=== PATIENT | female | born 1935 | race Caucasian/White ===

== ENCOUNTER → 2016-06-15 | Outpatient (CLI) | payer MEDICARE, OTHER ==
--- NOTE | 2016-06-15 15:32 | BD ---
EXAMINATION TYPE: MG DEXA axial skeleton. DATE OF EXAM: 06/15/2016 3:00 PM COMPARISON: NONE CLINICAL HISTORY: Height: 180 lbs Weight: 62 in FRAX RISK QUESTIONS: Alcohol (3 or more units per day): NO Family History (Parent hip fracture): NO Glucocorticoids (More than 3mos): NO (Ex: prednisone, prednisolone, methylprednisolone, dexamethasone, and hydrocortisone). History of Fracture in Adulthood: YES HUMERUS FX AGE 74 Secondary Osteoporosis: 1. Type 1 Diabetes: NO 2. Hyperthyroidism: NO 3. Menopause before 45: AGE 34 4. Malnutrition: NO 5. Chronic liver disease: NO Rheumatoid Arthritis: NO Current Tobacco Use: NO RISK FACTORS HISTORY OF: Other Fractures since Age 52: YES HUMERUS When: AGE 70 Active: YES Postmenopausal woman: AGE 34 MEDICATIONS: Thyroid Medications: YES Which medication: Synthroid How Lon + YRS Additional Medications: CALCIUM, VIT D, SYNTHROID,FUROSEMIDE, ASPIRIN, CRESTOR, ADVAIR, ARICEPT, METO PROLOL, WARFARIN, KLOR-CON, EXAM MEASUREMENTS: Bone mineral densitometry was performed using the [employer] System. Bone mineral density as measured about the Lumbar spine is: ----- L1-L4(G/cm2): 1.266 T Score Values are as follows: ----- L2: 0.2 ----- L3: 0.7 ----- L4: 2.2 ----- L1-L4: 0.7 Bone mineral density has: Decreased -2.5% since study of: 07/07/2001 Bone mineral density about the R hip (g/cm2): 0.831 Bone mineral density about the L hip (g/cm2): 0.798 T Score values are as follows: -----R Neck: -1.5 -----L Neck: -1.7 -----R Intertrochanter: -1.8 -----L Intertrochanter: -1.6 Bone mineral density has: Decreased -9.3% since study of: 07/07/2001 IMPRESSION: Osteopenia (T Score between -2.5 and -1 as noted by T score values There is slightly increased risk of fracture and the patient may be considered for treatment. Re-Screen 1-2 years. JASON HIPS NOTE: T-SCORE=SD OF THE YOUNG ADULT MEAN.
--- NOTE | 2016-06-16 11:50 | MM ---
Reason for exam: screening (asymptomatic). Last mammogram was performed 1 year and 5 months ago. History: Patient is postmenopausal. Physical Findings: A clinical breast exam by your physician is recommended on an annual basis and results should be correlated with mammographic findings. MG 3D Screening Mammo W/Cad Bilateral CC and MLO view(s) were taken. Prior study comparison: December 30, 2014, bilateral MG screening mammo w CAD. November 07, 2013, bilateral MG screening mammo w CAD. There are scattered fibroglandular densities. No significant changes when compared with prior studies. ASSESSMENT: Benign, BI-RAD 2 RECOMMENDATION: Routine screening mammogram of both breasts in 1 year.
== END | disposition home or self-care (01) ==
LOC: RADBDWWP 14:23
PROVIDERS: ATTEND Internal Medicine
DX: Z12.31 Encounter for screening mammogram for malignant neoplasm of breast (principal); M85.80 Other specified disorders of bone density and structure, unspecified site
CPT/HCPCS: 77080; 77063; G0202

== ENCOUNTER 2017-02-07 13:19 | Emergency (ER) | payer MEDICARE, OTHER ==
[2017-02-07 13:28] VITALS: TEMP 98
--- NOTE | 2017-02-07 13:55 | ED ---
Chest Pain HPI - General Chief Complaint: Chest Pain Stated Complaint: Chest Pain Time Seen by Provider: 02/07/17 13:34 Source: patient, RN notes reviewed Mode of arrival: wheelchair Limitations: no limitations - History of Present Illness Initial Comments: This is a 81-year-old female history of UT and history of CVA in the past who is status post a right carotid end arterectomy about 8 years ago who states she has sudden onset around 1 PM this afternoon of sharp right-sided chest pain. She states the pain was about 3/10 severity was also associated with some numbness to her tongue. The numbness has since resolved the chest pain has since resolved. She's never had pain or numbness quite like this before she also complains of a frontal headache aching in nature 2-3/10 severity this is also improved at this time. She denies any visual loss any focal weakness to her upper or lower extremities. No difficulty breathing no cough or phlegm production at this time. She also denies any fevers chills sweats. She denies any nasal drainage or discharge. She does say when she had her stroke she had about 15 minutes of right eye blindness but no other symptoms at this time. This resolved spontaneously she did not seek medical care at that time she did later in the resulted in the endarterectomy. She voices no other complaints at this time. MD Complaint: chest pain, other - Related Data Home Medications Medication Instructions Recorded Confirmed Aspirin [Children's Aspirin] 81 mg PO HS 02/07/17 02/07/17 Donepezil [Aricept] 5 mg PO HS 02/07/17 02/07/17 Fluticasone/Salmeterol [Advair 2 puff INHALATION RT-BID 02/07/17 02/07/17 250-50 Diskus] Furosemide [Lasix] 20 mg PO DAILY PRN 02/07/17 02/07/17 Levothyroxine Sodium [Synthroid] 88 mcg PO DAILY 02/07/17 02/07/17 Lisinopril-Hctz 20-25 mg 1 tab PO DAILY 02/07/17 02/07/17 [Zestoretic 20-25] Metoprolol Succinate [Toprol XL] 25 mg PO HS 02/07/17 02/07/17 Potassium Chloride [Klor-Con 10] 10 meq PO DAILY PRN 02/07/17 02/07/17 Rosuvastatin [Crestor] 20 mg PO MOWEFR 02/07/17 02/07/17 Warfarin [Coumadin] 2.5 mg PO TUSA 02/07/17 02/07/17 Warfarin [Coumadin] 5 mg PO SUMOWETHFR 02/07/17 02/07/17 Allergies Allergy/AdvReac Type Severity Reaction Status Date / Time No Known Allergies Allergy Verified 02/07/17 14:09 Review of Systems ROS Statement: Those systems with pertinent positive or pertinent negative responses have been documented in the HPI. ROS Other: All systems not noted in ROS Statement are negative. EKG Findings - EKG Results: EKG: interpreted by ERMD, sinus rhythm (Sinus rhythm rate 62 appear interval to 36 QRS 80 QT since QTC of 46/412 low-voltage QRS nonspecific septal changes some artifact is present.) Past Medical History Past Medical History: Asthma, CVA/TIA, Hypertension, Thyroid Disorder History of Any Multi-Drug Resistant Organisms: None Reported Past Surgical History: Hysterectomy Additional Past Surgical History / Comment(s): carotidectomy Past Psychological History: No Psychological Hx Reported Smoking Status: Former smoker Past Alcohol Use History: Rare Past Drug Use History: None Reported General Exam - General Exam Comments Initial Comments: This is a well-developed well-nourished awake alert oriented 3 female Limitations: no limitations General appearance: alert, in no apparent distress Head exam: Present: atraumatic, normocephalic, normal inspection Eye exam: Present: normal appearance, PERRL, EOMI. Absent: scleral icterus, conjunctival injection, periorbital swelling ENT exam: Present: mucous membranes dry Neck exam: Present: normal inspection. Absent: tenderness, meningismus, lymphadenopathy Respiratory exam: Present: normal lung sounds bilaterally, chest wall tenderness (Reproducible tenderness palpation over the right costal sternal margin the right costal chondral margin. No step-off or crepitation), other ( No rashes noted). Absent: respiratory distress, wheezes, rales, rhonchi, stridor Cardiovascular Exam: Present: regular rate, normal rhythm, normal heart sounds. Absent: systolic murmur, diastolic murmur, rubs, gallop, clicks GI/Abdominal exam: Present: soft, normal bowel sounds. Absent: distended, tenderness, guarding, rebound, rigid, bruit, pulsatile mass, hernia Extremities exam: Present: normal inspection, full ROM, normal capillary refill. Absent: tenderness, pedal edema, joint swelling, calf tenderness Back exam: Present: normal inspection Neurological exam: Present: alert, oriented X3, CN II-XII intact Psychiatric exam: Present: normal affect, normal mood Skin exam: Present: warm, dry, intact, normal color. Absent: rash Course Vital Signs 02/07/17 13:25 Temperature 98 F Pulse Rate 64 Respiratory 18 Rate Blood Pressure 190/80 O2 Sat by Pulse 94 L Oximetry Chest Pain MDM - MDM Patient is feeling improved after IV hydration and IV blood pressure medication. She'll be discharged she is a follow-up with her doctor and return when necessary the presentation is consistent with chest wall pain and dehydration. Disposition Clinical Impression: Chest wall syndrome, Costalchondritis, Dehydration, Hypertension Disposition: HOME SELF-CARE Condition: Good Instructions: Costochondritis (ED), Dehydration (ED), Hypertension (ED) Referrals: Melani Bertrand MD [Primary Care Provider] - 1-2 days
--- NOTE | 2017-02-07 14:15 | XR ---
EXAMINATION TYPE: XR chest 2V DATE OF EXAM: 02/07/2017 COMPARISON: 04/15/2014 HISTORY: 81-year-old female with right-sided chest pain TECHNIQUE: AP and lateral views FINDINGS: Heart is normal size. Atherosclerotic arch calcifications. There is mild diffuse interstitial promine nce. Some strandy atelectasis or scarring at the posterior lung bases. No consolidation or pleural ef fusion. IMPRESSION: Chronic changes without acute process identified.
[2017-02-07 14:31] LABS: Basophils # (A) 0.2 k/uL (0-0.2); Basophils % (A) 2 %; CHCM 33.9; Eosinophils # (A) 0.5 k/uL (0-0.7); Eosinophils % (A) 5 %; HCT 47.8 % (34.0-46.0); HDW 2.53; HGB 15.8 gm/dL (11.4-16.0); Luc % (Auto) 3; Lymphocytes # (A) 5.4 k/uL (1.0-4.8); Lymphocytes % (A) 47 %; MCH 32.2 pg (25.0-35.0); MCHC 32.9 g/dL (31.0-37.0); MCV 97.8 fL (80.0-100.0); Mean Platelet Volume 9.1; Monocytes # (A) 0.6 k/uL (0-1.0); Monocytes % (A) 5 %; Neutrophils # (A) 4.5 k/uL (1.3-7.7); Neutrophils % (A) 39 %; RBC 4.89 m/uL (3.80-5.40); RDW 14.6 % (11.5-15.5); WBC 11.5 k/uL (3.8-10.6); WBC (Perox) 10.87
--- NOTE | 2017-02-07 14:39 | CT ---
EXAMINATION TYPE: CT brain wo con DATE OF EXAM: 02/07/2017 HISTORY: Hypertension, headache and chest pain CT DLP: 1090.4 mGycm. Automated Exposure Control for Dose Reduction was Utilized. TECHNIQUE: CT scan of the head is performed without contrast. COMPARISON: CT brain June 06, 2015. FINDINGS: There is no acute intracranial hemorrhage or midline shift identified. There is diffuse v entricular and sulcal prominence consistent with diffuse age-related cerebral atrophy. There is low- attenuation in the periventricular white matter consistent with chronic small vessel ischemic change. Old infarct high right frontal lobe anteriorly is redemonstrated. There is redemonstration of ossifi cation of the anterior interhemispheric fissure. The globes are intact and the visualized sinuses are clear. Patchy soft tissue density left extra auditory canal likely reflects cerumen. IMPRESSION: No acute intracranial hemorrhage or midline shift. There is moderate diffuse age-relate d cerebral atrophy and chronic small vessel ischemic change as well as old superior right frontal lob e infarct all redemonstrated.
[2017-02-07 14:41] LABS: ALT 33 U/L (9-52); AST 36 U/L (14-36); Alkaline Phosphatase 86 U/L (38-126); Amylase 86 U/L (30-110); Anion Gap 9 mmol/L; Blood Urea Nitrogen 14 mg/dL (7-17); Calcium 9.9 mg/dL (8.4-10.2); Carbon Dioxide 23 mmol/L (22-30); Chloride 110 mmol/L (98-107); Glucose 96 mg/dL (74-99); Magnesium 2.1 mg/dL (1.6-2.3); Non-African American GFR(MDRD) 54 (>60 ml/min/1.73 sqM); Sodium 142 mmol/L (137-145); Total Bilirubin 0.6 mg/dL (0.2-1.3); Total Protein 7.2 g/dL (6.3-8.2)
[2017-02-07] MEDS ORDERED: SODIUM CHLORIDE 0.9% 500 ML IV STA (14:41)
[2017-02-07] MEDS ORDERED: ENALAPRILAT 1.25 MG/ML 1 ML VIAL IVP STA (14:41)
[2017-02-07 14:54] LABS: INR 2.9 (<1.2); Partial Thromboplastin Time 30.6 sec (22.0-30.0); Prothrombin Time 27.9 sec (9.0-12.0)
[2017-02-07 14:55] LABS: Creatine Kinase 80 U/L (30-135); Polychromasia Present
[2017-02-07 15:06] LABS: Creatine Kinase MB 0.7 ng/mL (0.0-2.4); Troponin I <0.012 ng/mL (0.000-0.034)
[2017-02-07 16:02] VITALS: BP 188/89; PULSE 87; RESP 20
[2017-02-09 14:50] LABS: Mis test requested (Blood) B Cell Flow Cyto
== END 2017-02-07 16:03 | disposition home or self-care (01) ==
LOC: EC 13:19
DX: M94.0 Chondrocostal junction syndrome [Tietze] (principal); E86.0 Dehydration; I10 Essential (primary) hypertension; J45.909 Unspecified asthma, uncomplicated; E07.9 Disorder of thyroid, unspecified; Z86.73 Personal history of transient ischemic attack (TIA), and cerebral infarction without residual deficits; Z98.890 Other specified postprocedural states; Z87.891 Personal history of nicotine dependence; Z79.82 Long term (current) use of aspirin; Z79.51 Long term (current) use of inhaled steroids; Z79.01 Long term (current) use of anticoagulants; Z79.899 Other long term (current) drug therapy
CPT/HCPCS: 36415; 70450; 71020; 80053; 82150; 82550; 82553; 83690; 83735; 83880; 84484; 85025; 85379; 85610; 85730; 88184; 88185; 93005; 96361; 96374; 99285

== ENCOUNTER → 2017-09-21 | Outpatient (CLI) | payer MEDICARE, OTHER ==
--- NOTE | 2017-09-23 07:59 | MM ---
Reason for exam: screening (asymptomatic). Last mammogram was performed 1 year and 3 months ago. History: Patient is postmenopausal. Physical Findings: A clinical breast exam by your physician is recommended on an annual basis and results should be correlated with mammographic findings. MG 3D Screening Mammo W/Cad Bilateral CC and MLO view(s) were taken. Prior study comparison: June 15, 2016, bilateral MG 3d screening mammo w/cad. December 30, 2014, bilateral MG screening mammo w CAD. The breast tissue is heterogeneously dense. This may lower the sensitivity of mammography. Benign calcifications bilaterally. No suspicious abnormality. Chronic appearing bilateral nipple retraction. No significant changes when compared with prior studies. ASSESSMENT: Benign, BI-RAD 2 RECOMMENDATION: Routine screening mammogram of both breasts in 1 year.
== END | disposition home or self-care (01) ==
LOC: RADMAMWWP 10:47
PROVIDERS: ATTEND Internal Medicine
DX: Z12.31 Encounter for screening mammogram for malignant neoplasm of breast (principal)
CPT/HCPCS: 77063; 77067

== ENCOUNTER 2018-01-18 11:47 | Emergency (ER) | payer MEDICARE, OTHER ==
[2018-01-18 11:50] VITALS: RESP 18
[2018-01-18] MEDS ORDERED: SODIUM CHLORIDE 0.9% 500 ML IV STA (11:59)
[2018-01-18] MEDS ORDERED: DIAZEPAM 5 MG/ML 2 ML INJ IVP STA (11:59)
[2018-01-18] MEDS ORDERED: MECLIZINE 25 MG TAB PO STA (11:59)
[2018-01-18 12:19] LABS: Basophils # (A) 0.1 k/uL (0-0.2); Basophils % (A) 1 %; Eosinophils # (A) 0.1 k/uL (0-0.7); Eosinophils % (A) 1 %; HCT 49.3 % (34.0-46.0); Lymphocytes # (A) 4.2 k/uL (1.0-4.8); Lymphocytes % (A) 39 %; MCH 31.5 pg (25.0-35.0); MCHC 32.5 g/dL (31.0-37.0); MCV 96.8 fL (80.0-100.0); Mean Platelet Volume 7.9; Monocytes # (A) 0.6 k/uL (0-1.0); Monocytes % (A) 5 %; Neutrophils # (A) 5.4 k/uL (1.3-7.7); Neutrophils % (A) 51 %; Platelet Count 292 k/uL (150-450); RBC 5.09 m/uL (3.80-5.40); RDW 13.5 % (11.5-15.5); WBC 10.7 k/uL (3.8-10.6)
[2018-01-18 12:30] LABS: INR 3.2 (<1.2); Partial Thromboplastin Time 33.7 sec (22.0-30.0); Prothrombin Time 28.8 sec (9.0-12.0)
[2018-01-18 12:33] LABS: Albumin 3.5 g/dL (3.5-5.0); Calcium 9.8 mg/dL (8.4-10.2); Potassium 3.7 mmol/L (3.5-5.1); Total Bilirubin 0.8 mg/dL (0.2-1.3); Total Protein 6.7 g/dL (6.3-8.2)
--- NOTE | 2018-01-18 12:36 | ED ---
General Adult HPI - General Chief complaint: Dizziness Stated complaint: Dizzy Time Seen by Provider: 01/18/18 11:47 Source: patient, RN notes reviewed Mode of arrival: ambulatory Limitations: no limitations - History of Present Illness Initial comments: This is an 10-year-old female presents emergency Department complaining that she has been dizzy over the last few days but much worse today. Patient notes that the dizziness is worse when she has movement of her head from side to side or when she goes from standing to sitting. Patient denies any near syncopal episode. Patient denies any nausea or vomiting. Patient denies any numbness or weakness. Patient denies a headache. Patient denies any chest pain or palpitations. Patient denies any recent fever chills or cough. Patient denies any abdominal pain. Patient denies any recent injury or trauma. Patient denies any previous history of vertigo or dizziness some or to this. - Related Data Home Medications Medication Instructions Recorded Confirmed Aspirin [Children's Aspirin] 81 mg PO HS 02/07/17 01/18/18 Donepezil [Aricept] 5 mg PO HS 02/07/17 01/18/18 Fluticasone/Salmeterol [Advair 2 puff INHALATION RT-BID 02/07/17 01/18/18 250-50 Diskus] Furosemide [Lasix] 20 mg PO DAILY PRN 02/07/17 01/18/18 Levothyroxine Sodium [Synthroid] 88 mcg PO DAILY 02/07/17 01/18/18 Lisinopril-Hctz 20-25 mg 1 tab PO DAILY 02/07/17 01/18/18 [Zestoretic 20-25] Metoprolol Succinate [Toprol XL] 25 mg PO HS 02/07/17 01/18/18 Potassium Chloride [Klor-Con 10] 10 meq PO DAILY PRN 02/07/17 01/18/18 Rosuvastatin [Crestor] 20 mg PO MOWEFR 02/07/17 01/18/18 Warfarin [Coumadin] 2.5 mg PO TUSA 02/07/17 01/18/18 Warfarin [Coumadin] 5 mg PO SUMOWETHFR 02/07/17 01/18/18 Multivitamins, Thera [Multivitamin 1 tab PO DAILY 01/18/18 01/18/18 (formulary)] Previous Rx's Medication Instructions Recorded Albuterol Inhaler [Ventolin Hfa 1 - 2 puff INHALATION Q6HR PRN #2 01/18/18 Inhaler] puff Meclizine [Antivert] 25 mg PO TID #20 tab 01/18/18 Allergies Allergy/AdvReac Type Severity Reaction Status Date / Time dacron Allergy Unknown Uncoded 01/18/18 11:50 Review of Systems ROS Statement: Those systems with pertinent positive or pertinent negative responses have been documented in the HPI. ROS Other: All systems not noted in ROS Statement are negative. Past Medical History Past Medical History: Asthma, CVA/TIA, Hypertension, Thyroid Disorder History of Any Multi-Drug Resistant Organisms: None Reported Past Surgical History: Hysterectomy Additional Past Surgical History / Comment(s): carotidectomy Past Psychological History: No Psychological Hx Reported Smoking Status: Former smoker Past Alcohol Use History: Rare Past Drug Use History: None Reported General Exam - General Exam Comments Initial Comments: GENERAL: Patient is well-developed and well-nourished. Patient is nontoxic and well- hydrated and is in mild distress. ENT: Neck is soft and supple. No significant lymphadenopathy is noted. Oropharynx is clear. Moist mucous membranes. Neck has full range of motion without eliciting any pain. EYES: The sclera were anicteric and conjunctiva were pink and moist. Extraocular movements were intact and pupils were equal round and reactive to light. Eyelids were unremarkable. PULMONARY: Unlabored respirations. Good breath sounds bilaterally. No audible rales rhonchi or wheezing was noted. CARDIOVASCULAR: There is a regular rate and rhythm without any murmurs gallops or rubs. ABDOMEN: Soft and nontender with normal bowel sounds. No palpable organomegaly was noted. There is no palpable pulsatile mass. SKIN: Skin is clear with no lesions or rashes and otherwise unremarkable. NEUROLOGIC: Patient is alert and oriented x3. Cranial nerves II through XII are grossly intact. Motor and sensory are also intact. Normal speech, volume and content. Symmetrical smile. Cerebellar exam grossly intact. MUSCULOSKELETAL: Normal extremities with adequate strength and full range of motion. No lower extremity swelling or edema. No calf tenderness. LYMPHATICS: No significant lymphadenopathy is noted PSYCHIATRIC: Normal psychiatric evaluation. Limitations: no limitations Course Vital Signs 01/18/18 01/18/18 01/18/18 11:47 13:08 13:16 Temperature 98.0 F 97 F L Pulse Rate 54 L 57 L Respiratory 18 18 Rate Blood Pressure 100/62 166/77 O2 Sat by Pulse 91 L 88 L 93 L Oximetry 01/18/18 01/18/18 15:31 15:44 Temperature Pulse Rate 60 68 Respiratory Rate Blood Pressure O2 Sat by Pulse Oximetry Medical Decision Making - Medical Decision Making EKG shows sinus rhythm at 62 bpm VT interval is 240 QRS 78 QT interval 432 QTC is 438. Patient's EKG shows no ST segment elevation or depression or T wave abnormalities are noted. Chest x-ray shows no acute abnormality. CT of the brain shows no acute abnormality Patient ambulated and felt much better with her dizziness. However her pulse ox was a little low and she stated she felt like she needed breathing treatment. I gave the patient a breathing treatment she felt considerably better and no longer short of breath at all and pulse ox is 92% on room air. - Lab Data Result diagrams: 01/18/18 12:05 01/18/18 12:05 Lab Results 01/18/18 01/18/18 01/18/18 Range/Units 12:05 12:05 12:05 WBC 10.7 H (3.8-10.6) k/uL RBC 5.09 (3.80-5.40) m/uL Hgb 16.0 (11.4-16.0) gm/dL Hct 49.3 H (34.0-46.0) % MCV 96.8 (80.0-100.0) fL MCH 31.5 (25.0-35.0) pg MCHC 32.5 (31.0-37.0) g/dL RDW 13.5 (11.5-15.5) % Plt Count 292 (150-450) k/uL Neutrophils % 51 % Lymphocytes % 39 % Monocytes % 5 % Eosinophils % 1 % Basophils % 1 % Neutrophils # 5.4 (1.3-7.7) k/uL Lymphocytes # 4.2 (1.0-4.8) k/uL Monocytes # 0.6 (0-1.0) k/uL Eosinophils # 0.1 (0-0.7) k/uL Basophils # 0.1 (0-0.2) k/uL PT (9.0-12.0) sec INR (<1.2) APTT (22.0-30.0) sec VBG pH (7.31-7.41) VBG pCO2 (37-51) mmHg VBG HCO3 (24-28) mmol/L Sodium 138 (137-145) mmol/L Potassium 3.7 (3.5-5.1) mmol/L Chloride 105 (98-107) mmol/L Carbon Dioxide 24 (22-30) mmol/L Anion Gap 9 mmol/L BUN 20 H (7-17) mg/dL Creatinine 1.20 H (0.52-1.04) mg/dL Est GFR (CKD-EPI)AfAm 49 (>60 ml/min/1.73 sqM) Est GFR (CKD-EPI)NonAf 43 (>60 ml/min/1.73 sqM) Glucose 97 (74-99) mg/dL Calcium 9.8 (8.4-10.2) mg/dL Magnesium 2.0 (1.6-2.3) mg/dL Total Bilirubin 0.8 (0.2-1.3) mg/dL AST 34 (14-36) U/L ALT 31 (9-52) U/L Alkaline Phosphatase 80 (38-126) U/L Total Creatine Kinase 38 (30-135) U/L CK-MB (CK-2) 0.3 (0.0-2.4) ng/mL CK-MB (CK-2) Rel Index 0.8 Troponin I <0.012 (0.000-0.034) ng/mL NT-Pro-B Natriuret Pep pg/mL Total Protein 6.7 (6.3-8.2) g/dL Albumin 3.5 (3.5-5.0) g/dL 01/18/18 01/18/18 01/18/18 Range/Units 12:05 12:05 13:25 WBC (3.8-10.6) k/uL RBC (3.80-5.40) m/uL Hgb (11.4-16.0) gm/dL Hct (34.0-46.0) % MCV (80.0-100.0) fL MCH (25.0-35.0) pg MCHC (31.0-37.0) g/dL RDW (11.5-15.5) % Plt Count (150-450) k/uL Neutrophils % % Lymphocytes % % Monocytes % % Eosinophils % % Basophils % % Neutrophils # (1.3-7.7) k/uL Lymphocytes # (1.0-4.8) k/uL Monocytes # (0-1.0) k/uL Eosinophils # (0-0.7) k/uL Basophils # (0-0.2) k/uL PT 28.8 H (9.0-12.0) sec INR 3.2 H (<1.2) APTT 33.7 H (22.0-30.0) sec VBG pH 7.35 (7.31-7.41) VBG pCO2 49 (37-51) mmHg VBG HCO3 26 (24-28) mmol/L Sodium (137-145) mmol/L Potassium (3.5-5.1) mmol/L Chloride (98-107) mmol/L Carbon Dioxide (22-30) mmol/L Anion Gap mmol/L BUN (7-17) mg/dL Creatinine (0.52-1.04) mg/dL Est GFR (CKD-EPI)AfAm (>60 ml/min/1.73 sqM) Est GFR (CKD-EPI)NonAf (>60 ml/min/1.73 sqM) Glucose (74-99) mg/dL Calcium (8.4-10.2) mg/dL Magnesium (1.6-2.3) mg/dL Total Bilirubin (0.2-1.3) mg/dL AST (14-36) U/L ALT (9-52) U/L Alkaline Phosphatase (38-126) U/L Total Creatine Kinase (30-135) U/L CK-MB (CK-2) (0.0-2.4) ng/mL CK-MB (CK-2) Rel Index Troponin I (0.000-0.034) ng/mL NT-Pro-B Natriuret Pep 110 pg/mL Total Protein (6.3-8.2) g/dL Albumin (3.5-5.0) g/dL Disposition Clinical Impression: Vertigo Disposition: HOME SELF-CARE Condition: Good Instructions: Vertigo (ED) Prescriptions: Albuterol Inhaler [Ventolin Hfa Inhaler] 1 - 2 puff INHALATION Q6HR PRN #2 puff PRN Reason: Difficulty breathing Meclizine [Antivert] 25 mg PO TID #20 tab Is patient prescribed a controlled substance at d/c from ED?: No Referrals: Melani Bertrand MD [Primary Care Provider] - 1-2 days Time of Disposition: 15:59
[2018-01-18 12:45] LABS: Creatine Kinase 38 U/L (30-135)
[2018-01-18 12:57] LABS: Creatine Kinase MB 0.3 ng/mL (0.0-2.4); Troponin I <0.012 ng/mL (0.000-0.034)
--- NOTE | 2018-01-18 13:11 | CT ---
EXAMINATION TYPE: CT brain wo con DATE OF EXAM: 01/18/2018 COMPARISON: 02/07/2017 HISTORY: Dizziness CT DLP: [address] of the brain was performed. The ventricles, basal cisterns and sulci overlying the cerebral convexities demonstrate mild enlargem ent. Remote insult right frontal lobe. There is no evidence for intracranial hemorrhage or sulcal effacement. There is decreased attenuation about the periventricular white matter and deep white matter of both c erebral hemispheres, compatible with chronic small vessel ischemia. Differential diagnosis does inclu de demyelination. No mass effects are seen.No midline shift. Osseous calvarium is intact. If symptoms persist consider MRI. IMPRESSION: 1. Age related atrophic and chronic small vessel ischemic change without acute intracranial process s een at this time.
[2018-01-18 13:14] VITALS: TEMP 97
--- NOTE | 2018-01-18 13:15 | XR ---
EXAMINATION TYPE: XR chest 2V DATE OF EXAM: 01/18/2018 COMPARISON: 02/07/2017 HISTORY: Shortness of breath TECHNIQUE: Frontal and lateral views of the chest are obtained. FINDINGS: Scattered senescent parenchymal changes noted. Hyperinflation compatible with COPD. No evidence for infiltrate. No evidence for atelectasis. Heart size is stable. Mediastinal structures are stable and grossly unremarkable. No evidence for hilar prominence. Degenerative changes dorsal spine. IMPRESSION: 1. No evidence for acute pulmonary disease.
[2018-01-18 13:33] LABS: VBG PH 7.35 (7.31-7.41)
[2018-01-18] MEDS ORDERED: IPRATROPIUM-ALBUTEROL 3 ML NEB INHALATION STA (15:01)
[2018-01-18 16:00] VITALS: BP 166/74; PULSE 65
== END 2018-01-18 16:16 | disposition home or self-care (01) ==
LOC: EC 11:47
DX: R42 Dizziness and giddiness (principal); J45.909 Unspecified asthma, uncomplicated; I10 Essential (primary) hypertension; E07.9 Disorder of thyroid, unspecified; Z87.891 Personal history of nicotine dependence; Z79.01 Long term (current) use of anticoagulants; Z79.51 Long term (current) use of inhaled steroids; Z79.82 Long term (current) use of aspirin; Z79.899 Other long term (current) drug therapy; Z91.048 Other nonmedicinal substance allergy status; Z86.73 Personal history of transient ischemic attack (TIA), and cerebral infarction without residual deficits
CPT/HCPCS: 36415; 94640; 93005; 83880; 80053; 82550; 82553; 82803; 83735; 84484; 85025; 85610; 85730; 71046; 70450; 99284; 96374; 96361; J3360

== ENCOUNTER → 2018-01-27 | Outpatient (CLI) | payer MEDICARE, OTHER ==
[~2018-01-27] MED LIST: REGADENOSON 0.4 MG/5 ML SYRINGE IV ONE
--- NOTE | 2018-01-27 14:01 | EST ---
EXERCISE STRESS DATE OF SERVICE: 01/27/2018 AGE: 82 SEX: Female HT: 5'3" WT: 175 pounds PROTOCOL: Lexiscan Cardiolite STAGE: DURATION OF EXERCISE: HEART RATE REST: 61 BLOOD PRESSURE REST: 157/66 MAXIMUM HEART RATE ACHIEVED: 77 MAXIMUM BLOOD PRESSURE: 157/69 85% MPHR: 119 100% MPHR: 140 METS: INDICATIONS: Shortness of breath CLINICAL INFORMATION: A Lexiscan nuclear study is performed. Peak heart rate of 77 was achieved. Maximum blood pressure of 157/69 mmHg was noted. Resting EKG shows normal sinus rhythm with normal SC interval and QRS duration and normal ST-T waves. No ST-segment depression suggestive of ischemia is noted. FINAL IMPRESSION: There is no evidence of any ST-segment depression to suggest ischemia during Lexiscan injection. The results of the nuclear study will follow. MILA / ADRIANNE: [id number] /
--- NOTE | 2018-01-27 18:27 | NM ---
EXAMINATION TYPE: NM stress lexiscan cardiolite DATE OF EXAM: 01/27/2018 COMPARISON: 02/04/2015 HISTORY: Myocardial infarction, ST segment elevation TECHNIQUE: After the intravenous administration of 10.44 mCi Tc 99m Sestamibi - Cardiolite resting S PECT images acquired 45 minutes post injection. The patient received 0.4mg Lexiscan, 26.9 mCi Tc 99m Sestamibi - Stress images obtained [address] injection FINDINGS: On SPECT images there is a very subtle mid anterior wall defect on the stress images which appears improved on the resting images. This is not identified on the resting images. Ejection fracti on is normal at 60%. Gated wall motion is normal. Pulmonary maps do not support the suspected defect. Breast artifact not be identified. Correlate for EKG changes. IMPRESSION: 1. Subtle diminished density within the midportion of the anterior wall on stress images with more im proved visualization on resting images. Mild stress-induced ischemic change versus artifact should be considered. This is an atypical vascular distribution and is not supported by polar maps. 2. Normal ejection fraction. 3. Wall motion is unremarkable.
== END | disposition home or self-care (01) ==
LOC: RADNMMAIN 08:18
PROVIDERS: ATTEND Internal Medicine
DX: R94.39 Abnormal result of other cardiovascular function study (principal); I21.29 ST elevation (STEMI) myocardial infarction involving other sites
CPT/HCPCS: 93017; 78452; A9500; J2785

== ENCOUNTER → 2018-02-13 | Outpatient (CLI) | payer MEDICARE, OTHER ==
[2018-02-13 12:19] LABS: HCT 49.9 % (34.0-46.0); HGB 15.5 gm/dL (11.4-16.0); Hypochromasia Slight; MCH 30.9 pg (25.0-35.0); MCHC 31.1 g/dL (31.0-37.0); MCV 99.1 fL (80.0-100.0); Mean Platelet Volume 8.4; Platelet Count 324 k/uL (150-450); RBC 5.04 m/uL (3.80-5.40); RDW 13.7 % (11.5-15.5); WBC 10.2 k/uL (3.8-10.6)
[2018-02-13 12:47] LABS: Potassium 4.3 mmol/L (3.5-5.1)
== END ==
LOC: LABPAT 11:19
PROVIDERS: ATTEND Internal Medicine Interventional Cardiology
DX: Z01.812 Encounter for preprocedural laboratory examination (principal); I25.10 Atherosclerotic heart disease of native coronary artery without angina pectoris; I10 Essential (primary) hypertension; E78.1 Pure hyperglyceridemia
CPT/HCPCS: 36415; 80051; 82565; 84520; 85027

== ENCOUNTER 2018-02-21 06:11 | Day surgery (SDC) | payer MEDICARE, OTHER ==
[2018-02-21] MEDS ORDERED: ALPRAZolam 0.25 MG TAB PO PRN (06:22)
[2018-02-21] MEDS ORDERED: NITROGLYCERIN SL TABS 0.4 MG TAB SUBLINGUAL PRN (06:22)
[2018-02-21] MEDS ORDERED: ALPRAZolam 0.5 MG TAB PO PRN (06:22)
[2018-02-21] MEDS ORDERED: SODIUM CHLORIDE 0.9% 1,000 ML in EMPTY BAG 1 BAG IV ONE ×2 (06:22→22:00)
[2018-02-21] MEDS ORDERED: ATORVASTATIN 80 MG TAB PO ONE (07:00)
[2018-02-21] MEDS ORDERED: ASPIRIN 325 MG TAB PO ONE (07:00)
[2018-02-21] MEDS ORDERED: hydrALAZINE HCL 20 MG/ML 1 ML VIAL ONE ×2 (07:13→07:39)
[2018-02-21] MEDS ORDERED: ENALAPRILAT 1.25 MG/ML 1 ML VIAL ONE (07:13)
[2018-02-21 07:15] LABS: INR 1.9 (<1.2); Prothrombin Time 17.1 sec (9.0-12.0)
[2018-02-21] MEDS: MIDAZOLAM 2 MG/2 ML VIAL IV ONE ×2 (08:20→08:45)
[2018-02-21] MEDS ORDERED: LIDOCAINE 1% INJ 10MG/ML (20 ML MDV) SQ ONE (08:26)
[2018-02-21] MEDS ORDERED: HEPARIN SODIUM 1,000 UN/ML (10ML VL) IV ONE (08:29)
[2018-02-21] MEDS ORDERED: NITROGLYCERIN 1000MCG/10ML SYRINGE INTRACORON ONE (08:33)
[2018-02-21] MEDS ORDERED: ADENOSINE 90 MG in SODIUM CHLORIDE 0.9% 60 ML IVP ONE (09:24)
[2018-02-21] MEDS ORDERED: IOPAMIDOL-370 125ML BTL INJ ONE (09:27)
[2018-02-21] MEDS ORDERED: IOPAMIDOL-370 100ML BTL INJ ONE (09:27)
[2018-02-21] MEDS ORDERED: POTASSIUM CHLORIDE ER 10 MEQ TAB.ER.PRT PO PRN (09:34)
[2018-02-21] MEDS ORDERED: MECLIZINE 25 MG TAB PO PRN (09:34)
[2018-02-21] MEDS ORDERED: FUROSEMIDE 20 MG TAB PO PRN (09:34)
[2018-02-21] MEDS ORDERED: RX INFO: IV CONTRAST WAS GIVEN 1 EACH MISC MISCELLANE PRN (09:35)
[2018-02-21] MEDS ORDERED: SODIUM CHLORIDE 0.9% 1,000 ML IV SCH (09:45)
[2018-02-21] MEDS ORDERED: HEPARIN SODIUM,PORCINE 5,000 UNIT/ML 1 ML VIAL IV PRN (09:56)
[2018-02-21] MEDS ORDERED: ASPIRIN 325 MG TAB PO STA (09:57)
--- NOTE | 2018-02-21 10:05 | LTR ---
February 21, 2018 Re: Susan Ramos Dear Emad: Ms. 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 She will be scheduled to undergo PCI of the right coronary artery in the next 24 hours. Thank you for allowing us to participate in her care and please do not hesitate to call if you have any question or concern. Sincerely, MD MILA Hickman / ADRIANNE: [phone] /
--- NOTE | 2018-02-21 11:05 | CC ---
CARDIAC CATHETERIZATION REPORT DATE OF SERVICE: 02/21/2018 PERFORMING PHYSICIAN: Estevan Sheehan MD, Contract Administrative Assistant. PROCEDURE PERFORMED: 1. Selective right and left coronary angiogram. 2. Left heart catheterization. 3. Intravascular ultrasound IVUS of the left main. 4. Fractional flow reserve FFR of the left main. INDICATION: This is a pleasant 82-year-old female patient with a past medical history significant for hypertension, dyslipidemia, and significant history of smoking, who was experiencing exertional dyspnea concerning for angina. She underwent a myocardial perfusion imaging stress test and that revealed an ischemia. Because of that, a heart catheterization was advised. COMPLICATION: None. LEVEL OF SEDATION: Moderate with sedation length of 67 minutes. APPROACH: Right radial artery. PROCEDURE DESCRIPTION: After obtaining an informed consent, the patient was brought to the cardiac woven label designer. The right radial artery was cannulated using micropuncture technique, the micropuncture wire passed easily, then I placed a 6-Guatemalan sheath in the right radial artery. The right radial artery was cannulated using micropuncture technique, the micropuncture wire passed easily, then I placed a 6-Guatemalan sheath in the right radial artery. After that, I gave the patient 6000 units of heparin IV. Selective right and left coronary angiogram was performed using JR4 and JL3.5 catheters. Left heart catheterization was performed using 6-Guatemalan pigtail catheter. The procedure was completed without any complication. SELECTIVE CORONARY ANGIOGRAM: 1. The RCA is a large caliber vessel and it is a dominant vessel. The ostial RCA has a lesion appeared to be in the range of 70%. There was dampening in the waveform and waveform ventricularization upon engaging the ostial right using 5-Guatemalan catheter. I did give IC nitroglycerin without any improvement. The proximal and mid RCA after the ostial appeared to have mild disease only. The RCA distally is normal and bifurcates into PDA and PLV branches both are angiographically normal. 2. THE LEFT MAIN: The left main distally has a lesion, appeared to be in the range of 40% to 50%.. I did perform an IVUS of the left main and that came in to be around 8 mm2 and fractional flow reserve which came in to be at 0.88. The left main distally bifurcates into left circumflex and left anterior descending artery. 3. THE LEFT CIRCUMFLEX: The ostial left circumflex is involved in the back on the left main. It does have a lesion, appeared to be in the range of 40% to 50%. The left circumflex proximally gives rise into a first OM branch which is a moderate caliber vessel, seems to be angiographically normal and the left circumflex continues as a moderate caliber vessel in the AV groove after gives rise into a second OM branch which appeared to have mild disease only. 4. THE LAD: The LAD in the proximal portion appeared to have a lesion in the range of 50%. This is by the bifurcation of the first diagonal branch which worked as ramus intermedius which appeared to have mild disease only. The mid and distal LAD appear to have mild disease only. The LAD gives rise into second and third diagonal branches in the midportion and both appeared to be angiographically normal. HEMODYNAMICS:: The left ventricular end-diastolic pressure was 12 mmHg without significant gradient across the aortic valve. IVUS OF THE LEFT MAIN AND FFR OF THE LEFT MAIN: After assuring the ACT was therapeutic, we did an IVUS. I did advance the IVUS across the left main. The IVUS stuck by the proximal part of the lesion which we measured and came in to be at 8 mm2. FFR of the left main was performed after zeroing the Doppler wire and equalizing between the Doppler wire and the guiding catheter which was JL3.5 guiding catheter. The FFR came in to be at 0.88 which is not ischemic. CONCLUSION: 1. Severe disease involving the ostial right coronary artery which appeared to have a calcified lesion in the range of 70% to 80%. There was definitely dampening in the waveform and waveform ventricularization upon engaging the right coronary artery. 2. Distal left main disease appeared to be in the range of 40%. I did intravascular ultrasound (IVUS) as well as fractional flow reserve and both came into be nonischemic. 3. Mild to moderate disease involving the left circumflex coronary artery. 4. Mild to moderate disease involving the LAD as well. POSTPROCEDURE MANAGEMENT: 1. PCI of the RCA to be done in next 24 hours because we reached or maximal contrast use. 2. The patient will be kept in the hospital overnight for PCI of the RCA tomorrow. MMODL / IJN: [id number] /
[2018-02-21 11:53] LABS: Basophils # (A) 0.2 k/uL (0-0.2); Basophils % (A) 1 %; Eosinophils # (A) 0.7 k/uL (0-0.7); Eosinophils % (A) 6 %; HGB 15.7 gm/dL (11.4-16.0); Lymphocytes # (A) 4.6 k/uL (1.0-4.8); Lymphocytes % (A) 42 %; MCH 31.4 pg (25.0-35.0); MCV 97.9 fL (80.0-100.0); Mean Platelet Volume 8.4; Monocytes # (A) 0.6 k/uL (0-1.0); Monocytes % (A) 6 %; Neutrophils # (A) 4.7 k/uL (1.3-7.7); Neutrophils % (A) 43 %; Platelet Count 266 k/uL (150-450); RBC 5.01 m/uL (3.80-5.40); RDW 13.8 % (11.5-15.5)
[2018-02-21] MEDS: LEVOTHYROXINE 88 MCG TAB PO SCH (16:20)
[2018-02-21] MEDS ORDERED: amLODIPine 10 MG TAB PO STA (16:44)
[2018-02-21] MEDS: HEPARIN SOD,PORK IN 0.45% NACL 25,000 UNIT in 0.45% NACL 1 500ML.BAG IV SCH (16:51)
[2018-02-21] MEDS: SYMBICORT 80-4.5 MCG INHALER INHALATION SCH (20:03)
[2018-02-21] MEDS: METOPROLOL SUCCINATE (ER) 25 MG TAB.ER.24H PO SCH (20:19)
[2018-02-21] MEDS: DONEPEZIL 5 MG TAB PO SCH (20:19)
[2018-02-21] MEDS: ASPIRIN 81 MG PO SCH (20:34)
[2018-02-22 01:03] VITALS: RESP 18
[2018-02-22] MEDS: LEVOTHYROXINE 88 MCG TAB PO SCH (06:24)
[2018-02-22] MEDS: LISINOPRIL-HCTZ 20-25 MG 1 EACH TAB PO SCH (06:24)
[2018-02-22] MEDS: MULTIVITAMINS, THERA 1 EACH TAB PO SCH (06:25)
[2018-02-22 06:49] LABS: Basophils # (A) 0.2 k/uL (0-0.2); Basophils % (A) 2 %; Eosinophils # (A) 0.6 k/uL (0-0.7); Eosinophils % (A) 6 %; HCT 44.9 % (34.0-46.0); HGB 14.4 gm/dL (11.4-16.0); Lymphocytes # (A) 4.1 k/uL (1.0-4.8); Lymphocytes % (A) 40 %; MCH 31.5 pg (25.0-35.0); MCV 98.5 fL (80.0-100.0); Mean Platelet Volume 8.5; Monocytes # (A) 0.6 k/uL (0-1.0); Monocytes % (A) 6 %; Neutrophils # (A) 4.4 k/uL (1.3-7.7); Neutrophils % (A) 43 %; Platelet Count 258 k/uL (150-450); RBC 4.56 m/uL (3.80-5.40); RDW 13.7 % (11.5-15.5); WBC 10.2 k/uL (3.8-10.6)
[2018-02-22] MEDS ORDERED: ATORVASTATIN 80 MG TAB PO STA (06:52)
[2018-02-22] MEDS ORDERED: ASPIRIN 325 MG TAB PO STA (06:52)
[2018-02-22] MEDS: ASPIRIN 81 MG PO SCH (06:53)
[2018-02-22 07:16] LABS: Calcium 9.5 mg/dL (8.4-10.2); Potassium 3.6 mmol/L (3.5-5.1)
[2018-02-22] MEDS: SYMBICORT 80-4.5 MCG INHALER INHALATION SCH ×2 (08:00→20:42)
[2018-02-22] MEDS ORDERED: IV FLUID CONTINUATION 1,000 ML IV ONE (08:32)
[2018-02-22] MEDS ORDERED: amLODIPine 5 MG TAB PO STA (08:53)
[2018-02-22] MEDS ORDERED: MIDAZOLAM 2 MG/2 ML VIAL IV ONE (10:30)
[2018-02-22] MEDS ORDERED: SODIUM CHLORIDE 0.9% 1,000 ML IV ONE (10:32)
[2018-02-22] MEDS ORDERED: LIDOCAINE 1% INJ 10MG/ML (20 ML MDV) SQ ONE ×2 (10:39→10:42)
[2018-02-22] MEDS ORDERED: BIVALIRUDIN BOLUS 250 MG/50 ML IV ONE (10:45)
[2018-02-22] MEDS: fentaNYL (PF) 50 MCG/ML 2 ML AMP IV ONE ×2 (10:45→11:27)
[2018-02-22] MEDS ORDERED: BIVALIRUDIN 250 MG in SODIUM CHLORIDE 0.9% 50 ML IV ONE (10:46)
[2018-02-22] MEDS ORDERED: CLOPIDOGREL 75 MG TAB PO ONE (10:55)
[2018-02-22] MEDS ORDERED: NITROGLYCERIN 1000MCG/10ML SYRINGE INTRACORON ONE (11:18)
[2018-02-22] MEDS ORDERED: IOPAMIDOL-370 125ML BTL INJ ONE (11:22)
[2018-02-22] MEDS ORDERED: ZOLPIDEM 5 MG TAB PO PRN (11:42)
[2018-02-22] MEDS ORDERED: MAG HYDROX/AL HYDROX/SIMETH 30 ML CUP PO PRN (11:42)
[2018-02-22] MEDS ORDERED: ATROPINE SULFATE 0.1 MG/ML 10ML SYRINGE IV PRN (11:42)
[2018-02-22] MEDS ORDERED: RX INFO: IV CONTRAST WAS GIVEN 1 EACH MISC MISCELLANE PRN (11:42)
[2018-02-22] MEDS ORDERED: NITROGLYCERIN SL TABS 0.4 MG TAB SUBLINGUAL PRN (11:42)
[2018-02-22] MEDS ORDERED: SODIUM CHLORIDE 0.9% 1,000 ML IV SCH (11:45)
[2018-02-22 12:30] LABS: INR 1.6 (<1.2); Prothrombin Time 14.5 sec (9.0-12.0)
--- NOTE | 2018-02-22 12:30 | PTCA ---
PERCUTANEOUSTRANS CORORONARY ANGIOGRAPHY DATE OF SERVICE: 02/22/2018 PERFORMING PHYSICIAN: Estevan Sheehan MD. PROCEDURE PERFORMED: Stenting of the ostial right coronary artery using 3.0 x 15 mm Xience PAYAL with reduction of stenosis from 80% to about 20% and without any complication. INDICATION: This is a pleasant 82-year-old female patient who was experiencing exertional dyspnea and underwent myocardial perfusion imaging stress test and that revealed ischemia. Because of that, heart catheterization was advised. The patient underwent heart catheterization yesterday and that showed intermediate disease involving the left main coronary artery which was proven to be nonischemic by IVUS as well as by FFR. Beside that, she was found to have a tight lesion involving the ostial right coronary artery. COMPLICATION: None. LEVEL OF SEDATION: Moderate with sedation length of 49 minutes. PROCEDURE DESCRIPTION: After obtaining an informed consent, the patient was brought to the cardiac minilab operator. The right common femoral artery was cannulated using micropuncture technique and a micropuncture wire passed easily, then I placed a 6-Spanish sheath in the right common femoral artery. At that point, anticoagulation was initiated using Angiomax. After that, I did engage the right coronary artery using JR4 guide with a side hole. I did wire the right coronary artery using a whisper wire as well as a run-through wire as a yoon wire. I did balloon angioplasty using 2.5 mm balloon and then 2.5 mm NC balloon and then 2.5 mm AngioSculpt balloon. After that, I stented the ostial/proximal right coronary artery using 3.0 x 15 mm Xience PAYAL where the stent was positioned under fluoroscopy guidance and deployed under 16 atmospheres for 20 seconds. The ostial lesion was quite calcified and fibrotic and I did have a hard time opening in up, but I did use the stenosis from 80% to about 20% or 30%. Good flow was seen in the right coronary artery by the end. POSTPROCEDURE MANAGEMENT: 1. Dual anti-platelet therapy. 2. Risk factor modifications. 3. Follow up with the patient. MMODL / IJN: [id number] /
[2018-02-22] MEDS: HEPARIN SOD,PORK IN 0.45% NACL 25,000 UNIT in 0.45% NACL 1 500ML.BAG IV SCH (14:46)
[2018-02-22 15:15] VITALS: BMI 32.4
[2018-02-22] MEDS ORDERED: WARFARIN 5 MG TAB PO SCH (18:00)
[2018-02-22] MEDS ORDERED: ATORVASTATIN 40 MG TAB PO SCH (21:00)
[2018-02-22] MEDS: DONEPEZIL 5 MG TAB PO SCH (21:15)
[2018-02-22] MEDS: METOPROLOL SUCCINATE (ER) 25 MG TAB.ER.24H PO SCH (21:15)
[2018-02-23 07:02] LABS: Basophils # (A) 0.2 k/uL (0-0.2); Basophils % (A) 1 %; Eosinophils # (A) 0.6 k/uL (0-0.7); Eosinophils % (A) 5 %; HCT 46.6 % (34.0-46.0); HGB 14.2 gm/dL (11.4-16.0); Lymphocytes # (A) 4.4 k/uL (1.0-4.8); Lymphocytes % (A) 39 %; MCH 30.8 pg (25.0-35.0); MCHC 30.6 g/dL (31.0-37.0); MCV 100.8 fL (80.0-100.0); Macrocytosis Slight; Mean Platelet Volume 8.1; Monocytes # (A) 0.6 k/uL (0-1.0); Monocytes % (A) 5 %; Neutrophils # (A) 5.3 k/uL (1.3-7.7); Neutrophils % (A) 46 %; Platelet Count 256 k/uL (150-450); RBC 4.62 m/uL (3.80-5.40); RDW 14.1 % (11.5-15.5); WBC 11.4 k/uL (3.8-10.6)
[2018-02-23 07:21] LABS: Calcium 9.5 mg/dL (8.4-10.2); Potassium 3.7 mmol/L (3.5-5.1)
[2018-02-23] MEDS: SYMBICORT 80-4.5 MCG INHALER INHALATION SCH (08:09)
--- NOTE | 2018-02-23 10:25 | DS ---
DISCHARGE SUMMARY ADMISSION DATE: 02/21/2014. DISCHARGE DATE: 02/23/2018 BRIEF HISTORY: This is a pleasant 82-year-old female patient who was experiencing exertional dyspnea concerning for angina equivalent. She underwent a myocardial perfusion imaging stress test and that showed ischemia. Subsequently, she underwent a heart catheterization and that showed severe disease involving the ostial right coronary artery which was calcified and fibrotic. She underwent stenting of the ostial right with reduction of stenosis from 80% to 30%. On follow up with her today, she is doing well and she is asymptomatic. The right groin is soft and nontender and without any bruises. The patient is going to be discharged home on dual anti-platelet therapy along with Coumadin and I will follow up with her in the office in a week. MMJACOBL / HECTORN: [id number] /
[2018-02-23] MEDS: LEVOTHYROXINE 88 MCG TAB PO SCH (10:31)
[2018-02-23] MEDS: HEPARIN SOD,PORK IN 0.45% NACL 25,000 UNIT in 0.45% NACL 1 500ML.BAG IV SCH (10:31)
[2018-02-23] MEDS: MULTIVITAMINS, THERA 1 EACH TAB PO SCH (10:31)
[2018-02-23] MEDS: LISINOPRIL-HCTZ 20-25 MG 1 EACH TAB PO SCH (10:31)
[2018-02-23] MEDS ORDERED: CLOPIDOGREL 75 MG TAB PO SCH (11:00)
[2018-02-23 11:16] VITALS: BP 139/63; PULSE 60; TEMP 97.4
[2018-02-23] MEDS ORDERED: WARFARIN 2.5 MG TAB PO SCH (18:00)
== END 2018-02-23 11:14 | disposition home or self-care (01) ==
LOC: CATHCVL 06:11 → 6SEL 09:52 → CATHCVL 02-23 11:14
PROVIDERS: ATTEND Internal Medicine Interventional Cardiology
DX: I25.110 Atherosclerotic heart disease of native coronary artery with unstable angina pectoris (principal); I25.84 Coronary atherosclerosis due to calcified coronary lesion; I10 Essential (primary) hypertension; E78.5 Hyperlipidemia, unspecified; E78.00 Pure hypercholesterolemia, unspecified; E07.89 Other specified disorders of thyroid; Z86.718 Personal history of other venous thrombosis and embolism; Z86.711 Personal history of pulmonary embolism; Z79.01 Long term (current) use of anticoagulants; Z79.82 Long term (current) use of aspirin; Z79.890 Hormone replacement therapy; Z79.51 Long term (current) use of inhaled steroids; Z79.899 Other long term (current) drug therapy
CPT/HCPCS: 94640 ×4; 93571; 92978; 93458; 80048 ×2; 85025 ×3; 85610 ×2; 85730 ×3; C9600; C1769 ×6; C1887 ×2; C1725 ×4; C1894 ×2; C1753; C1760; C1874; J2250 ×2; J0360; J2001 ×2; J1644 ×2; J3010; J0583; J0153; Q9967 ×3

== ENCOUNTER 2018-05-09 14:26 | Emergency (ER) | payer MEDICARE, OTHER ==
[2018-05-09] MEDS ORDERED: MECLIZINE 12.5 MG TAB PO STA (15:32)
[2018-05-09] MEDS ORDERED: SODIUM CHLORIDE 0.9% 500 ML 500 ML IV STA ×2 (15:32→17:20)
--- NOTE | 2018-05-09 15:46 | ED ---
General Adult HPI - General Chief complaint: Urogenital Stated complaint: blood in urine/vomiting Time Seen by Provider: 05/09/18 15:14 Source: patient, RN notes reviewed Mode of arrival: ambulatory Limitations: no limitations - History of Present Illness Initial comments: The patient is an 82-year-old female presented to the emergency room today with complaint of nausea, vomiting, hematuria. Patient states that yesterday she went to bed early because she was feeling nauseated. She states she woke up and had a few episodes of nausea vomiting. She states that child go to the bathroom she was dizzy. She states she felt unsteady on her feet. She states she's not drink much water today only approximately 8 ounces. She states dizziness when she stands up to walk. She states symptoms have improved somewhat throughout the day. Patient states nausea is also better. Patient admits that she did have some left-sided lower back pain in the middle of night as well. She states it still achy type pain. She states she noticed this morning that there was some blood in her urine. She states she went a second time and again there was some evidence for blood. She does admit that she saw blood in the urine 4 days ago. Prior to that she's not noticed any hematuria. Denies any history of kidney stones. She denies any other complaints. Patient denies any recent fever, chills, shortness of breath, chest pain, numbness or tingling, dysuria, constipation or diarrhea, headaches or visual changes, or any other complaints. - Related Data Home Medications Medication Instructions Recorded Confirmed Aspirin [Children's Aspirin] 81 mg PO HS 02/07/17 05/09/18 Donepezil [Aricept] 5 mg PO HS 02/07/17 05/09/18 Fluticasone/Salmeterol [Advair 2 puff INHALATION RT-BID 02/07/17 05/09/18 250-50 Diskus] Furosemide [Lasix] 20 mg PO DAILY PRN 02/07/17 05/09/18 Levothyroxine Sodium [Synthroid] 88 mcg PO MOTUWETHFRSA 02/07/17 05/09/18 Lisinopril-Hctz 20-25 mg 1 tab PO DAILY 02/07/17 05/09/18 [Zestoretic 20-25] Metoprolol Succinate [Toprol XL] 25 mg PO HS 02/07/17 05/09/18 Potassium Chloride [Klor-Con 10] 10 meq PO DAILY PRN 02/07/17 05/09/18 Rosuvastatin [Crestor] 20 mg PO MOWEFR 02/07/17 05/09/18 Warfarin [Coumadin] 2.5 mg PO TUTHSA 02/07/17 05/09/18 Warfarin [Coumadin] 5 mg PO SUMOWEFR 02/07/17 05/09/18 Previous Rx's Medication Instructions Recorded Clopidogrel [Plavix] 75 mg PO DAILY #90 tab 02/23/18 Sulfamethox-Tmp 800-160Mg [Bactrim 1 tab PO Q12HR #20 tab 05/09/18 DS 800-160 mg] Allergies Allergy/AdvReac Type Severity Reaction Status Date / Time dacron Allergy Unknown Uncoded 05/09/18 14:53 Review of Systems ROS Statement: Those systems with pertinent positive or pertinent negative responses have been documented in the HPI. ROS Other: All systems not noted in ROS Statement are negative. Past Medical History Past Medical History: Asthma, Coronary Artery Disease (CAD), CVA/TIA, Hypertension, Thyroid Disorder History of Any Multi-Drug Resistant Organisms: None Reported Past Surgical History: Heart Catheterization With Stent, Hysterectomy Additional Past Surgical History / Comment(s): carotidectomy Past Psychological History: No Psychological Hx Reported Smoking Status: Former smoker Past Alcohol Use History: Rare Past Drug Use History: None Reported General Exam - General Exam Comments Initial Comments: General: The patient is awake and alert, in no distress, and does not appear acutely ill. Eye: Pupils are equal, round and reactive to light, extra-ocular movements are intact. No nystagmus. There is normal conjunctiva bilaterally. No signs of icterus. Ears, nose, mouth and throat: There are moist mucous membranes and no oral lesions. Neck: The neck is supple, there is no tenderness or JVD. Cardiovascular: There is a regular rate and rhythm. No murmur, rub or gallop is appreciated. Respiratory: Lungs are clear to auscultation, respirations are non-labored, breath sounds are equal. No wheezes, stridor, rales, or rhonchi. Gastrointestinal: Soft, non-distended, non-tender abdomen without masses or organomegaly noted. There is no rebound or guarding present. No CVA tenderness. Musculoskeletal: Normal ROM, no tenderness. Strength 5/5. Sensation intact. Pulses equal bilaterally 2+. Neurological: A&O x 3. CN II-XII intact, There are no obvious motor or sensory deficits. Coordination appears grossly intact. Speech is normal. Skin: Skin is warm and dry and no rashes or lesions are noted. Psychiatric: Cooperative, appropriate mood & affect, normal judgment. Limitations: no limitations Course Vital Signs 05/09/18 05/09/18 05/09/18 14:49 15:42 15:47 Temperature 97.4 F L Pulse Rate 123 H 73 78 Respiratory 18 20 20 Rate Blood Pressure 98/69 168/79 168/84 O2 Sat by Pulse 95 99 94 L Oximetry 05/09/18 05/09/18 15:50 16:23 Temperature 97.6 F Pulse Rate 98 65 Respiratory 20 18 Rate Blood Pressure 135/72 167/69 O2 Sat by Pulse 94 L 95 Oximetry EKG Findings - EKG Comments: EKG Findings:: EKG performed at 1603: Shows normal sinus rhythm at 69 bpm with first-degree AV block. ID interval 216. QRS 90. QT/QTc is 412/441. Acute ST changes. Medical Decision Making - Medical Decision Making Patient's labs been reviewed. White count 10.7. Patient's potassium 5.5. EKG changes. Patient's resting comfortable. No abdominal tenderness. Mildly elevated liver enzymes and bilirubin. Patient's urinalysis does show greater than 182 red and white cells. Patient started on Rocephin here in the emergency room. Patient was orthostatic positive. Patient given fluids. Patient doing well at this time. States feeling much better. Denies any dizziness or lightheadedness. Patient will be continued on antibiotics to follow-up family doctor. Advised to have repeat urinalysis.. Returning if symptoms increase or worsen. - Lab Data Result diagrams: 05/09/18 16:30 05/09/18 16:30 Lab Results 05/09/18 05/09/18 05/09/18 Range/Units 16:30 16:30 16:30 WBC 10.7 H (3.8-10.6) k/uL RBC 4.90 (3.80-5.40) m/uL Hgb 15.2 (11.4-16.0) gm/dL Hct 48.9 H (34.0-46.0) % MCV 99.8 (80.0-100.0) fL MCH 31.1 (25.0-35.0) pg MCHC 31.2 (31.0-37.0) g/dL RDW 13.9 (11.5-15.5) % Plt Count 174 (150-450) k/uL Neutrophils % 72 % Lymphocytes % 19 % Monocytes % 5 % Eosinophils % 1 % Basophils % 1 % Neutrophils # 7.7 (1.3-7.7) k/uL Lymphocytes # 2.1 (1.0-4.8) k/uL Monocytes # 0.5 (0-1.0) k/uL Eosinophils # 0.2 (0-0.7) k/uL Basophils # 0.1 (0-0.2) k/uL PT (9.0-12.0) sec INR (<1.2) APTT (22.0-30.0) sec Sodium 138 (137-145) mmol/L Potassium 5.5 H (3.5-5.1) mmol/L Chloride 105 (98-107) mmol/L Carbon Dioxide 26 (22-30) mmol/L Anion Gap 7 mmol/L BUN 21 H (7-17) mg/dL Creatinine 1.36 H (0.52-1.04) mg/dL Est GFR (CKD-EPI)AfAm 42 (>60 ml/min/1.73 sqM) Est GFR (CKD-EPI)NonAf 37 (>60 ml/min/1.73 sqM) Glucose 101 H (74-99) mg/dL Calcium 10.3 H (8.4-10.2) mg/dL Total Bilirubin 1.9 H (0.2-1.3) mg/dL AST 84 H (14-36) U/L ALT 12 (9-52) U/L Alkaline Phosphatase 83 (38-126) U/L Total Creatine Kinase 86 (30-135) U/L CK-MB (CK-2) 0.7 (0.0-2.4) ng/mL CK-MB (CK-2) Rel Index 0.8 Troponin I 0.017 (0.000-0.034) ng/mL Total Protein 8.1 (6.3-8.2) g/dL Albumin 4.2 (3.5-5.0) g/dL Amylase 71 (30-110) U/L Lipase 168 (23-300) U/L Urine Color Urine Appearance (Clear) Urine pH (5.0-8.0) Ur Specific Mclean (1.001-1.035) Urine Protein (Negative) Urine Glucose (UA) (Negative) Urine Ketones (Negative) Urine Blood (Negative) Urine Nitrite (Negative) Urine Bilirubin (Negative) Urine Urobilinogen (<2.0) mg/dL Ur Leukocyte Esterase (Negative) Urine RBC (0-5) /hpf Urine WBC (0-5) /hpf Urine Mucus (None) /hpf 05/09/18 05/09/18 Range/Units 16:30 16:30 WBC (3.8-10.6) k/uL RBC (3.80-5.40) m/uL Hgb (11.4-16.0) gm/dL Hct (34.0-46.0) % MCV (80.0-100.0) fL MCH (25.0-35.0) pg MCHC (31.0-37.0) g/dL RDW (11.5-15.5) % Plt Count (150-450) k/uL Neutrophils % % Lymphocytes % % Monocytes % % Eosinophils % % Basophils % % Neutrophils # (1.3-7.7) k/uL Lymphocytes # (1.0-4.8) k/uL Monocytes # (0-1.0) k/uL Eosinophils # (0-0.7) k/uL Basophils # (0-0.2) k/uL PT 26.9 H (9.0-12.0) sec INR 2.8 H (<1.2) APTT 30.8 H (22.0-30.0) sec Sodium (137-145) mmol/L Potassium (3.5-5.1) mmol/L Chloride (98-107) mmol/L Carbon Dioxide (22-30) mmol/L Anion Gap mmol/L BUN (7-17) mg/dL Creatinine (0.52-1.04) mg/dL Est GFR (CKD-EPI)AfAm (>60 ml/min/1.73 sqM) Est GFR (CKD-EPI)NonAf (>60 ml/min/1.73 sqM) Glucose (74-99) mg/dL Calcium (8.4-10.2) mg/dL Total Bilirubin (0.2-1.3) mg/dL AST (14-36) U/L ALT (9-52) U/L Alkaline Phosphatase (38-126) U/L Total Creatine Kinase (30-135) U/L CK-MB (CK-2) (0.0-2.4) ng/mL CK-MB (CK-2) Rel Index Troponin I (0.000-0.034) ng/mL Total Protein (6.3-8.2) g/dL Albumin (3.5-5.0) g/dL Amylase (30-110) U/L Lipase (23-300) U/L Urine Color Red Urine Appearance Cloudy H (Clear) Urine pH 6.5 (5.0-8.0) Ur Specific Mclean 1.017 (1.001-1.035) Urine Protein 1+ H (Negative) Urine Glucose (UA) Negative (Negative) Urine Ketones Negative (Negative) Urine Blood Large H (Negative) Urine Nitrite Negative (Negative) Urine Bilirubin Negative (Negative) Urine Urobilinogen <2.0 (<2.0) mg/dL Ur Leukocyte Esterase Moderate H (Negative) Urine RBC >182 H (0-5) /hpf Urine WBC >182 H (0-5) /hpf Urine Mucus Occasional H (None) /hpf Disposition Clinical Impression: UTI (urinary tract infection) Disposition: HOME SELF-CARE Condition: Good Instructions: Urinary Tract Infection in Women (ED) Additional Instructions: Please use medication as discussed. Please follow-up with family doctor in the next 2 days of symptoms have not improved. Please return to emergency room if the symptoms increase or worsen or for any other concerns. Prescriptions: Sulfamethox-Tmp 800-160Mg [Bactrim DS 800-160 mg] 1 tab PO Q12HR #20 tab Is patient prescribed a controlled substance at d/c from ED?: No Referrals: Melani Bertrand MD [Primary Care Provider] - 1-2 days Time of Disposition: 17:35
--- NOTE | 2018-05-09 16:43 | XR ---
EXAMINATION: XR chest 2V DATE AND TIME: 05/09/2018 4:37 PM CLINICAL INDICATION: PHH; dizziness TECHNIQUE: Departmental protocol COMPARISON: 01/18/2018 FINDINGS: The lungs are well expanded and nearly entirely clear. There is a small area of ill-defined subtle ad ded opacity partially silhouetting the left hemidiaphragm, consistent with subsegmental atelectasis o r early bronchopneumonia if clinically corroborated. The pleural spaces are negative. The cardiac silhouette is not enlarged. The remainder of the mediastinal silhouette is unremarkable. The skeletal structures and soft tissues are negative for acute findings. IMPRESSION: NO DEFINITE ACUTE PROCESS, DISCUSSED.
[2018-05-09 16:47] LABS: Basophils # (A) 0.1 k/uL (0-0.2); Basophils % (A) 1 %; Eosinophils # (A) 0.2 k/uL (0-0.7); Eosinophils % (A) 1 %; HCT 48.9 % (34.0-46.0); HGB 15.2 gm/dL (11.4-16.0); Lymphocytes # (A) 2.1 k/uL (1.0-4.8); Lymphocytes % (A) 19 %; MCH 31.1 pg (25.0-35.0); MCHC 31.2 g/dL (31.0-37.0); MCV 99.8 fL (80.0-100.0); Mean Platelet Volume 9.4; Monocytes # (A) 0.5 k/uL (0-1.0); Monocytes % (A) 5 %; Neutrophils # (A) 7.7 k/uL (1.3-7.7); Neutrophils % (A) 72 %; Platelet Count 174 k/uL (150-450); RDW 13.9 % (11.5-15.5); WBC 10.7 k/uL (3.8-10.6)
[2018-05-09 16:52] LABS: Albumin 4.2 g/dL (3.5-5.0); Calcium 10.3 mg/dL (8.4-10.2); Total Bilirubin 1.9 mg/dL (0.2-1.3); Total Protein 8.1 g/dL (6.3-8.2)
[2018-05-09 16:56] LABS: Appearance,Urine Cloudy (Clear); Bilirubin,Urine Negative (Negative); Blood,Urine Large (Negative); Color,Urine Red; Glucose,Urine (UA) Negative (Negative); Ketones,Urine Negative (Negative); Leukocyte Esterase,Urine Moderate (Negative); Mucus,Urine Occasional /hpf; Nitrite,Urine Negative (Negative); PH, Urine 6.5 (5.0-8.0); Protein,Urine 1+ (Negative); RBC,Urine >182 /hpf (0-5); Specific Gravity,Urine 1.017 (1.001-1.035); Urobilinogen,Urine <2.0 mg/dL (<2.0); WBC,Urine >182 /hpf (0-5)
[2018-05-09 17:09] LABS: Creatine Kinase MB 0.7 ng/mL (0.0-2.4)
[2018-05-09 17:15] LABS: Potassium 5.5 mmol/L (3.5-5.1); Troponin I 0.017 ng/mL (0.000-0.034)
[2018-05-09 17:20] LABS: INR 2.8 (<1.2); Partial Thromboplastin Time 30.8 sec (22.0-30.0); Prothrombin Time 26.9 sec (9.0-12.0)
[2018-05-09 18:37] VITALS: BP 164/68; PULSE 68; RESP 20; TEMP 98.7
== END 2018-05-09 18:36 | disposition home or self-care (01) ==
LOC: EC 14:26
DX: N39.0 Urinary tract infection, site not specified (principal); R74.8 Abnormal levels of other serum enzymes; R79.89 Other specified abnormal findings of blood chemistry; R11.2 Nausea with vomiting, unspecified; J45.909 Unspecified asthma, uncomplicated; I25.10 Atherosclerotic heart disease of native coronary artery without angina pectoris; I10 Essential (primary) hypertension; E07.9 Disorder of thyroid, unspecified; Z87.891 Personal history of nicotine dependence; Z91.048 Other nonmedicinal substance allergy status; Z79.01 Long term (current) use of anticoagulants; Z79.51 Long term (current) use of inhaled steroids; Z79.82 Long term (current) use of aspirin; Z79.899 Other long term (current) drug therapy; Z86.73 Personal history of transient ischemic attack (TIA), and cerebral infarction without residual deficits; Z95.5 Presence of coronary angioplasty implant and graft; Z90.710 Acquired absence of both cervix and uterus
CPT/HCPCS: 36415; 93005; 80053; 82150; 82550; 82553; 83690; 84484; 85025; 85610; 85730; 81001; 87086; 71046; 99284; 96365; 96361; J0696

== ENCOUNTER → 2018-05-31 | Outpatient (CLI) | payer MEDICARE, OTHER ==
--- NOTE | 2018-05-31 08:56 | US ---
EXAMINATION TYPE: US kidneys/renal and bladder DATE OF EXAM: 05/31/2018 COMPARISON: NONE CLINICAL HISTORY: R31.9 Hematuria. EXAM MEASUREMENTS: Right Kidney: 9.4 x 3.7 x 5.1 cm Left Kidney: 9.9 x 5.5 x 6.2 cm Right Kidney: No hydronephrosis. Cyst visualized measuring 1.0 x 1.1 x 1.3 cm Left Kidney: Severe hydronephrosis. Bladder: wnl Bilateral Jets seen: Yes No nephrolithiasis is seen. The urinary bladder is anechoic. Bilateral ureteral jets are seen. IMPRESSION: 1. Severe left hydronephrosis although the bilateral urinary bladder jets were visualized. CT urogram could assess for distal ureteral stricture or partially obstructing mass. 2. Benign-appearing right renal cyst measuring 1.3 cm.
== END ==
LOC: RADUSWWP 08:14
PROVIDERS: ATTEND Internal Medicine
DX: N13.30 Unspecified hydronephrosis (principal); N28.1 Cyst of kidney, acquired
CPT/HCPCS: 76770

== ENCOUNTER → 2018-06-02 | Outpatient (CLI) | payer MEDICARE, OTHER | END | disposition home or self-care (01) | LOC: RADCTMAIN 09:00 | PROVIDERS: ATTEND Internal Medicine | DX: N13.30 Unspecified hydronephrosis (principal) | CPT/HCPCS: 82565; 84520 ==

== ENCOUNTER → 2018-06-06 | Outpatient (CLI) | payer MEDICARE, OTHER ==
--- NOTE | 2018-06-06 09:50 | CT ---
EXAMINATION TYPE: CT abdomen pelvis wo con DATE OF EXAM: 06/06/2018 COMPARISON: HISTORY: Left hydronephrosis CT DLP: 441.3 mGycm Automated exposure control for dose reduction was used. TECHNIQUE: Helical acquisition of images was performed from the lung bases through the pelvis. FINDINGS: LUNG BASES: Moderate emphysematous changes are seen of the lung bases. Very trace pericardial effusio n is seen of the inferior aspect of the heart. LIVER/GB: Numerous lamellated gallstones and biliary sludge are seen within the gallbladder neck and body. The unenhanced liver is unremarkable in morphology. PANCREAS: There is very mild pancreatic parenchymal atrophy. No ductal dilatation. SPLEEN: Dystrophic calcifications are seen around the lobulated spleen, likely posterior matter wheeler e. ADRENALS: No significant abnormality is seen. KIDNEYS: There is moderate left-sided hydroureteronephrosis secondary to an obstructing distal ureter al 6 mm calcification. Urinary bladder is unremarkable. No right-sided hydronephrosis. 3 mm right low er pole nonobstructing renal calculus is seen. FREE AIR: No free air is visualized ADENOPATHY: Nonenlarged shotty retroperitoneal and central mesenteric lymph nodes are noted. There i s slight haziness of the central mesentery. Additionally in the left superficial inguinal region appearing to originate within the intra-abdomina l fascia and extending into the left superficial inguinal region there is an elongated ovoid soft tis sommer density, likely an enlarged lymph node measuring 1.7 cm in short axis. URINARY BLADDER: No significant abnormality is seen. OSSEOUS STRUCTURES: Mild degenerative changes are seen of the femoral acetabular joints. Moderate mu ltilevel degenerative changes of the spine are noted. There is a mild levoscoliosis of the lumbar spi ne. BOWEL: Appendix is retrocecal and overall within normal limits of size. There is a moderate amount r etained colonic stool, slightly limiting evaluation of the bowel. Few sigmoid diverticula are seen wi thout pericolonic fat stranding. Calculus in small bowel within the left lower quadrant relates to in gested substance without obstruction. OTHER: Extensive atherosclerosis is seen of the abdominal aorta and its branches. Abdominal aorta is of normal course and caliber. IMPRESSION: 1. MODERATE LEFT HYDROURETERONEPHROSIS SECONDARY TO A 6 MM DISTAL URETERAL CALCULUS. 2. ENLARGED PROBABLE LYMPH NODE MEASURING 1.7 CM IN SHORT AXIS WITH A LEFT SUPERFICIAL INGUINAL REGIO N ALTHOUGH THIS DOES APPEAR TO CROSS FASCIAL PLANES AND THEREFORE SUSPICIOUS. THIS COULD BE FURTHER E VALUATED WITH PET CT OR PERCUTANEOUS BIOPSY. CENTRAL MESENTERIC FAT STRANDING MAY REPRESENT MESENTERI C ADENITIS, HOWEVER EARLY LYMPHOMA REMAINS A POSSIBILITY.
== END ==
LOC: RADCTMAIN 08:30
PROVIDERS: ATTEND Urology
DX: N13.2 Hydronephrosis with renal and ureteral calculous obstruction (principal)
CPT/HCPCS: 74176

== ENCOUNTER → 2019-03-05 | Outpatient (CLI) | payer MEDICARE, OTHER ==
--- NOTE | 2019-03-05 15:24 | US ---
EXAMINATION TYPE: US kidneys/renal and bladder DATE OF EXAM: 03/05/2019 COMPARISON: Renal ultrasound dated 08/10/2018 CLINICAL HISTORY: N13.30 hydronephrosis,R93.4 Hx Hydronephrosis. EXAM MEASUREMENTS: Right Kidney: 9.4 x 3.9 x 3.9 cm Left Kidney: 10.4 x 5.1 x 5.6 cm Technically difficult study due to midline bowel gas. Fluid filled stomach obscuring spleen. Right Kidney: upper pole cyst measures 1.7 x 1.4 x 1.7 cm Left Kidney: Questionable mild residual hydronephrosis. Marked hydronephrosis has resolved. Bladder: wnl Bilateral Jets seen: No Cortical renal thinning is seen on the right, mild. There is no evidence for hydronephrosis at this p oint in time. No nephrolithiasis is seen. No suspicious masses are identified. The urinary bladder is anechoic. Bilateral ureteral jets are not seen. IMPRESSION: Resolution of the previously seen severe left hydronephrosis. Questionable mild residual left-sided h ydronephrosis with prominence of the calyces.
== END | disposition home or self-care (01) ==
LOC: RADUSWWP 14:14
PROVIDERS: ATTEND Urology
DX: N13.30 Unspecified hydronephrosis (principal)
CPT/HCPCS: 76770

== ENCOUNTER → 2019-04-04 | Outpatient (CLI) | payer MEDICARE, OTHER ==
--- NOTE | 2019-04-04 11:34 | XR ---
EXAMINATION TYPE: XR chest 2V DATE OF EXAM: 04/04/2019 COMPARISON: Prior chest x-ray 05/09/[address] 06/06/2018 HISTORY: Congestive heart failure, hemoptysis and hypertension TECHNIQUE: Frontal and lateral views of the chest are obtained. FINDINGS: There is no focal air space opacity, pleural effusion, or pneumothorax seen. Minimal subs egmental basilar atelectatic changes or scarring again noted. Aorta is dense. Prominent lung volume c onsistent with emphysema. The cardiac silhouette size is within normal limits. The osseous structur es are stable, postop changes are noted to the right humerus, proximal screws course across the geovany x. IMPRESSION: No acute cardiopulmonary process. Emphysema.
== END | disposition home or self-care (01) ==
LOC: RADXRMAIN 10:29
PROVIDERS: ATTEND Internal Medicine Hematology & Oncology
DX: J43.9 Emphysema, unspecified (principal); I11.0 Hypertensive heart disease with heart failure; D72.829 Elevated white blood cell count, unspecified; I26.99 Other pulmonary embolism without acute cor pulmonale
CPT/HCPCS: 71046

== ENCOUNTER 2019-04-24 13:12 | Emergency (ER) | payer MEDICARE, OTHER ==
[2019-04-24 13:45] VITALS: TEMP 98.4
[2019-04-24] MEDS ORDERED: SODIUM CHLORIDE 0.9% 1,000 ML IV STA (13:55)
[2019-04-24 14:30] LABS: Amorphous Sediment,Urine Moderate /hpf; Appearance,Urine Cloudy (Clear); Bilirubin,Urine Negative (Negative); Blood,Urine Negative (Negative); Color,Urine Yellow; Glucose,Urine (UA) Negative (Negative); Hyaline Casts,Urine 2 /lpf (0-2); Ketones,Urine Negative (Negative); Leukocyte Esterase,Urine Negative (Negative); Mucus,Urine Rare /hpf; Nitrite,Urine Negative (Negative); PH, Urine 7.5 (5.0-8.0); Protein,Urine Negative (Negative); RBC,Urine 2 /hpf (0-5); Specific Gravity,Urine 1.012 (1.001-1.035); Squamous Epithelial Cell,Urine <1 /hpf (0-4); Urobilinogen,Urine <2.0 mg/dL (<2.0)
--- NOTE | 2019-04-24 14:38 | ED ---
Dizziness HPI - General Chief Complaint: Dizziness Stated Complaint: Shaky, Fall Time Seen by Provider: 04/24/19 13:21 Source: patient Mode of arrival: wheelchair Limitations: no limitations - History of Present Illness Initial Comments: Patient is a 83-year-old female presenting to emergency Department with complaints of slipping out of her bed early this morning and not be almost get up. Patient states she did not feel dizzy when she woke up this morning however she went to get on the right side of her bed and slipped out. Patient states she was unable to get up. Patient states she ended up crawling on her knees to her phone approximately 6 hours later to call her daughter. EMS then brought her to the ER. Patient denies hitting her head in the fall. Patient states her knees are a little scraped up crawling to her phone. Patient denies any arm pain from slipping out of bed. Patient states she feels a little dizzy right now. Patient is not having any pain anywhere. Patient admits to a cough. Patient denies chest pain, fever, chills, shortness of breath. Patient states that her doctor put her on another blood pressure medication approximately 2 weeks ago due to her BP still being elevated. Patient also has a colonoscopy and endoscope scheduled onFriday. Patient denies any other changes in her medications. Patient denies any recent travel. Patient is no other complaints at this time. On arrival to ER, vital signs are stable. - Related Data Home Medications Medication Instructions Recorded Confirmed Aspirin [Children's Aspirin] 81 mg PO HS 02/07/17 05/09/18 Donepezil [Aricept] 5 mg PO HS 02/07/17 05/09/18 Fluticasone/Salmeterol [Advair 2 puff INHALATION RT-BID 02/07/17 05/09/18 250-50 Diskus] Furosemide [Lasix] 20 mg PO DAILY PRN 02/07/17 05/09/18 Levothyroxine Sodium [Synthroid] 88 mcg PO MOTUWETHFRSA 02/07/17 05/09/18 Lisinopril-Hctz 20-25 mg 1 tab PO DAILY 02/07/17 05/09/18 [Zestoretic 20-25] Metoprolol Succinate [Toprol XL] 25 mg PO HS 02/07/17 05/09/18 Potassium Chloride [Klor-Con 10] 10 meq PO DAILY PRN 02/07/17 05/09/18 Rosuvastatin [Crestor] 20 mg PO MOWEFR 02/07/17 05/09/18 Warfarin [Coumadin] 2.5 mg PO TUTHSA 02/07/17 05/09/18 Warfarin [Coumadin] 5 mg PO SUMOWEFR 02/07/17 05/09/18 Previous Rx's Medication Instructions Recorded Clopidogrel [Plavix] 75 mg PO DAILY #90 tab 02/23/18 Sulfamethox-Tmp 800-160Mg [Bactrim 1 tab PO Q12HR #20 tab 05/09/18 DS 800-160 mg] Allergies Allergy/AdvReac Type Severity Reaction Status Date / Time dacron Allergy Unknown Uncoded 05/09/18 14:53 Review of Systems ROS Statement: Those systems with pertinent positive or pertinent negative responses have been documented in the HPI. ROS Other: All systems not noted in ROS Statement are negative. Past Medical History Past Medical History: Asthma, Coronary Artery Disease (CAD), CVA/TIA, Hypertension, Thyroid Disorder History of Any Multi-Drug Resistant Organisms: None Reported Past Surgical History: Heart Catheterization With Stent, Hysterectomy Additional Past Surgical History / Comment(s): carotidectomy Past Psychological History: No Psychological Hx Reported Smoking Status: Former smoker Past Alcohol Use History: Rare Past Drug Use History: None Reported General Exam - General Exam Comments Initial Comments: GENERAL: Well-appearing, well-nourished and in no acute distress. HEAD: Atraumatic, normocephalic. EYES: Pupils equal round and reactive to light, extraocular movements intact, sclera anicteric, conjunctiva are normal. ENT: TMs normal, nares patent, oropharynx clear without exudates. Moist mucous membranes. NECK: Normal range of motion, supple without lymphadenopathy or JVD. LUNGS: Breath sounds clear to auscultation bilaterally and equal. No wheezes rales or rhonchi. HEART: Regular rate and rhythm without murmurs, rubs or gallops. ABDOMEN: Soft, nontender, normoactive bowel sounds. No guarding, no rebound. No masses appreciated. : Deferred EXTREMITIES: Normal range of motion, no pitting or edema. No clubbing or cyanosis. NEUROLOGICAL: Cranial nerves II through XII grossly intact. Normal speech, normal gait. PSYCH: Normal mood, normal affect. SKIN: Warm, Dry, normal turgor, no rashes or lesions noted. Limitations: no limitations Course Vital Signs 04/24/19 04/24/19 13:41 16:11 Temperature 98.4 F Pulse Rate 82 63 Respiratory 16 20 Rate Blood Pressure 154/64 150/64 O2 Sat by Pulse 94 L 98 Oximetry EKG Findings - EKG Comments: EKG Findings:: Physical rate 73, P interval to 10, QTC 418. A sinus rhythm with first-degree AV block. No other acute changes. Comparable to old EKG of 05/09/2018. Medical Decision Making - Medical Decision Making Patient is an 83-year-old female here for dizziness. She slipped out of her bed this morning and was not able to get up for approximately 6 hours. Patient denies any pain at this time and denies hitting her head. Patient's exam is unremarkable except for some bilateral knee abrasions. Vital signs are normal. Lab work shows no acute abnormalities. Urine is normal. Chest x-ray is normal. EKG shows no acute changes. Patient was given some fluids. Patient reports feeling good. Patient was walked to the restroom and was stable on her feet. Patient states she is wanting to go home. Patient will follow up with her PCP tomorrow. Patient is in agreement with this plan of care. Patient's daughters are also in agreement with this plan. Return parameters were discussed with the patient she verbalized understanding. Case is discussed with Dr. Tong. - Lab Data Result diagrams: 04/24/19 14:45 04/24/19 14:45 Lab Results 04/24/19 04/24/19 04/24/19 Range/Units 13:37 14:45 14:45 WBC 12.2 H (3.8-10.6) k/uL RBC 4.88 (3.80-5.40) m/uL Hgb 13.4 (11.4-16.0) gm/dL Hct 43.4 (34.0-46.0) % MCV 88.8 (80.0-100.0) fL MCH 27.4 (25.0-35.0) pg MCHC 30.8 L (31.0-37.0) g/dL RDW 20.7 H (11.5-15.5) % Plt Count 331 (150-450) k/uL Neutrophils % 78 % Lymphocytes % 15 % Monocytes % 4 % Eosinophils % 1 % Basophils % 1 % Neutrophils # 9.5 H (1.3-7.7) k/uL Lymphocytes # 1.8 (1.0-4.8) k/uL Monocytes # 0.5 (0-1.0) k/uL Eosinophils # 0.1 (0-0.7) k/uL Basophils # 0.1 (0-0.2) k/uL Hypochromasia Moderate Anisocytosis Moderate Macrocytosis Slight PT (9.0-12.0) sec INR (<1.2) APTT (22.0-30.0) sec Sodium 140 (137-145) mmol/L Potassium 3.4 L (3.5-5.1) mmol/L Chloride 104 (98-107) mmol/L Carbon Dioxide 29 (22-30) mmol/L Anion Gap 7 mmol/L BUN 16 (7-17) mg/dL Creatinine 1.19 H (0.52-1.04) mg/dL Est GFR (CKD-EPI)AfAm 49 (>60 ml/min/1.73 sqM) Est GFR (CKD-EPI)NonAf 43 (>60 ml/min/1.73 sqM) Glucose 110 H (74-99) mg/dL Plasma Lactic Acid Julio César (0.7-2.0) mmol/L Calcium 11.0 H (8.4-10.2) mg/dL Magnesium 2.3 (1.6-2.3) mg/dL Total Bilirubin 1.1 (0.2-1.3) mg/dL AST 41 H (14-36) U/L ALT 32 (9-52) U/L Alkaline Phosphatase 113 (38-126) U/L Total Protein 7.2 (6.3-8.2) g/dL Albumin 3.9 (3.5-5.0) g/dL TSH 3.010 (0.465-4.680) mIU/L Urine Color Yellow Urine Appearance Cloudy H (Clear) Urine pH 7.5 (5.0-8.0) Ur Specific [place] 1.012 (1.001-1.035) Urine Protein Negative (Negative) Urine Glucose (UA) Negative (Negative) Urine Ketones Negative (Negative) Urine Blood Negative (Negative) Urine Nitrite Negative (Negative) Urine Bilirubin Negative (Negative) Urine Urobilinogen <2.0 (<2.0) mg/dL Ur Leukocyte Esterase Negative (Negative) Urine RBC 2 (0-5) /hpf Urine WBC 4 (0-5) /hpf Ur Squamous Epith Cells <1 (0-4) /hpf Amorphous Sediment Moderate H (None) /hpf Hyaline Casts 2 (0-2) /lpf Urine Mucus Rare H (None) /hpf 04/24/19 04/24/19 Range/Units 14:45 14:45 WBC (3.8-10.6) k/uL RBC (3.80-5.40) m/uL Hgb (11.4-16.0) gm/dL Hct (34.0-46.0) % MCV (80.0-100.0) fL MCH (25.0-35.0) pg MCHC (31.0-37.0) g/dL RDW (11.5-15.5) % Plt Count (150-450) k/uL Neutrophils % % Lymphocytes % % Monocytes % % Eosinophils % % Basophils % % Neutrophils # (1.3-7.7) k/uL Lymphocytes # (1.0-4.8) k/uL Monocytes # (0-1.0) k/uL Eosinophils # (0-0.7) k/uL Basophils # (0-0.2) k/uL Hypochromasia Anisocytosis Macrocytosis PT 15.7 H (9.0-12.0) sec INR 1.6 H (<1.2) APTT 31.1 H (22.0-30.0) sec Sodium (137-145) mmol/L Potassium (3.5-5.1) mmol/L Chloride (98-107) mmol/L Carbon Dioxide (22-30) mmol/L Anion Gap mmol/L BUN (7-17) mg/dL Creatinine (0.52-1.04) mg/dL Est GFR (CKD-EPI)AfAm (>60 ml/min/1.73 sqM) Est GFR (CKD-EPI)NonAf (>60 ml/min/1.73 sqM) Glucose (74-99) mg/dL Plasma Lactic Acid Julio [place]ésar 1.1 (0.7-2.0) mmol/L Calcium (8.4-10.2) mg/dL Magnesium (1.6-2.3) mg/dL Total Bilirubin (0.2-1.3) mg/dL AST (14-36) U/L ALT (9-52) U/L Alkaline Phosphatase (38-126) U/L Total Protein (6.3-8.2) g/dL Albumin (3.5-5.0) g/dL TSH (0.465-4.680) mIU/L Urine Color Urine Appearance (Clear) Urine pH (5.0-8.0) Ur Specific [place] (1.001-1.035) Urine Protein (Negative) Urine Glucose (UA) (Negative) Urine Ketones (Negative) Urine Blood (Negative) Urine Nitrite (Negative) Urine Bilirubin (Negative) Urine Urobilinogen (<2.0) mg/dL Ur Leukocyte Esterase (Negative) Urine RBC (0-5) /hpf Urine WBC (0-5) /hpf Ur Squamous Epith Cells (0-4) /hpf Amorphous Sediment (None) /hpf Hyaline Casts (0-2) /lpf Urine Mucus (None) /hpf Disposition Clinical Impression: Lightheaded Disposition: HOME SELF-CARE Condition: Stable Instructions (If sedation given, give patient instructions): Lightheadedness ( ED) Additional Instructions: Please return to the Emergency Department if symptoms worsen or any other concerns. Follow-up with your PCP in 1-3 days. Is patient prescribed a controlled substance at d/c from ED?: No Referrals: Melani Bertrand MD [Primary Care Provider] - 1-2 days
[2019-04-24 15:06] LABS: Anisocytosis Moderate; Basophils # (A) 0.1 k/uL (0-0.2); Basophils % (A) 1 %; Eosinophils # (A) 0.1 k/uL (0-0.7); Eosinophils % (A) 1 %; HCT 43.4 % (34.0-46.0); HGB 13.4 gm/dL (11.4-16.0); Hypochromasia Moderate; Lymphocytes # (A) 1.8 k/uL (1.0-4.8); Lymphocytes % (A) 15 %; MCH 27.4 pg (25.0-35.0); MCHC 30.8 g/dL (31.0-37.0); MCV 88.8 fL (80.0-100.0); Macrocytosis Slight; Mean Platelet Volume 7.6; Monocytes # (A) 0.5 k/uL (0-1.0); Monocytes % (A) 4 %; Neutrophils # (A) 9.5 k/uL (1.3-7.7); Neutrophils % (A) 78 %; Platelet Count 331 k/uL (150-450); RBC 4.88 m/uL (3.80-5.40); RDW 20.7 % (11.5-15.5); WBC 12.2 k/uL (3.8-10.6)
[2019-04-24 15:13] LABS: Albumin 3.9 g/dL (3.5-5.0); Magnesium 2.3 mg/dL (1.6-2.3); Potassium 3.4 mmol/L (3.5-5.1); Total Bilirubin 1.1 mg/dL (0.2-1.3); Total Protein 7.2 g/dL (6.3-8.2)
[2019-04-24 15:19] LABS: INR 1.6 (<1.2); Partial Thromboplastin Time 31.1 sec (22.0-30.0); Prothrombin Time 15.7 sec (9.0-12.0)
--- NOTE | 2019-04-24 15:51 | XR ---
EXAMINATION TYPE: XR chest 2V DATE OF EXAM: 04/24/2019 COMPARISON: Chest x-ray April 04, 2019. HISTORY: Cough and dizziness. TECHNIQUE: Frontal and lateral views of the chest are obtained. FINDINGS: There is chronic parenchymal changes bilaterally without new suspicious focal air space op acity, pleural effusion, or pneumothorax seen. The cardiac silhouette size is upper limits of normal . Atherosclerotic aorta. Partial visualization of surgical change right humerus noted. IMPRESSION: Chronic changes without acute pulmonary process.
[2019-04-24 17:03] VITALS: BP 150/73; PULSE 65; RESP 18
== END 2019-04-24 16:59 | disposition home or self-care (01) ==
LOC: EC 13:12
DX: R42 Dizziness and giddiness (principal); S80.212A Abrasion, left knee, initial encounter; S80.211A Abrasion, right knee, initial encounter; R05 Cough; J45.909 Unspecified asthma, uncomplicated; I25.10 Atherosclerotic heart disease of native coronary artery without angina pectoris; I10 Essential (primary) hypertension; E07.9 Disorder of thyroid, unspecified; Z87.891 Personal history of nicotine dependence; Z91.048 Other nonmedicinal substance allergy status; Z79.01 Long term (current) use of anticoagulants; Z79.51 Long term (current) use of inhaled steroids; Z79.82 Long term (current) use of aspirin; Z79.890 Hormone replacement therapy; Z79.899 Other long term (current) drug therapy; Z86.73 Personal history of transient ischemic attack (TIA), and cerebral infarction without residual deficits; Z95.5 Presence of coronary angioplasty implant and graft; W06.XXXA Fall from bed, initial encounter; Y93.89 Activity, other specified; Y92.009 Unspecified place in unspecified non-institutional (private) residence as the place of occurrence of the external cause
CPT/HCPCS: 36415; 71046; 80053; 81001; 83605; 83735; 84443; 85025; 85610; 85730; 93005; 96360; 99284

== ENCOUNTER 2019-04-29 17:17 | Inpatient (IN) | payer MEDICARE, OTHER ==
--- NOTE | 2019-04-29 18:19 | ED ---
General Adult HPI - General Chief complaint: Shortness of Breath Stated complaint: Cough, weak Time Seen by Provider: 04/29/19 17:40 Source: patient, RN notes reviewed, old records reviewed Mode of arrival: ambulatory Limitations: no limitations - History of Present Illness Initial comments: This is an 83-year-old female presents emergency department stating that she had a colonoscopy and an endoscopy on Tuesday. Patient states that since she's been coughing a lot and felt very short of breath. Patient denies any sputum production. Patient denies any fever chills per patient denies any chest pain. Patient states she was coughing a lot more yesterday but today she also feels weak so she decided come to the emergency department. Patient denies any lightheadedness or dizziness. Patient denies any abdominal pain. Patient is nausea vomiting or diarrhea. Patient denies any dysuria hematuria urinary frequency. Patient denies any leg swelling or calf tenderness. - Related Data Home Medications Medication Instructions Recorded Confirmed Aspirin [Children's Aspirin] 81 mg PO HS 02/07/17 05/09/18 Donepezil [Aricept] 5 mg PO HS 02/07/17 05/09/18 Fluticasone/Salmeterol [Advair 2 puff INHALATION RT-BID 02/07/17 05/09/18 250-50 Diskus] Furosemide [Lasix] 20 mg PO DAILY PRN 02/07/17 05/09/18 Levothyroxine Sodium [Synthroid] 88 mcg PO MOTUWETHFRSA 02/07/17 05/09/18 Lisinopril-Hctz 20-25 mg 1 tab PO DAILY 02/07/17 05/09/18 [Zestoretic 20-25] Metoprolol Succinate [Toprol XL] 25 mg PO HS 02/07/17 05/09/18 Potassium Chloride [Klor-Con 10] 10 meq PO DAILY PRN 02/07/17 05/09/18 Rosuvastatin [Crestor] 20 mg PO MOWEFR 02/07/17 05/09/18 Warfarin [Coumadin] 2.5 mg PO TUTHSA 02/07/17 05/09/18 Warfarin [Coumadin] 5 mg PO SUMOWEFR 02/07/17 05/09/18 Previous Rx's Medication Instructions Recorded Clopidogrel [Plavix] 75 mg PO DAILY #90 tab 02/23/18 Sulfamethox-Tmp 800-160Mg [Bactrim 1 tab PO Q12HR #20 tab 05/09/18 DS 800-160 mg] Allergies Allergy/AdvReac Type Severity Reaction Status Date / Time dacron Allergy Unknown Uncoded 04/29/19 17:36 Review of Systems ROS Statement: Those systems with pertinent positive or pertinent negative responses have been documented in the HPI. ROS Other: All systems not noted in ROS Statement are negative. Past Medical History Past Medical History: Asthma, Coronary Artery Disease (CAD), CVA/TIA, Hypertension, Thyroid Disorder History of Any Multi-Drug Resistant Organisms: None Reported Past Surgical History: Heart Catheterization With Stent, Hysterectomy Additional Past Surgical History / Comment(s): carotidectomy, EGD colonoscopy Past Psychological History: No Psychological Hx Reported Smoking Status: Former smoker Past Alcohol Use History: Rare Past Drug Use History: None Reported General Exam - General Exam Comments Initial Comments: GENERAL: Patient is well-developed and well-nourished. Patient is nontoxic and well- hydrated and is in mild distress. ENT: Neck is soft and supple. No significant lymphadenopathy is noted. Oropharynx is clear. Moist mucous membranes. Neck has full range of motion without eliciting any pain. EYES: The sclera were anicteric and conjunctiva were pink and moist. Extraocular movements were intact and pupils were equal round and reactive to light. Eyelids were unremarkable. PULMONARY: Unlabored respirations. Good breath sounds bilaterally. No audible rales rhonchi or wheezing was noted. CARDIOVASCULAR: There is a regular rate and rhythm without any murmurs gallops or rubs. ABDOMEN: Soft and nontender with normal bowel sounds. SKIN: Skin is clear with no lesions or rashes and otherwise unremarkable. NEUROLOGIC: Patient is alert and oriented x3. Cranial nerves II through XII are grossly intact. Motor and sensory are also intact. Normal speech, volume and content. Symmetrical smile. MUSCULOSKELETAL: Normal extremities with adequate strength and full range of motion. LYMPHATICS: No significant lymphadenopathy is noted PSYCHIATRIC: Normal psychiatric evaluation. Limitations: no limitations Course Vital Signs 04/29/19 04/29/19 04/29/19 17:36 18:39 20:00 Temperature 97.7 F Pulse Rate 61 67 59 L Respiratory 18 18 20 Rate Blood Pressure 81/51 132/66 137/62 O2 Sat by Pulse 88 L 94 L 89 L Oximetry 04/29/19 20:05 Temperature Pulse Rate Respiratory Rate Blood Pressure O2 Sat by Pulse 95 Oximetry Medical Decision Making - Medical Decision Making EKG shows sinus rhythm at 64 bpm IN interval is 214 QRS is 82 QT interval 408 QTC is 420. Patient's EKG shows no ST segment elevation or depression or T wave abnormalities are noted. Chest x-ray shows left lower lobe pneumonia. Patient's pulse ox was at best 89% on room air. She did receive a breathing treatment emergency department. I gave the patient a [facility] emergency department. I spoke with Dr. Bertrand he agreed to admit the patient admitted the patient remaining orders I put the patient on Zosyn and Levaquin like Dr. Bertrand wanted. - Lab Data Result diagrams: 04/29/19 18:40 04/29/19 18:40 Lab Results 04/29/19 04/29/19 04/29/19 Range/Units 18:40 18:40 18:40 WBC 12.3 H (3.8-10.6) k/uL RBC 4.64 (3.80-5.40) m/uL Hgb 12.7 (11.4-16.0) gm/dL Hct 41.3 (34.0-46.0) % MCV 89.0 (80.0-100.0) fL MCH 27.4 (25.0-35.0) pg MCHC 30.8 L (31.0-37.0) g/dL RDW 21.7 H (11.5-15.5) % Plt Count 259 (150-450) k/uL Neutrophils % 67 % Lymphocytes % 25 % Monocytes % 4 % Eosinophils % 0 % Basophils % 1 % Neutrophils # 8.2 H (1.3-7.7) k/uL Lymphocytes # 3.0 (1.0-4.8) k/uL Monocytes # 0.5 (0-1.0) k/uL Eosinophils # 0.0 (0-0.7) k/uL Basophils # 0.1 (0-0.2) k/uL Hypochromasia Moderate Anisocytosis Moderate Macrocytosis Slight PT 16.9 H (9.0-12.0) sec INR 1.7 H (<1.2) APTT 30.0 (22.0-30.0) sec D-Dimer 0.75 H (<0.60) mg/L FEU Sodium 140 (137-145) mmol/L Potassium 3.0 L (3.5-5.1) mmol/L Chloride 107 (98-107) mmol/L Carbon Dioxide 26 (22-30) mmol/L Anion Gap 7 mmol/L BUN 13 (7-17) mg/dL Creatinine 1.30 H (0.52-1.04) mg/dL Est GFR (CKD-EPI)AfAm 45 (>60 ml/min/1.73 sqM) Est GFR (CKD-EPI)NonAf 39 (>60 ml/min/1.73 sqM) Glucose 115 H (74-99) mg/dL Calcium 9.9 (8.4-10.2) mg/dL Magnesium 2.0 (1.6-2.3) mg/dL Total Bilirubin 0.5 (0.2-1.3) mg/dL AST 36 (14-36) U/L ALT 35 (9-52) U/L Alkaline Phosphatase 84 (38-126) U/L Troponin I (0.000-0.034) ng/mL NT-Pro-B Natriuret Pep pg/mL Total Protein 6.2 L (6.3-8.2) g/dL Albumin 3.2 L (3.5-5.0) g/dL 04/29/19 04/29/19 Range/Units 18:40 18:40 WBC (3.8-10.6) k/uL RBC (3.80-5.40) m/uL Hgb (11.4-16.0) gm/dL Hct (34.0-46.0) % MCV (80.0-100.0) fL MCH (25.0-35.0) pg MCHC (31.0-37.0) g/dL RDW (11.5-15.5) % Plt Count (150-450) k/uL Neutrophils % % Lymphocytes % % Monocytes % % Eosinophils % % Basophils % % Neutrophils # (1.3-7.7) k/uL Lymphocytes # (1.0-4.8) k/uL Monocytes # (0-1.0) k/uL Eosinophils # (0-0.7) k/uL Basophils # (0-0.2) k/uL Hypochromasia Anisocytosis Macrocytosis PT (9.0-12.0) sec INR (<1.2) APTT (22.0-30.0) sec D-Dimer (<0.60) mg/L FEU Sodium (137-145) mmol/L Potassium (3.5-5.1) mmol/L Chloride (98-107) mmol/L Carbon Dioxide (22-30) mmol/L Anion Gap mmol/L BUN (7-17) mg/dL Creatinine (0.52-1.04) mg/dL Est GFR (CKD-EPI)AfAm (>60 ml/min/1.73 sqM) Est GFR (CKD-EPI)NonAf (>60 ml/min/1.73 sqM) Glucose (74-99) mg/dL Calcium (8.4-10.2) mg/dL Magnesium (1.6-2.3) mg/dL Total Bilirubin (0.2-1.3) mg/dL AST (14-36) U/L ALT (9-52) U/L Alkaline Phosphatase (38-126) U/L Troponin I 0.032 (0.000-0.034) ng/mL NT-Pro-B Natriuret Pep 1780 pg/mL Total Protein (6.3-8.2) g/dL Albumin (3.5-5.0) g/dL Disposition Clinical Impression: Pneumonia Disposition: ADMITTED IP TO THIS HOSP Referrals: Melani Bertrand MD [Primary Care Provider] - 1-2 days Time of Disposition: 20:09
[2019-04-29 18:56] LABS: Anisocytosis Moderate; Basophils # (A) 0.1 k/uL (0-0.2); Basophils % (A) 1 %; Eosinophils % (A) 0 %; HCT 41.3 % (34.0-46.0); HGB 12.7 gm/dL (11.4-16.0); Hypochromasia Moderate; Lymphocytes % (A) 25 %; MCH 27.4 pg (25.0-35.0); MCHC 30.8 g/dL (31.0-37.0); Macrocytosis Slight; Monocytes # (A) 0.5 k/uL (0-1.0); Monocytes % (A) 4 %; Neutrophils # (A) 8.2 k/uL (1.3-7.7); Neutrophils % (A) 67 %; Platelet Count 259 k/uL (150-450); RBC 4.64 m/uL (3.80-5.40); RDW 21.7 % (11.5-15.5); WBC 12.3 k/uL (3.8-10.6)
[2019-04-29 19:04] LABS: Albumin 3.2 g/dL (3.5-5.0); Calcium 9.9 mg/dL (8.4-10.2); Total Bilirubin 0.5 mg/dL (0.2-1.3); Total Protein 6.2 g/dL (6.3-8.2)
[2019-04-29 19:39] LABS: INR 1.7 (<1.2); Prothrombin Time 16.9 sec (9.0-12.0)
[2019-04-29 19:42] LABS: D-Dimer 0.75 mg/L FEU (<0.60)
--- NOTE | 2019-04-29 19:43 | XR ---
EXAMINATION TYPE: XR chest 2V DATE OF EXAM: 04/29/2019 COMPARISON: Chest x-ray 04/24/2019 HISTORY: Difficulty breathing TECHNIQUE: Frontal and lateral views of the chest are obtained. FINDINGS: Cardiac silhouette is not enlarged. No pulmonary vascular congestion. Prominent interstitial markings bilaterally. Hazy opacification over the left lung base is more pronounced in the interim. No pleura l effusion or pneumothorax. Degenerative changes of the thoracic spine. IMPRESSION: Hazy opacification of the left lung base is nonspecific and may relate to atelectasis however focal c onsolidation cannot be excluded.
[2019-04-29] MEDS ORDERED: cefTRIAXone IN SWFI 1,000 MG/10 ML SYRINGE IVP STA (19:49)
[2019-04-29] MEDS ORDERED: IPRATROPIUM-ALBUTEROL 3 ML NEB INHALATION STA (20:03)
[2019-04-29] MEDS ORDERED: PNEUMONIA PROTOCOL UTILIZED 1 EACH MISC PO PRN (20:09)
[2019-04-29] MEDS ORDERED: PIPERACILLIN-TAZOBACTAM 3.375 GM in SODIUM CHLORIDE 0.9% 100 ML IVPB STA (20:09)
[2019-04-29] MEDS ORDERED: LEVOFLOXACIN 750MG-D5W PMX 750 MG in DEXTROSE/WATER 1 150ML.BAG IVPB STA (20:09)
[2019-04-30] MEDS ORDERED: POTASSIUM CHLORIDE ER 20 MEQ TAB.ER PO STA (02:47)
--- NOTE | 2019-04-30 08:20 | XR ---
EXAMINATION TYPE: XR chest 2V DATE OF EXAM: 04/30/2019 COMPARISON: 04/29/2019 INDICATION: Pneumonia TECHNIQUE: Frontal and lateral views of the chest are obtained. FINDINGS: The heart size is normal. The pulmonary vasculature is normal. Mild bibasilar infiltrate is present greater at the left retrocardiac region. This base infiltrate is improving from comparison. Right base infiltrate may be developing. Electronic device overlies the right chest. IMPRESSION: 1. Bibasilar infiltrates. Correlate for subsegmental atelectasis and resolving pneumonia. Left basila r infiltrate is resolving.
[2019-04-30] MEDS: PIPERACILLIN-TAZOBACTAM 3.375 GM in SODIUM CHLORIDE 0.9% 100 ML IVPB SCH ×2 (08:21→15:18)
[2019-04-30] MEDS ORDERED: ACETAMINOPHEN TAB 325 MG TAB PO PRN (09:12)
[2019-04-30] MEDS ORDERED: IPRATROPIUM-ALBUTEROL 3 ML NEB INHALATION PRN (11:04)
[2019-04-30] MEDS: IPRATROPIUM-ALBUTEROL 3 ML NEB INHALATION SCH ×3 (11:17→20:00)
[2019-04-30] MEDS: LOSARTAN 50 MG TAB PO SCH (11:41)
[2019-04-30] MEDS: HYDROCHLOROTHIAZIDE 12.5 MG CAP PO SCH (11:42)
[2019-04-30] MEDS: methylPREDNISolone SOD SUCCI 40 MG/ML 1 ML VIAL IV SCH ×2 (11:42→15:24)
[2019-04-30] MEDS: INSULIN ASPART (NovoLOG) 100 UNIT/ML VIAL SQ SCH ×3 (12:01→21:10)
[2019-04-30 12:05] LABS: Glucose,Whole Blood 97 mg/dL (75-99)
--- NOTE | 2019-04-30 14:11 | P.HPIM ---
History of Present Illness H&P Date: 04/30/19 Chief Complaint: SHERRY This is an 83-year-old female patient of Dr. Bertrand with past medical history of COPD, coronary artery disease status post cardiac stent, paroxysmal atrial fibrillation on chronic Coumadin, TIA, hypertension, hypothyroidism, COPD, remote history of tobacco use and dependence. Patient states that she was having a cough last week prior to undergoing colonoscopy and EGD which was done at [facility] with Dr. anderson. Apparently patient had at least 3 polyps removed. She denies any difficulty breathing when [facility] She continued to have worsening cough and worsening shortness of breath and came in the hospital for evaluation. She is not bringing up very much sputum. No fever, no chills. Patient presented to [facility] emergency center for evaluation. She was afebrile, initial blood pressure 81/51, pulse ox 88% on room air, heart rate 61, EKG was sinus rhythm with no acute ST changes. Chest x-ray showed left lower lobe pneumonia. WBC 12.3, creatinine 1.3, blood sugar 115, potassium 3.0, INR 1.7, proBNP 1780, troponin 0.032. Patient received Rocephin and was subsequently placed on Levaquin and Zosyn, admitted to the [facility] floor. Repeat chest x-ray reveals bibasilar infiltrates. Correlate for subsegmental atelectasis and resolving pneumonia. Left basilar infiltrate is resolving. Review of Systems Constitutional: Reports fatigue, Reports lethargy, Reports poor appetite, Denies chills, Denies fever Eyes: denies blurred vision, denies pain Ears, nose, mouth and throat: Denies dysphagia, Denies headache, Denies nasal congestion, Denies nasal discharge, Denies sore throat, Denies vertigo Cardiovascular: Reports decreased exercise tolerance, Reports dyspnea on exertion, Reports shortness of breath, Denies chest pain, Denies edema, Denies leg edema, Denies lightheadedness, Denies syncope Respiratory: Reports cough, Reports dyspnea, Reports respiratory infections, Reports wheezing, Denies excessive sputum, Denies hemoptysis, Denies home oxygen Gastrointestinal: Denies abdominal pain, Denies diarrhea, Denies loss of appetite, Denies nausea, Denies vomiting Genitourinary: Denies dysuria, Denies hematuria, Denies urgency, Denies urinary frequency Musculoskeletal: Denies frequent falls, Denies myalgias Integumentary: Denies pruritus, Denies rash, Denies wounds Neurological: Denies change in mentation, Denies change in speech, Denies numbness, Denies weakness Psychiatric: Denies anxiety, Denies depression Endocrine: Denies fatigue, Denies weight change Past Medical History Past Medical History: Asthma, Coronary Artery Disease (CAD), CVA/TIA, Hypertension, Thyroid Disorder History of Any Multi-Drug Resistant Organisms: None Reported Past Surgical History: Heart Catheterization With Stent, Hysterectomy Additional Past Surgical History / Comment(s): carotidectomy, EGD colonoscopy Date of Last Stent Placement:: 02/22/2018 Past Psychological History: No Psychological Hx Reported Smoking Status: Former smoker Past Alcohol Use History: Rare Additional Past Alcohol Use History / Comment(s): Patient was a smoker one pack per day for 33 years and quit in 1995. No illicit drug use or alcohol abuse. Past Drug Use History: None Reported - Past Family History Father Additional Family Medical History / Comment(s): Father at age 84 from coronary artery disease. Mother Additional Family Medical History / Comment(s): Mother at age 90 from a bowel obstruction. Brother(s) Additional Family Medical History / Comment(s): Patient has 1 brother that is alive with no major medical problems. Sister(s) Additional Family Medical History / Comment(s): Patient has a total of 3 sisters. One has passed with complications after surgical procedure the cause of fistula. 2 other sisters are alive without major medical problems. Daughter(s) Additional Family Medical History / Comment(s): Patient has 2 daughters and one has history of kidney transplant, diabetes, stroke, coronary artery disease. One daughter has history of osteoarthritis and hip replacement. Son(s) Additional Family Medical History / Comment(s): Patient has 2 sons with no major medical problems. Medications and Allergies Home Medications Medication Instructions Recorded Confirmed Type Aspirin [Children's Aspirin] 81 mg PO HS 02/07/17 04/30/19 History Donepezil [Aricept] 5 mg PO HS 02/07/17 04/30/19 History Fluticasone/Salmeterol [Advair 1 puff INHALATION RT-BID 02/07/17 04/30/19 History 250-50 Diskus] Levothyroxine Sodium [Synthroid] 88 mcg PO DAILY 02/07/17 04/30/19 History Metoprolol Succinate [Toprol XL] 25 mg PO HS 02/07/17 04/30/19 History Rosuvastatin [Crestor] 20 mg PO MOWEFR 02/07/17 04/30/19 History Warfarin [Coumadin] 2.5 mg PO MOFR 02/07/17 04/30/19 History Warfarin [Coumadin] 5 mg PO SUTUWETHSA 02/07/17 04/30/19 History Losartan/Hydrochlorothiazide 1 tab PO DAILY 04/30/19 04/30/19 History [Losartan-Hctz 100-12.5 mg Tab] Omeprazole 40 mg PO DAILY 04/30/19 04/30/19 History Sucralfate [Carafate] 1 gm PO ACHS 04/30/19 04/30/19 History amLODIPine [Norvasc] 10 mg PO DAILY 04/30/19 04/30/19 History Allergies Allergy/AdvReac Type Severity Reaction Status Date / Time dacron Allergy Unknown Uncoded 04/30/19 10:54 Physical Exam Vitals: Vital Signs Temp Pulse Pulse Resp BP BP Pulse Ox 04/30/19 07:41 97.8 F 61 18 132/74 93 L 04/30/19 06:45 98.6 F 64 18 131/56 96 04/30/19 06:00 96 04/30/19 01:20 20 04/29/19 23:00 65 18 116/49 95 04/29/19 21:00 64 18 139/56 93 L 04/29/19 20:37 62 04/29/19 20:25 60 04/29/19 20:05 95 04/29/19 20:00 59 L 20 137/62 89 L 04/29/19 18:39 67 18 132/66 94 L 04/29/19 17:36 97.7 F 61 18 81/51 88 L Intake and Output 04/29/19 04/30/19 04/30/19 22:59 06:59 14:59 Other: Weight 77.564 kg Gen: This is an 83-year-old female. Patient is resting in bed and appears to be fairly comfortable. Occasional cough noted. HEENT: Head is atraumatic, normocephalic. Pupils equal, round. Sclerae is anicteric. NECK: Supple. No JVD. No lymphadenopathy. No thyromegaly. LUNGS: Diminished bilaterally with expiratory wheeze scattered throughout along with scattered rhonchi, prolonged expiratory phase. No intercostal retractions. HEART: Regular rate and rhythm. No murmur. ABDOMEN: Soft. Bowel sounds are present. No masses. No tenderness. EXTREMITIES: No pedal edema. No calf tenderness. NEUROLOGICAL: Patient is awake, alert and oriented x3. Cranial nerves 2 through 12 are grossly intact. Results CBC & Chem 7: 04/29/19 18:40 04/29/19 18:40 Labs: Abnormal Lab Results - Last 24 Hours (Table) 04/29/19 04/29/19 04/29/19 Range/Units 18:40 18:40 18:40 WBC 12.3 H (3.8-10.6) k/uL MCHC 30.8 L (31.0-37.0) g/dL RDW 21.7 H (11.5-15.5) % Neutrophils # 8.2 H (1.3-7.7) k/uL PT 16.9 H (9.0-12.0) sec INR 1.7 H (<1.2) D-Dimer 0.75 H (<0.60) mg/L FEU Potassium 3.0 L (3.5-5.1) mmol/L Creatinine 1.30 H (0.52-1.04) mg/dL Glucose 115 H (74-99) mg/dL Total Protein 6.2 L (6.3-8.2) g/dL Albumin 3.2 L (3.5-5.0) g/dL Thrombosis Risk Factor Assmnt - DVT/VTE Prophylaxis DVT/VTE Prophylaxis: Pharmacologic Prophylaxis ordered - Choose All That Apply Each Risk Factor Represents 3 Points: Age 75 years or older Thrombosis Risk Factor Assessment Total Risk Factor Score: 3 Thrombosis Risk Factor Assessment Level: Moderate Risk Assessment and Plan Plan: 1. Acute hypoxic respiratory failure secondary to a combination of COPD exacerbation and bilateral lower lobe pneumonia, concerning for aspiration pneumonia. Continue Levaquin, Zosyn, DuoNeb treatments 4 times daily and as needed, Pulmicort 1 mg twice daily, Solu-Medrol 40 mg IV every 8 hours, consult with pulmonary medicine. 2. Paroxysmal atrial fibrillation. Continue Coumadin, monitor INR closely while on antibiotics, Toprol-XL 25 mg at bedtime. 3. Hypertension. Continue losartan 100 mg daily, Toprol-XL. 4. Hypothyroidism. Continue levothyroxine 88 g daily. 5. History of coronary artery disease status post cardiac stent. Continue aspirin 81 mg daily, atorvastatin 40 mg a Tuesday. 6. Remote history of tobacco use and dependence. 7. DVT prophylaxis. Coumadin. 8. GI prophylaxis. Protonix. 9. Vascular dementia. Aricept 5 mg at bedtime. Patient will be admitted to the hospital for a minimum of 2 night stay. Discharge plan: Most likely return home. PT and OT will be added. Impression and plan of care have been directed as dictated by the signing physician. Shari Rodriguez nurse practitioner acting as scribe for signing physician.
--- NOTE | 2019-04-30 16:55 | CONS ---
CONSULTATION DATE OF CONSULTATION: 04/30/2019 83-year-old female who presents to the emergency department on April 29 with complaints of shortness of breath, cough, and weakness. She had a colonoscopy apparently performed on Tuesday. Since that time, she has been coughing and felt very short of breath. She denies any sputum production. She denies any fever or chills. Denies any chest pain. She just feels very weak, short of breath and she is coughing. Today, she feels a bit better than she did yesterday. She was seen in the emergency room and apparently diagnosed with pneumonia. When we saw her in the room we did not know about the recent endoscopy and it makes it likely that the patient aspirated. Anyway, she is feeling a bit better. Still has similar complaints of shortness of breath, cough, and weakness. Not producing any phlegm. No fever, no chills. No genitourinary complaints. No nausea, vomiting or diarrhea. HOME MEDICATIONS: Include aspirin, Aricept, Advair, Lasix, Synthroid, Zestoretic, metoprolol, potassium Crestor, warfarin, Plavix, and Bactrim. She is also likely on a rescue inhaler either Ventolin, ProAir or Proventil. She could not remember the name. ALLERGIES: Include DACRON. PAST MEDICAL HISTORY: Positive for probable COPD. She did smoke 30 years at a pack a day. She has a history of CAD, CVA, hypertension, and hypothyroidism. She also suffers from hyperlipidemia. SURGICAL HISTORY: Includes heart catheterization with stent placement, hysterectomy, carotid endarterectomy, EGD, colonoscopy, and some other minor procedures. The EGD and colonoscopy were done late last week. SOCIAL HISTORY: Positive for previous tobacco use. As mentioned above, she smoked 30 years at a pack a day. Does not smoke currently. No illicit drug use or alcohol use. FAMILY HISTORY: Not contributory. She states her parents were healthy. REVIEW OF SYSTEMS: CONSTITUTIONAL: Weakness. NEUROLOGIC: Negative. HEENT: Negative. CARDIOVASCULAR: Negative. PULMONARY: Cough and shortness of breath, without any phlegm production. GI: Negative. : Negative. RHEUMATOLOGIC: Negative. IMMUNOLOGIC: Negative. ENDOCRINOLOGIC: Negative. DERMATOLOGIC: Negative. PHYSICAL EXAMINATION: VITAL SIGNS: Current vital signs are reviewed. Temperature is 97.8, heart rate 65, respiratory rate 18, blood pressure 132/74, mean 93, 2 L saturation 93%. Appears in no acute distress. HEENT examination is grossly unremarkable. Mucous membranes are moist. No oral lesions. NECK: Supple. Full range of motion. No adenopathy or thyromegaly. Neck veins are flat. CARDIOVASCULAR examination reveals regular rhythm and rate. S1, S2 normal. No murmur, S3, S4. Heart rate 65 beats per minute. LUNGS: Reveal coarse inspiratory and expiratory rhonchi and wheezes. There are some scattered crackles. Rhonchi are coarse. There is prolongation on forced maneuver. Adventitious lung sounds are more prominent on forced maneuver. ABDOMEN: Soft. Bowel sounds are heard. EXTREMITIES are intact. No cyanosis, clubbing, or edema. SKIN: Without rash. NEUROLOGIC examination is brief but nonfocal. X-RAY: Most recent chest x-ray was done. It shows bibasilar infiltrates. There is some atelectasis and possible small effusions. Microbiologic studies are either negative or pending. LABS: Reviewed. White count 12.3, hemoglobin 12.7, hematocrit 41.3, platelet count 359,000. PT 16.9, INR 1.7, PTT is 30. D-dimer 0.75. Sodium 140, potassium 3, chloride 107, CO2 is 26, anion gap 7. BUN and creatinine were 13 and 1.30. Albumin 3.2. Medications are reviewed. Currently, she is on Pulmicort 1 mg, Rocephin 1 g, albuterol and Atrovent updrafts, Solu-Medrol 40 q.8h, Zosyn and warfarin. She is also on Levaquin IV. ASSESSMENT: 1. Bilateral pneumonia, which may relate to silent aspiration during her recent colonoscopy/EGD. 2. Probable underlying chronic obstructive pulmonary disease from previous heavy tobacco use. The patient currently is bronchospastic. 3. Previous history of heavy tobacco use, at 1+ pack a day for 30+ years. 4. History of hypothyroidism. 5. History of hyperlipidemia. 6. History of coronary artery disease. 7. History of hypertension. 8. Previous history of cerebrovascular accident. 9. Prior history of heart catheterization with PCI. PLAN: Currently, the patient's medications are appropriate. I will add some Perforomist to the regimen. No additional recommendations are made. I suspect she probably aspirated during her recent endoscopic procedures. Additional recommendations and suggestions are forthcoming. Her current antibiotics are fine. We can deescalate them in a couple days pending results of sputum, blood, analysis. MMODL / IJN: [id number] /
[2019-04-30 17:01] LABS: Glucose,Whole Blood 185 mg/dL (75-99)
[2019-04-30] MEDS ORDERED: WARFARIN 2.5 MG TAB PO SCH (18:00)
[2019-04-30] MEDS: BUDESONIDE 1 MG/2 ML NEBU INHALATION SCH (20:00)
[2019-04-30] MEDS: FORMOTEROL FUMARATE 20 MCG/2 ML NEBU INHALATION SCH (20:00)
[2019-04-30 20:48] LABS: Glucose,Whole Blood 295 mg/dL (75-99)
[2019-04-30] MEDS: ASPIRIN 81 MG PO SCH (21:08)
[2019-04-30] MEDS: METOPROLOL SUCCINATE (ER) 25 MG TAB.ER.24H PO SCH (21:08)
[2019-04-30] MEDS: ATORVASTATIN 40 MG TAB PO SCH (21:09)
[2019-04-30] MEDS: DONEPEZIL 5 MG TAB PO SCH (21:09)
[2019-05-01] MEDS: methylPREDNISolone SOD SUCCI 40 MG/ML 1 ML VIAL IV SCH ×4 (00:28→23:39)
[2019-05-01] MEDS: PIPERACILLIN-TAZOBACTAM 3.375 GM in SODIUM CHLORIDE 0.9% 100 ML IVPB SCH ×4 (00:29→23:39)
[2019-05-01] MEDS: LEVOTHYROXINE 88 MCG TAB PO SCH (05:49)
[2019-05-01 07:29] LABS: Glucose,Whole Blood 162 mg/dL (75-99)
[2019-05-01] MEDS: INSULIN ASPART (NovoLOG) 100 UNIT/ML VIAL SQ SCH ×4 (07:49→22:05)
[2019-05-01] MEDS: PANTOPRAZOLE 40 MG TABLET PO SCH (07:49)
[2019-05-01] MEDS: LOSARTAN 50 MG TAB PO SCH (07:50)
[2019-05-01] MEDS: HYDROCHLOROTHIAZIDE 12.5 MG CAP PO SCH (07:50)
[2019-05-01] MEDS: FORMOTEROL FUMARATE 20 MCG/2 ML NEBU INHALATION SCH ×2 (08:05→19:17)
[2019-05-01] MEDS: BUDESONIDE 1 MG/2 ML NEBU INHALATION SCH ×2 (08:05→19:17)
[2019-05-01] MEDS: IPRATROPIUM-ALBUTEROL 3 ML NEB INHALATION SCH ×4 (08:05→19:17)
[2019-05-01 09:25] LABS: Anisocytosis Moderate; HCT 40.9 % (34.0-46.0); HGB 12.4 gm/dL (11.4-16.0); Hypochromasia Marked; MCH 27.5 pg (25.0-35.0); MCHC 30.4 g/dL (31.0-37.0); MCV 90.4 fL (80.0-100.0); Macrocytosis Slight; Platelet Count 355 k/uL (150-450); RBC 4.53 m/uL (3.80-5.40); RDW 21.2 % (11.5-15.5)
[2019-05-01 09:37] LABS: Calcium 10.6 mg/dL (8.4-10.2); Potassium 3.6 mmol/L (3.5-5.1)
[2019-05-01 09:45] LABS: INR 1.7 (<1.2); Prothrombin Time 17.3 sec (9.0-12.0)
--- NOTE | 2019-05-01 11:26 | CDI ---
Documentation Clarification Form Date: 05/01/2019 11:17:54 AM From: Xiao Griffith RN, CCDS Admit Date: 04/29/2019 8:10:00 PM Patient Name: Susan Ramos Visit Number: [id number] ATTENTION: The Clinical Documentation Specialists (CDI) and [facility] Coding Staff appreciate your assistance in clarifying documentation. Please respond to the clarification below the line at the bottom and electronically sign. The CDI & [facility] Coding staff will review the response and follow-up if needed. Please note: Queries are made part of the Legal Health Record. If you have any questions, please contact the author of this message via ITS. Dr. Melani Bertrand History/Risk Factors: HTN, Thyroid disorder, HTN, CAD 04/24/19 Patients baseline BUN/CR/GFR: 16. Clinical Indicators: Current BUN: 13 Cr: 1.3/1.12 GFR: 39/46 Treatment: IVF: none given Lab monitoring In order to capture the severity of condition, please clarify if the condition signifies: Acute renal failure, Please specify etiology (if known): Cortical Necrosis Medullary Necrosis Tubular Necrosis Acute kidney injury Acute on chronic renal failure CKD Stage 1 GFR >90 CKD Stage 2 GFR 60-89 CKD Stage 3 GFR 30-59 CKD please stage (if known): CKD Stage 1 GFR >90 CKD Stage 2 GFR 60-89 CKD Stage 3 GFR 30-59 Other, please specify Unable to determine (Last Revision: August 2017) Acute on chronic kidney disease stage 3 due to acute tubular necrosis MTDD
--- NOTE | 2019-05-01 11:39 | P.PN ---
Subjective Progress Note Date: 05/01/19 This is an 83-year-old female patient of Dr. Bertrand with past medical history of COPD, coronary artery disease status post cardiac stent, paroxysmal atrial fibrillation on chronic Coumadin, TIA, hypertension, hypothyroidism, COPD, remote history of tobacco use and dependence. Patient states that she was having a cough last week prior to undergoing colonoscopy and EGD which was done at [facility] with Dr. anderson. Apparently patient had at least 3 polyps removed. She denies any difficulty breathing when she woke up from anesthesia. She continued to have worsening cough and worsening shortness of breath and came in the hospital for evaluation. She is not bringing up very much sputum. No fever, no chills. Patient presented to [facility] emergency center for evaluation. She was afebrile, initial blood pressure 81/51, pulse ox 88% on room air, heart rate 61, EKG was sinus rhythm with no acute ST changes. Chest x-ray showed left lower lobe pneumonia. WBC 12.3, creatinine 1.3, blood sugar 115, potassium 3.0, INR 1.7, proBNP 1780, troponin 0.032. Patient received Rocephin and was subsequently placed on Levaquin and Zosyn[facility] Repeat chest x-ray reveals bibasilar infiltrates. Correlate for subsegmental atelectasis and resolving pneumonia. Left basilar infiltrate is resolving. 05/01: Patient has been seen and followed by Dr. Dillard. Perforomist has been added. Patient has been afebrile, heart rate 76, pulse ox 93% on 2 L nasal cannula, blood pressure 149/62. Repeat lab work reveals white count of 14.0, INR 1.7, pharmacy is dosing Coumadin, creatinine 1.12. Blood sugars are elevated secondary to steroids. Review of Systems Constitutional: Reports fatigue, denies lethargy, Reports poor appetite, Denies chills, Denies fever Eyes: denies blurred vision, denies pain Ears, nose, mouth and throat: Denies dysphagia, Denies headache, Denies nasal congestion, Denies nasal discharge, Denies sore throat, Denies vertigo Cardiovascular: Reports decreased exercise tolerance, Reports dyspnea on e xertion, Reports shortness of breath, Denies chest pain, Denies edema, Denies leg edema, Denies lightheadedness, Denies syncope Respiratory: Reports cough, Reports dyspnea, Reports respiratory infections, Reports wheezing, Denies excessive sputum, Denies hemoptysis, Denies home oxygen Gastrointestinal: Denies abdominal pain, Denies diarrhea, Denies loss of appetite, Denies nausea, Denies vomiting Genitourinary: Denies dysuria, Denies hematuria, Denies urgency, Denies urinary frequency Musculoskeletal: Denies frequent falls, Denies myalgias Integumentary: Denies pruritus, Denies rash, Denies wounds Neurological: Denies change in mentation, Denies change in speech, Denies numbness, Denies weakness Psychiatric: Denies anxiety, Denies depression Endocrine: Denies fatigue, Denies weight change Objective - Vital Signs Vital signs: Vital Signs Temp 97.9 F 05/01/19 05:00 Pulse 80 05/01/19 08:26 Resp 20 05/01/19 05:00 BP 149/62 05/01/19 05:00 Pulse Ox 93 L 05/01/19 08:05 Intake & Output 04/30/19 05/01/19 05/01/19 18:59 06:59 18:59 Intake Total 300 Balance 300 Intake: Oral 300 Other: Voiding Method Toilet # Voids 2 3 - Exam Gen: This is an 83-year-old female. Patient appears to be fairly comfortable. Occasional cough noted. HEENT: Head is atraumatic, normocephalic. Pupils equal, round. Sclerae is anicteric. NECK: Supple. No JVD. No lymphadenopathy. No thyromegaly. LUNGS: Diminished bilaterally with expiratory wheeze scattered throughout along with scattered rhonchi, prolonged expiratory phase. No intercostal retractions. HEART: Regular rate and rhythm. No murmur. ABDOMEN: Soft. Bowel sounds are present. No masses. No tenderness. EXTREMITIES: No pedal edema. No calf tenderness. NEUROLOGICAL: Patient is awake, alert and oriented x3. Cranial nerves 2 through 12 are grossly intact. - Labs CBC & Chem 7: 05/01/19 08:59 05/01/19 08:59 Labs: Abnormal Lab Results - Last 24 Hours (Table) 04/30/19 04/30/19 05/01/19 Range/Units 16:59 20:44 07:26 WBC (3.8-10.6) k/uL MCHC (31.0-37.0) g/dL RDW (11.5-15.5) % PT (9.0-12.0) sec INR (<1.2) Creatinine (0.52-1.04) mg/dL Glucose (74-99) mg/dL POC Glucose (mg/dL) 185 H 295 H 162 H (75-99) mg/dL Calcium (8.4-10.2) mg/dL 05/01/19 05/01/19 05/01/19 Range/Units 08:59 08:59 08:59 WBC 14.0 H (3.8-10.6) k/uL MCHC 30.4 L (31.0-37.0) g/dL RDW 21.2 H (11.5-15.5) % PT 17.3 H (9.0-12.0) sec INR 1.7 H (<1.2) Creatinine 1.12 H (0.52-1.04) mg/dL Glucose 213 H (74-99) mg/dL POC Glucose (mg/dL) (75-99) mg/dL Calcium 10.6 H (8.4-10.2) mg/dL Microbiology - Last 24 Hours (Table) 04/29/19 18:40 Blood Culture - Preliminary Blood No Growth after 24 hours Assessment and Plan Plan: 1. Acute hypoxic respiratory failure secondary to a combination of COPD exacerbation and bilateral lower lobe pneumonia, concerning for aspiration pneumonia. Continue Levaquin, Zosyn, DuoNeb treatments 4 times daily and as needed, Pulmicort 1 mg twice daily, Solu-Medrol 40 mg IV every 8 hours, consult with pulmonary medicine. 2. Paroxysmal atrial fibrillation. Continue Coumadin, monitor INR closely while on antibiotics, Toprol-XL 25 mg at bedtime. 3. Hypertension. Continue losartan 100 mg daily, Toprol-XL. 4. Hypothyroidism. Continue levothyroxine 88 g daily. 5. History of coronary artery disease status post cardiac stent. Continue aspirin 81 mg daily, atorvastatin 40 mg a Tuesday. 6. Remote history of tobacco use and dependence. 7. DVT prophylaxis. Coumadin. 8. GI prophylaxis. Protonix. 9. Vascular dementia. Aricept 5 mg at bedtime. 10. Chronic kidney disease stage III. Avoid nephrotoxic agents. 11. Hyperglycemia secondary to steroids. Continue NovoLog scale before meals and at bedtime. Patient will be admitted to the hospital for a minimum of 2 night stay. Discharge plan: Most likely return home. PT and OT will be added. Impression and plan of care have been directed as dictated by the signing physician. Shari Rodriguez nurse practitioner acting as scribe for signing physician.
[2019-05-01 11:49] LABS: Glucose,Whole Blood 149 mg/dL (75-99)
[2019-05-01] MEDS ORDERED: PNEUMOCOCCAL VACC-PNEUMOVAX 23 25 MCG/0.5 ML VIAL IM ONE (12:42)
--- NOTE | 2019-05-01 12:42 | P.PN ---
Subjective Progress Note Date: 05/01/19 Principal diagnosis: Bilateral pneumonia related to aspiration, COPD exacerbation On 05/01/2019 patient seen in follow-up on medical surgical floor. Breathing better today, still bronchospastic, and dyspneic reports some improvement., he is on 2 L of oxygen, with a pulse ox of 93%, blood culture showed no growth, patient has been afebrile, remains on Zosyn for antibiotic coverage, IV steroids, nebulized bronchodilators. Objective - Vital Signs Vital signs: Vital Signs Temp 97.9 F 05/01/19 05:00 Pulse 76 05/01/19 12:07 Resp 20 05/01/19 05:00 BP 149/62 05/01/19 05:00 Pulse Ox 93 L 05/01/19 08:05 Intake & Output 04/30/19 05/01/19 05/01/19 18:59 06:59 18:59 Intake Total 300 Balance 300 Intake: Oral 300 Other: Voiding Method Toilet # Voids 2 3 - Exam GENERAL EXAM: Alert, very pleasant, 83-year-old white female, in 2 L of oxygen with a pulse ox of 93%, comfortable in no apparent distress. HEAD: Normocephalic/atraumatic. EYES: Normal reaction of pupils, equal size. Conjunctiva pink, sclera white. NOSE: Clear with pink turbinates. THROAT: No erythema or exudates. NECK: No masses, no JVD, no thyroid enlargement, no adenopathy. CHEST: No chest wall deformity. Symmetrical expansion. LUNGS: Equal air entry with diffuse wheezes and rhonchi CVS: Regular rate and rhythm, normal S1 and S2, no gallops, no murmurs, no rubs ABDOMEN: Soft, nontender. No hepatosplenomegaly, normal bowel sounds, no gua rding or rigidity. EXTREMITIES: No clubbing, no edema, no cyanosis, 2+ pulses and upper and lower extremities. MUSCULOSKELETAL: Muscle strength and tone normal. SPINE: No scoliosis or deformity SKIN: No rashes CENTRAL NERVOUS SYSTEM: Alert and oriented -3. No focal deficits, tone is normal in all 4 extremities. PSYCHIATRIC: Alert and oriented -3. Appropriate affect. Intact judgment and insight. - Labs CBC & Chem 7: 05/01/19 08:59 05/01/19 08:59 Labs: Abnormal Lab Results - Last 24 Hours (Table) 04/30/19 04/30/19 05/01/19 Range/Units 16:59 20:44 07:26 WBC (3.8-10.6) k/uL MCHC (31.0-37.0) g/dL RDW (11.5-15.5) % PT (9.0-12.0) sec INR (<1.2) Creatinine (0.52-1.04) mg/dL Glucose (74-99) mg/dL POC Glucose (mg/dL) 185 H 295 H 162 H (75-99) mg/dL Calcium (8.4-10.2) mg/dL 05/01/19 05/01/19 05/01/19 Range/Units 08:59 08:59 08:59 WBC 14.0 H (3.8-10.6) k/uL MCHC 30.4 L (31.0-37.0) g/dL RDW 21.2 H (11.5-15.5) % PT 17.3 H (9.0-12.0) sec INR 1.7 H (<1.2) Creatinine 1.12 H (0.52-1.04) mg/dL Glucose 213 H (74-99) mg/dL POC Glucose (mg/dL) (75-99) mg/dL Calcium 10.6 H (8.4-10.2) mg/dL 05/01/19 Range/Units 11:45 WBC (3.8-10.6) k/uL MCHC (31.0-37.0) g/dL RDW (11.5-15.5) % PT (9.0-12.0) sec INR (<1.2) Creatinine (0.52-1.04) mg/dL Glucose (74-99) mg/dL POC Glucose (mg/dL) 149 H (75-99) mg/dL Calcium (8.4-10.2) mg/dL Microbiology - Last 24 Hours (Table) 04/29/19 18:40 Blood Culture - Preliminary Blood No Growth after 24 hours Assessment and Plan Assessment: Assessment: #1. Acute bilateral pneumonia, likely related to silent aspiration during patient's recent colonoscopy/EGD #2. Acute exacerbation of chronic obstructive pulmonary disease from previous heavy tobacco use #3. Previous history of heavy tobacco use, at 1+ pack a day for 30+ years #4. History of hypothyroidism #5. History of hyperlipidemia #6. Severe coronary artery disease #7. History of hypertension #8. Previous history of cerebrovascular accident #9. Prior history of heart catheterization with PCI Plan: Continue with current antibiotics, continue with steroids, bronchodilators, Pulmicort and Perforomist, patient reports some improvement, but still bronchospastic and dyspnea, we'll obtain follow-up chest x-ray tomorrow, we'll continue to follow I performed a history & physical examination of the patient and discussed their management with my nurse practitioner, Stefania Ramirez. I reviewed the nurse practitioner's note and agree with the documented findings and plan of care. Lung sounds are positive for diffuse wheezes throughout the lung valladares. The findings and the impression was discussed with the patient. I attest to the documentation by the nurse practitioner. Time with Patient: Less than 30
[2019-05-01] MEDS: WARFARIN 5 MG TAB PO SCH (16:50)
[2019-05-01 17:01] LABS: Glucose,Whole Blood 196 mg/dL (75-99)
[2019-05-01 20:59] LABS: Glucose,Whole Blood 158 mg/dL (75-99)
[2019-05-01] MEDS ORDERED: LEVOFLOXACIN 750MG-D5W PMX 750 MG in DEXTROSE/WATER 1 150ML.BAG IVPB SCH (21:00)
[2019-05-01] MEDS ORDERED: LEVOFLOXACIN 750 MG TAB PO SCH (21:00)
[2019-05-01] MEDS: ASPIRIN 81 MG PO SCH (22:03)
[2019-05-01] MEDS: METOPROLOL SUCCINATE (ER) 25 MG TAB.ER.24H PO SCH (22:04)
[2019-05-01] MEDS: DONEPEZIL 5 MG TAB PO SCH (22:05)
[2019-05-02] MEDS: LEVOTHYROXINE 88 MCG TAB PO SCH (05:40)
[2019-05-02] MEDS: IPRATROPIUM-ALBUTEROL 3 ML NEB INHALATION SCH ×4 (07:08→20:24)
[2019-05-02] MEDS: FORMOTEROL FUMARATE 20 MCG/2 ML NEBU INHALATION SCH ×2 (07:08→20:23)
[2019-05-02] MEDS: BUDESONIDE 1 MG/2 ML NEBU INHALATION SCH ×2 (07:08→20:23)
[2019-05-02 07:18] LABS: Glucose,Whole Blood 131 mg/dL (75-99)
[2019-05-02] MEDS: methylPREDNISolone SOD SUCCI 40 MG/ML 1 ML VIAL IV SCH ×2 (07:48→15:58)
[2019-05-02] MEDS: PANTOPRAZOLE 40 MG TABLET PO SCH (07:48)
[2019-05-02] MEDS: LOSARTAN 50 MG TAB PO SCH (07:48)
[2019-05-02] MEDS: HYDROCHLOROTHIAZIDE 12.5 MG CAP PO SCH (07:48)
[2019-05-02] MEDS: INSULIN ASPART (NovoLOG) 100 UNIT/ML VIAL SQ SCH ×4 (07:49→21:31)
[2019-05-02] MEDS: PIPERACILLIN-TAZOBACTAM 3.375 GM in SODIUM CHLORIDE 0.9% 100 ML IVPB SCH ×2 (07:49→15:59)
[2019-05-02 08:31] LABS: INR 2.1 (<1.2); Prothrombin Time 20.3 sec (9.0-12.0)
--- NOTE | 2019-05-02 08:31 | XR ---
EXAMINATION TYPE: XR chest 2V DATE OF EXAM: 05/02/2019 COMPARISON: 04/30/2019 HISTORY: Shortness of breath TECHNIQUE: Frontal and lateral views of the chest are obtained. FINDINGS: Scattered senescent parenchymal changes noted. Hyperinflation compatible with COPD. No evidence for infiltrate. No evidence for atelectasis. Heart size is stable. There is pulmonary venous congestion and small left-sided pleural effusion. Mediastinal structures are stable and grossly unremarkable. No evidence for hilar prominence. Degenerative changes dorsal spine. IMPRESSION: 1. There is pulmonary venous congestion and small left-sided pleural effusion.
--- NOTE | 2019-05-02 11:01 | P.DS ---
Providers Date of admission: 04/29/19 20:10 Expected date of discharge: 05/03/19 Attending physician: Melani Bertrand Consults: 04/30/19 11:08 Consult Physician Routine Consulting Provider: Rosas Dillard Consult Reason/Comments: bilat pneumonia Do you want consulting provider notified?: Yes Primary care physician: Melani Bertrand Hospital Course: This is an 83-year-old female patient of Dr. Bertrand with past medical history of COPD, coronary artery disease status post cardiac stent, paroxysmal atrial fibrillation on chronic Coumadin, TIA, hypertension, hypothyroidism, COPD , remote history of tobacco use and dependence. Patient states that she was having a cough last week prior to undergoing colonoscopy and EGD which was done at [facility] with Dr. anderson. Apparently patient had at least 3 polyps removed. She denies any difficulty breathing when she woke up from anesthesia. She continued to have worsening cough and worsening shortness of breath and came in the hospital for evaluation. She is not bringing up very much sputum. No fever, no chills. Patient presented to [facility] emergency center for evaluation. She was afebrile, initial blood pressure 81/51, pulse ox 88% on room air, heart rate 61, EKG was sinus rhythm with no acute ST changes. Chest x-ray showed left lower lobe pneumonia. WBC 12.3, creatinine 1.3, blood sugar 115, potassium 3.0, INR 1.7, proBNP 1780, troponin 0.032. Patient received Rocephin and was subsequently placed on Levaquin and Zosyn, admitted to the MedSur floor. Repeat chest x-ray reveals bibasilar infiltrates. Correlate for subsegmental atelectasis and resolving pneumonia. Left basilar infiltrate is resolving. 05/01: Patient has been seen and followed by Dr. Dillard. Perforomist has been added. Patient has been afebrile, heart rate 76, pulse ox 93% on 2 L nasal cannula, blood pressure 149/62. Repeat lab work reveals white count of 14.0, INR 1.7, pharmacy is dosing Coumadin, creatinine 1.12. Blood sugars are elevated secondary to steroids. 05/02: Patient was prepared for discharge but pulse ox at rest without oxygen dropped to 84%. CTA of the chest will be ordered to rule out PE. Discharge will be held until tomorrow. We will continue Solu-Medrol 40 mg every 8 hours for now. She has been afebrile, heart rate 74, blood pressure 172/68. Blood cultures showing no growth at 48 hours and sputum culture is in progress. Oxygen will be arranged for home. INR is 2.1. Also a walker will be ordered. 05/03: Patient underwent CT angiogram of the chest yesterday that found a small filling defect within the third order branch of the left lower lobe, compatible with small pulmonary embolism. 2.1 cm left lower lobe coloring nodule. Patient will follow-up with Dr. Dillard for further evaluation and monitoring of pulmonary nodule. Small pulmonary embolism most likely of chronic status as patient has underlying history of PE and clotting disorder. Patient states that her breathing is much improved today and the oxygen helps. Patient will be discharged home today in stable condition. Discharge diagnoses: 1. Acute hypoxic respiratory failure secondary to a combination of COPD exacerbation and bilateral lower lobe pneumonia, possible aspiration pneumonia. 2. History of PE and clotting disorder 3. Hypertension. 4. Hypothyroidism. 5. History of coronary artery disease status post cardiac stent. 6. Remote history of tobacco use and dependence. 7. Vascular dementia. 8. Chronic kidney disease stage III. 9. Hyperglycemia secondary to steroids. 10. Chronic hypoxic respiratory failure, home O2 arranged. Discharge plan: home. Impression and plan of care have been directed as dictated by the signing allan hsieh. Shari Rodriguez nurse practitioner acting as scribe for signing physician. Patient Condition at Discharge: Good Plan - Discharge Summary New Discharge Prescriptions: New Amoxicillin/Potassium Clav [Augmentin 875-125 Tablet] 1 each PO Q12HR #14 tab predniSONE 0 mg PO DIRECTED #30 tab Continue Metoprolol Succinate [Toprol XL] 25 mg PO HS Levothyroxine Sodium [Synthroid] 88 mcg PO DAILY Donepezil [Aricept] 5 mg PO HS Warfarin [Coumadin] 5 mg PO SUTUWETHSA Warfarin [Coumadin] 2.5 mg PO MOFR Fluticasone/Salmeterol [Advair 250-50 Diskus] 1 puff INHALATION RT-BID Rosuvastatin [Crestor] 20 mg PO MOWEFR Aspirin [Children's Aspirin] 81 mg PO HS Losartan/Hydrochlorothiazide [Losartan-Hctz 100-12.5 mg Tab] 1 tab PO DAILY amLODIPine [Norvasc] 10 mg PO DAILY Sucralfate [Carafate] 1 gm PO ACHS Omeprazole 40 mg PO DAILY Discharge Medication List Aspirin [Children's Aspirin] 81 mg PO HS 02/07/17 [History] Donepezil [Aricept] 5 mg PO HS 02/07/17 [History] Fluticasone/Salmeterol [Advair 250-50 Diskus] 1 puff INHALATION RT-BID 02/07/17 [History] Levothyroxine Sodium [Synthroid] 88 mcg PO DAILY 02/07/17 [History] Metoprolol Succinate [Toprol XL] 25 mg PO HS 02/07/17 [History] Rosuvastatin [Crestor] 20 mg PO MOWEFR 02/07/17 [History] Warfarin [Coumadin] 2.5 mg PO MOFR 02/07/17 [History] Warfarin [Coumadin] 5 mg PO SUTUWETHSA 02/07/17 [History] Losartan/Hydrochlorothiazide [Losartan-Hctz 100-12.5 mg Tab] 1 tab PO DAILY 04/30/19 [History] Omeprazole 40 mg PO DAILY 04/30/19 [History] Sucralfate [Carafate] 1 gm PO ACHS 04/30/19 [History] amLODIPine [Norvasc] 10 mg PO DAILY 04/30/19 [History] Amoxicillin/Potassium Clav [Augmentin 875-125 Tablet] 1 each PO Q12HR #14 tab 05/02/19 [Rx] predniSONE 0 mg PO DIRECTED #30 tab 05/02/19 [Rx] Follow up Appointment(s)/Referral(s): Melani Bertrand MD [Primary Care Provider] - 1 Week (Office will call ) [facility],Equipment [NON-STAFF] - (Oxygen and Walker supplied by [facility]) Rosas Dillard DO [Doctor of Osteopathic Medicine] - 05/10/19 9:00 am [facility], [NON-STAFF] - Patient Instructions/Handouts: Pneumonia (DC) Discharge Disposition: HOME WITH HOME HEALTH SERVICES
[2019-05-02 12:17] LABS: Glucose,Whole Blood 226 mg/dL (75-99)
[2019-05-02] MEDS: amLODIPine 10 MG TAB PO SCH (12:47)
--- NOTE | 2019-05-02 13:03 | P.PN ---
Subjective Progress Note Date: 05/02/19 This is an 83-year-old female patient of Dr. Bertrand with past medical history of COPD, coronary artery disease status post cardiac stent, paroxysmal atrial fibrillation on chronic Coumadin, TIA, hypertension, hypothyroidism, COPD, remote history of tobacco use and dependence. Patient states that she was having a cough last week prior to undergoing colonoscopy and EGD which was done at [facility] with Dr. anderson. Apparently patient had at least 3 polyps removed. She denies any difficulty breathing when she woke up from anesthesia. She continued to have worsening cough and worsening shortness of breath and came in the hospital for evaluation. She is not bringing up very much sputum. No fever, no chills. Patient presented to [facility] emergency center for evaluation. She was afebrile, initial blood pressure 81/51, pulse ox 88% on room air, heart rate 61, EKG was sinus rhythm with no acute ST changes. Chest x-ray showed left lower lobe pneumonia. WBC 12.3, creatinine 1.3, blood sugar 115, potassium 3.0, INR 1.7, proBNP 1780, troponin 0.032. Patient received Rocephin and was subsequently placed on Levaquin and Zosyn[facility] Repeat chest x-ray reveals bibasilar infiltrates. Correlate for subsegmental atelectasis and resolving pneumonia. Left basilar infiltrate is resolving. 05/01: Patient has been seen and followed by Dr. Dillard. Perforomist has been added. Patient has been afebrile, heart rate 76, pulse ox 93% on 2 L nasal cannula, blood pressure 149/62. Repeat lab work reveals white count of 14.0, INR 1.7, pharmacy is dosing Coumadin, creatinine 1.12. Blood sugars are elevated secondary to steroids. 05/02: Patient was prepared for discharge but pulse ox at rest without oxygen dropped to 84%. CTA of the chest will be ordered to rule out PE. Discharge will be held until tomorrow. We will continue Solu-Medrol 40 mg every 8 hours for now. She has been afebrile, heart rate 74, blood pressure 172/68. Blood cultures showing no growth at 48 hours and sputum culture is in progress. Oxygen will be arranged for home. INR is 2.1. Also a walker will be ordered. Review of Systems Constitutional: Reports fatigue, denies lethargy, Reports poor appetite, Denies chills, Denies fever Eyes: denies blurred vision Ears, nose, mouth and throat: Denies dysphagia, Denies headache, Denies nasal congestion, Denies nasal discharge, Denies sore throat, Denies vertigo Cardiovascular: Reports decreased exercise tolerance, Reports dyspnea on exertion, Reports shortness of breath, Denies chest pain, Denies edema, Denies leg edema, Denies lightheadedness, Denies syncope Respiratory: Reports cough, Reports dyspnea, Reports respiratory infections, Reports wheezing, Denies excessive sputum, Denies hemoptysis, Denies home oxygen Gastrointestinal: Denies abdominal pain, Denies diarrhea, Denies loss of appetite, Denies nausea, Denies vomiting Genitourinary: Denies dysuria, Denies hematuria, Denies urgency, Denies urinary frequency Musculoskeletal: Denies frequent falls, Denies myalgias Integumentary: Denies pruritus, Denies rash, Denies wounds Neurological: Denies change in mentation, Denies change in speech, Denies numbness, Denies weakness Psychiatric: Denies anxiety, Denies depression Endocrine: Denies fatigue, Denies weight change Objective - Vital Signs Vital signs: Vital Signs Temp 97.6 F 05/02/19 04:28 Pulse 74 05/02/19 11:21 Resp 18 05/02/19 04:28 BP 172/68 05/02/19 04:28 Pulse Ox 84 L 05/02/19 12:21 Intake & Output 05/01/19 05/02/19 05/02/19 18:59 06:59 18:59 Intake Total 540 Balance 540 Intake: Oral 540 Other: # Voids 1 3 - Exam Gen: This is an 83-year-old female. Patient appears to be fairly comfortable. Occasional cough noted. No acute respiratory distress noted at rest. HEENT: Head is atraumatic, normocephalic. Pupils equal, round. Sclerae is anicteric. NECK: Supple. No JVD. No lymphadenopathy. No thyromegaly. LUNGS: Diminished bilaterally with expiratory wheeze scattered throughout along with scattered rhonchi, prolonged expiratory phase. No intercostal retractions. HEART: Regular rate and rhythm. No murmur. ABDOMEN: Soft. Bowel sounds are present. No masses. No tenderness. EXTREMITIES: No pedal edema. No calf tenderness. NEUROLOGICAL: Patient is awake, alert and oriented x3. Cranial nerves 2 through 12 are grossly intact. - Labs CBC & Chem 7: 05/01/19 08:59 05/01/19 08:59 Labs: Abnormal Lab Results - Last 24 Hours (Table) 05/01/19 05/01/19 05/02/19 Range/Units 16:58 20:58 07:15 PT (9.0-12.0) sec INR (<1.2) POC Glucose (mg/dL) 196 H 158 H 131 H (75-99) mg/dL 05/02/19 05/02/19 Range/Units 07:36 12:13 PT 20.3 H (9.0-12.0) sec INR 2.1 H (<1.2) POC Glucose (mg/dL) 226 H (75-99) mg/dL Microbiology - Last 24 Hours (Table) 05/01/19 19:38 Gram Stain - Preliminary Sputum Sputum Culture - Preliminary 04/29/19 18:40 Blood Culture - Preliminary Blood No Growth after 48 hours Assessment and Plan Plan: 1. Acute hypoxic respiratory failure secondary to a combination of COPD exacerbation and bilateral lower lobe pneumonia, concerning for aspiration pneumonia. Continue Levaquin, Zosyn, DuoNeb treatments 4 times daily and as needed, Pulmicort 1 mg twice daily, continue Solu-Medrol 40 mg IV every 8 hours, consult with pulmonary medicine. 2. Paroxysmal atrial fibrillation. Continue Coumadin, monitor INR closely while on antibiotics, Toprol-XL 25 mg at bedtime. 3. Hypertension. Continue losartan 100 mg daily, Toprol-XL. 4. Hypothyroidism. Continue levothyroxine 88 g daily. 5. History of coronary artery disease status post cardiac stent. Continue aspirin 81 mg daily, atorvastatin 40 mg a Tuesday. 6. Remote history of tobacco use and dependence. 7. DVT prophylaxis. Coumadin. 8. GI prophylaxis. Protonix. 9. Vascular dementia. Aricept 5 mg at bedtime. 10. Chronic kidney disease stage III. Avoid nephrotoxic agents. 11. Hyperglycemia secondary to steroids. Continue NovoLog scale before meals and at bedtime. 12. Chronic hypoxic respiratory failure. Home oxygen will be arranged. CTA of the chest ordered to rule out pulmonary embolism. Discharge plan: home with [facility]. Walker ordered for stability as recommended by PT. Impression and plan of care have been directed as dictated by the signing physician. Shari Rodriguez nurse practitioner acting as scribe for signing physician.
--- NOTE | 2019-05-02 13:43 | P.PN ---
Subjective Progress Note Date: 05/02/19 Principal diagnosis: Bilateral pneumonia related to aspiration, COPD exacerbation On 05/01/2019 patient seen in follow-up on medical surgical floor. Breathing better today, still bronchospastic, and dyspneic reports some improvement., he is on 2 L of oxygen, with a pulse ox of 93%, blood culture showed no growth, patient has been afebrile, remains on Zosyn for antibiotic coverage, IV steroids, nebulized bronchodilators. On 05/02/2017 patient seen in follow-up on medical surgical floor. She is improving, less dyspneic, less bronchospastic, vital signs stable, patient is afebrile, blood and sputum cultures have shown no growth so far, patient is on empiric antibiotics, IV steroids, and nebulized bronchodilators, she is improving, home oxygen assessment revealed pulse ox of 84% on room air, and patient does qualify for home O2 Objective - Vital Signs Vital signs: Vital Signs Temp 97.6 F 05/02/19 04:28 Pulse 74 05/02/19 11:21 Resp 18 05/02/19 04:28 BP 172/68 05/02/19 04:28 Pulse Ox 84 L 05/02/19 12:21 Intake & Output 05/01/19 05/02/19 05/02/19 18:59 06:59 18:59 Intake Total 540 Balance 540 Intake: Oral 540 Other: # Voids 1 3 - Exam GENERAL EXAM: Alert, very pleasant, 83-year-old white female, in 2 L of oxygen with a pulse ox of 93%, comfortable in no apparent distress. HEAD: Normocephalic/atraumatic. EYES: Normal reaction of pupils, equal size. Conjunctiva pink, sclera white. NOSE: Clear with pink turbinates. THROAT: No erythema or exudates. NECK: No masses, no JVD, no thyroid enlargement, no adenopathy. CHEST: No chest wall deformity. Symmetrical expansion. LUNGS: Equal air entry with diffuse wheezes and rhonchi CVS: Regular rate and rhythm, normal S1 and S2, no gallops, no murmurs, no rubs ABDOMEN: Soft, nontender. No hepatosplenomegaly, normal bowel sounds, no guarding or rigidity. EXTREMITIES: No clubbing, no edema, no cyanosis, 2+ pulses and upper and lower extremities. MUSCULOSKELETAL: Muscle strength and tone normal. SPINE: No scoliosis or deformity SKIN: No rashes CENTRAL NERVOUS SYSTEM: Alert and oriented -3. No focal deficits, tone is normal in all 4 extremities. PSYCHIATRIC: Alert and oriented -3. Appropriate affect. Intact judgment and insight. - Labs CBC & Chem 7: 05/01/19 08:59 05/01/19 08:59 Labs: Abnormal Lab Results - Last 24 Hours (Table) 05/01/19 05/01/19 05/02/19 Range/Units 16:58 20:58 07:15 PT (9.0-12.0) sec INR (<1.2) POC Glucose (mg/dL) 196 H 158 H 131 H (75-99) mg/dL 05/02/19 05/02/19 Range/Units 07:36 12:13 PT 20.3 H (9.0-12.0) sec INR 2.1 H (<1.2) POC Glucose (mg/dL) 226 H (75-99) mg/dL Microbiology - Last 24 Hours (Table) 05/01/19 19:38 Gram Stain - Preliminary Sputum Sputum Culture - Preliminary 04/29/19 18:40 Blood Culture - Preliminary Blood No Growth after 48 hours Assessment and Plan Assessment: Assessment: #1. Acute bilateral pneumonia, likely related to silent aspiration during patient's recent colonoscopy/EGD #2. Acute exacerbation of chronic obstructive pulmonary disease from previous heavy tobacco use #3. Previous history of heavy tobacco use, at 1+ pack a day for 30+ years #4. History of hypothyroidism #5. History of hyperlipidemia #6. Severe coronary artery disease #7. History of hypertension #8. Previous history of cerebrovascular accident #9. Prior history of heart catheterization with PCI Plan: Patient is improving, however home oxygen assessment is 84% on room air, and patient is still somewhat dyspneic with exertion, and she has concerns about being discharged a little too early, we will continue current medical treatment, IV steroids, nebulized bronchodilators, we'll reassess the patient tomorrow for possibility of discharge home. I performed a history & physical examination of the patient and discussed their management with my nurse practitioner, Stefania Ramirez. I reviewed the nurse practitioner's note and agree with the documented findings and plan of care. Lung sounds are positive for diffuse wheezes throughout the lung valladares. The findings and the impression was discussed with the patient. I attest to the documentation by the nurse practitioner. Time with Patient: Less than 30
--- NOTE | 2019-05-02 15:44 | CT ---
EXAMINATION TYPE: CT angio chest DATE OF EXAM: 05/02/2019 COMPARISON: None HISTORY: Difficulty breathing. CT DLP: 319.4 mGycm CONTRAST: CT chest with contrast and 3D reconstruction with MIP imaging is performed with IV Contrast, patient injected with 80 mL of Isovue 370. Contrast-enhanced CT of the chest was performed through the course of the pulmonary arteries with declan g and mediastinal window settings submitted. 3D reconstruction with MIP imaging was also performed. PULMONARY ARTERIES: Small filling defect within a third order branch of the left lower lobe (images 8 5 through 88). Compatible with small pulmonary embolism. No additional filling defects seen. LUNGS: 1.1 cm left lower lobe pulmonary nodule 90. No additional distinct nodules seen with certainty . Consider PET/CT for further evaluation. Moderate to severe emphysematous changes. Mild lower lobe b ronchiectasis. No evidence for volume loss. MEDIASTINUM: Thoracic aorta is of normal caliber,however, evaluation is limited given timing of the contrast bolus. If there is concern for thoracic aortic pathology consider SHAREE. Correlate clinicall y . The heart is not enlarged. No evidence for mediastinal mass. No mediastinal lymph nodes greater than 1cm. HILAR STRUCTURES: No evidence for mass. No hilar lymph nodes greater than 1 cm. UPPER ABDOMEN: Multiple gallstones identified. IMPRESSION: 1. Small filling defect within a third order branch of the left lower lobe (images 85 through 88). C ompatible with small pulmonary embolism. 2.1.1 cm left lower lobe pulmonary nodule 90. No additional distinct nodules seen with certainty. 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
[2019-05-02] MEDS: WARFARIN 5 MG TAB PO SCH (17:02)
[2019-05-02 17:05] LABS: Glucose,Whole Blood 80 mg/dL (75-99)
[2019-05-02 20:59] LABS: Glucose,Whole Blood 132 mg/dL (75-99)
[2019-05-02] MEDS: ASPIRIN 81 MG PO SCH (21:30)
[2019-05-02] MEDS: DONEPEZIL 5 MG TAB PO SCH (21:31)
[2019-05-02] MEDS: METOPROLOL SUCCINATE (ER) 25 MG TAB.ER.24H PO SCH (21:31)
[2019-05-02] MEDS: ATORVASTATIN 40 MG TAB PO SCH (21:35)
[2019-05-03] MEDS: PIPERACILLIN-TAZOBACTAM 3.375 GM in SODIUM CHLORIDE 0.9% 100 ML IVPB SCH ×2 (01:08→08:56)
[2019-05-03] MEDS: methylPREDNISolone SOD SUCCI 40 MG/ML 1 ML VIAL IV SCH ×2 (01:08→09:00)
[2019-05-03 05:45] VITALS: BP 154/76; TEMP 97.4
[2019-05-03] MEDS: LEVOTHYROXINE 88 MCG TAB PO SCH (05:45)
[2019-05-03 07:09] LABS: Glucose,Whole Blood 142 mg/dL (75-99)
[2019-05-03] MEDS: IPRATROPIUM-ALBUTEROL 3 ML NEB INHALATION SCH ×2 (07:37→11:06)
[2019-05-03] MEDS: FORMOTEROL FUMARATE 20 MCG/2 ML NEBU INHALATION SCH (07:37)
[2019-05-03] MEDS: BUDESONIDE 1 MG/2 ML NEBU INHALATION SCH (07:37)
[2019-05-03] MEDS: PANTOPRAZOLE 40 MG TABLET PO SCH (09:00)
[2019-05-03] MEDS: amLODIPine 10 MG TAB PO SCH (09:00)
[2019-05-03] MEDS: LOSARTAN 50 MG TAB PO SCH (09:00)
[2019-05-03] MEDS: INSULIN ASPART (NovoLOG) 100 UNIT/ML VIAL SQ SCH ×2 (09:03→12:28)
[2019-05-03 10:08] LABS: Albumin 3.5 g/dL (3.5-5.0); Calcium 11.1 mg/dL (8.4-10.2); Total Bilirubin 0.4 mg/dL (0.2-1.3); Total Protein 6.6 g/dL (6.3-8.2)
[2019-05-03 10:23] LABS: Anisocytosis Moderate; Basophils % (A) 0 %; Eosinophils % (A) 0 %; HCT 40.9 % (34.0-46.0); HGB 12.4 gm/dL (11.4-16.0); Hypochromasia Marked; Lymphocytes % (A) 7 %; MCH 27.9 pg (25.0-35.0); MCHC 30.3 g/dL (31.0-37.0); MCV 92.1 fL (80.0-100.0); Macrocytosis Slight; Mean Platelet Volume 8.9; Monocytes # (A) 0.3 k/uL (0-1.0); Monocytes % (A) 2 %; Neutrophils # (A) 12.5 k/uL (1.3-7.7); Neutrophils % (A) 90 %; Platelet Count 379 k/uL (150-450); RBC 4.44 m/uL (3.80-5.40); RDW 21.2 % (11.5-15.5); WBC 13.9 k/uL (3.8-10.6)
[2019-05-03 10:25] LABS: INR 3.2 (<1.2); Prothrombin Time 30.6 sec (9.0-12.0)
[2019-05-03 11:16] VITALS: PULSE 64
[2019-05-03 11:16] LABS: Poikilocytosis (M) Present
[2019-05-03 11:17] LABS: Crenated RBC Present; Target Cells Present
[2019-05-03 11:18] LABS: Howell-Jolly Bodies Present
[2019-05-03 11:33] VITALS: RESP 18
--- NOTE | 2019-05-03 12:17 | P.PN ---
Subjective Progress Note Date: 05/03/19 Principal diagnosis: Bilateral pneumonia secondary to aspiration, COPD exacerbation The patient is seen today 05/03/2019 in follow-up on the regular medical floor. She is currently up ambulating in her room. Awake and alert in no acute distress. Feeling better today as compared to yesterday. Maintaining O2 saturations in the 90s on 2 L/m per nasal cannula. She's been afebrile. Blood culture reveals no growth. Sputum culture reveals no growth to date. White count 13.9. Hemoglobin 12.4. INR 3.2. Creatinine 1.11. Objective - Vital Signs Vital signs: Vital Signs Temp 97.4 F L 05/03/19 05:44 Pulse 64 05/03/19 11:16 Resp 18 05/03/19 08:00 BP 154/76 05/03/19 05:44 Pulse Ox 94 L 05/03/19 05:44 Intake & Output 05/02/19 05/03/19 05/03/19 18:59 06:59 18:59 Other: Voiding Method Toilet # Voids 3 3 # Bowel Movements 0 - Exam GENERAL EXAM: Alert, very pleasant, 83-year-old female patient on 2 L nasal cannula. Comfortable in no apparent distress. HEAD: Normocephalic/atraumatic. EYES: Normal reaction of pupils, equal size. Conjunctiva pink, sclera white. NOSE: Clear with pink turbinates. THROAT: No erythema or exudates. NECK: No masses, no JVD, no thyroid enlargement, no adenopathy. CHEST: No chest wall deformity. Symmetrical expansion. LUNGS: Equal air entry with few scattered rhonchi CVS: Regular rate and rhythm, normal S1 and S2, no gallops, no murmurs, no rubs ABDOMEN: Soft, nontender. No hepatosplenomegaly, normal bowel sounds, no guarding or rigidity. EXTREMITIES: No clubbing, no edema, no cyanosis, 2+ pulses and upper and lower extremities. MUSCULOSKELETAL: Muscle strength and tone normal. SPINE: No scoliosis or deformity SKIN: No rashes CENTRAL NERVOUS SYSTEM: No focal deficits, tone is normal in all 4 extremities. PSYCHIATRIC: Alert and oriented -3. Appropriate affect. Intact judgment and insight. - Labs CBC & Chem 7: 05/03/19 09:31 05/03/19 09:31 Labs: Abnormal Lab Results - Last 24 Hours (Table) 05/02/19 05/02/19 05/03/19 Range/Units 12:13 20:57 07:03 WBC (3.8-10.6) k/uL MCHC (31.0-37.0) g/dL RDW (11.5-15.5) % Neutrophils # (1.3-7.7) k/uL PT (9.0-12.0) sec INR (<1.2) BUN (7-17) mg/dL Creatinine (0.52-1.04) mg/dL Glucose (74-99) mg/dL POC Glucose (mg/dL) 226 H 132 H 142 H (75-99) mg/dL Calcium (8.4-10.2) mg/dL AST (14-36) U/L 05/03/19 05/03/19 05/03/19 Range/Units 09:31 09:31 09:31 WBC 13.9 H (3.8-10.6) k/uL MCHC 30.3 L (31.0-37.0) g/dL RDW 21.2 H (11.5-15.5) % Neutrophils # 12.5 H (1.3-7.7) k/uL PT 30.6 H (9.0-12.0) sec INR 3.2 H (<1.2) BUN 19 H (7-17) mg/dL Creatinine 1.11 H (0.52-1.04) mg/dL Glucose 185 H (74-99) mg/dL POC Glucose (mg/dL) (75-99) mg/dL Calcium 11.1 H (8.4-10.2) mg/dL AST 37 H (14-36) U/L Microbiology - Last 24 Hours (Table) 04/29/19 18:40 Blood Culture - Preliminary Blood No Growth after 72 hours 05/01/19 19:38 Gram Stain - Preliminary Sputum Sputum Culture - Preliminary Assessment and Plan Assessment: #1. Acute bilateral pneumonia, likely related to silent aspiration during patient's recent colonoscopy/EGD #2. Acute exacerbation of chronic obstructive pulmonary disease from previous heavy tobacco use #3. Previous history of heavy tobacco use, at 1+ pack a day for 30+ years #4. History of hypothyroidism #5. History of hyperlipidemia #6. Severe coronary artery disease #7. History of hypertension #8. Previous history of cerebrovascular accident #9. Prior history of heart catheterization with PCI Plan: The patient was seen and evaluated by Dr. Dillard. She is cleared for discharge from the pulmonary standpoint. She could complete her course of antibiotics. Complete prednisone burst and taper starting at 40 mg daily for 4 days. Follow- up in our office in 1-2 weeks' time. She is encouraged to call sooner with any recurrence of symptoms or other questions or concerns. I, the cosigning physician, performed a history & physical examination of the patient. Lungs sounds with few scattered rhonchi. Maintaining good O2 saturations in the 90s on 2 L/m per nasal cannula. I discussed the assessment and plan of care with my nurse practitioner, Sofia Oneil. I attest to the above note as dictated by her.
[2019-05-03] MEDS ORDERED: PNEUMOCOCCAL VACC-PNEUMOVAX 23 25 MCG/0.5 ML VIAL IM ONE (13:12)
[2019-05-03] MEDS ORDERED: WARFARIN 0.5 MG TAB PO ONE (18:00)
--- NOTE | 2019-05-07 02:07 | CDI ---
Documentation Clarification Form Date: 05/07/19 From: Aram Anand Phone: If you have a question about this query, please contact Joesphine [employer] at [phone] between 8am and 5pm. Admit Date: 04/29/19 Discharge Date: 05/03/19 Patient Name: Susan Ramos Visit Number: [id number] ATTENTION: The Clinical Documentation Specialists (CDI) and [facility] Coding Staff appreciate your assistance in clarifying documentation. Please respond to the clarification below the line at the bottom and electronically sign. The CDI & [facility] Coding staff will review the response and follow-up if needed. Please note: Queries are made part of the Legal Health Record. If you have any questions, please contact the author of this message via ITS. Dear Melani Dominguez., Pneumonia was documented in Gilma Cano consult note and progress notes as ".Acute bilateral pneumonia, likely related to silent aspiration during patient's recent colonoscopy/EGD ". History/Risk Factors: CKD, CVA, pulmonary embolism. X-ray:Bibasilar infiltrates.Correlate for subsegmental atelectasis and resolving pneumonia.Left basilar infiltrate is resolving. Treatment:Continue Levaquin, Zosyn, DuoNeb treatments 4 times daily and as needed, Pulmicort 1 mg twice daily, continue Solu-Medrol 40 mg IV every 8 hours, In order to capture the severity of condition, please clarify if the condition signifies and you are treating for: Aspiration Pneumonia, identify if: Due to EGD/colonoscopy procedure Due to Anesthesia during EGD/colonoscopy procedure Other, please specify Unable to determine Aspiration pneumonia probably due to anesthesia during EGD and colonoscopy procedures. MTDD
== END 2019-05-03 13:43 | disposition home health service (06) | DRG 205 ==
LOC: EC 17:17 → 4MS4W 20:10
PROVIDERS: ADMIT Internal Medicine; ATTEND Internal Medicine
DX: J95.4 Chemical pneumonitis due to anesthesia (principal); J96.21 Acute and chronic respiratory failure with hypoxia; N17.0 Acute kidney failure with tubular necrosis; J44.1 Chronic obstructive pulmonary disease with (acute) exacerbation; J95.89 Other postprocedural complications and disorders of respiratory system, not elsewhere classified; E03.9 Hypothyroidism, unspecified; E78.5 Hyperlipidemia, unspecified; R73.9 Hyperglycemia, unspecified; I12.9 Hypertensive chronic kidney disease with stage 1 through stage 4 chronic kidney disease, or unspecified chronic kidney disease; I25.10 Atherosclerotic heart disease of native coronary artery without angina pectoris; N18.3 Chronic kidney disease, stage 3 (moderate); I48.0 Paroxysmal atrial fibrillation; F01.50 Vascular dementia, unspecified severity, without behavioral disturbance, psychotic disturbance, mood disturbance, and anxiety; T41.0X5A Adverse effect of inhaled anesthetics, initial encounter; T38.0X5A Adverse effect of glucocorticoids and synthetic analogues, initial encounter; Z79.890 Hormone replacement therapy; Z82.61 Family history of arthritis; Z83.79 Family history of other diseases of the digestive system; Z79.82 Long term (current) use of aspirin; Z79.02 Long term (current) use of antithrombotics/antiplatelets; Z79.01 Long term (current) use of anticoagulants; Z79.899 Other long term (current) drug therapy; Z88.8 Allergy status to other drugs, medicaments and biological substances; Z86.73 Personal history of transient ischemic attack (TIA), and cerebral infarction without residual deficits; Z87.891 Personal history of nicotine dependence; Z95.5 Presence of coronary angioplasty implant and graft; Z90.710 Acquired absence of both cervix and uterus; Z83.3 Family history of diabetes mellitus; Z82.49 Family history of ischemic heart disease and other diseases of the circulatory system; Z86.711 Personal history of pulmonary embolism; Z82.3 Family history of stroke
CPT/HCPCS: 36415; 71046; 71275; 80048; 80053; 83735; 83880; 84484; 85025; 85027; 85379; 85610; 85730; 87040; 87070; 87205; 90732; 93005; 94640; 94760; 96365; 96366; 96367; 96375; 99285

== ENCOUNTER → 2019-05-10 | Outpatient (CLI) | payer MEDICARE, OTHER ==
--- NOTE | 2019-05-10 11:00 | US ---
EXAMINATION TYPE: US venous doppler duplex LE DATE OF EXAM: 05/10/2019 10:51 AM COMPARISON: NONE CLINICAL HISTORY: R22.42 Swelling, M79.661 pain. Right lower leg pain, edema bilateral legs SIDE PERFORMED: right TECHNIQUE: The lower extremity deep venous system is examined utilizing real time linear array sonog kaylin with graded compression, doppler sonography and color-flow sonography. VESSELS IMAGED: External Iliac Vein (EIV) Common Femoral Vein Deep Femoral Vein Greater Saphenous Vein * Femoral Vein Popliteal Vein Small Saphenous Vein * Proximal Calf Veins (* superficial vessels) Grayscale, color doppler, spectral doppler imaging performed of the deep veins of the lower extremiti es. There is normal flow, compressibility, vascular waveforms. Right Leg: No evidence of acute DVT Left Leg: No evidence of acute DVT IMPRESSION: No sonographic evidence of deep venous thrombosis within either the bilateral lower extr emities.
== END | disposition home or self-care (01) ==
LOC: RADUSWWP 10:12
PROVIDERS: ATTEND Internal Medicine Critical Care Medicine
DX: M79.661 Pain in right lower leg (principal); R22.42 Localized swelling, mass and lump, left lower limb
CPT/HCPCS: 93970

== ENCOUNTER 2019-05-16 18:28 | Emergency (ER) | payer MEDICARE, OTHER ==
[2019-05-16 19:07] VITALS: RESP 18
[2019-05-16 20:11] LABS: Anisocytosis Moderate; HCT 37.9 % (34.0-46.0); Hypochromasia Moderate; MCH 29.9 pg (25.0-35.0); MCHC 31.6 g/dL (31.0-37.0); MCV 94.9 fL (80.0-100.0); Macrocytosis Moderate; Mean Platelet Volume 9.5; Platelet Count 315 k/uL (150-450); RDW 23.6 % (11.5-15.5); WBC 15.7 k/uL (3.8-10.6)
[2019-05-16 20:21] LABS: INR 2.9 (<1.2); Partial Thromboplastin Time 28.9 sec (22.0-30.0); Prothrombin Time 28.4 sec (9.0-12.0)
--- NOTE | 2019-05-16 20:29 | XR ---
EXAMINATION TYPE: XR chest 2V DATE OF EXAM: 05/16/2019 COMPARISON: 05/10/2019 HISTORY: Chest pain TECHNIQUE: 2 views FINDINGS: There is some minimal infiltrate at the left lung base. The other lung valladares are clear. Th ere is no heart failure. Heart size is normal. Thoracic aorta is atheromatous. Bony thorax is intact. IMPRESSION: Minimal infiltrate left lung base. Normal heart.
[2019-05-16 20:35] LABS: Calcium 10.6 mg/dL (8.4-10.2); Potassium 3.6 mmol/L (3.5-5.1); Total Protein 6.9 g/dL (6.3-8.2)
[2019-05-16 20:37] LABS: Band Neutrophils % 2 %; Lymphocytes # (M) 3.93 k/uL (1.0-4.8); Monocytes # (M) 0.31 k/uL (0-1.0); Neutrophils % (M) 71 %; Nucleated Red Blood Cells 0 /100 WBC (0-0); Polychromasia Present; Target Cells Present; Total Cells Counted 100
[2019-05-16] MEDS ORDERED: FUROSEMIDE 10 MG/ML 4 ML VIAL IV STA (21:27)
--- NOTE | 2019-05-16 21:29 | ED ---
Extremity Problem HPI - General Chief complaint: Extremity Problem,Nontraumatic Stated complaint: Foot/leg pain Time Seen by Provider: 05/16/19 19:08 Source: patient Mode of arrival: wheelchair Limitations: no limitations - History of Present Illness Initial comments: 83-year-old female patient presents to the emergency department today for evaluation of bilateral lower extremity edema and ecchymosis noted to the right leg. Patient states this started on May 03 after being discharged from the hospital. Patient states the swelling has been worsening. States her legs ache and it makes it difficult for her to walk. Patient did have an outpatient ultrasound of both legs performed 6 days ago which was negative for DVT. Patient does take Coumadin and levels of been therapeutic. She does report a cough which is improving after an episode of pneumonia on May 03. She denies any significant shortness of breath with ambulation or lying flat. She denies any fever or chills. Denies any chest pain or pressure. Patient denies any recent rash, abdominal pain, nausea, vomiting, diarrhea, constipation, back pain, numbness, tingling, dizziness, weakness, hematuria, dysuria, urinary urgency, urinary frequency, headache, visual changes, or any other complaints. - Related Data Home Medications Medication Instructions Recorded Confirmed Aspirin [Children's Aspirin] 81 mg PO HS 02/07/17 04/30/19 Donepezil [Aricept] 5 mg PO HS 02/07/17 04/30/19 Fluticasone/Salmeterol [Advair 1 puff INHALATION RT-BID 02/07/17 04/30/19 250-50 Diskus] Levothyroxine Sodium [Synthroid] 88 mcg PO DAILY 02/07/17 04/30/19 Metoprolol Succinate [Toprol XL] 25 mg PO HS 02/07/17 04/30/19 Rosuvastatin [Crestor] 20 mg PO MOWEFR 02/07/17 04/30/19 Warfarin [Coumadin] 2.5 mg PO MOFR 02/07/17 04/30/19 Warfarin [Coumadin] 5 mg PO SUTUWETHSA 02/07/17 04/30/19 Losartan/Hydrochlorothiazide 1 tab PO DAILY 04/30/19 04/30/19 [Losartan-Hctz 100-12.5 mg Tab] Omeprazole 40 mg PO DAILY 04/30/19 04/30/19 Sucralfate [Carafate] 1 gm PO ACHS 04/30/19 04/30/19 amLODIPine [Norvasc] 10 mg PO DAILY 04/30/19 04/30/19 Previous Rx's Medication Instructions Recorded Amoxicillin/Potassium Clav 1 each PO Q12HR #14 tab 05/02/19 [Augmentin 875-125 Tablet] predniSONE 0 mg PO DIRECTED #30 tab 05/02/19 Furosemide [Lasix] 20 mg PO DAILY #5 tab 05/16/19 Allergies Allergy/AdvReac Type Severity Reaction Status Date / Time dacron Allergy Unknown Uncoded 04/30/19 10:54 Review of Systems ROS Statement: Those systems with pertinent positive or pertinent negative responses have been documented in the HPI. ROS Other: All systems not noted in ROS Statement are negative. Past Medical History Past Medical History: Asthma, Coronary Artery Disease (CAD), CVA/TIA, Hypertension, Thyroid Disorder History of Any Multi-Drug Resistant Organisms: None Reported Past Surgical History: Heart Catheterization With Stent, Hysterectomy Additional Past Surgical History / Comment(s): carotidectomy, EGD colonoscopy Date of Last Stent Placement:: 02/22/2018 Past Psychological History: No Psychological Hx Reported Smoking Status: Former smoker Past Alcohol Use History: Rare Past Drug Use History: None Reported - Past Family History Father Additional Family Medical History / Comment(s): Father at age 84 from coronary artery disease. Mother Additional Family Medical History / Comment(s): Mother at age 90 from a bowel obstruction. Brother(s) Additional Family Medical History / Comment(s): Patient has 1 brother that is alive with no major medical problems. Sister(s) Additional Family Medical History / Comment(s): Patient has a total of 3 sisters. One has passed with complications after surgical procedure the cause of fistula. 2 other sisters are alive without major medical problems. Daughter(s) Additional Family Medical History / Comment(s): Patient has 2 daughters and one has history of kidney transplant, diabetes, stroke, coronary artery disease. One daughter has history of osteoarthritis and hip replacement. Son(s) Additional Family Medical History / Comment(s): Patient has 2 sons with no major medical problems. General Exam Limitations: no limitations General appearance: alert, in no apparent distress, other (This is a well- developed, well-nourished elderly female patient in no acute distress. Vital signs upon presentation are temperature 97.5F, pulse of 29, respirations 18, blood pressure 160/71, pulse ox 96% on room air.) Eye exam: Present: normal appearance, PERRL, EOMI. Absent: scleral icterus, conjunctival injection, periorbital swelling ENT exam: Present: normal exam, normal oropharynx, mucous membranes moist Respiratory exam: Present: normal lung sounds bilaterally. Absent: respiratory distress, wheezes, rales, rhonchi, stridor Cardiovascular Exam: Present: regular rate, normal rhythm, normal heart sounds. Absent: systolic murmur, diastolic murmur, rubs, gallop, clicks GI/Abdominal exam: Present: soft, normal bowel sounds. Absent: distended, tenderness, guarding, rebound, rigid Extremities exam: Present: full ROM, normal capillary refill, other (There is a plus pitting edema noted to the right lower extremity with generalized ecchymosis, skin is warm and dry. There is 2+ pitting edema noted to left lower extremity, skin is pink, warm, dry. Cap refills less than 2 seconds. Pedal and posttibial pulses are 2+ and equal bilaterally.). Absent: tenderness, pedal edema, joint swelling, calf tenderness Neurological exam: Present: alert, oriented X3, CN II-XII intact Psychiatric exam: Present: normal affect, normal mood Skin exam: Present: warm, dry, intact, normal color. Absent: rash Course Vital Signs 05/16/19 05/16/19 18:59 21:56 Temperature 97.5 F L 97.8 F Pulse Rate 59 L 62 Respiratory 18 18 Rate Blood Pressure 168/71 166/65 O2 Sat by Pulse 96 93 L Oximetry Medical Decision Making - Medical Decision Making 83-year-old female patient is brought to the emergency department today for evaluation of bilateral lower extremity edema and right lower leg ecchymosis. Physical examination reveals 3+ pitting edema to the right lower extremity and 2+ pitting edema to the left lower extremity. There is significant ecchymosis noted over the anterior aspect of the right lower leg from the knee all the way to the toes. Patient did have outpatient ultrasound on 05/10/2019 which was reviewed and showed no evidence for DVT. Patient does take Coumadin, INR today is 2.9. Chest x-ray shows left lower lobe infiltrate which is not significantly changed compared to old exam. White blood cell count is elevated at 15,000, patient is taking steroids currently. BNP was 580. Patient will be given a dose of Lasix here in the emergency department, she'll be given a short course for outpatient. She is given up her CAROLYN hose and instructed to keep legs e levated. She is instructed to follow-up with her primary care physician for recheck in 1-2 days. Return parameters were discussed in detail. She verbalizes understanding and agrees with this plan. - Lab Data Result diagrams: 05/16/19 19:50 05/16/19 19:50 Lab Results 05/16/19 05/16/19 05/16/19 Range/Units 19:50 19:50 19:50 WBC 15.7 H (3.8-10.6) k/uL RBC 4.00 (3.80-5.40) m/uL Hgb 12.0 (11.4-16.0) gm/dL Hct 37.9 (34.0-46.0) % MCV 94.9 (80.0-100.0) fL MCH 29.9 (25.0-35.0) pg MCHC 31.6 (31.0-37.0) g/dL RDW 23.6 H (11.5-15.5) % Plt Count 315 (150-450) k/uL Neutrophils % (Manual) 71 % Band Neutrophils % 2 % Lymphocytes % (Manual) 25 % Monocytes % (Manual) 2 % Neutrophils # (Manual) 11.40 H (1.3-7.7) k/uL Lymphocytes # (Manual) 3.93 (1.0-4.8) k/uL Monocytes # (Manual) 0.31 (0-1.0) k/uL Nucleated RBCs 0 (0-0) /100 WBC Manual Slide Review Performed Polychromasia Present Hypochromasia Moderate Anisocytosis Moderate Macrocytosis Moderate Target Cells Present PT (9.0-12.0) sec INR (<1.2) APTT (22.0-30.0) sec Sodium 139 (137-145) mmol/L Potassium 3.6 (3.5-5.1) mmol/L Chloride 107 (98-107) mmol/L Carbon Dioxide 25 (22-30) mmol/L Anion Gap 7 mmol/L BUN 17 (7-17) mg/dL Creatinine 1.10 H (0.52-1.04) mg/dL Est GFR (CKD-EPI)AfAm 54 (>60 ml/min/1.73 sqM) Est GFR (CKD-EPI)NonAf 47 (>60 ml/min/1.73 sqM) Glucose 133 H (74-99) mg/dL Calcium 10.6 H (8.4-10.2) mg/dL Total Bilirubin 1.0 (0.2-1.3) mg/dL AST 48 H (14-36) U/L ALT 32 (4-34) U/L Alkaline Phosphatase 88 (38-126) U/L NT-Pro-B Natriuret Pep 513 pg/mL Total Protein 6.9 (6.3-8.2) g/dL Albumin 4.0 (3.5-5.0) g/dL 05/16/19 Range/Units 19:50 WBC (3.8-10.6) k/uL RBC (3.80-5.40) m/uL Hgb (11.4-16.0) gm/dL Hct (34.0-46.0) % MCV (80.0-100.0) fL MCH (25.0-35.0) pg MCHC (31.0-37.0) g/dL RDW (11.5-15.5) % Plt Count (150-450) k/uL Neutrophils % (Manual) % Band Neutrophils % % Lymphocytes % (Manual) % Monocytes % (Manual) % Neutrophils # (Manual) (1.3-7.7) k/uL Lymphocytes # (Manual) (1.0-4.8) k/uL Monocytes # (Manual) (0-1.0) k/uL Nucleated RBCs (0-0) /100 WBC Manual Slide Review Polychromasia Hypochromasia Anisocytosis Macrocytosis Target Cells PT 28.4 H (9.0-12.0) sec INR 2.9 H (<1.2) APTT 28.9 (22.0-30.0) sec Sodium (137-145) mmol/L Potassium (3.5-5.1) mmol/L Chloride (98-107) mmol/L Carbon Dioxide (22-30) mmol/L Anion Gap mmol/L BUN (7-17) mg/dL Creatinine (0.52-1.04) mg/dL Est GFR (CKD-EPI)AfAm (>60 ml/min/1.73 sqM) Est GFR (CKD-EPI)NonAf (>60 ml/min/1.73 sqM) Glucose (74-99) mg/dL Calcium (8.4-10.2) mg/dL Total Bilirubin (0.2-1.3) mg/dL AST (14-36) U/L ALT (4-34) U/L Alkaline Phosphatase (38-126) U/L NT-Pro-B Natriuret Pep pg/mL Total Protein (6.3-8.2) g/dL Albumin (3.5-5.0) g/dL - Radiology Data Radiology results: report reviewed, image reviewed Two-view x-ray of the chest is obtained. Report was reviewed in its entirety. Impression by Dr. Hassan shows minimal infiltrate left lung base. Normal heart. Does not seem significantly changed from prior exam. Disposition Clinical Impression: Bilateral lower extremity edema Disposition: HOME SELF-CARE Condition: Good Instructions (If sedation given, give patient instructions): Leg Edema (ED) Additional Instructions: Use CAROLYN hose during the day, take off at night. Keep legs elevated. Take Lasix as directed. Follow-up with your primary care physician for recheck in 1-2 days. Return to the emergency department immediately for any new, worsening, or concerning symptoms. Prescriptions: Furosemide [Lasix] 20 mg PO DAILY #5 tab Is patient prescribed a controlled substance at d/c from ED?: No Referrals: Melani Bertrand MD [Primary Care Provider] - 1-2 days Time of Disposition: 21:29
[2019-05-16 21:57] VITALS: BP 166/65; PULSE 62; TEMP 97.8
== END 2019-05-16 21:57 | disposition home or self-care (01) ==
LOC: EC 18:28
DX: R60.0 Localized edema (principal); R58 Hemorrhage, not elsewhere classified; R91.8 Other nonspecific abnormal finding of lung field; D72.829 Elevated white blood cell count, unspecified; M79.604 Pain in right leg; M79.605 Pain in left leg; R05 Cough; J45.909 Unspecified asthma, uncomplicated; I10 Essential (primary) hypertension; I25.10 Atherosclerotic heart disease of native coronary artery without angina pectoris; E07.9 Disorder of thyroid, unspecified; Z87.891 Personal history of nicotine dependence; Z91.048 Other nonmedicinal substance allergy status; Z79.51 Long term (current) use of inhaled steroids; Z79.01 Long term (current) use of anticoagulants; Z79.82 Long term (current) use of aspirin; Z79.890 Hormone replacement therapy; Z79.899 Other long term (current) drug therapy; Z86.73 Personal history of transient ischemic attack (TIA), and cerebral infarction without residual deficits; Z95.5 Presence of coronary angioplasty implant and graft; Z87.01 Personal history of pneumonia (recurrent); Z82.61 Family history of arthritis
CPT/HCPCS: 36415; 83880; 80053; 85025; 85610; 85730; 71046; 99283; 96374; J1940

== ENCOUNTER → 2019-05-21 | Outpatient (CLI) | payer MEDICARE, OTHER | END | disposition home or self-care (01) | LOC: LABWHC1 13:29 | PROVIDERS: ATTEND Surgery | DX: K31.89 Other diseases of stomach and duodenum (principal) | CPT/HCPCS: 36415; 82565; 84520 ==

== ENCOUNTER → 2019-08-17 | Outpatient (CLI) | payer MEDICARE, OTHER ==
[2019-08-17 10:42] LABS: INR 1.7 (<1.2); Prothrombin Time 16.7 sec (9.0-12.0)
[2019-08-17 10:59] LABS: Basophils # (A) 0.1 k/uL (0-0.2); Basophils % (A) 1 %; Eosinophils # (A) 0.2 k/uL (0-0.7); Eosinophils % (A) 1 %; HCT 49.4 % (34.0-46.0); HGB 15.5 gm/dL (11.4-16.0); Hypochromasia Slight; Lymphocytes # (A) 4.4 k/uL (1.0-4.8); Lymphocytes % (A) 36 %; MCHC 31.3 g/dL (31.0-37.0); Mean Platelet Volume 9.6; Monocytes # (A) 0.7 k/uL (0-1.0); Monocytes % (A) 5 %; Neutrophils # (A) 6.7 k/uL (1.3-7.7); Neutrophils % (A) 54 %; Platelet Count 258 k/uL (150-450); RBC 4.99 m/uL (3.80-5.40); RDW 14.8 % (11.5-15.5); WBC 12.3 k/uL (3.8-10.6)
[2019-08-17 16:44] LABS: African American GFR (CKD) 54.5 (60.0-200.0); Albumin 4.3 g/dL (3.80-4.90); Albumin/Globulin Ratio 1.79 (1.60-3.17); Anion Gap 11.7 mmol/L (4.00-12.00); BUN/Creat Ratio 15.45 Ratio (12.00-20.00); Calcium 10.5 mg/dL (8.7-10.3); Carbon Dioxide 28.3 mmol/L (21.6-31.8); Chol/HDL Ratio 2.24; Globulin 2.4 g/dL (1.6-3.3); LDL Cholesterol,Calculated 72.4 mg/dL (0.0-131.0); Potassium 4.2 mmol/L (3.5-5.5); Total Bilirubin 0.5 mg/dL (0.3-1.2); Total Protein 6.7 g/dL (6.2-8.2); VLDL Calculation 24.6 mg/dL (5.00-40.00)
== END | disposition home or self-care (01) ==
LOC: LABWHC1 10:00
PROVIDERS: ATTEND Internal Medicine
DX: I10 Essential (primary) hypertension (principal); E78.2 Mixed hyperlipidemia; I27.82 Chronic pulmonary embolism; R60.9 Edema, unspecified
CPT/HCPCS: 36415; 80053; 80061; 83880; 84443; 85025; 85610

== ENCOUNTER → 2019-10-29 | Outpatient (CLI) | payer MEDICARE, OTHER ==
--- NOTE | 2019-10-29 11:00 | US ---
EXAMINATION TYPE: US venous doppler duplex LE LT DATE OF EXAM: 10/29/2019 10:37 AM COMPARISON: NONE CLINICAL HISTORY: M79.605 Pain in L leg,. Edema SIDE PERFORMED: Left TECHNIQUE: The lower extremity deep venous system is examined utilizing real time linear array sonog kaylin with graded compression, doppler sonography and color-flow sonography. VESSELS IMAGED: External Iliac Vein (EIV) Common Femoral Vein Deep Femoral Vein Greater Saphenous Vein * Femoral Vein Popliteal Vein Small Saphenous Vein * Proximal Calf Veins (* superficial vessels) Left Leg: Negative for DVT Grayscale, color doppler, spectral doppler imaging performed of the deep veins of the left lower extr emity. There is normal flow, compressibility, vascular waveforms. IMPRESSION: No sonographic evidence of deep venous thrombosis within the left lower extremity.
[2019-10-29 11:22] LABS: INR 2.6 (<1.2); Prothrombin Time 25.7 sec (9.0-12.0)
[2019-10-29 11:32] LABS: Albumin 3.7 g/dL (3.5-5.0); Calcium 10.4 mg/dL (8.4-10.2); Potassium 3.9 mmol/L (3.5-5.1); Total Bilirubin 0.8 mg/dL (0.2-1.3); Total Protein 6.7 g/dL (6.3-8.2)
[2019-10-29 11:41] LABS: Anisocytosis Slight; Basophils # (A) 0.1 k/uL (0-0.2); Basophils % (A) 1 %; Eosinophils # (A) 0.4 k/uL (0-0.7); Eosinophils % (A) 3 %; HCT 45.6 % (34.0-46.0); HGB 14.6 gm/dL (11.4-16.0); Hypochromasia Moderate; Lymphocytes # (A) 4.6 k/uL (1.0-4.8); Lymphocytes % (A) 34 %; MCH 32.5 pg (25.0-35.0); MCHC 32.1 g/dL (31.0-37.0); MCV 101.4 fL (80.0-100.0); Macrocytosis Moderate; Mean Platelet Volume 9.9; Monocytes # (A) 0.7 k/uL (0-1.0); Monocytes % (A) 5 %; Neutrophils # (A) 7.5 k/uL (1.3-7.7); Neutrophils % (A) 56 %; Platelet Count 237 k/uL (150-450); RBC 4.49 m/uL (3.80-5.40); RDW 16.7 % (11.5-15.5); WBC 13.6 k/uL (3.8-10.6)
[2019-10-29 11:47] LABS: T4, Free (Free Thyroxine) 1.02 ng/dL (0.78-2.19)
== END | disposition home or self-care (01) ==
LOC: RADUSWWP 10:13
PROVIDERS: ATTEND Internal Medicine
DX: M79.605 Pain in left leg (principal); I10 Essential (primary) hypertension; D68.59 Other primary thrombophilia; E78.2 Mixed hyperlipidemia; E03.9 Hypothyroidism, unspecified
CPT/HCPCS: 36415; 80053; 80061; 84439; 84443; 85025; 85610

== ENCOUNTER → 2019-11-07 | Outpatient (CLI) | payer MEDICARE, OTHER ==
--- NOTE | 2019-11-07 13:15 | US ---
EXAMINATION TYPE: US venous doppler duplex LE LT DATE OF EXAM: 11/07/2019 12:54 PM COMPARISON: 10/29/2019 CLINICAL HISTORY: 84-year-old female M79.605 LEFT LEG PAIN. Pt states ongoing left leg swelling SIDE PERFORMED: Left TECHNIQUE: The lower extremity deep venous system is examined utilizing real time linear array sonog kaylin with graded compression, doppler sonography and color-flow sonography. FINDINGS: VESSELS IMAGED: External Iliac Vein (EIV) Common Femoral Vein Deep Femoral Vein Greater Saphenous Vein * Femoral Vein Popliteal Vein Small Saphenous Vein * Proximal Calf Veins (* superficial vessels) Left Leg: Negative for DVT Attempted to call Dr's office with results at time of exam, no answer IMPRESSION: No evidence for DVT within the left lower extremity imaged from the groin to the upper calf.
== END | disposition home or self-care (01) ==
LOC: RADUSWWP 12:19
PROVIDERS: ATTEND Internal Medicine
DX: M79.605 Pain in left leg (principal)

== ENCOUNTER 2020-03-20 13:39 | Observation (INO) | payer MEDICARE, OTHER ==
--- NOTE | 2020-03-20 14:27 | ED ---
General Adult HPI - General Chief complaint: Recheck/Abnormal Lab/Rx Stated complaint: Hypertensive Time Seen by Provider: 03/20/20 14:27 Source: patient Mode of arrival: ambulatory Limitations: no limitations - History of Present Illness Initial comments: Patient is an 84-year-old female with history of factor V Leiden and currently on Coumadin presents emergency Department with chief complaint of high blood pressure. Patient states this morning she noticed her blood pressure was high which initially measured 190 systolic. Patient states repeat blood pressure was 210 systolic. Patient states she also felt slightly dizzy with the room was spinning around her but not lightheaded. Denies any chest pain shortness of breath or any visual changes. States that she takes multiple pills in the morning and night, and believes she might have forgotten one of her medications last night. She denies any abdominal pain, back pain, extremity weakness or paresthesias, or changes in urination. - Related Data Home Medications Medication Instructions Recorded Confirmed Aspirin [Children's Aspirin] 81 mg PO DAILY 02/07/17 03/20/20 Donepezil [Aricept] 5 mg PO HS 02/07/17 03/20/20 Fluticasone/Salmeterol [Advair 1 puff INHALATION RT-BID 02/07/17 03/20/20 250-50 Diskus] Metoprolol Succinate [Toprol XL] 25 mg PO HS 02/07/17 03/20/20 Rosuvastatin [Crestor] 20 mg PO MOWEFR 02/07/17 03/20/20 Warfarin [Coumadin] 2.5 mg PO MOFR 02/07/17 03/20/20 Warfarin [Coumadin] 5 mg PO SUTUWETHSA 02/07/17 03/20/20 Losartan/Hydrochlorothiazide 1 tab PO DAILY 04/30/19 03/20/20 [Losartan-Hctz 100-12.5 mg Tab] Omeprazole 40 mg PO DAILY 04/30/19 03/20/20 Levothyroxine Sodium [Synthroid] 100 mcg PO DAILY 03/20/20 03/20/20 Allergies Allergy/AdvReac Type Severity Reaction Status Date / Time dacron Allergy Unknown Unknown Uncoded 03/20/20 16:49 Review of Systems ROS Statement: Those systems with pertinent positive or pertinent negative responses have been documented in the HPI. ROS Other: All systems not noted in ROS Statement are negative. Past Medical History Past Medical History: Asthma, Coronary Artery Disease (CAD), CVA/TIA, Hypertension, Thyroid Disorder History of Any Multi-Drug Resistant Organisms: None Reported Past Surgical History: Heart Catheterization With Stent, Hysterectomy Additional Past Surgical History / Comment(s): carotidectomy, EGD colonoscopy Date of Last Stent Placement:: 02/22/2018 Past Psychological History: No Psychological Hx Reported Smoking Status: Never smoker Past Alcohol Use History: Rare Past Drug Use History: None Reported - Past Family History Father Additional Family Medical History / Comment(s): Father at age 84 from coronary artery disease. Mother Additional Family Medical History / Comment(s): Mother at age 90 from a bowel obstruction. Brother(s) Additional Family Medical History / Comment(s): Patient has 1 brother that is alive with no major medical problems. Sister(s) Additional Family Medical History / Comment(s): Patient has a total of 3 s isters. One has passed with complications after surgical procedure the cause of fistula. 2 other sisters are alive without major medical problems. Daughter(s) Additional Family Medical History / Comment(s): Patient has 2 daughters and one has history of kidney transplant, diabetes, stroke, coronary artery disease. One daughter has history of osteoarthritis and hip replacement. Son(s) Additional Family Medical History / Comment(s): Patient has 2 sons with no major medical problems. General Exam Limitations: no limitations General appearance: alert, in no apparent distress Head exam: Present: atraumatic, normocephalic, normal inspection Eye exam: Present: normal appearance, PERRL, EOMI Pupils: Present: normal accommodation ENT exam: Present: normal exam, normal oropharynx, mucous membranes moist, TM's normal bilaterally, normal external ear exam Neck exam: Present: normal inspection, full ROM. Absent: tenderness Respiratory exam: Present: normal lung sounds bilaterally. Absent: respiratory distress, wheezes, rales Cardiovascular Exam: Present: regular rate, normal rhythm, normal heart sounds Extremities exam: Present: normal inspection, full ROM, normal capillary refill. Absent: tenderness Back exam: Present: normal inspection, full ROM. Absent: tenderness, CVA tenderness (R), CVA tenderness (L) Neurological exam: Present: alert, oriented X3 Psychiatric exam: Present: normal affect, normal mood Skin exam: Present: warm, dry, intact, normal color Course Vital Signs 03/20/20 03/20/20 03/20/20 13:59 14:40 15:16 Temperature 98.0 F Pulse Rate 65 63 60 Respiratory 16 12 12 Rate Blood Pressure 204/84 238/101 200/73 O2 Sat by Pulse 94 L 94 L 96 Oximetry 03/20/20 03/20/20 03/20/20 15:32 16:02 16:30 Temperature Pulse Rate 59 L 68 Respiratory 12 12 Rate Blood Pressure 217/94 232/102 137/108 O2 Sat by Pulse 93 L 98 Oximetry 03/20/20 03/20/20 03/20/20 16:41 17:00 17:17 Temperature Pulse Rate 62 59 L Respiratory 12 12 Rate Blood Pressure 234/94 231/96 228/98 O2 Sat by Pulse 93 L 96 Oximetry Medical Decision Making - Medical Decision Making Patient is a 84-year-old female presenting to the emergency department with a chief complaint of high blood pressure. On initial evaluation, patient does have blood pressure with 220/105. Patient does not have any symptoms. She did complain of some dizziness earlier today which has not resolved. She does have a first-degree AV block. She does have heme concentration on CBC. Patient does have history of factor V Leiden and is currently on Coumadin. INR 2.9. Initial troponin is negative. Patient continues to be symptomatic but her blood pressure seems to be over 200 systolic even after 20 mg of labetalol. Patient was also given hydralazine. No improvement in blood pressure. I spoke with who stated the patient can be admitted for further medical management. Case discussed with Admitting is Dr Bertrand - Lab Data Result diagrams: 03/20/20 15:13 03/20/20 15:13 Lab Results 03/20/20 03/20/20 03/20/20 Range/Units 15:13 15:13 15:13 WBC 10.4 (3.8-10.6) k/uL RBC 5.43 H (3.80-5.40) m/uL Hgb 16.5 H (11.4-16.0) gm/dL Hct 52.3 H (34.0-46.0) % MCV 96.4 (80.0-100.0) fL MCH 30.4 (25.0-35.0) pg MCHC 31.5 (31.0-37.0) g/dL RDW 15.1 (11.5-15.5) % Plt Count 304 (150-450) k/uL Neutrophils % 38 % Lymphocytes % 47 % Monocytes % 5 % Eosinophils % 5 % Basophils % 2 % Neutrophils # 3.9 (1.3-7.7) k/uL Lymphocytes # 4.9 H (1.0-4.8) k/uL Monocytes # 0.5 (0-1.0) k/uL Eosinophils # 0.6 (0-0.7) k/uL Basophils # 0.2 (0-0.2) k/uL PT 28.0 H (9.0-12.0) sec INR 2.9 H (<1.2) APTT 32.2 H (22.0-30.0) sec Sodium 141 (137-145) mmol/L Potassium 3.8 (3.5-5.1) mmol/L Chloride 108 H (98-107) mmol/L Carbon Dioxide 28 (22-30) mmol/L Anion Gap 5 mmol/L BUN 12 (7-17) mg/dL Creatinine 0.90 (0.52-1.04) mg/dL Est GFR (CKD-EPI)AfAm 69 (>60 ml/min/1.73 sqM) Est GFR (CKD-EPI)NonAf 60 (>60 ml/min/1.73 sqM) Glucose 103 H (74-99) mg/dL Calcium 10.2 (8.4-10.2) mg/dL Magnesium 2.3 (1.6-2.3) mg/dL Total Bilirubin 0.7 (0.2-1.3) mg/dL AST 33 (14-36) U/L ALT 15 (4-34) U/L Alkaline Phosphatase 101 (38-126) U/L Troponin I (0.000-0.034) ng/mL Total Protein 7.0 (6.3-8.2) g/dL Albumin 3.9 (3.5-5.0) g/dL 03/20/20 Range/Units 15:13 WBC (3.8-10.6) k/uL RBC (3.80-5.40) m/uL Hgb (11.4-16.0) gm/dL Hct (34.0-46.0) % MCV (80.0-100.0) fL MCH (25.0-35.0) pg MCHC (31.0-37.0) g/dL RDW (11.5-15.5) % Plt Count (150-450) k/uL Neutrophils % % Lymphocytes % % Monocytes % % Eosinophils % % Basophils % % Neutrophils # (1.3-7.7) k/uL Lymphocytes # (1.0-4.8) k/uL Monocytes # (0-1.0) k/uL Eosinophils # (0-0.7) k/uL Basophils # (0-0.2) k/uL PT (9.0-12.0) sec INR (<1.2) APTT (22.0-30.0) sec Sodium (137-145) mmol/L Potassium (3.5-5.1) mmol/L Chloride (98-107) mmol/L Carbon Dioxide (22-30) mmol/L Anion Gap mmol/L BUN (7-17) mg/dL Creatinine (0.52-1.04) mg/dL Est GFR (CKD-EPI)AfAm (>60 ml/min/1.73 sqM) Est GFR (CKD-EPI)NonAf (>60 ml/min/1.73 sqM) Glucose (74-99) mg/dL Calcium (8.4-10.2) mg/dL Magnesium (1.6-2.3) mg/dL Total Bilirubin (0.2-1.3) mg/dL AST (14-36) U/L ALT (4-34) U/L Alkaline Phosphatase (38-126) U/L Troponin I <0.012 (0.000-0.034) ng/mL Total Protein (6.3-8.2) g/dL Albumin (3.5-5.0) g/dL Disposition Clinical Impression: Asymptomatic hypertension Disposition: ADMITTED IP TO THIS HOSP Condition: Good Is patient prescribed a controlled substance at d/c from ED?: No Referrals: Melani Bertrand MD [Primary Care Provider] - 1-2 days Time of Disposition: 17:49
[2020-03-20] MEDS ORDERED: LABETALOL 5 MG/ML VIAL MDV IVP STA (14:46)
[2020-03-20 15:23] LABS: Basophils # (A) 0.2 k/uL (0-0.2); Basophils % (A) 2 %; Eosinophils # (A) 0.6 k/uL (0-0.7); Eosinophils % (A) 5 %; HCT 52.3 % (34.0-46.0); HGB 16.5 gm/dL (11.4-16.0); Lymphocytes # (A) 4.9 k/uL (1.0-4.8); Lymphocytes % (A) 47 %; MCH 30.4 pg (25.0-35.0); MCHC 31.5 g/dL (31.0-37.0); MCV 96.4 fL (80.0-100.0); Mean Platelet Volume 8.9; Monocytes # (A) 0.5 k/uL (0-1.0); Monocytes % (A) 5 %; Neutrophils # (A) 3.9 k/uL (1.3-7.7); Neutrophils % (A) 38 %; Platelet Count 304 k/uL (150-450); RBC 5.43 m/uL (3.80-5.40); RDW 15.1 % (11.5-15.5); WBC 10.4 k/uL (3.8-10.6)
[2020-03-20 15:31] LABS: Albumin 3.9 g/dL (3.5-5.0); Calcium 10.2 mg/dL (8.4-10.2); Magnesium 2.3 mg/dL (1.6-2.3); Potassium 3.8 mmol/L (3.5-5.1); Total Bilirubin 0.7 mg/dL (0.2-1.3)
[2020-03-20 15:32] LABS: INR 2.9 (<1.2); Partial Thromboplastin Time 32.2 sec (22.0-30.0)
[2020-03-20] MEDS ORDERED: hydrALAZINE HCL 20 MG/ML 1 ML VIAL IVP STA (16:37)
[2020-03-20] MEDS ORDERED: IBUPROFEN 400 MG TAB PO PRN (17:42)
[2020-03-20] MEDS ORDERED: LORazepam 2 MG/ML INJ IV PRN (17:42)
[2020-03-20] MEDS ORDERED: HYDROmorphone 1 MG/ML 1 ML SYRINGE IVP PRN (17:42)
[2020-03-20] MEDS ORDERED: ACETAMINOPHEN TAB 325 MG TAB PO PRN (17:42)
[2020-03-20] MEDS ORDERED: NALOXONE 0.4 MG/ML 1 ML VIAL IV PRN (17:42)
[2020-03-20] MEDS ORDERED: SODIUM CHLORIDE 0.9% 1,000 ML IV SCH (17:45)
[2020-03-21 02:56] VITALS: RESP 16
[2020-03-21] MEDS ORDERED: LEVOTHYROXINE 100 MCG TAB PO SCH (06:30)
[2020-03-21] MEDS ORDERED: SYMBICORT 80-4.5 MCG INHALER INHALATION SCH (08:00)
[2020-03-21 08:20] VITALS: TEMP 97.6
[2020-03-21] MEDS ORDERED: ATORVASTATIN 40 MG TAB PO SCH (09:00)
[2020-03-21] MEDS ORDERED: ASPIRIN 81 MG PO SCH (09:00)
[2020-03-21] MEDS ORDERED: LOSARTAN-HCTZ 50-12.5 MG 1 EACH TAB PO SCH (09:00)
[2020-03-21] MEDS ORDERED: PANTOPRAZOLE 40 MG TABLET PO SCH (09:00)
[2020-03-21 10:16] VITALS: BMI 30.4
[2020-03-21 10:22] LABS: Prothrombin Time 19.3 sec (9.0-12.0)
[2020-03-21] MEDS ORDERED: hydrALAZINE HCL 25 MG TAB PO SCH (11:15)
[2020-03-21] MEDS ORDERED: METOPROLOL SUCCINATE (ER) 25 MG TAB.ER.24H PO SCH ×2 (11:15→21:00)
[2020-03-21] MEDS ORDERED: hydrALAZINE HCL 20 MG/ML 1 ML VIAL IVP PRN (11:15)
[2020-03-21 12:37] VITALS: PULSE 65
[2020-03-21 13:50] VITALS: BP 145/65
--- NOTE | 2020-03-21 15:14 | P.HPIM ---
History of Present Illness H&P Date: 03/21/20 HISTORY AND PHYSICAL AND DISCHARGE SUMMARY: This is an 84-year-old female patient of Dr. 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 Patient noticed that her blood pressure was high well at home with a systolic blood pressure of 190. She repeated her blood pressure and came back at 210 systolic. She was feeling dizzy like the room was spinning. She denied having any chest pain, shortness of breath. No visual changes. Patient believes that she may h ave forgotten to take one of her medications last evening. Patient came into [facility] emergency center for evaluation. Her blood pressures in the ER were as high as 232/102. EKG was a first-degree AV block. CBC revealed WBC 10.4, hemoglobin 16.5, platelet count 304. Electrolytes unremarkable, creatinine 0.9. Blood sugar 103. INR 2.9. Troponin negative. Liver function tests normal. Patient was given labetalol 20 mg IV push followed by hydralazine 20 mg IV push and placed on the observation unit. The following medication changes were made: Hydralazine 25 mg twice daily was added, Toprol-XL 25 mg was increased to twice daily. Repeat blood pressure after medications was 145/65. The patient will be discharged home today in stable condition with the noted medication changes. Review of Systems Constitutional: Denies chills, Denies fatigue, Denies fever, Denies poor appetite, Denies weakness Eyes: denies blurred vision, denies pain Ears, nose, mouth and throat: Reports vertigo, Denies dysphagia, Denies nasal congestion, Denies nasal discharge Cardiovascular: Denies chest pain, Denies leg edema, Denies lightheadedness, Denies shortness of breath, Denies syncope Respiratory: Denies cough, Denies cough with sputum, Denies dyspnea, Denies excessive sputum, Denies hemoptysis, Denies home oxygen, Denies wheezing Gastrointestinal: Denies abdominal pain, Denies diarrhea, Denies loss of appetite, Denies nausea, Denies vomiting Genitourinary: Denies dysuria, Denies hematuria, Denies urgency, Denies urinary frequency Menstruation: Reports postmenopausal Musculoskeletal: Denies frequent falls, Denies gait dysfunction, Denies muscle weakness, Denies myalgias Integumentary: Denies pruritus, Denies rash, Denies wounds Neurological: Denies change in mentation, Denies change in speech, Denies numbness, Denies weakness Psychiatric: Denies anxiety, Denies depression Endocrine: Denies fatigue, Denies weight change Past Medical History Past Medical History: Asthma, Coronary Artery Disease (CAD), CVA/TIA, Hypertension, Thyroid Disorder History of Any Multi-Drug Resistant Organisms: None Reported Past Surgical History: Heart Catheterization With Stent, Hysterectomy Additional Past Surgical History / Comment(s): carotidectomy in 2007, EGD colonoscopy Past Anesthesia/Blood Transfusion Reactions: No Reported Reaction Date of Last Stent Placement:: 02/22/2018 Past Psychological History: No Psychological Hx Reported Smoking Status: Never smoker Past Alcohol Use History: Rare Additional Past Alcohol Use History / Comment(s): Patient was a smoker one pack per day for 33 years and quit in 1995. No illicit drug use or alcohol abuse. Past Drug Use History: None Reported - Past Family History Father Additional Family Medical History / Comment(s): Father at age 84 from coronary artery disease. Mother Additional Family Medical History / Comment(s): Mother at age 90 from a bowel obstruction. Brother(s) Additional Family Medical History / Comment(s): Patient has 1 brother that is alive with no major medical problems. Sister(s) Additional Family Medical History / Comment(s): Patient has a total of 3 sisters. One has passed with complications after surgical procedure the cause of fistula. 2 other sisters are alive without major medical problems. Daughter(s) Additional Family Medical History / Comment(s): Patient has 2 daughters and one has history of kidney transplant, diabetes, stroke, coronary artery disease. One daughter has history of osteoarthritis and hip replacement. Son(s) Additional Family Medical History / Comment(s): Patient has 2 sons with no major medical problems. Medications and Allergies Home Medications Medication Instructions Recorded Confirmed Type Aspirin [Children's Aspirin] 81 mg PO DAILY 02/07/17 03/20/20 History Donepezil [Aricept] 5 mg PO HS 02/07/17 03/20/20 History Fluticasone/Salmeterol [Advair 1 puff INHALATION RT-BID 02/07/17 03/20/20 History 250-50 Diskus] Rosuvastatin [Crestor] 20 mg PO MOWEFR 02/07/17 03/20/20 History Warfarin [Coumadin] 2.5 mg PO MOFR 02/07/17 03/20/20 History Warfarin [Coumadin] 5 mg PO SUTUWETHSA 02/07/17 03/20/20 History Losartan/Hydrochlorothiazide 1 tab PO DAILY 04/30/19 03/20/20 History [Losartan-Hctz 100-12.5 mg Tab] Omeprazole 40 mg PO DAILY 04/30/19 03/20/20 History Levothyroxine Sodium [Synthroid] 100 mcg PO DAILY 03/20/20 03/20/20 History Metoprolol Succinate (ER) [Toprol 25 mg PO BID #60 tab.er.24h 03/21/20 Rx XL] hydrALAZINE HCL [Apresoline] 25 mg PO BID #60 tab 03/21/20 Rx Allergies Allergy/AdvReac Type Severity Reaction Status Date / Time dacron Allergy Unknown Unknown Uncoded 03/20/20 16:49 Physical Exam Vitals: Vital Signs Temp Pulse Pulse Resp BP BP Pulse Ox 03/21/20 08:58 16 03/21/20 08:19 97.6 F 65 16 201/84 90 L 03/21/20 02:55 98.3 F 75 16 138/61 93 L 03/20/20 22:04 151/58 03/20/20 19:20 98.1 F 76 18 160/62 93 L 03/20/20 18:13 67 12 175/64 96 03/20/20 17:17 59 L 12 228/98 96 03/20/20 17:00 62 12 231/96 93 L 03/20/20 16:41 234/94 03/20/20 16:30 137/108 03/20/20 16:02 68 12 232/102 98 03/20/20 15:32 59 L 12 217/94 93 L 03/20/20 15:16 60 12 200/73 96 03/20/20 14:40 63 12 238/101 94 L 03/20/20 13:59 98.0 F 65 16 204/84 94 L Intake and Output 03/20/20 03/21/20 03/21/20 22:59 06:59 14:59 Intake Total 240 Balance 240 Intake: Oral 240 Other: Voiding Method Toilet Toilet # Voids 2 Weight 78.018 kg Gen: This is an 84-year-old female. Patient is resting in bed and appears to be comfortable. HEENT: Head is atraumatic, normocephalic. Pupils equal, round. Sclerae is anicteric. NECK: Supple. No JVD. No lymphadenopathy. No thyromegaly. LUNGS: Clear to auscultation. No rhonchi, no wheezing. No intercostal retractions. HEART: Regular rate and rhythm. No murmur. ABDOMEN: Soft. Bowel sounds are present. No masses. No tenderness. EXTREMITIES: No pedal edema. No calf tenderness. NEUROLOGICAL: Patient is awake, alert and oriented x3. Cranial nerves 2 through 12 are grossly intact. Results CBC & Chem 7: 03/20/20 15:13 03/20/20 15:13 Labs: Abnormal Lab Results - Last 24 Hours (Table) 03/20/20 03/20/20 03/20/20 Range/Units 15:13 15:13 15:13 RBC 5.43 H (3.80-5.40) m/uL Hgb 16.5 H (11.4-16.0) gm/dL Hct 52.3 H (34.0-46.0) % Lymphocytes # 4.9 H (1.0-4.8) k/uL PT 28.0 H (9.0-12.0) sec INR 2.9 H (<1.2) APTT 32.2 H (22.0-30.0) sec Chloride 108 H (98-107) mmol/L Glucose 103 H (74-99) mg/dL Thrombosis Risk Factor Assmnt - Choose All That Apply Any of the Below Risk Factors Present?: Yes Each Factor Represents 1 point: Obesity (BMI >25) Other Risk Factors: Yes Each Risk Factor Represents 3 Points: Positive Factor V Leiden, Age 75 years or older Thrombosis Risk Factor Assessment Total Risk Factor Score: 7 Thrombosis Risk Factor Assessment Level: High Risk Assessment and Plan Plan: 1. Hypertensive emergency. Hydralazine 25 mg twice daily, Toprol-XL increased frequency to 25 mg twice daily, continue losartan and hydrochlorothiazide. 2. Factor Leiden deficiency. Continue Coumadin. 3. History of pulmonary embolism. 4. Hypothyroidism. Continue levothyroxine 100 g daily. 5. History of coronary artery disease status post cardiac stent. Continue aspirin 81 mg daily, atorvastatin 40 mg a Tuesday. 6. Remote history of tobacco use and dependence. 7. DVT prophylaxis. Coumadin. 8. GI prophylaxis. Protonix. 9. Vascular dementia. Aricept 5 mg at bedtime. Patient placed as observation status. Discharge plan: return home. Impression and plan of care have been directed as dictated by the signing physician. Shari Rodriguez nurse practitioner acting as scribe for signing physician.
[2020-03-21] MEDS ORDERED: WARFARIN 5 MG TAB PO ONE (18:00)
[2020-03-21] MEDS ORDERED: DONEPEZIL 5 MG TAB PO SCH (21:00)
[2020-03-22] MEDS ORDERED: WARFARIN 5 MG TAB PO SCH (18:00)
[2020-03-24] MEDS ORDERED: WARFARIN 2.5 MG TAB PO SCH (18:00)
== END 2020-03-21 15:00 | disposition home or self-care (01) ==
LOC: EC 13:39 → 1SOBS 18:32
PROVIDERS: ADMIT Internal Medicine; ATTEND Internal Medicine
DX: I16.1 Hypertensive emergency (principal); R42 Dizziness and giddiness; I10 Essential (primary) hypertension; D68.51 Activated protein C resistance; E03.9 Hypothyroidism, unspecified; F01.50 Vascular dementia, unspecified severity, without behavioral disturbance, psychotic disturbance, mood disturbance, and anxiety; I25.10 Atherosclerotic heart disease of native coronary artery without angina pectoris; I44.0 Atrioventricular block, first degree; J44.9 Chronic obstructive pulmonary disease, unspecified; Z79.01 Long term (current) use of anticoagulants; Z79.82 Long term (current) use of aspirin; Z79.890 Hormone replacement therapy; Z79.899 Other long term (current) drug therapy; Z82.3 Family history of stroke; Z82.49 Family history of ischemic heart disease and other diseases of the circulatory system; Z86.711 Personal history of pulmonary embolism; Z86.73 Personal history of transient ischemic attack (TIA), and cerebral infarction without residual deficits; Z87.891 Personal history of nicotine dependence; Z95.5 Presence of coronary angioplasty implant and graft
CPT/HCPCS: 96374; 96375; 99284; 36415; 94640; 93005; 80053; 83735; 84484; 85025; 85610 ×2; 85730; G0378 ×2; J0360

== ENCOUNTER → 2020-03-28 | Outpatient (CLI) | payer MEDICARE, OTHER ==
--- NOTE | 2020-03-28 14:22 | XR ---
EXAMINATION TYPE: XR knee limited LT DATE OF EXAM: 03/28/2020 CLINICAL HISTORY: Primary osteoarthritis of the left knee. TECHNIQUE: AP and lateral views of the left knee are obtained. COMPARISON: None. FINDINGS: There is no acute fracture/dislocation evident in left knee. There is mild to moderate tri compartmental degenerative spurring. Joint space narrowing of the medial compartment. Quadriceps tend on patellar spurring. No suprapatellar joint effusion. Calcified atherosclerotic disease. IMPRESSION: 1. [id number] tricompartmental osteoarthritic spurring. 2. Medial compartment joint space narrowing. 3. Quadriceps tendon patellar enthesophyte.
== END | disposition home or self-care (01) ==
LOC: RADXRMAIN 13:09
PROVIDERS: ATTEND Internal Medicine
DX: M17.12 Unilateral primary osteoarthritis, left knee (principal); M25.862 Other specified joint disorders, left knee

== ENCOUNTER → 2020-09-08 | Outpatient (CLI) | payer MEDICARE, OTHER | END | disposition home or self-care (01) | LOC: LABPAT 14:07 | PROVIDERS: ATTEND Student in an Organized Health Care Education/Training Program | DX: Z01.812 Encounter for preprocedural laboratory examination (principal); Z20.822 Contact with and (suspected) exposure to COVID-19 | CPT/HCPCS: U0003; C9803; U0005 ==

== ENCOUNTER 2020-09-12 08:15 | Day surgery (SDC) | payer MEDICARE, OTHER ==
[2020-09-10 12:52] VITALS: BMI 30.2
[~2020-09-12 08:15] MED LIST changes: +LACTATED RINGERS 1,000 ML IV SCH; -REGADENOSON 0.4 MG/5 ML SYRINGE IV ONE
[2020-09-12 09:30] VITALS: TEMP 97.4
[2020-09-12] MEDS ORDERED: LIDOCAINE 1% (10MG/ML) FOR IV START INTRADERMA ONE (09:30)
[2020-09-12] MEDS ORDERED: LIDOCAINE 1% INJ 10MG/ML (20 ML MDV) ONE (09:32)
[2020-09-12] MEDS ORDERED: PROPOFOL 10 MG/ML 20 ML VIAL IV ONE (09:32)
--- NOTE | 2020-09-12 09:43 | P.OP ---
Date of Procedure: 09/12/20 Preoperative Diagnosis: GERD Postoperative Diagnosis: Gastritis Procedure(s) Performed: EGD with biopsy Anesthesia: MAC Surgeon: Qasim Castillo Estimated Blood Loss (ml): 2 Condition: stable Disposition: PACU Description of Procedure: Patient is brought to the Endo suite placed in left lateral uterus position underwent sedation per department of anesthesia timeout performed correct patient correct procedure correct site was verified and the scope was passed through the oropharynx on the esophagus with ease and direct visualization and the first and second portion of the duodenum no gross abnormalities are noted scope was withdrawn into the stomach there was gastritis noted antral biopsies taken to rule out H. pylori scope was retroflexed no significant hiatal hernia was noted all oakley and body of the stomach were inspected and again mild gastritis is noted scope was withdrawn to the GE junction where biopsies were taken to rule out Aparicio's esophagitis scope was then slowly withdrawn being sure to visualize the rest of esophagus on the way out no gross pathology noted patient tolerated procedure well no apparent comp locations
[2020-09-12 09:53] VITALS: RESP 18
[2020-09-12 10:24] VITALS: BP 167/78; PULSE 78
== END 2020-09-12 10:44 | disposition home or self-care (01) ==
LOC: ORWHC2ENDO 08:15
PROVIDERS: ATTEND Student in an Organized Health Care Education/Training Program
DX: K29.50 Unspecified chronic gastritis without bleeding (principal); K21.9 Gastro-esophageal reflux disease without esophagitis; E78.00 Pure hypercholesterolemia, unspecified; I10 Essential (primary) hypertension; I25.10 Atherosclerotic heart disease of native coronary artery without angina pectoris; E78.5 Hyperlipidemia, unspecified; Z79.82 Long term (current) use of aspirin; Z79.890 Hormone replacement therapy; Z79.899 Other long term (current) drug therapy; Z80.49 Family history of malignant neoplasm of other genital organs; Z82.49 Family history of ischemic heart disease and other diseases of the circulatory system; Z86.73 Personal history of transient ischemic attack (TIA), and cerebral infarction without residual deficits; Z87.891 Personal history of nicotine dependence; Z88.8 Allergy status to other drugs, medicaments and biological substances
CPT/HCPCS: 88305; 43239; J2001; J2704

== ENCOUNTER 2020-12-15 09:06 | Emergency (ER) | payer MEDICARE, OTHER ==
--- NOTE | 2020-12-15 10:10 | ED ---
Back Pain HPI - General Chief Complaint: Back Pain/Injury Stated Complaint: fall, back pain Time Seen by Provider: 12/15/20 09:13 Source: patient, RN notes reviewed Limitations: no limitations - History of Present Illness Initial Comments: This 85-year-old female resents to the emergency Department with chief complaint of back pain. Patient states 5 days ago she tripped causing her to fall onto her abdomen. Patient complains of right-sided low back, pelvic pain. Patient states she has no anterior pain no head injury no loss conscious. Patient states that has not improved and she became concerned denies any bowel, bladder incontinence retention no abdominal pain or issues at this time - Related Data Home Medications Medication Instructions Recorded Confirmed Aspirin [Children's Aspirin] 81 mg PO HS 02/07/17 12/15/20 Fluticasone/Salmeterol [Advair 1 puff INHALATION RT-BID 02/07/17 12/15/20 250-50 Diskus] Rosuvastatin [Crestor] 20 mg PO MOWEFR 02/07/17 12/15/20 Warfarin [Coumadin] 2.5 mg PO KNOX 02/07/17 12/15/20 Warfarin [Coumadin] 5 mg PO MOTUWETHFRSA 02/07/17 12/15/20 Losartan/Hydrochlorothiazide 1 tab PO DAILY 04/30/19 12/15/20 [Losartan-Hctz 100-12.5 mg Tab] Omeprazole 40 mg PO DAILY 04/30/19 12/15/20 Levothyroxine Sodium [Synthroid] 100 mcg PO DAILY 03/20/20 12/15/20 Metoprolol Succinate (ER) [Toprol 25 mg PO HS 09/10/20 12/15/20 XL] Donepezil [Aricept] 10 mg PO DAILY 12/15/20 12/15/20 Previous Rx's Medication Instructions Recorded hydrALAZINE HCL [Apresoline] 25 mg PO BID #60 tab 03/21/20 HYDROcodone/APAP 5-325MG [Avalon 5] 1 each PO Q6HR PRN #12 tab 12/15/20 Allergies Allergy/AdvReac Type Severity Reaction Status Date / Time dacron Allergy Unknown INCISION Uncoded 12/15/20 10:58 WOULD NOT HEAL Review of Systems ROS Statement: Those systems with pertinent positive or pertinent negative responses have been documented in the HPI. ROS Other: All systems not noted in ROS Statement are negative. Past Medical History Past Medical History: Asthma, Coronary Artery Disease (CAD), CVA/TIA, Hypertension, Thyroid Disorder History of Any Multi-Drug Resistant Organisms: None Reported Past Surgical History: Heart Catheterization With Stent, Hysterectomy Additional Past Surgical History / Comment(s): carotidectomy in 2007, EGD colonoscopy Past Anesthesia/Blood Transfusion Reactions: No Reported Reaction Date of Last Stent Placement:: 02/22/2018 Past Psychological History: No Psychological Hx Reported Smoking Status: Former smoker Past Alcohol Use History: None Reported Past Drug Use History: None Reported - Past Family History Father Additional Family Medical History / Comment(s): Father at age 84 from coronary artery disease. Mother Additional Family Medical History / Comment(s): Mother at age 90 from a bowel obstruction. Brother(s) Additional Family Medical History / Comment(s): Patient has 1 brother that is alive with no major medical problems. Sister(s) Additional Family Medical History / Comment(s): Patient has a total of 3 sisters. One has passed with complications after surgical procedure the cause of fistula. 2 other sisters are alive without major medical problems. Daughter(s) Additional Family Medical History / Comment(s): Patient has 2 daughters and one has history of kidney transplant, diabetes, stroke, coronary artery disease. One daughter has history of osteoarthritis and hip replacement. Son(s) Additional Family Medical History / Comment(s): Patient has 2 sons with no major medical problems. General Exam Limitations: no limitations General appearance: alert, in no apparent distress Head exam: Present: atraumatic, normocephalic, normal inspection Neck exam: Present: normal inspection, full ROM. Absent: tenderness, meningismus, lymphadenopathy Respiratory exam: Present: normal lung sounds bilaterally. Absent: respiratory distress, wheezes, rales, rhonchi, stridor, chest wall tenderness Cardiovascular Exam: Present: regular rate, normal rhythm, normal heart sounds. Absent: systolic murmur, diastolic murmur, rubs, gallop, clicks GI/Abdominal exam: Present: soft, normal bowel sounds. Absent: distended, t enderness, guarding, rebound, rigid Extremities exam: Present: other (Lower extremity strength equal bilaterally neurovascular intact equal and equal warmth) Back exam: Present: full ROM, tenderness, paraspinal tenderness. Absent: vertebral tenderness Neurological exam: Present: alert, oriented X3, reflexes normal. Absent: motor sensory deficit Course Vital Signs 12/15/20 12/15/20 12/15/20 09:08 10:43 11:49 Temperature 97.5 F L 97.8 F Pulse Rate 63 65 75 Respiratory 18 16 18 Rate Blood Pressure 148/79 189/75 166/79 O2 Sat by Pulse 92 L 91 L 91 L Oximetry Medical Decision Making - Medical Decision Making 85-year-old female presents emergency department for low back pain. This started after a fall CT reveals evidence of infection fracture this was reviewed case discussed with core on-call for Dr. Dodson seen states patient may be discharged and with TLSO brace. Patient will follow-up in office. Disposition Clinical Impression: Lumbar compression fracture Disposition: HOME SELF-CARE Condition: Stable Instructions (If sedation given, give patient instructions): Vertebral Compression Fracture (ED) Additional Instructions: Please return to the Emergency Department if symptoms worsen or any other concerns. Prescriptions: HYDROcodone/APAP 5-325MG [Avalon 5] 1 each PO Q6HR PRN #12 tab PRN Reason: Pain Is patient prescribed a controlled substance at d/c from ED?: Yes When asked, does pt state using other controlled substances?: No If prescribed controlled substance>3 days was MAPS reviewed?: Prescribed <3 Days If opioid is for acute pain is fill amount 7 days or less?: Yes If Rx opioid, was Start Talking consent form obtained?: Yes Referrals: Melani Bertrand MD [Primary Care Provider] - 1-2 days Teto Valentine DO [Doctor of Osteopathic Medicine] - 1-2 days Time of Disposition: 12:13
--- NOTE | 2020-12-15 10:27 | XR ---
EXAMINATION TYPE: XR pelvis AP view DATE OF EXAM: 12/15/2020 CLINICAL HISTORY: pain TECHNIQUE: Single view the pelvis is submitted. FINDINGS: No evidence for fracture, dislocation or bony lesion. Joint spaces are well-preserved. S I joints appear symmetric. IMPRESSION: 1. No acute fracture or dislocation seen. ICD 10 NO FRACTURE, INITIAL EVALUATION
--- NOTE | 2020-12-15 10:30 | XR ---
EXAMINATION TYPE: XR lumbosacral spine min 4V DATE OF EXAM: 12/15/2020 CLINICAL HISTORY: pain COMPARISON: NONE TECHNIQUE: Frontal, lateral, and oblique images of the lumbar spine are obtained. FINDINGS: There is curvature noted convex to the left. There are 5 lumbar type vertebral bodies ident ified. The lumbar spine shows satisfactory alignment without evidence of acute fracture or dislocati on. Mild loss of height superior endplate of L2 of uncertain age and/or etiology. Moderate degenerati ve disc space narrowing. Severe facet joint arthropathy. The overlying soft tissue appears unremarkab le. IMPRESSION: Mild loss of height superior endplate of L2 of uncertain age and/or etiology. Moderate d egenerative disc space narrowing. Severe facet joint arthropathy.
[2020-12-15] MEDS ORDERED: HYDROcodone/APAP 5-325MG 1 EACH TAB PO STA (10:47)
--- NOTE | 2020-12-15 11:34 | CT ---
EXAMINATION TYPE: CT lumbar spine wo con DATE OF EXAM: 12/15/2020 11:07 AM COMPARISON: None HISTORY: abnormal lumbar xray today CT DLP: 850.4 mGycm Automated exposure control for dose reduction was used. Unenhanced CT of the lumbar spine was performed. Bone and soft tissue window settings are submitted as well as coronal and sagittal reconstructions. L1-L2: Mild loss of height superior endplate of L2 with minimal stranding noted suggesting acute comp ression deformity with loss of height of less than 10%. Mild degenerative disc space narrowing. No si gnificant herniation or protrusion seen. L2-L3: Mild to moderate disc space narrowing. No disc herniation protrusion or central stenosis. No facet joint arthropathy. No evidence for foraminal encroachment. L3-L4: Mild to moderate disc space narrowing. No disc herniation protrusion or central stenosis. No facet joint arthropathy. No evidence for foraminal encroachment. L4-L5: Moderate degenerative disc space narrowing. Posterior disc bulge. Facet joint arthropathy and hypertrophy of the ligamentum flavum resulting in mild central stenosis. No significant foraminal enc roachment. L5-S1: Mild degenerative disc space narrowing. Posterior disc bulge. No central stenosis, disc hernia tion or foraminal encroachment. Incidental note is made of gallstones. Nonobstructing 2 mm calculus right kidney. 3 mm nonobstructing calculus left kidney. IMPRESSION: 1. Mild superior endplate loss of height involving L2 estimated at less than 10%. Tiny surrounding he matoma suggest acute process. 2. Multilevel degenerative disc disease with central stenosis at L4-5.
[2020-12-15 12:37] VITALS: BP 161/92; PULSE 64; RESP 16; TEMP 97.2
== END 2020-12-15 12:36 | disposition home or self-care (01) ==
LOC: EC 09:06
DX: S32.009A Unspecified fracture of unspecified lumbar vertebra, initial encounter for closed fracture (principal); I10 Essential (primary) hypertension; J45.909 Unspecified asthma, uncomplicated; I25.10 Atherosclerotic heart disease of native coronary artery without angina pectoris; E07.9 Disorder of thyroid, unspecified; Z90.710 Acquired absence of both cervix and uterus; Z87.891 Personal history of nicotine dependence; Z79.82 Long term (current) use of aspirin; Z95.5 Presence of coronary angioplasty implant and graft; Z86.73 Personal history of transient ischemic attack (TIA), and cerebral infarction without residual deficits; W01.0XXA Fall on same level from slipping, tripping and stumbling without subsequent striking against object, initial encounter
CPT/HCPCS: 72110; 72131; 72170; 99284

== ENCOUNTER → 2020-12-25 | Outpatient (CLI) | payer MEDICARE, OTHER ==
--- NOTE | 2020-12-26 09:27 | XR ---
EXAMINATION TYPE: XR humerus RT DATE OF EXAM: 12/25/2020 COMPARISON: 11/02/2010 HISTORY: 85-year-old female M79.601, right arm pain. TECHNIQUE: 2 views FINDINGS: Antegrade intramedullary nail fixation through the patient's chronic healed oblique mid humeral shaft fracture deformity. 2 proximal and one distal interlocking screw. Overall alignment is normal. Bony edge of the previous butterfly fragment projects into the posterior soft tissues by approximately 7 m m at the fracture level. Moderate degenerative change of the AC joint. IMPRESSION: Antegrade intramedullary nail through the healed fracture deformity of the mid humeral shaft. Overall alignment is grossly anatomic. A bony edge of the previous butterfly fragment projects into the post erior soft tissues by approximately 7 mm.
== END | disposition home or self-care (01) ==
LOC: RADXRMAIN 16:50
PROVIDERS: ATTEND Internal Medicine
DX: S42.301D Unspecified fracture of shaft of humerus, right arm, subsequent encounter for fracture with routine healing (principal)

== ENCOUNTER → 2021-01-06 | Outpatient (CLI) | payer MEDICARE, OTHER ==
--- NOTE | 2021-01-06 14:23 | XR ---
EXAMINATION TYPE: XR shoulder complete RT DATE OF EXAM: 01/06/2021 CLINICAL HISTORY: Pain. History of humeral surgery 10 years ago. TECHNIQUE: Three views of the right shoulder are obtained. COMPARISON: Right humerus x-ray December 25, 2020. FINDINGS: There is no acute fracture/dislocation evident in the right shoulder. Moderate narrowing w ith mild to moderate spurring at acromioclavicular joint redemonstrated. Glenohumeral joint preserved . Partial visualization of femoral adelaide and 2 proximal fixating screws through healed fracture proxima l diaphysis right humerus. The visualized ribs are intact. Chronic parenchymal changes in visualized right lung are present. IMPRESSION: As above.
== END | disposition home or self-care (01) ==
LOC: RADXRMAIN 12:15
PROVIDERS: ATTEND Internal Medicine
DX: M19.011 Primary osteoarthritis, right shoulder (principal)

== ENCOUNTER 2021-02-18 23:40 | Inpatient (IN) | payer MEDICARE, OTHER ==
[2021-02-19] MEDS ORDERED: IPRATROPIUM-ALBUTEROL 3 ML NEB INHALATION STA (00:02)
[2021-02-19] MEDS ORDERED: methylPREDNISolone SOD SUCCI 125 MG/2 ML VIAL IV STA (00:02)
--- NOTE | 2021-02-19 00:08 | ED ---
Weakness HPI - General Chief complaint: Weakness Stated complaint: Generalized Weakness Time Seen by Provider: 02/18/21 23:43 Source: patient, EMS Mode of arrival: EMS Limitations: no limitations - Related Data Home Medications Medication Instructions Recorded Confirmed Aspirin [Children's Aspirin] 81 mg PO HS 02/07/17 12/15/20 Fluticasone/Salmeterol [Advair 1 puff INHALATION RT-BID 02/07/17 12/15/20 250-50 Diskus] Rosuvastatin [Crestor] 20 mg PO MOWEFR 02/07/17 12/15/20 Warfarin [Coumadin] 2.5 mg PO KNOX 02/07/17 12/15/20 Warfarin [Coumadin] 5 mg PO MOTUWETHFRSA 02/07/17 12/15/20 Losartan/Hydrochlorothiazide 1 tab PO DAILY 04/30/19 12/15/20 [Losartan-Hctz 100-12.5 mg Tab] Omeprazole 40 mg PO DAILY 04/30/19 12/15/20 Levothyroxine Sodium [Synthroid] 100 mcg PO DAILY 03/20/20 12/15/20 Metoprolol Succinate (ER) [Toprol 25 mg PO HS 09/10/20 12/15/20 XL] Donepezil [Aricept] 10 mg PO DAILY 12/15/20 12/15/20 Previous Rx's Medication Instructions Recorded hydrALAZINE HCL [Apresoline] 25 mg PO BID #60 tab 03/21/20 HYDROcodone/APAP 5-325MG [[place] 5] 1 each PO Q6HR PRN #12 tab 12/15/20 Allergies Allergy/AdvReac Type Severity Reaction Status Date / Time dacron Allergy Unknown INCISION Uncoded 12/15/20 10:58 WOULD NOT HEAL Review of Systems ROS Statement: Those systems with pertinent positive or pertinent negative responses have been documented in the HPI. ROS Other: All systems not noted in ROS Statement are negative. Past Medical History Past Medical History: Asthma, Coronary Artery Disease (CAD), CVA/TIA, Hypertension, Thyroid Disorder History of Any Multi-Drug Resistant Organisms: None Reported Past Surgical History: Heart Catheterization With Stent, Hysterectomy Additional Past Surgical History / Comment(s): carotidectomy in 2007, EGD colono scopy Past Anesthesia/Blood Transfusion Reactions: No Reported Reaction Date of Last Stent Placement:: 02/22/2018 Past Psychological History: No Psychological Hx Reported Smoking Status: Former smoker Past Alcohol Use History: None Reported Past Drug Use History: None Reported - Past Family History Father Additional Family Medical History / Comment(s): Father at age 84 from coronary artery disease. Mother Additional Family Medical History / Comment(s): Mother at age 90 from a bowel obstruction. Brother(s) Additional Family Medical History / Comment(s): Patient has 1 brother that is alive with no major medical problems. Sister(s) Additional Family Medical History / Comment(s): Patient has a total of 3 sisters. One has passed with complications after surgical procedure the cause of fistula. 2 other sisters are alive without major medical problems. Daughter(s) Additional Family Medical History / Comment(s): Patient has 2 daughters and one has history of kidney transplant, diabetes, stroke, coronary artery disease. One daughter has history of osteoarthritis and hip replacement. Son(s) Additional Family Medical History / Comment(s): Patient has 2 sons with no major medical problems. General Exam Limitations: no limitations Course Vital Signs 02/18/21 02/19/21 02/19/21 23:53 00:39 01:21 Temperature 97.5 F L Pulse Rate 90 93 Respiratory 16 18 Rate Blood Pressure 126/63 138/77 O2 Sat by Pulse 90 L 95 95 Oximetry EKG Findings - EKG Comments: EKG Findings:: EKG shows sinus rhythm 86 NJ 292 QRS 86 QTc 449 Medical Decision Making - Lab Data Result diagrams: 02/19/21 00:55 Lab Results 02/19/21 02/19/21 02/19/21 Range/Units 00:03 00:03 00:03 WBC (3.8-10.6) k/uL RBC (3.80-5.40) m/uL Hgb (11.4-16.0) gm/dL Hct (34.0-46.0) % MCV (80.0-100.0) fL MCH (25.0-35.0) pg MCHC (31.0-37.0) g/dL RDW (11.5-15.5) % Plt Count (150-450) k/uL MPV Neutrophils % % Lymphocytes % % Monocytes % % Eosinophils % % Basophils % % Neutrophils # (1.3-7.7) k/uL Lymphocytes # (1.0-4.8) k/uL Monocytes # (0-1.0) k/uL Eosinophils # (0-0.7) k/uL Basophils # (0-0.2) k/uL PT 27.2 H (9.0-12.0) sec INR 2.8 H (<1.2) APTT 22.0 (22.0-30.0) sec D-Dimer 1.24 H (<0.60) mg/L FEU Plasma Lactic Acid Julio César 1.8 (0.7-2.0) mmol/L NT-Pro-B Natriuret Pep 4880 pg/mL 02/19/21 Range/Units 00:55 WBC 11.7 H (3.8-10.6) k/uL RBC 4.16 (3.80-5.40) m/uL Hgb 14.0 (11.4-16.0) gm/dL Hct 40.9 (34.0-46.0) % MCV 98.2 (80.0-100.0) fL MCH 33.6 (25.0-35.0) pg MCHC 34.2 (31.0-37.0) g/dL RDW 14.3 (11.5-15.5) % Plt Count 306 (150-450) k/uL MPV 10.2 Neutrophils % 68 % Lymphocytes % 22 % Monocytes % 6 % Eosinophils % 1 % Basophils % 1 % Neutrophils # 8.0 H (1.3-7.7) k/uL Lymphocytes # 2.6 (1.0-4.8) k/uL Monocytes # 0.7 (0-1.0) k/uL Eosinophils # 0.1 (0-0.7) k/uL Basophils # 0.1 (0-0.2) k/uL PT (9.0-12.0) sec INR (<1.2) APTT (22.0-30.0) sec D-Dimer (<0.60) mg/L FEU Plasma Lactic Acid Julio César (0.7-2.0) mmol/L NT-Pro-B Natriuret Pep pg/mL Disposition Clinical Impression: NSTEMI (non-ST elevated myocardial infarction), Weakness Disposition: ADMITTED IP TO THIS HOSP Condition: Serious Is patient prescribed a controlled substance at d/c from ED?: No Referrals: Melani Bertrand MD [Primary Care Provider] - 1-2 days
[2021-02-19 00:39] LABS: INR 2.8 (<1.2); Prothrombin Time 27.2 sec (9.0-12.0)
--- NOTE | 2021-02-19 00:40 | XR ---
EXAMINATION TYPE: XR chest 2V DATE OF EXAM: 02/19/2021 COMPARISON: 05/16/2019 HISTORY: Weakness TECHNIQUE: 2 views FINDINGS: Heart is normal. Lungs are clear of consolidation. There are no hilar masses. Costophrenic angles are clear. Thoracic aorta is atheromatous. IMPRESSION: No active cardiopulmonary disease. Normal heart. No change.
[2021-02-19 00:42] LABS: Calcium 9.1 mg/dL (8.4-10.2)
[2021-02-19 00:58] LABS: Creatine Kinase MB 0.4 ng/mL (0.0-2.4)
[2021-02-19 01:28] LABS: Basophils # (A) 0.1 k/uL (0-0.2); Basophils % (A) 1 %; Eosinophils # (A) 0.1 k/uL (0-0.7); Eosinophils % (A) 1 %; HCT 40.9 % (34.0-46.0); Lymphocytes # (A) 2.6 k/uL (1.0-4.8); Lymphocytes % (A) 22 %; MCH 33.6 pg (25.0-35.0); MCHC 34.2 g/dL (31.0-37.0); MCV 98.2 fL (80.0-100.0); Mean Platelet Volume 10.2; Monocytes # (A) 0.7 k/uL (0-1.0); Monocytes % (A) 6 %; Neutrophils % (A) 68 %; Platelet Count 306 k/uL (150-450); RBC 4.16 m/uL (3.80-5.40); RDW 14.3 % (11.5-15.5); WBC 11.7 k/uL (3.8-10.6)
[2021-02-19] MEDS ORDERED: ASPIRIN 81 MG PO STA (01:39)
[2021-02-19] MEDS ORDERED: NITROGLYCERIN SL TABS 0.4 MG TAB SUBLINGUAL PRN (01:39)
[2021-02-19] MEDS ORDERED: MORPHINE SULFATE 4 MG/ML SYRINGE IV PRN (01:39)
[2021-02-19 01:51] LABS: Troponin I 1.52 ng/mL (0.000-0.034)
[2021-02-19 01:52] LABS: Albumin 3.3 g/dL (3.5-5.0); Phosphorus 3.3 mg/dL (2.5-4.5); Potassium 4.7 mmol/L (3.5-5.1); Total Bilirubin 1.6 mg/dL (0.2-1.3); Total Protein 6.6 g/dL (6.3-8.2)
[2021-02-19] MEDS: SODIUM CHLORIDE 0.9% 1,000 ML IV SCH (02:43)
[2021-02-19] MEDS ORDERED: SODIUM CHLORIDE 0.9% 500 ML 500 ML IV ONE (06:12)
[2021-02-19] MEDS ORDERED: methylPREDNISolone SOD SUCCI 125 MG/2 ML VIAL IV SCH (08:00)
[2021-02-19] MEDS ORDERED: HEPARIN SODIUM 1,000 UN/ML (10ML VL) IV PRN (08:33)
[2021-02-19] MEDS ORDERED: hydroCHLOROthiazide 12.5 MG CAP PO SCH (09:00)
[2021-02-19] MEDS: DONEPEZIL 10 MG TAB PO SCH (09:14)
[2021-02-19] MEDS: PANTOPRAZOLE 40 MG TABLET PO SCH (09:14)
[2021-02-19] MEDS: LEVOTHYROXINE 100 MCG TAB PO SCH (09:14)
[2021-02-19] MEDS: MULTIVITAMINS, THERA 1 EACH TAB PO SCH (09:14)
[2021-02-19] MEDS: LOSARTAN 50 MG TAB PO SCH (09:14)
[2021-02-19] MEDS: hydrALAZINE HCL 25 MG TAB PO SCH ×2 (09:14→17:15)
[2021-02-19] MEDS: HEPARIN SOD,PORK IN 0.45% NACL 25,000 UNIT in 0.45% NACL 1 250ML.BAG IV SCH (09:15)
[2021-02-19] MEDS: MAGNESIUM OXIDE 400 MG TAB PO SCH (09:15)
[2021-02-19 09:44] LABS: Appearance,Urine Clear (Clear); Bilirubin,Urine Negative (Negative); Blood,Urine Negative (Negative); Color,Urine Yellow; Glucose,Urine (UA) Negative (Negative); Ketones,Urine Negative (Negative); Leukocyte Esterase,Urine Large (Negative); Mucus,Urine Rare /hpf; Nitrite,Urine Negative (Negative); Protein,Urine Negative (Negative); RBC,Urine 1 /hpf (0-5); Specific Gravity,Urine 1.009 (1.001-1.035); Squamous Epithelial Cell,Urine 1 /hpf (0-4); Urobilinogen,Urine <2.0 mg/dL (<2.0); WBC,Urine 14 /hpf (0-5)
--- NOTE | 2021-02-19 10:20 | ECHOF ---
Referral Reason:elevTrop MEASUREMENTS -------- HEIGHT: 157.5 cm WEIGHT: 68.9 kg BP: 113/64 RVIDd: 3.2 cm (< 3.3) IVSd: 1.3 cm (0.6 - 1.1) LVIDd: 4.1 cm (3.9 - 5.3) LVPWd: 1.2 cm (0.6 - 1.1) IVSs: 1.6 cm LVIDs: 2.5 cm LVPWs: 1.8 cm LA Diam: 3.7 cm (2.7 - 3.8) Ao Diam: 2.9 cm (2.0 - 3.7) AV Cusp: 1.4 cm (1.5 - 2.6) MV EXCURSION: 17.007 mm (> 18.000) MV EF SLOPE: 129 mm/s (70 - 150) EPSS: 0.4 cm RAP: 5.00 mmHg RVSP: 35.64 mmHg FINDINGS -------- Sinus rhythm. This was a technically adequate study. The left ventricular size is normal. There is mild concentric left ventricular hypertrophy. Overa ll left ventricular systolic function is normal with, an EF between 55 - 60 %. The right ventricle is normal in size. The left atrium is normal in size. The right atrium is normal in size. Interatrial and interventricular septum intact. There is mild aortic valve sclerosis. Mild mitral regurgitation is present. Mild tricuspid regurgitation present. There is mild pulmonary hypertension. The right ventricular systolic pressure, as measured by Doppler, is 35.64mmHg. Trace/mild (physiologic) pulmonic regurgitation. The aortic root size is normal. Normal inferior vena cava with normal inspiratory collapse consistent with estimated right atrial pre ssure of 5 mmHg. There is no pericardial effusion. CONCLUSIONS -------- 1. The left ventricular size is normal. 2. There is mild concentric left ventricular hypertrophy. 3. Overall left ventricular systolic function is normal with, an EF between 55 - 60 %. 4. There is mild aortic valve sclerosis. 5. Mild mitral regurgitation is present. 6. Mild tricuspid regurgitation present. 7. There is mild pulmonary hypertension. 8. The right ventricular systolic pressure, as measured by Doppler, is 35.64mmHg. 9. Trace/mild (physiologic) pulmonic regurgitation. 10. There is no pericardial effusion. SAIL CUTTER: Shraddha Funes RDCS
[2021-02-19] MEDS ORDERED: PHYTONADIONE 2 MG in SODIUM CHLORIDE 0.9% 50 ML IVPB STA (11:49)
[2021-02-19] MEDS ORDERED: ALPRAZolam 0.25 MG TAB PO PRN (11:51)
[2021-02-19] MEDS ORDERED: ALPRAZolam 0.5 MG TAB PO PRN (11:51)
--- NOTE | 2021-02-19 11:55 | P.CRDCN ---
History of Present Illness History of present illness: HISTORY OF PRESENTING ILLNESS This is a pleasant 85-year-old female past medical history significant for coronary artery disease status post PCI to the RCA 2017, hypertension, per ipheral vascular disease status post carotid endarterectomy 2007, former nicotine dependence, factor V Leiden with a history of DVT/PE in the past, asthma and dyslipidemia. She follows in the office with Dr. Sheehan. We have been asked to see in consultation for elevated troponin. She went to see her primary care physician yesterday after feeling weak and tired for the previous few days. She states his best she can recall it started on Tuesday. She said since then she has absolutely no energy to do anything whatsoever. She has no symptoms of chest pain, shortness of breath, dizziness or palpitations. Dr. Bertrand sent her for outpatient lab studies. Troponin level came back to be 2.49. He called and had her admitted to the emergency department. Subsequent troponins are 1.52, 1.27 and 110. She is seen and examined resting comfortably lying flat in bed in no acute distress. She denies ever having had symptoms of chest discomfort. Other pertinent laboratory data reviewed, WBC 11.7, hemoglobin 14, platelets 306, INR 2.8, sodium 134, potassium 4.7, creatinine 1.36, magnesium 2.0, NT proBNP 4880 and TSH 14.2. EKG reveals sinus mechanism heart rate of 86 with first-degree AV block and ST and T wave abnormalities noted in the inferior leads as well as mild ST depression noted laterally with T-wave inversions. This is new compared to previous EKGs. Chest x-ray is negative for an acute cardiopulmonary process. Echocardiogram obtained reveals preserved LV systolic function with ejection fraction 55-60%, mild MR and mild TR noted. Current daily cardiac medications include warfarin, hydralazine 25 mg twice a day, rosuvastatin 20 mg every other day, Toprol 25 mg daily, losart an/hydrochlorothiazide 100/12.5 mg daily and aspirin 81 mg daily. REVIEW OF SYSTEMS At the time of my exam: CONSTITUTIONAL: Complains of generalized fatigue. Denies fever or chills. CARDIOVASCULAR: Denies chest pain, shortness of breath, orthopnea, PND or palpitations. RESPIRATORY: Denies cough. GASTROINTESTINAL: Denies abdominal pain, diarrhea, constipation, nausea or vomiting. MUSCULOSKELETAL: Denies myalgias. NEUROLOGIC: Denies numbness, tingling, headache or weakness. ENDOCRINE: Denies fatigue, weight change, polydipsia or polyurina. GENITOURINARY: Denies burning, hematuria or urgency with micturation. HEMATOLOGIC: Denies history of anemia or bleeding. PHYSICAL EXAMINATION Blood pressure 142/78 heart rate 89 afebrile and maintaining oxygen saturation on nasal cannula. CONSTITUTIONAL: No apparent distress. HEENT: Head is normocephalic. Pupils are equal, round. Sclerae anicteric. Mucous membranes of the mouth are moist. No JVD. No carotid bruit. CHEST EXAMINATION: Lungs are clear to auscultation. No chest wall tenderness is noted on palpation or with deep breathing. HEART EXAMINATION: Regular rate and rhythm. S1, S2 heard. No murmurs, gallops or rub. ABDOMEN: Soft, nontender. EXTREMITIES: 2+ peripheral pulses, no lower extremity edema and no calf tenderness. NEUROLOGIC EXAMINATION: Patient is awake, alert and oriented x3. 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 Give vitamin K. Initiate heparin infusion. Nothing by mouth after midnight tonight for probable cath tomorrow depending on INR. I have discussed the risks, benefits and alternative therapies for the above-m entioned procedure and for both sedation/analgesia as well as necessary blood product administration, if indicated, as they pertain to this patient. The patient has indicated understanding and acceptance of the risks and procedures discussed. Repeat BMP now and in the morning. Further recommendations to follow based upon clinical course. Thank you kindly for this consultation. Nurse Practitioner note has been reviewed, I agree with a documented findings and plan of care. Patient was seen and examined. Past Medical History Past Medical History: Asthma, Coronary Artery Disease (CAD), CVA/TIA, Hypertension, Thyroid Disorder History of Any Multi-Drug Resistant Organisms: None Reported Past Surgical History: Heart Catheterization With Stent, Hysterectomy Additional Past Surgical History / Comment(s): carotidectomy in 2007, EGD colonoscopy Past Anesthesia/Blood Transfusion Reactions: No Reported Reaction Date of Last Stent Placement:: 02/22/2018 Past Psychological History: No Psychological Hx Reported Smoking Status: Former smoker Past Alcohol Use History: None Reported Past Drug Use History: None Reported - Past Family History Father Additional Family Medical History / Comment(s): Father at age 84 from coronary artery disease. Mother Additional Family Medical History / Comment(s): Mother at age 90 from a bowel obstruction. Brother(s) Additional Family Medical History / Comment(s): Patient has 1 brother that is alive with no major medical problems. Sister(s) Additional Family Medical History / Comment(s): Patient has a total of 3 sisters. One has passed with complications after surgical procedure the cause of fistula. 2 other sisters are alive without major medical problems. Daughter(s) Additional Family Medical History / Comment(s): Patient has 2 daughters and one has history of kidney transplant, diabetes, stroke, coronary artery disease. One daughter has history of osteoarthritis and hip replacement. Son(s) Additional Family Medical History / Comment(s): Patient has 2 sons with no major medical problems. Medications and Allergies Home Medications Medication Instructions Recorded Confirmed Type Aspirin [Children's Aspirin] 81 mg PO HS 02/07/17 02/19/21 History Fluticasone/Salmeterol [Advair 1 puff INHALATION RT-BID 02/07/17 02/19/21 History 250-50 Diskus] Rosuvastatin [Crestor] 20 mg PO MOWEFR@2100 02/07/17 02/19/21 History Warfarin [Coumadin] 2.5 mg PO SUTH 02/07/17 02/19/21 History Warfarin [Coumadin] 5 mg PO MOTUWEFRSA 02/07/17 02/19/21 History Losartan/Hydrochlorothiazide 1 tab PO DAILY 04/30/19 02/19/21 History [Losartan-Hctz 100-12.5 mg Tab] Omeprazole 40 mg PO DAILY 04/30/19 02/19/21 History Levothyroxine Sodium [Synthroid] 100 mcg PO DAILY 03/20/20 02/19/21 History Metoprolol Succinate (ER) [Toprol 25 mg PO HS 09/10/20 02/19/21 History XL] Donepezil [Aricept] 10 mg PO DAILY 12/15/20 02/19/21 History Cholecalciferol (Vitamin D3) 75 mcg PO DAILY 02/19/21 02/19/21 History [Vitamin D3 (3000 Iu)] Magnesium Oxide [Mag-Oxide] 200 mg PO DAILY 02/19/21 02/19/21 History Multivitamins, Thera [Multivitamin 1 tab PO DAILY 02/19/21 02/19/21 History (formulary)] Vitamin B Complex 1 cap PO DAILY 02/19/21 02/19/21 History hydrALAZINE HCL [Apresoline] 25 mg PO BID-W/MEALS 02/19/21 02/19/21 History Allergies Allergy/AdvReac Type Severity Reaction Status Date / Time dacron Allergy Unknown INCISION Uncoded 02/19/21 07:33 WOULD NOT HEAL Physical Exam Vitals: Vital Signs Temp Pulse Resp BP Pulse Ox 02/19/21 08:02 89 18 142/78 97 02/19/21 06:31 50 L 20 113/64 94 L 02/19/21 02:13 91 02/19/21 01:53 93 02/19/21 01:21 93 18 138/77 95 02/19/21 00:39 95 02/18/21 23:53 97.5 F L 90 16 126/63 90 L Intake and Output 02/18/21 02/19/21 02/19/21 22:59 06:59 14:59 Other: Weight 68.946 kg Results 02/19/21 00:55 02/19/21 00:03 Cardiac Enzymes 02/19/21 02/19/21 Range/Units 00:03 00:03 AST 71 H (14-36) U/L CK-MB (CK-2) 0.4 (0.0-2.4) ng/mL Troponin I 1.520 H* (0.000-0.034) ng/mL Coagulation 02/19/21 Range/Units 00:03 PT 27.2 H (9.0-12.0) sec APTT 22.0 (22.0-30.0) sec CBC 02/19/21 Range/Units 00:55 WBC 11.7 H (3.8-10.6) k/uL RBC 4.16 (3.80-5.40) m/uL Hgb 14.0 (11.4-16.0) gm/dL Hct 40.9 (34.0-46.0) % Plt Count 306 (150-450) k/uL Comprehensive Metabolic Panel 02/19/21 Range/Units 00:03 Sodium 134 L (137-145) mmol/L Potassium 4.7 (3.5-5.1) mmol/L Chloride 104 (98-107) mmol/L Carbon Dioxide 20 L (22-30) mmol/L BUN 25 H (7-17) mg/dL Creatinine 1.36 H (0.52-1.04) mg/dL Glucose 120 H (74-99) mg/dL Calcium 9.1 (8.4-10.2) mg/dL AST 71 H (14-36) U/L ALT 31 (4-34) U/L Alkaline Phosphatase 136 H (38-126) U/L Total Protein 6.6 (6.3-8.2) g/dL Albumin 3.3 L (3.5-5.0) g/dL Current Medications Generic Name Dose Route Start Last Admin Trade Name Freq PRN Reason Stop Dose Admin Aspirin 81 mg 02/19/21 21:00 Aspirin 81 Mg PO HS [facility] Atorvastatin Calcium 40 mg 02/20/21 21:00 Atorvastatin 40 Mg Tab PO MOWEFR@2100 [facility] Budesonide/Formoterol Fumarate 2 puff 02/19/21 20:00 Symbicort 80-4.5 Mcg Inhaler INHALATION RT-BID [facility] Donepezil HCl 10 mg 02/19/21 09:00 Donepezil 10 Mg Tab PO DAILY [facility] Hydralazine HCl 25 mg 02/19/21 08:15 Hydralazine Hcl 25 Mg Tab PO BID-W/MEALS [facility] Hydrochlorothiazide 12.5 mg 02/19/21 09:00 Hydrochlorothiazide 12.5 Mg Cap PO DAILY [facility] Sodium Chloride 1,000 mls @ 20 mls/hr 02/19/21 01:45 02/19/21 02:43 Saline 0.9% IV 20 mls/hr .Q24H [facility] Administration Levothyroxine Sodium 100 mcg 02/19/21 09:00 Levothyroxine 100 Mcg Tab PO DAILY@0630 [facility] Losartan Potassium 100 mg 02/19/21 09:00 Losartan 50 Mg Tab PO DAILY [facility] Magnesium Oxide 200 mg 02/19/21 09:00 Magnesium Oxide 400 Mg Tab PO DAILY [facility] Methylprednisolone Sodium Succinate 60 mg 02/19/21 08:00 Methylprednisolone Sod Succi 125 Mg/2 Ml Vial IV Q8HR [facility] Metoprolol Succinate 25 mg 02/19/21 21:00 Metoprolol Succinate (Er) 25 Mg Tab.Er.24h PO HS [facility] Morphine Sulfate 4 mg 02/19/21 01:39 Morphine Sulfate 4 Mg/Ml Syringe IV Q4HR PRN Chest Pain Multivitamins 1 each 02/19/21 09:00 Multivitamins, Thera 1 Each Tab PO DAILY [facility] Nitroglycerin 0.4 mg 02/19/21 01:39 Nitroglycerin Sl Tabs 0.4 Mg Tab SUBLINGUAL Q5M PRN Chest Pain Pantoprazole Sodium 40 mg 02/19/21 09:00 Pantoprazole 40 Mg Tablet PO AC-BRKFST [facility] Warfarin Sodium 2.5 mg 02/19/21 08:15 Warfarin 5 Mg Tab PO SUTH [facility] Protocol Warfarin Sodium 5 mg 02/20/21 08:03 Warfarin 5 Mg Tab PO MOTUWEFRSA [facility] Protocol Intake and Output 02/18/21 02/19/21 02/19/21 22:59 06:59 14:59 Other: Weight 68.946 kg 02/19/21 00:55 02/19/21 00:03
[2021-02-19] MEDS ORDERED: PHYTONADIONE ORAL 5 MG/5 ML ORAL.SYRG PO STA (12:26)
[2021-02-19 12:27] LABS: Calcium 9.7 mg/dL (8.4-10.2); Potassium 4.1 mmol/L (3.5-5.1)
--- NOTE | 2021-02-19 14:03 | P.HPIM ---
History of Present Illness H&P Date: 02/19/21 Chief Complaint: abnormal troponin HISTORY OF PRESENT ILLNESS This is an 84-year-old female patient of Dr. Bertrand and Dr. 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 The patient had complained of weakness when she presented to the office on Tuesday. She did not have any chest pain or shortness of breath. She continued to feel weak and was seen in the office sent for blood work for troponin which came back positive at 2.49. Patient was contacted later to come into the emergency center for further evaluation. She states that she was so weak at home that she collapsed into a chair and really she needs to come in the hospital. Patient was transported by EMS. Patient came into [facility] emergency center for evaluation. She was found to be afebrile, heart rate 90, blood pressure 126/63 and pulse ox 90% on room air. EKG sinus rhythm, first-degree block with ST and T-wave abnormalities. WBC 11.7, d-dimer 1.24, INR 2.8. Sodium 134, potassium 4.7, CO2 20, BUN 25 creatinine 1.36. Blood sugar 120. Total bilirubin 1.7, AST 7.1, ALT 31, alkaline phosphatase 136. Repeat troponins were 1.5-0, 1.270, 1.100. TSH 14.2. Albumin 3.3. ProBNP 4880. Urinalysis revealed leukoesterase large, the PVCs 12. Thomas virus PCR not detected. Chest x-ray was normal. Echocardiogram reveals EF of 55-60% with mild concentric left ventricular hypertrophy, mild mitral regurgitation, mild tricuspid regurgitation, mild pulmonary hypertension. Patient is seen today in the emergency center, consult for cardiology and patient is been scheduled for heart catheterization tomorrow, started on heparin drip and Coumadin placed on hold. REVIEW OF SYSTEMS Constitutional: No fever, no chills, no night sweats. No weight change. Reports weakness, Reports fatigue or lethargy. No daytime sleepiness. EENT: No headache. No blurred vision or double vision, no loss of vision. No loss of Hearing, no ringing in the ears, no dizziness. No nasal drainage or congestion. No epistaxis. No sore throat. Lungs: No shortness of breath, cough, no sputum production. No wheezing. Cardiovascular: No chest pain, no lower extremity edema. No palpitations. No paroxysmal nocturnal dyspnea. No orthopnea. No lightheadedness or dizziness. No syncopal episodes. Abdominal: No abdominal pain. No nausea, vomiting. No diarrhea. No constipation. No bloody or tarry stools.. No loss of appetite. Genitourinary: No dysuria, increased frequency, urgency. No urinary retention. Musculoskeletal: No myalgias. Reports muscle weakness, Reports gait dysfunction, no frequent falls. No back pain. No neck pain. Integumentary: No wounds, no lesions. No rash or pruritus. No unusual bruising. No change in hair or nails. Neurologic: No aphasia. No facial droop. No change in mentation. No head injury. No headache. No paralysis. No paresthesia. Psychiatric: No depression. No anxiety. No mood swings. Endocrine: No abnormal blood sugars. MEDICAL HISTORY Coronary artery disease Hypertension Hyperlipidemia Hypothyroidism Vascular dementia CVA due to embolism in the cerebral artery Factor V Leyden deficiency with history of DVT Carotid artery disease Gastroesophageal reflux disease SURGICAL HISTORY Carotid endarterectomy in 2007 Hysterectomy Left heart catheterization with PCI to the RCA in 2018 EGD and colonoscopy SOCIAL HISTORY Patient has history of smoking 1 pack per day for 33 years and quit in 1995. No alcohol, marijuana or illicit drug use. FAMILY HISTORY Father at age 84 from coronary artery disease. Mother at age 90 from a bowel obstruction. Patient has 1 brother that is alive with no major medical problems. Patient has a total of 3 sisters. One has passed with complications after surgical procedure the cause of fistula. 2 other sisters are alive without major medical problems. Patient has 2 daughters and one has history of kidney transplant, diabetes, stroke, coronary artery disease. One daughter has history of osteoarthritis and hip replacement. Patient has 2 sons with no major medical problems. PHYSICAL EXAMINATION Gen: This is an 85-year-old female. Patient is resting on the ER stretcher and appears to be comfortable at rest. HEENT: Head is atraumatic, normocephalic. Pupils equal, round. Sclerae is ani cteric. NECK: Supple. No JVD. No lymphadenopathy. No thyromegaly. LUNGS: Clear to auscultation. No wheezes or rhonchi. No intercostal retractions. HEART: First heart sound is depressed, second heart sound is normal, 2/6 systolic ejection murmur at the left sternal border. No S3, no S4. ABDOMEN: Soft. Bowel sounds are present. No masses. No tenderness. EXTREMITIES: No pedal edema. No calf tenderness. Dorsalis pedis +2 bilaterally. NEUROLOGICAL: Patient is awake, alert and oriented x3. Cranial nerves 2 through 12 are grossly intact. ASSESSMENT AND PLAN 1. Non-ST elevated myocardial infarction. Cardiology consult appreciated. Patient started on heparin drip, Coumadin on hold, heart catheterization scheduled tentatively for tomorrow. Aspirin 81 mg daily, Lipitor 40 mg on Tuesday, Toprol-XL 25 mg at bedtime. 2. History of coronary artery disease with previous PCI to the RCA 2017. Continue plan as in #1. 3. Acute kidney injury. Avoid nephrotoxic agents. Hydrochlorothiazide will be discontinued for now. Continue losartan only. 4. Acute urinary tract infection. Patient will be started on ceftriaxone 1 g daily, await urine culture report. 5. Hypertension. Continue hydralazine 25 mg twice daily, Toprol-XL, continue losartan 100 mg daily. Hold hydrochlorothiazide.. 4. Hyperlipidemia. Continue statin. 5. Hypothyroidism. TSH is elevated. Obtain free T4, continue levothyroxine 100 g daily. 6. 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 Coumadin on hold 7. Vascular dementia. Continue Aricept 10 mg daily. 8. History of CVA. Continue aspirin, statin for secondary prevention. 9. Carotid artery disease status post endarterectomy. 10. Gastroesophageal reflux disease. Continue Protonix 40 mg daily.. 11. DVT prophylaxis. Heparin drip.. 12. COVID-19 testing negative. Patient has been hospitalized during a pandemic. Patient will be admitted to the hospital for a minimum of 2 night stay. DISCHARGE PLAN To be determined. We'll plan to initiate PT and OT evaluations tomorrow.. Impression and plan of care have been directed as dictated by the signing physician. Shari Rodriguez nurse practitioner acting as scribe for signing physician. Past Medical History Past Medical History: Asthma, Coronary Artery Disease (CAD), CVA/TIA, Hypertension, Thyroid Disorder History of Any Multi-Drug Resistant Organisms: None Reported Past Surgical History: Heart Catheterization With Stent, Hysterectomy Additional Past Surgical History / Comment(s): carotidectomy in 2007, EGD colonoscopy Past Anesthesia/Blood Transfusion Reactions: No Reported Reaction Date of Last Stent Placement:: 02/22/2018 Past Psychological History: No Psychological Hx Reported Smoking Status: Former smoker Past Alcohol Use History: None Reported Past Drug Use History: None Reported - Past Family History Father Additional Family Medical History / Comment(s): Father at age 84 from coronary artery disease. Mother Additional Family Medical History / Comment(s): Mother at age 90 from a bowel obstruction. Brother(s) Additional Family Medical History / Comment(s): Patient has 1 brother that is alive with no major medical problems. Sister(s) Additional Family Medical History / Comment(s): Patient has a total of 3 sisters. One has passed with complications after surgical procedure the cause of fistula. 2 other sisters are alive without major medical problems. Daughter(s) Additional Family Medical History / Comment(s): Patient has 2 daughters and one has history of kidney transplant, diabetes, stroke, coronary artery disease. One daughter has history of osteoarthritis and hip replacement. Son(s) Additional Family Medical History / Comment(s): Patient has 2 sons with no major medical problems. Medications and Allergies Home Medications Medication Instructions Recorded Confirmed Type Aspirin [Children's Aspirin] 81 mg PO HS 02/07/17 02/19/21 History Fluticasone/Salmeterol [Advair 1 puff INHALATION RT-BID 02/07/17 02/19/21 History 250-50 Diskus] Rosuvastatin [Crestor] 20 mg PO MOWEFR@2100 02/07/17 02/19/21 History Warfarin [Coumadin] 2.5 mg PO SUTH 02/07/17 02/19/21 History Warfarin [Coumadin] 5 mg PO MOTUWEFRSA 02/07/17 02/19/21 History Losartan/Hydrochlorothiazide 1 tab PO DAILY 04/30/19 02/19/21 History [Losartan-Hctz 100-12.5 mg Tab] Omeprazole 40 mg PO DAILY 04/30/19 02/19/21 History Levothyroxine Sodium [Synthroid] 100 mcg PO DAILY 03/20/20 02/19/21 History Metoprolol Succinate (ER) [Toprol 25 mg PO HS 09/10/20 02/19/21 History XL] Donepezil [Aricept] 10 mg PO DAILY 12/15/20 02/19/21 History Cholecalciferol (Vitamin D3) 75 mcg PO DAILY 02/19/21 02/19/21 History [Vitamin D3 (3000 Iu)] Magnesium Oxide [Mag-Oxide] 200 mg PO DAILY 02/19/21 02/19/21 History Multivitamins, Thera [Multivitamin 1 tab PO DAILY 02/19/21 02/19/21 History (formulary)] Vitamin B Complex 1 cap PO DAILY 02/19/21 02/19/21 History hydrALAZINE HCL [Apresoline] 25 mg PO BID-W/MEALS 02/19/21 02/19/21 History Allergies Allergy/AdvReac Type Severity Reaction Status Date / Time dacron Allergy Unknown INCISION Uncoded 02/19/21 07:33 WOULD NOT HEAL Physical Exam Vitals: Vital Signs Temp Pulse Resp BP Pulse Ox 02/19/21 06:31 50 L 20 113/64 94 L 02/19/21 02:13 91 02/19/21 01:53 93 02/19/21 01:21 93 18 138/77 95 02/19/21 00:39 95 02/18/21 23:53 97.5 F L 90 16 126/63 90 L Intake and Output 02/18/21 02/19/21 02/19/21 22:59 06:59 14:59 Other: Weight 68.946 kg Results CBC & Chem 7: 02/19/21 00:55 02/19/21 06:29 Labs: Abnormal Lab Results - Last 24 Hours (Table) 02/19/21 02/19/21 02/19/21 Range/Units 00:03 00:03 00:03 WBC (3.8-10.6) k/uL Neutrophils # (1.3-7.7) k/uL PT 27.2 H (9.0-12.0) sec INR 2.8 H (<1.2) D-Dimer 1.24 H (<0.60) mg/L FEU Sodium 134 L (137-145) mmol/L Carbon Dioxide 20 L (22-30) mmol/L BUN 25 H (7-17) mg/dL Creatinine 1.36 H (0.52-1.04) mg/dL Glucose 120 H (74-99) mg/dL Total Bilirubin 1.6 H (0.2-1.3) mg/dL AST 71 H (14-36) U/L Alkaline Phosphatase 136 H (38-126) U/L Troponin I 1.520 H* (0.000-0.034) ng/mL Albumin 3.3 L (3.5-5.0) g/dL TSH 14.200 H (0.465-4.680) mIU/L 02/19/21 Range/Units 00:55 WBC 11.7 H (3.8-10.6) k/uL Neutrophils # 8.0 H (1.3-7.7) k/uL PT (9.0-12.0) sec INR (<1.2) D-Dimer (<0.60) mg/L FEU Sodium (137-145) mmol/L Carbon Dioxide (22-30) mmol/L BUN (7-17) mg/dL Creatinine (0.52-1.04) mg/dL Glucose (74-99) mg/dL Total Bilirubin (0.2-1.3) mg/dL AST (14-36) U/L Alkaline Phosphatase (38-126) U/L Troponin I (0.000-0.034) ng/mL Albumin (3.5-5.0) g/dL TSH (0.465-4.680) mIU/L
[2021-02-19] MEDS ORDERED: WARFARIN 2.5 MG TAB PO SCH (18:00)
[2021-02-19] MEDS: SYMBICORT 80-4.5 MCG INHALER INHALATION SCH (19:33)
[2021-02-19] MEDS: METOPROLOL SUCCINATE (ER) 25 MG TAB.ER.24H PO SCH (20:00)
[2021-02-19] MEDS: ASPIRIN 81 MG PO SCH (20:00)
[2021-02-19] MEDS: SODIUM CHLORIDE 0.9% 1,000 ML in EMPTY BAG 1 BAG IV SCH (23:59)
[2021-02-20] MEDS: MAGNESIUM OXIDE 400 MG TAB PO SCH (05:49)
[2021-02-20] MEDS: LOSARTAN 50 MG TAB PO SCH (05:49)
[2021-02-20] MEDS: hydrALAZINE HCL 25 MG TAB PO SCH ×2 (05:49→17:07)
[2021-02-20] MEDS: LEVOTHYROXINE 100 MCG TAB PO SCH (05:49)
[2021-02-20] MEDS: MULTIVITAMINS, THERA 1 EACH TAB PO SCH (05:49)
[2021-02-20] MEDS: PANTOPRAZOLE 40 MG TABLET PO SCH (05:49)
[2021-02-20] MEDS: DONEPEZIL 10 MG TAB PO SCH (05:49)
[2021-02-20] MEDS: SODIUM CHLORIDE 0.9% 1,000 ML IV SCH (05:57)
[2021-02-20] MEDS ORDERED: ASPIRIN 325 MG TAB PO ONE (06:00)
[2021-02-20] MEDS ORDERED: ATORVASTATIN 80 MG TAB PO ONE (06:00)
[2021-02-20] MEDS ORDERED: HEPARIN SODIUM,PORCINE 2,500 UNIT in SODIUM CHLORIDE 0.9% 250 ML IRRIGATION PRN (07:00)
[2021-02-20] MEDS ORDERED: HEPARIN SODIUM,PORCINE 10,000 UNIT in SODIUM CHLORIDE 0.9% 1,000 ML IRRIGATION PRN (07:00)
[2021-02-20] MEDS: SYMBICORT 80-4.5 MCG INHALER INHALATION SCH ×3 (07:39→20:41)
[2021-02-20 08:08] LABS: Albumin 3.3 g/dL (3.5-5.0); Potassium 4.1 mmol/L (3.5-5.1); Total Bilirubin 0.6 mg/dL (0.2-1.3); Total Protein 6.5 g/dL (6.3-8.2)
[2021-02-20 08:13] LABS: Basophils % (A) 0 %; Eosinophils % (A) 0 %; HCT 42.2 % (34.0-46.0); HGB 14.1 gm/dL (11.4-16.0); INR 1.6 (<1.2); Lymphocytes # (A) 2.1 k/uL (1.0-4.8); Lymphocytes % (A) 13 %; MCH 33.3 pg (25.0-35.0); MCHC 33.3 g/dL (31.0-37.0); Macrocytosis Slight; Mean Platelet Volume 9.1; Monocytes # (A) 0.7 k/uL (0-1.0); Monocytes % (A) 4 %; Neutrophils # (A) 13.2 k/uL (1.3-7.7); Neutrophils % (A) 81 %; Partial Thromboplastin Time 55.1 sec (22.0-30.0); Platelet Count 341 k/uL (150-450); Prothrombin Time 15.6 sec (9.0-12.0); RBC 4.22 m/uL (3.80-5.40); RDW 14.2 % (11.5-15.5); WBC 16.3 k/uL (3.8-10.6)
[2021-02-20] MEDS ORDERED: ASPIRIN 325 MG TAB PO SCH (09:00)
--- NOTE | 2021-02-20 11:01 | P.PN ---
Subjective Progress Note Date: 02/20/21 HISTORY OF PRESENT ILLNESS This is an 84-year-old female patient of Dr. Bertrand and Dr. 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 The patient had complained of weakness when she presented to the office on Tuesday. She did not have any chest pain or shortness of breath. She continued to feel weak and was seen in the office sent for blood work for troponin which came back positive at 2.49. Patient was contacted later to come into the emergency center for further evaluation. She states that she was so weak at home that she collapsed into a chair and really she needs to come in the hospital. Patient was transported by EMS. Patient came into [facility] emergency center for evaluation. She was found to be afebrile, heart rate 90, blood pressure 126/63 and pulse ox 90% on room air. EKG sinus rhythm, first-degree block with ST and T-wave abnormalities. WBC 11.7, d-dimer 1.24, INR 2.8. Sodium 134, potassium 4.7, C O2 20, BUN 25 creatinine 1.36. Blood sugar 120. Total bilirubin 1.7, AST 7.1, ALT 31, alkaline phosphatase 136. Repeat troponins were 1.5-0, 1.270, 1.100. TSH 14.2. Albumin 3.3. ProBNP 4880. Urinalysis revealed leukoesterase large, the PVCs 12. Thomas virus PCR not detected. Chest x-ray was normal. Echocardiogram reveals EF of 55-60% with mild concentric left ventricular hypertrophy, mild mitral regurgitation, mild tricuspid regurgitation, mild pulmonary hypertension. Patient is seen today in the emergency center, consult for cardiology and patient is been scheduled for heart catheterization tomorrow, started on heparin drip and Coumadin placed on hold. 02/20: She is scheduled for heart catheterization today. Patient has had heart rate in the 4753, blood pressure 148/71, pulse ox 92% on room air. Repeat blood work reveals WBC of 16.3, hemoglobin 14.1 and platelet count 351. INR 1.6. Patient is on heparin drip. CO2 is 20, BUN 31 creatinine 1.38. Alkaline phosphatase 129. Free T4 came back at 1.57. Patient has decided that she would like to go to [facility] for subacute rehab. We'll try to make arrangements for discharge tomorrow. REVIEW OF SYSTEMS Constitutional: No fever, no chills, no night sweats. No weight change. Reports weakness, Reports fatigue. No daytime sleepiness. EENT: No headache. No blurred vision, no dizziness. No nasal drainage or congestion. No epistaxis. No sore throat. Lungs: No shortness of breath, cough, no sputum production. No wheezing. Cardiovascular: No chest pain, no lower extremity edema. No palpitations. No paroxysmal nocturnal dyspnea. No orthopnea. No lightheadedness or dizziness. No syncopal episodes. Abdominal: No abdominal pain. No nausea, vomiting. No diarrhea. No constipation. No bloody or tarry stools.. No loss of appetite. Genitourinary: No dysuria, increased frequency, urgency. No urinary retention. Musculoskeletal: No myalgias. Reports muscle weakness, Reports gait dysfunction, no frequent falls. No back pain. No neck pain. Integumentary: No wounds, no lesions. No rash or pruritus. No unusual bruising. No change in hair or nails. Neurologic: No aphasia. No facial droop. No change in mentation. No head injury. No headache. No paralysis. No paresthesia. Psychiatric: No depression. No anxiety. No mood swings. Endocrine: No abnormal blood sugars. PHYSICAL EXAMINATION Gen: This is an 85-year-old female. Patient is resting in bed and appears to be comfortable at rest. Multiple family members are at bedside. HEENT: Head is atraumatic, normocephalic. Pupils equal, round. Sclerae is anicteric. NECK: Supple. No JVD. No lymphadenopathy. No thyromegaly. LUNGS: Clear to auscultation. No wheezes or rhonchi. No intercostal retractions. HEART: First heart sound is depressed, second heart sound is normal, 2/6 s ystolic ejection murmur at the left sternal border. No S3, no S4. ABDOMEN: Soft. Bowel sounds are present. No masses. No tenderness. EXTREMITIES: No pedal edema. No calf tenderness. Dorsalis pedis +2 bilaterally. NEUROLOGICAL: Patient is awake, alert and oriented x3. Cranial nerves 2 through 12 are grossly intact. ASSESSMENT AND PLAN 1. Non-ST elevated myocardial infarction. Cardiology consult appreciated. Continue patient on heparin drip, Coumadin on hold, heart catheterization scheduled for today with Dr. Sheehan. Continue patient on Aspirin 81 mg daily, Lip itor 40 mg on Tuesday, Toprol-XL 25 mg at bedtime. 2. History of coronary artery disease with previous PCI to the RCA 2017. Continue plan as in #1. 3. Acute kidney injury. Avoid nephrotoxic agents. Hydrochlorothiazide will be discontinued for now. Continue losartan only. 4. Acute urinary tract infection. Patient will be started on ceftriaxone 1 g daily, await urine culture report. 5. Hypertension. Continue hydralazine 25 mg twice daily, Toprol-XL, continue losartan 100 mg daily. Hold hydrochlorothiazide.. 4. Hyperlipidemia. Continue statin. 5. Hypothyroidism. TSH is elevated with normal free T4, continue levothyroxine 100 g daily. 6. 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 Coumadin on hold and status post vitamin K. Resume Coumadin following heart catheterization. 7. Vascular dementia. Continue Aricept 10 mg daily. 8. History of CVA. Continue aspirin, statin for secondary prevention. 9. Carotid artery disease status post endarterectomy. 10. Gastroesophageal reflux disease. Continue Protonix 40 mg daily.. 11. DVT prophylaxis. Heparin drip. 12. COVID-19 testing negative. DISCHARGE PLAN [facility] for subacute rehab on Tuesday Impression and plan of care have been directed as dictated by the signing physician. Shari Rodriguez nurse practitioner acting as scribe for signing physician. Objective - Vital Signs Vital signs: Vital Signs Temp 97.8 F 02/20/21 04:00 Pulse 53 L 02/20/21 04:00 Resp 16 02/20/21 04:00 BP 133/60 02/20/21 04:00 Pulse Ox 93 L 02/20/21 04:00 Intake & Output 02/19/21 02/20/21 02/20/21 18:59 06:59 18:59 Intake Total 0 Output Total 340 Balance 0 -340 Weight 68.946 kg Intake: Oral 0 Output: Urine 340 Other: # Voids 1 - Labs CBC & Chem 7: 02/20/21 07:31 02/20/21 07:31 Labs: Abnormal Lab Results - Last 24 Hours (Table) 02/19/21 02/19/21 02/19/21 Range/Units 03:24 06:05 06:29 APTT (22.0-30.0) sec Sodium 135 L (137-145) mmol/L BUN 27 H (7-17) mg/dL Creatinine 1.46 H (0.52-1.04) mg/dL Glucose 154 H (74-99) mg/dL Troponin I 1.270 H* 1.100 H* (0.000-0.034) ng/mL Ur Leukocyte Esterase (Negative) Urine WBC (0-5) /hpf Urine Mucus (None) /hpf 02/19/21 02/19/21 Range/Units 09:25 14:51 APTT 51.1 H (22.0-30.0) sec Sodium (137-145) mmol/L BUN (7-17) mg/dL Creatinine (0.52-1.04) mg/dL Glucose (74-99) mg/dL Troponin I (0.000-0.034) ng/mL Ur Leukocyte Esterase Large H (Negative) Urine WBC 14 H (0-5) /hpf Urine Mucus Rare H (None) /hpf
[2021-02-20] MEDS: HEPARIN SOD,PORK IN 0.45% NACL 25,000 UNIT in 0.45% NACL 1 250ML.BAG IV SCH (11:56)
[2021-02-20] MEDS: SODIUM CHLORIDE 0.9% 1,000 ML in EMPTY BAG 1 BAG IV SCH (12:40)
--- NOTE | 2021-02-20 13:21 | PN ---
PROGRESS NOTE This is an 85-year-old lady who presented to the hospital yesterday with episode of chest pain, had a troponin elevation suggestive of [id number]. She had an echocardiogram and ejection fraction appears to be fairly well preserved. Her PT/INR was elevated at 2.8, but today it is down to 1.6. She is going to have a cardiac cath by Dr. Sheehan. She has history of previous RCA PCI. She is resting comfortably without symptoms. Vitals are stable. No JVD. S1, S2 heard normally. Short ejection systolic murmur at the base. Clear lungs. Abdomen is soft, nontender. Lower extremities reveal normal pulses. No edema. Central nervous system is grossly within normal limits. MMODL / IJN: [id number] /
--- NOTE | 2021-02-20 14:00 | P.DS ---
Providers Date of admission: 02/19/21 01:41 Expected date of discharge: 02/21/21 Attending physician: Melani Bertrand Consults: 02/19/21 01:40 Consult Physician Urgent Consulting Provider: Ozzy Ball Consult Reason/Comments: nstemi Do you want consulting provider notified?: Yes Primary care physician: Melani Bertrand [facility] Course: HISTORY OF PRESENT ILLNESS This is an 84-year-old female patient of Dr. Bertrand and Dr. 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 The patient had complained of weakness when she presented to the office on Tuesday. She did not have any chest pain or shortness of breath. She continued to feel weak and was seen in the office sent for blood work for troponin which came back positive at 2.49. Patient was contacted later to come into the emergency center for further evaluation. She states that she was so weak at home that she collapsed into a chair and really she needs to come in the hospital. Patient was transported by EMS. Patient came into [facility] emergency center for evaluation. She was found to be afebrile, heart rate 90, blood pressure 126/63 and pulse ox 90% on room air. EKG sinus rhythm, first-degree block with ST and T-wave abnormalities. WBC 11.7, d-dimer 1.24, INR 2.8. Sodium 134, potassium 4.7, CO2 20, BUN 25 creatinine 1.36. Blood sugar 120. Total bilirubin 1.7, AST 7.1, ALT 31, alkaline phosphatase 136. Repeat troponins were 1.5-0, 1.270, 1.100. TSH 14.2. Albumin 3.3. ProBNP 4880. Urinalysis revealed leukoesterase large, the PVCs 12. Thomas virus PCR not detected. Chest x-ray was normal. Echocardiogram reveals EF of 55-60% with mild concentric left ventricular hypertrophy, mild mitral regurgitation, mild tricuspid regurgitation, mild pulmonary hypertension. Patient is seen today in the emergency center, consult for cardiology and patient is been scheduled for heart catheterization tomorrow, started on heparin drip and Coumadin placed on hold. 02/20: She is scheduled for heart catheterization today. Patient has had heart rate in the 4753, blood pressure 148/71, pulse ox 92% on room air. Repeat blood work reveals WBC of 16.3, hemoglobin 14.1 and platelet count 351. INR 1.6. Patient is on heparin drip. CO2 is 20, BUN 31 creatinine 1.38. Alkaline phosphatase 129. Free T4 came back at 1.57. Patient has decided that she would like to go to [facility] for subacute rehab. We'll try to make arrangements for discharge tomorrow. ASSESSMENT AND PLAN 1. Non-ST elevated myocardial infarction. 2. History of coronary artery disease with previous PCI to the RCA 2017. 3. Acute kidney injury. 4. Acute urinary tract infection. 5. Hypertension. 4. Hyperlipidemia. 5. Hypothyroidism. 6. 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 7. Vascular dementia. 8. History of CVA. 9. Carotid artery disease status post endarterectomy. 10. Gastroesophageal reflux disease. 11. COVID-19 testing negative. [address]AN [facility] for subacute rehab on Tuesday Impression and plan of care have been directed as dictated by the signing physician. Shari Rodriguez nurse practitioner acting as scribe for signing physician. Patient Condition at Discharge: Good Plan - Discharge Summary Discharge Rx Participant: Yes New Discharge Prescriptions: No Action Warfarin [Coumadin] 5 mg PO MOTUWEFRSA Warfarin [Coumadin] 2.5 mg PO SUTH Fluticasone/Salmeterol [Advair 250-50 Diskus] 1 puff INHALATION RT-BID Rosuvastatin [Crestor] 20 mg PO MOWEFR@2100 Aspirin [Children's Aspirin] 81 mg PO HS Losartan/Hydrochlorothiazide [Losartan-Hctz 100-12.5 mg Tab] 1 tab PO DAILY Omeprazole 40 mg PO DAILY Levothyroxine Sodium [Synthroid] 100 mcg PO DAILY Donepezil [Aricept] 10 mg PO DAILY Cholecalciferol (Vitamin D3) [Vitamin D3 (3000 Iu)] 75 mcg PO DAILY Magnesium Oxide [Mag-Oxide] 200 mg PO DAILY Metoprolol Succinate (ER) [Toprol XL] 25 mg PO HS hydrALAZINE HCL [Apresoline] 25 mg PO BID-W/MEALS Vitamin B Complex 1 cap PO DAILY Multivitamins, Thera [Multivitamin (formulary)] 1 tab PO DAILY Discharge Medication List Aspirin [Children's Aspirin] 81 mg PO HS 02/07/17 [History] Fluticasone/Salmeterol [Advair 250-50 Diskus] 1 puff INHALATION RT-BID 02/07/17 [History] Rosuvastatin [Crestor] 20 mg PO MOWEFR@2100 02/07/17 [History] Warfarin [Coumadin] 2.5 mg PO SUTH 02/07/17 [History] Warfarin [Coumadin] 5 mg PO MOTUWEFRSA 02/07/17 [History] Losartan/Hydrochlorothiazide [Losartan-Hctz 100-12.5 mg Tab] 1 tab PO DAILY 04/30/19 [History] Omeprazole 40 mg PO DAILY 04/30/19 [History] Levothyroxine Sodium [Synthroid] 100 mcg PO DAILY 03/20/20 [History] Metoprolol Succinate (ER) [Toprol XL] 25 mg PO HS 09/10/20 [History] Donepezil [Aricept] 10 mg PO DAILY 12/15/20 [History] Cholecalciferol (Vitamin D3) [Vitamin D3 (3000 Iu)] 75 mcg PO DAILY 02/19/21 [History] Magnesium Oxide [Mag-Oxide] 200 mg PO DAILY 02/19/21 [History] Multivitamins, Thera [Multivitamin (formulary)] 1 tab PO DAILY 02/19/21 [History] Vitamin B Complex 1 cap PO DAILY 02/19/21 [History] hydrALAZINE HCL [Apresoline] 25 mg PO BID-W/MEALS 02/19/21 [History] Follow up Appointment(s)/Referral(s): Melani Bertrand MD [Primary Care Provider] - 1 Week (at [facility]) Discharge Disposition: TRANSFER TO SNF/ECF
[2021-02-20] MEDS ORDERED: VERAPAMIL 2.5 MG/ML 2 ML AMP ONE (14:08)
[2021-02-20] MEDS ORDERED: LIDOCAINE 1% INJ 10MG/ML (20 ML MDV) ONE (14:09)
[2021-02-20 14:29] LABS: Chol/HDL Ratio 2.6 Ratio; HDL Cholesterol 45.7 mg/dL (40.00-60.00); LDL Cholesterol,Calculated 51.9 mg/dL (0.0-131.0); VLDL Calculation 21.4 mg/dL (5.00-40.00)
[2021-02-20] MEDS ORDERED: HEPARIN SODIUM 1,000 UN/ML (10ML VL) ONE (14:32)
[2021-02-20] MEDS ORDERED: MIDAZOLAM 2 MG/2 ML VIAL IVP ONE (14:37)
[2021-02-20] MEDS ORDERED: LIDOCAINE 1% INJ 10MG/ML (20 ML MDV) SQ ONE (14:39)
[2021-02-20] MEDS: VERAPAMIL SYRINGE (5 MG/10 ML) INTRAARTER ONE ×2 (14:40→14:56)
[2021-02-20] MEDS ORDERED: IV FLUID CONTINUATION 1,000 ML IV ONE (14:41)
[2021-02-20] MEDS ORDERED: HEPARIN SODIUM 1,000 UN/ML (10ML VL) IV ONE (14:47)
[2021-02-20] MEDS ORDERED: IOPAMIDOL-370 125ML BTL INJ ONE (14:56)
[2021-02-20] MEDS ORDERED: SODIUM CHLORIDE 0.9% 1,000 ML IV SCH (15:00)
[2021-02-20] MEDS ORDERED: RX INFO: IV CONTRAST WAS GIVEN 1 EACH MISC MISCELLANE PRN (15:00)
--- NOTE | 2021-02-20 17:23 | CC ---
CARDIAC CATHETERIZATION REPORT DATE OF SERVICE: February 20, 2021. PERFORMING PHYSICIAN: Estevan Sheehan MD. PROCEDURE PERFORMED: 1. Selective right and left coronary angiogram. 2. Left heart catheterization. INDICATION: This is an 85-year-old female patient with coronary artery disease and prior stenting of the RCA as well as hypertension and dyslipidemia who was admitted to the hospital with chest discomfort and ruled in for acute coronary syndrome. APPROACH: Right radial artery. COMPLICATION: None. LEVEL OF SEDATION: Moderate with sedation length of 22 minutes. PROCEDURE DESCRIPTION: After obtaining an informed consent, the patient was brought to the cardiac laborer construction or leak gang. The right radial artery was cannulated using micropuncture technique and a micropuncture wire passed easily. Then I placed a 6-Lao sheath in the right radial artery. Selective left and right coronary angiogram performed using JL3.4 and multipurpose catheter. The procedure was completed without any complication. Left heart catheterization was performed using the JR4 catheter. SELECTIVE CORONARY ANGIOGRAM: 1. The left main appeared to have distally a lesion in the range of 40-50 percent. Seems to be unchanged compared to prior heart catheterization. 2. The left circumflex: The ostial circ has a lesion in the range of 50%. After that, the circ gives rise into first and second obtuse marginal branches both appeared to have mild disease only. 3. The LAD is a medium caliber vessel. The ostial LAD has a lesion appeared to be in the range of 40-50 percent as well. The LAD in the mid and distal portion appeared to have mild disease only. 4. The RCA was not opacified completely. It fills by collaterals from the left coronary system. HEMODYNAMICS: The LVEDP was about 10 to 12 mmHg without significant gradient across aortic valve. CONCLUSION: 1. Chronic total occlusion of the RCA which fills by collaterals from the left coronary system. 2. Intermediate disease involving the left coronary system medially by the left main and bifurcation to circ and LAD. The disease appeared to be unchanged compared to before. POSTPROCEDURE MANAGEMENT: 1. Maximize medical treatment. 2. Aggressive cholesterol control. 3. Risk factor modifications. 4. Follow up with the patient. MMODL / IJN: [id number] /
[2021-02-20] MEDS ORDERED: WARFARIN 5 MG TAB PO SCH (18:00)
[2021-02-20] MEDS: METOPROLOL SUCCINATE (ER) 25 MG TAB.ER.24H PO SCH (20:15)
[2021-02-20] MEDS: ASPIRIN 81 MG PO SCH (20:15)
[2021-02-20] MEDS ORDERED: ATORVASTATIN 40 MG TAB PO SCH (21:00)
[2021-02-21] MEDS: SODIUM CHLORIDE 0.9% 1,000 ML IV SCH (06:10)
[2021-02-21] MEDS: SODIUM CHLORIDE 0.9% 1,000 ML in EMPTY BAG 1 BAG IV SCH (06:10)
[2021-02-21] MEDS ORDERED: ENOXAPARIN 60 MG/0.6 ML SYRINGE SQ STA (06:22)
[2021-02-21] MEDS: LEVOTHYROXINE 100 MCG TAB PO SCH (06:39)
[2021-02-21] MEDS: hydrALAZINE HCL 25 MG TAB PO SCH (06:39)
[2021-02-21] MEDS ORDERED: WARFARIN 7.5 MG TAB PO ONE (07:00)
[2021-02-21] MEDS: SYMBICORT 80-4.5 MCG INHALER INHALATION SCH (07:57)
[2021-02-21] MEDS: LOSARTAN 50 MG TAB PO SCH (08:19)
[2021-02-21] MEDS: MAGNESIUM OXIDE 400 MG TAB PO SCH (08:19)
[2021-02-21] MEDS: MULTIVITAMINS, THERA 1 EACH TAB PO SCH ×2 (08:19→08:20)
[2021-02-21] MEDS: DONEPEZIL 10 MG TAB PO SCH (08:20)
--- NOTE | 2021-02-21 08:26 | P.DS ---
Providers Date of admission: 02/19/21 01:41 Attending physician: Melani Bertrand Consults: 02/19/21 01:40 Consult Physician Urgent Consulting Provider: Ozzy Ball Consult Reason/Comments: nstemi Do you want consulting provider notified?: Yes Primary care physician: Melani Bertrand Hospital Course: 85-year-old the female came in with generalized tiredness and weakness, found to have mildly elevated troponins because of which are patient underwent cardiac catheterization for non-ST elevation myocardial infarction patient was having chest pain at the time. Patient will need placement to subacute rehabitation patient function is externally poor. Patient had a cardiac catheterization which showed chronic total occlusion of RCA because of which no intervention is being done. Patient has moderate disease in LAD medical management was advised by cardiology. Discharge medication reconciliation was done by Dr. Bertrand already yesterday I reviewed the medication reconciliation, discontinued hydrochlorothiazide and patient will just stay on losartan. Consent chronic kidney disease with creatinine of 1.38 hydro-chlorothiazide may not be beneficial. Patient will be discharged today to subacute rehabilitation patient does have some leukocytosis. PHYSICAL EXAMINATION: GENERAL: The patient is alert and oriented x3, not in any acute distress. Well developed, well nourished. HEENT: Pupils are round and equally reacting to light. EOMI. No scleral icterus. No conjunctival pallor. Normocephalic, atraumatic. No pharyngeal erythema. No thyromegaly. CARDIOVASCULAR: S1 and S2 present. No murmurs, rubs, or gallops. PULMONARY: Chest is clear to auscultation, no wheezing or crackles. ABDOMEN: Soft, nontender, nondistended, normoactive bowel sounds. No palpable organomegaly. MUSCULOSKELETAL: No joint swelling or deformity. EXTREMITIES: No cyanosis, clubbing, or pedal edema. NEUROLOGICAL: Gross neurological examination did not reveal any focal deficits. SKIN: No rashes. Assessment and plan Possible medical problems and hospital physician course please refer to discharge summary from yesterday Patient Condition at Discharge: Good Plan - Discharge Summary Discharge Rx Participant: Yes New Discharge Prescriptions: New Losartan [Cozaar] 100 mg PO DAILY tab Continue Warfarin [Coumadin] 5 mg PO MOTUWEFRSA Warfarin [Coumadin] 2.5 mg PO SUTH Fluticasone/Salmeterol [Advair 250-50 Diskus] 1 puff INHALATION RT-BID Rosuvastatin [Crestor] 20 mg PO MOWEFR@2100 Aspirin [Children's Aspirin] 81 mg PO HS Omeprazole 40 mg PO DAILY Levothyroxine Sodium [Synthroid] 100 mcg PO DAILY Donepezil [Aricept] 10 mg PO DAILY Cholecalciferol (Vitamin D3) [Vitamin D3 (3000 Iu)] 75 mcg PO DAILY Magnesium Oxide [Mag-Oxide] 200 mg PO DAILY Metoprolol Succinate (ER) [Toprol XL] 25 mg PO HS hydrALAZINE HCL [Apresoline] 25 mg PO BID-W/MEALS Vitamin B Complex 1 cap PO DAILY Multivitamins, Thera [Multivitamin (formulary)] 1 tab PO DAILY Discontinued Losartan/Hydrochlorothiazide [Losartan-Hctz 100-12.5 mg Tab] 1 tab PO DAILY Discharge Medication List Aspirin [Children's Aspirin] 81 mg PO HS 02/07/17 [History] Fluticasone/Salmeterol [Advair 250-50 Diskus] 1 puff INHALATION RT-BID 02/07/17 [History] Rosuvastatin [Crestor] 20 mg PO MOWEFR@2100 02/07/17 [History] Warfarin [Coumadin] 2.5 mg PO SUTH 02/07/17 [History] Warfarin [Coumadin] 5 mg PO MOTUWEFRSA 02/07/17 [History] Omeprazole 40 mg PO DAILY 04/30/19 [History] Levothyroxine Sodium [Synthroid] 100 mcg PO DAILY 03/20/20 [History] Metoprolol Succinate (ER) [Toprol XL] 25 mg PO HS 09/10/20 [History] Donepezil [Aricept] 10 mg PO DAILY 12/15/20 [History] Cholecalciferol (Vitamin D3) [Vitamin D3 (3000 Iu)] 75 mcg PO DAILY 02/19/21 [History] Magnesium Oxide [Mag-Oxide] 200 mg PO DAILY 02/19/21 [History] Multivitamins, Thera [Multivitamin (formulary)] 1 tab PO DAILY 02/19/21 [History] Vitamin B Complex 1 cap PO DAILY 02/19/21 [History] hydrALAZINE HCL [Apresoline] 25 mg PO BID-W/MEALS 02/19/21 [History] Losartan [Cozaar] 100 mg PO DAILY tab 02/21/21 [Rx] Follow up Appointment(s)/Referral(s): Melani Bertrand MD [Primary Care Provider] - 1 Week (at [facility]) Discharge Disposition: TRANSFER TO SNF/F
[2021-02-21 08:33] VITALS: BP 135/63; PULSE 59; RESP 17; TEMP 98.1
[2021-02-21 09:17] LABS: INR 1.2 (<1.2); Prothrombin Time 12.8 sec (9.0-12.0)
[2021-02-21 09:30] LABS: Basophils # (A) 0.1 k/uL (0-0.2); Basophils % (A) 1 %; Eosinophils # (A) 0.1 k/uL (0-0.7); Eosinophils % (A) 0 %; HCT 43.4 % (34.0-46.0); HGB 14.2 gm/dL (11.4-16.0); Lymphocytes % (A) 14 %; MCH 32.6 pg (25.0-35.0); MCHC 32.7 g/dL (31.0-37.0); MCV 99.7 fL (80.0-100.0); Macrocytosis Slight; Mean Platelet Volume 9.6; Monocytes # (A) 0.7 k/uL (0-1.0); Monocytes % (A) 5 %; Neutrophils # (A) 11.4 k/uL (1.3-7.7); Neutrophils % (A) 79 %; Platelet Count 299 k/uL (150-450); RBC 4.36 m/uL (3.80-5.40); RDW 14.2 % (11.5-15.5); WBC 14.4 k/uL (3.8-10.6)
[2021-02-21 09:49] LABS: Albumin 3.2 g/dL (3.5-5.0); Calcium 10.1 mg/dL (8.4-10.2); Potassium 4.3 mmol/L (3.5-5.1); Total Bilirubin 0.7 mg/dL (0.2-1.3); Total Protein 6.3 g/dL (6.3-8.2)
--- NOTE | 2021-02-21 10:55 | PN ---
PROGRESS NOTE Mrs. Ramos had a cardiac cath yesterday by Dr. Sheehan. Study revealed total occlusion of RCA with collaterals from the left system, mild left main disease, and proximal circumflex disease. Will pursue medical therapy. Will increase activity and she can be discharged. Right radial site is clean and dry. Vitals are stable. No JVD. S1, S2 heard normally. Short systolic murmur is audible. Lungs reveal diminished air entry. Abdomen is soft. Lower extremities reveal diminished pulses. Central nervous system is grossly within normal limits. The patient can be discharged today to extended-care facility and she will see Dr. Sheehan in one week. MMODL / IJN: [id number] /
--- NOTE | 2021-02-24 08:59 | CDI ---
Documentation Clarification Form Date: 02/24/21 From: Nata Rendon Admit Date: 02/19/2021 01:41:00 AM Patient Name: Susan Ramos Visit Number: [id number] Discharge Date: 02/21/2021 10:42:00 AM ATTENTION: The Clinical Documentation Specialists (CDI) and [facility] Coding Staff appreciate your assistance in clarifying documentation. Please respond to the clarification below the line at the bottom and electronically sign. The CDI & [facility] Coding staff will review the response and follow-up if needed. Please note: Queries are made part of the Legal Health Record. If you have any questions, please contact the author of this message via ITS. Dr. Michelle Cano, Unspecified CKD is documented the second DS. Additional clarification regarding the stage of CKD is requested. History/Risk Factors: HTN, NSTEMI, activated protein C resistance, MATEUSZ, UTI, vascular dementia, PVD, pulmonary HTN Clinical Indicators: Current BUN: 25, 27, 31, 26 Current CR: 1.36, 1.46, 1.38, 1.15 Current GFR: 36, 33, 35,44 Treatment: Per second DS hydrochlorothiazide may not be beneficial. IV fluid Please clarify the stage of the CKD, if known: [ x ] CKD Stage 1 (GFR > 90) [ ] CKD Stage 2 (GFR 60-89) [ ] CKD Stage 3 (GFR 30-59) [ ] CKD Stage 3a (GFR 45-59) [ ] CKD Stage 3b (GFR 30-44) [ ] CKD Stage 4 (GFR 15-29) [ ] CKD Stage 5 (GFR <15) [ ] ESRD [ ] Other, please specify [ ] Unable to determine MTDD
== END 2021-02-21 10:42 | DRG 281 ==
LOC: EC 23:40 → 3SCARD 02-19 01:41
PROVIDERS: ADMIT Internal Medicine; ATTEND Internal Medicine
PROC: B2111ZZ Fluoroscopy of Multiple Coronary Arteries using Low Osmolar Contrast (ICD-10-PCS; principal; 2021-02-20 08:40)
PROC: 4A023N7 Measurement of Cardiac Sampling and Pressure, Left Heart, Percutaneous Approach (ICD-10-PCS; principal; 2021-02-20 08:40)
DX: I21.4 Non-ST elevation (NSTEMI) myocardial infarction (principal); D68.51 Activated protein C resistance; N17.9 Acute kidney failure, unspecified; N39.0 Urinary tract infection, site not specified; F01.50 Vascular dementia, unspecified severity, without behavioral disturbance, psychotic disturbance, mood disturbance, and anxiety; I27.20 Pulmonary hypertension, unspecified; I73.9 Peripheral vascular disease, unspecified; J44.9 Chronic obstructive pulmonary disease, unspecified; Z20.822 Contact with and (suspected) exposure to COVID-19; I44.0 Atrioventricular block, first degree; E78.5 Hyperlipidemia, unspecified; I25.10 Atherosclerotic heart disease of native coronary artery without angina pectoris; I12.9 Hypertensive chronic kidney disease with stage 1 through stage 4 chronic kidney disease, or unspecified chronic kidney disease; N18.1 Chronic kidney disease, stage 1; K21.9 Gastro-esophageal reflux disease without esophagitis; E03.9 Hypothyroidism, unspecified; E78.00 Pure hypercholesterolemia, unspecified; I08.1 Rheumatic disorders of both mitral and tricuspid valves; Z79.82 Long term (current) use of aspirin; Z79.51 Long term (current) use of inhaled steroids; Z79.890 Hormone replacement therapy; Z79.01 Long term (current) use of anticoagulants; Z79.899 Other long term (current) drug therapy; Z86.73 Personal history of transient ischemic attack (TIA), and cerebral infarction without residual deficits; Z95.5 Presence of coronary angioplasty implant and graft; Z90.710 Acquired absence of both cervix and uterus; Z87.42 Personal history of other diseases of the female genital tract; Z87.891 Personal history of nicotine dependence; Z86.711 Personal history of pulmonary embolism; Z86.718 Personal history of other venous thrombosis and embolism; Z86.79 Personal history of other diseases of the circulatory system; Z98.890 Other specified postprocedural states; Z88.8 Allergy status to other drugs, medicaments and biological substances; Z82.49 Family history of ischemic heart disease and other diseases of the circulatory system; Z83.79 Family history of other diseases of the digestive system; Z82.3 Family history of stroke; Z82.61 Family history of arthritis; Z82.69 Family history of other diseases of the musculoskeletal system and connective tissue; Z84.1 Family history of disorders of kidney and ureter; Z83.3 Family history of diabetes mellitus
CPT/HCPCS: 36415; 71046; 80048; 80053; 80061; 81001; 82550; 82553; 83605; 83735; 83880; 84100; 84439; 84443; 84484; 85025; 85379; 85610; 85730; 87086; 87635; 93005; 93306; 93458; 94640; 94760; 96374; 99285

== ENCOUNTER → 2021-03-14 | Outpatient (CLI) | payer MEDICARE, OTHER ==
--- NOTE | 2021-03-16 17:11 | CT ---
EXAMINATION TYPE: CT lumbar spine wo con DATE OF EXAM: 03/16/2021 COMPARISON: HISTORY: Lumbar spine pain CT DLP: 880 mGycm CONTRAST: CT scan of the lumbar is performed , patient injected with mL of . TECHNIQUE: CT of the lumbar spine is performed on a spiral scan at 3 mm thick sections. Reconstructed images are performed in the coronal and sagittal planes. FINDINGS: Cholelithiasis is noted. There is an L2 compression deformity with approximately 50% loss of superior endplate height loss. Mi nimal superior endplate displacement into the spinal canal is present estimated at 1 to 2 mm. No spin al canal stenosis is present. Vacuum disc phenomenon is present L1 and L2. T12-L1: No focal disc herniation or significant disc bulge is evident. No spinal canal stenosis or neural foraminal stenosis is present. L1-L2: No focal disc herniation or significant disc bulge is evident. No spinal canal stenosis or n eural foraminal stenosis is present. Please see above for compression deformity discussion of L2. L2-L3: No focal disc herniation or significant disc bulge is evident. No spinal canal stenosis or n eural foraminal stenosis is present. Please see above for compression deformity discussion of L2. L3-L4: Some posterior disc space narrowing is present. Mild residual disc bulges anterior thecal sac contact. No AP spinal canal stenosis is present. L4-L5: Broad-based disc bulge is mild anterior thecal sac contact. No AP spinal canal stenosis presen t. Facet hypertrophy and ligamentum flavum laxity of posterior lateral thecal sac compression. L5-S1: Normal disc bulge is present with anterior thecal sac contact. No spinal canal stenosis or benny ral foraminal stenosis present. Facet hypertrophy is present. Vertebral alignment appears normal. IMPRESSION: 1. Compression deformity from the superior endplate of L2 with approximately 50% loss of vertebral gaetano dy height. Very minimal posterior wall displacement AB present without spinal canal stenosis or obvio us cord contact. 2. Degenerative disc changes with some disc bulging noted above.
== END | disposition home or self-care (01) ==
LOC: RADCTMAIN 11:06
PROVIDERS: ATTEND Orthopaedic Surgery
DX: M51.26 Other intervertebral disc displacement, lumbar region (principal); M47.816 Spondylosis without myelopathy or radiculopathy, lumbar region
CPT/HCPCS: 72131

== ENCOUNTER 2021-07-21 11:57 | Inpatient (IN) | payer MEDICARE, OTHER ==
--- NOTE | 2021-07-21 13:04 | XR ---
EXAMINATION TYPE: XR chest 2V DATE OF EXAM: 07/21/2021 COMPARISON: Chest x-ray June 06, 2021 HISTORY: Shortness of breath and weakness. TECHNIQUE: Frontal and lateral views of the chest are obtained. FINDINGS: Slightly suboptimal study due to overlying linear density or artifact presumed from clothi ng material or blanket material. There is chronic parenchymal change without suspicious new focal air space opacity, pleural effusion, or pneumothorax seen. The cardiac silhouette size is stable and wi thin normal limits. Surgical change to the right humerus is partially imaged. IMPRESSION: Chronic changes without acute pulmonary process.
[2021-07-21] MEDS ORDERED: SODIUM CHLORIDE 0.9% 500 ML 500 ML IV STA (13:50)
--- NOTE | 2021-07-21 13:56 | ED ---
General Adult HPI - General Chief complaint: Weakness Stated complaint: SOB/low BP/weak Time Seen by Provider: 07/21/21 13:30 Source: patient, RN notes reviewed, old records reviewed Mode of arrival: wheelchair Limitations: no limitations - History of Present Illness Initial comments: This is an 85-year-old female who presents to the emergency department because of weakness. Patient states it started yesterday morning and he has continued today. Patient states she's always short of breath and that has not changed. Patient denies any chest pain or difficulty breathing. Patient denies any fever chills or cough. Patient denies any abdominal pain patient denies nausea vomiting diarrhea. Patient states she is on Coumadin and she has had some da rker stools lately. Patient states she went to see her primary medical care doctor he sent her into the emergency department to be evaluated. - Related Data Home Medications Medication Instructions Recorded Confirmed Aspirin [Children's Aspirin] 81 mg PO HS 02/07/17 07/21/21 Fluticasone/Salmeterol [Advair 1 puff INHALATION RT-BID 02/07/17 07/21/21 250-50 Diskus] Rosuvastatin [Crestor] 20 mg PO MOWEFR@2100 02/07/17 07/21/21 Warfarin [Coumadin] 2.5 mg PO HS@209902/07/17 07/21/21 Omeprazole 40 mg PO DAILY 04/30/19 07/21/21 Levothyroxine Sodium [Synthroid] 100 mcg PO HS 03/20/20 07/21/21 Metoprolol Succinate (ER) [Toprol 25 mg PO HS 09/10/20 07/21/21 XL] Donepezil [Aricept] 10 mg PO HS 12/15/20 07/21/21 Multivitamins, Thera [Multivitamin 1 tab PO DAILY 02/19/21 07/21/21 (formulary)] Vitamin B Complex 1 cap PO DAILY 02/19/21 07/21/21 hydrALAZINE HCL [Apresoline] 25 mg PO BID-W/MEALS 02/19/21 07/21/21 Acetaminophen [Tylenol Arthritis] 650 mg PO Q8H PRN 06/03/21 07/21/21 Cholecalciferol [Vitamin D3 (125 125 mcg PO DAILY 06/03/21 07/21/21 Mcg = 5000 Iu)] Losartan/Hydrochlorothiazide 1 tab PO DAILY 06/03/21 07/21/21 [Losartan-Hctz 100-12.5 mg Tab] Nitroglycerin Sl Tabs [Nitrostat] 0.4 mg SUBLINGUAL Q5M PRN 06/03/21 07/21/21 Previous Rx's Medication Instructions Recorded Ipratropium-Albuterol Nebulize 3 ml INHALATION RT-QID #120 dose 06/08/21 [Duoneb 0.5 mg-3 mg/3 ml Soln] Allergies Allergy/AdvReac Type Severity Reaction Status Date / Time dacron AdvReac Unknown INCISION Uncoded 07/21/21 14:46 WOULD NOT HEAL Review of Systems ROS Statement: Those systems with pertinent positive or pertinent negative responses have been documented in the HPI. ROS Other: All systems not noted in ROS Statement are negative. 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, vascular dementia, hypothyroid, benign colon polyps History of Any Multi-Drug Resistant Organisms: None Reported Past Surgical History: Heart Catheterization With Stent, Hysterectomy Additional Past Surgical History / Comment(s): carotidectomy in 2007, EGD colonoscopy Past Anesthesia/Blood Transfusion Reactions: No Reported Reaction Date of Last Stent Placement:: 02/22/2018 Past Psychological History: No Psychological Hx Reported Smoking Status: Former smoker Past Alcohol Use History: None Reported Past Drug Use History: None Reported - Past Family History Father Additional Family Medical History / Comment(s): Father at age 84 from coronary artery disease. Mother Additional Family Medical History / Comment(s): Mother at age 90 from a bowel obstruction. Brother(s) Additional Family Medical History / Comment(s): Patient has 1 brother that is alive with no major medical problems. Sister(s) Additional Family Medical History / Comment(s): Patient has a total of 3 sisters. One has passed with complications after surgical procedure the cause of fistula. 2 other sisters are alive without major medical problems. Daughter(s) Additional Family Medical History / Comment(s): Patient has 2 daughters and one has history of kidney transplant, diabetes, stroke, coronary artery disease. One daughter has history of osteoarthritis and hip replacement. Son(s) Additional Family Medical History / Comment(s): Patient has 2 sons with no major medical problems. General Exam - General Exam Comments Initial Comments: GENERAL: Patient is well-developed and well-nourished. Patient is nontoxic and well- hydrated and is in mild distress. ENT: Neck is soft and supple. No significant lymphadenopathy is noted. Oropharynx is clear. Moist mucous membranes. Neck has full range of motion without eliciting any pain. EYES: The sclera were anicteric and conjunctiva were pink and moist. Extraocular movements were intact and pupils were equal round and reactive to light. Eyelids were unremarkable. PULMONARY: Unlabored respirations. Good breath sounds bilaterally. No audible rales rhonchi or wheezing was noted. CARDIOVASCULAR: There is a regular rate and rhythm without any murmurs gallops or rubs. ABDOMEN: Soft and nontender with normal bowel sounds. SKIN: Skin is clear with no lesions or rashes and otherwise unremarkable. NEUROLOGIC: Patient is alert and oriented x3. Cranial nerves II through XII are grossly intact. Motor and sensory are also intact. Normal speech, volume and content. Symmetrical smile. MUSCULOSKELETAL: Normal extremities with adequate strength and full range of motion. N LYMPHATICS: No significant lymphadenopathy is noted PSYCHIATRIC: Normal psychiatric evaluation. Limitations: no limitations Course Vital Signs 07/21/21 07/21/21 12:01 14:00 Temperature 97.2 F L Pulse Rate 73 69 Respiratory 22 20 Rate Blood Pressure 99/43 124/60 O2 Sat by Pulse 96 93 L Oximetry Medical Decision Making - Medical Decision Making EKG shows sinus rhythm at 64 bpm VA interval 192 QRS is under QT interval 35 QTC is 394 per patient's EKG shows no ST segment elevation or depression. Hemoglobin is low at 8.5 which is considerably lower than it was a month ago. I spoke with Dr. Bertrand he agreed to admit the patient admitted the patient I wrote admitting orders. - Lab Data Result diagrams: 07/21/21 13:56 07/21/21 13:56 Lab Results 07/21/21 07/21/21 07/21/21 Range/Units 13:56 13:56 13:56 WBC 11.9 H (3.8-10.6) k/uL RBC 3.03 L (3.80-5.40) m/uL Hgb 8.4 L D (11.4-16.0) gm/dL Hct 27.4 L (34.0-46.0) % MCV 90.3 D (80.0-100.0) fL MCH 27.8 (25.0-35.0) pg MCHC 30.8 L (31.0-37.0) g/dL RDW 15.6 H (11.5-15.5) % Plt Count 417 (150-450) k/uL MPV 7.9 Hypochromasia Marked Poikilocytosis Moderate PT 15.6 H (9.0-12.0) sec INR 1.5 H (<1.2) APTT 28.8 (22.0-30.0) sec Sodium 136 L (137-145) mmol/L Potassium 3.8 (3.5-5.1) mmol/L Chloride 102 (98-107) mmol/L Carbon Dioxide 27 (22-30) mmol/L Anion Gap 7 mmol/L BUN 23 H (7-17) mg/dL Creatinine 1.29 H (0.52-1.04) mg/dL Est GFR (CKD-EPI)AfAm 44 (>60 ml/min/1.73 sqM) Est GFR (CKD-EPI)NonAf 38 (>60 ml/min/1.73 sqM) Glucose 99 (74-99) mg/dL Plasma Lactic Acid Julio César (0.7-2.0) mmol/L Calcium 9.5 (8.4-10.2) mg/dL Magnesium 2.3 (1.6-2.3) mg/dL Total Bilirubin 0.9 (0.2-1.3) mg/dL AST 53 H (14-36) U/L ALT 45 H (4-34) U/L Alkaline Phosphatase 115 (38-126) U/L Total Protein 6.1 L (6.3-8.2) g/dL Albumin 3.3 L (3.5-5.0) g/dL 07/21/21 Range/Units 13:56 WBC (3.8-10.6) k/uL RBC (3.80-5.40) m/uL Hgb (11.4-16.0) gm/dL Hct (34.0-46.0) % MCV (80.0-100.0) fL MCH (25.0-35.0) pg MCHC (31.0-37.0) g/dL RDW (11.5-15.5) % Plt Count (150-450) k/uL MPV Hypochromasia Poikilocytosis PT (9.0-12.0) sec INR (<1.2) APTT (22.0-30.0) sec Sodium (137-145) mmol/L Potassium (3.5-5.1) mmol/L Chloride (98-107) mmol/L Carbon Dioxide (22-30) mmol/L Anion Gap mmol/L BUN (7-17) mg/dL Creatinine (0.52-1.04) mg/dL Est GFR (CKD-EPI)AfAm (>60 ml/min/1.73 sqM) Est GFR (CKD-EPI)NonAf (>60 ml/min/1.73 sqM) Glucose (74-99) mg/dL Plasma Lactic Acid Julio César 1.5 (0.7-2.0) mmol/L Calcium (8.4-10.2) mg/dL Magnesium (1.6-2.3) mg/dL Total Bilirubin (0.2-1.3) mg/dL AST (14-36) U/L ALT (4-34) U/L Alkaline Phosphatase (38-126) U/L Total Protein (6.3-8.2) g/dL Albumin (3.5-5.0) g/dL Disposition Clinical Impression: Anemia, GI bleed Disposition: ADMITTED IP TO THIS [facility] Referrals: Melani Bertrand MD [Primary Care Provider] - 1-2 days Time of Disposition: 14:52
[2021-07-21 14:25] LABS: HCT 27.4 % (34.0-46.0); Hypochromasia Marked; INR 1.5 (<1.2); MCH 27.8 pg (25.0-35.0); MCHC 30.8 g/dL (31.0-37.0); Mean Platelet Volume 7.9; Partial Thromboplastin Time 28.8 sec (22.0-30.0); Platelet Count 417 k/uL (150-450); Poikilocytosis Moderate; Prothrombin Time 15.6 sec (9.0-12.0); RBC 3.03 m/uL (3.80-5.40); RDW 15.6 % (11.5-15.5)
[2021-07-21 14:28] LABS: HGB 8.4 gm/dL (11.4-16.0); MCV 90.3 fL (80.0-100.0)
[2021-07-21 14:50] LABS: ALT 45 U/L (4-34); AST 53 U/L (14-36); African American GFR (CKD) 44 (>60 ml/min/1.73 sqM); Albumin 3.3 g/dL (3.5-5.0); Alkaline Phosphatase 115 U/L (38-126); Anion Gap 7 mmol/L; Blood Urea Nitrogen 23 mg/dL (7-17); Calcium 9.5 mg/dL (8.4-10.2); Carbon Dioxide 27 mmol/L (22-30); Chloride 102 mmol/L (98-107); Glucose 99 mg/dL (74-99); Magnesium 2.3 mg/dL (1.6-2.3); Non-African American GFR(CKD) 38 (>60 ml/min/1.73 sqM); Potassium 3.8 mmol/L (3.5-5.1); Sodium 136 mmol/L (137-145); Total Bilirubin 0.9 mg/dL (0.2-1.3); Total Protein 6.1 g/dL (6.3-8.2)
[2021-07-21] MEDS ORDERED: SODIUM CHLORIDE 0.9% 1,000 ML IV ONE (14:54)
[2021-07-21] MEDS ORDERED: PHYTONADIONE ORAL 5 MG/5 ML ORAL.SYRG PO STA (15:00)
[2021-07-21 15:19] LABS: Band Neutrophils % 1 %; Neutrophils % (M) 74 %; Nucleated Red Blood Cells 1 /100 WBC (0-0); Total Cells Counted 200
[2021-07-21 15:20] LABS: Basophilic Stippling Present; Lymphocytes # (M) 2.48 k/uL (1.0-4.8); Monocytes # (M) 0.59 k/uL (0-1.0); Polychromasia Present; Reactive Lymphocytes Present; Stomatocytes Present; WBC 11.8 k/uL (3.8-10.6)
[2021-07-21 16:19] LABS: T4, Free (Free Thyroxine) 2.22 ng/dL (0.78-2.19)
[2021-07-21] MEDS ORDERED: NITROGLYCERIN SL TABS 0.4 MG TAB SUBLINGUAL PRN (18:11)
[2021-07-21] MEDS ORDERED: ACETAMINOPHEN TAB 325 MG TAB PO PRN (18:11)
[2021-07-21] MEDS: IPRATROPIUM-ALBUTEROL 3 ML NEB INHALATION SCH (18:57)
[2021-07-21] MEDS: SYMBICORT 160-4.5 MCG INHALER INHALATION SCH (18:57)
[2021-07-21] MEDS: PANTOPRAZOLE 40 MG/10 ML VIAL IVP SCH (19:58)
[2021-07-21] MEDS: METOPROLOL SUCCINATE (ER) 25 MG TAB.ER.24H PO SCH (19:59)
[2021-07-21] MEDS: DONEPEZIL 10 MG TAB PO SCH (19:59)
[2021-07-21] MEDS: LEVOTHYROXINE 100 MCG TAB PO SCH (19:59)
[2021-07-21 21:47] LABS: Basophils # (A) 0.1 k/uL (0-0.2); Basophils % (A) 1 %; Eosinophils # (A) 0.1 k/uL (0-0.7); Eosinophils % (A) 1 %; HCT 26.8 % (34.0-46.0); HGB 8.2 gm/dL (11.4-16.0); Hypochromasia Marked; Lymphocytes # (A) 2.9 k/uL (1.0-4.8); Lymphocytes % (A) 30 %; MCH 27.9 pg (25.0-35.0); MCHC 30.5 g/dL (31.0-37.0); MCV 91.6 fL (80.0-100.0); Mean Platelet Volume 8.1; Monocytes # (A) 0.7 k/uL (0-1.0); Monocytes % (A) 7 %; Neutrophils # (A) 5.6 k/uL (1.3-7.7); Neutrophils % (A) 58 %; Platelet Count 368 k/uL (150-450); Poikilocytosis Slight; RBC 2.93 m/uL (3.80-5.40); RDW 15.3 % (11.5-15.5); WBC 9.6 k/uL (3.8-10.6)
[2021-07-21 22:30] LABS: Appearance,Urine Clear (Clear); Bacteria,Urine Rare /hpf; Bilirubin,Urine Negative (Negative); Blood,Urine Negative (Negative); Color,Urine Yellow; Glucose,Urine (UA) Negative (Negative); Ketones,Urine Negative (Negative); Leukocyte Esterase,Urine Moderate (Negative); Mucus,Urine Rare /hpf; Nitrite,Urine Negative (Negative); PH, Urine 6.5 (5.0-8.0); Protein,Urine Trace (Negative); RBC,Urine 1 /hpf (0-5); Specific Gravity,Urine 1.015 (1.001-1.035); Squamous Epithelial Cell,Urine <1 /hpf (0-4); Urobilinogen,Urine <2.0 mg/dL (<2.0); WBC,Urine 12 /hpf (0-5)
[2021-07-22] MEDS: IPRATROPIUM-ALBUTEROL 3 ML NEB INHALATION SCH ×4 (08:17→19:35)
[2021-07-22] MEDS: SYMBICORT 160-4.5 MCG INHALER INHALATION SCH ×2 (08:17→19:35)
[2021-07-22] MEDS: MULTIVITAMINS, THERA 1 EACH TAB PO SCH (08:32)
[2021-07-22] MEDS: CHOLECALCIFEROL 125 MCG (5000 IU) TABLET PO SCH (08:32)
[2021-07-22] MEDS: PANTOPRAZOLE 40 MG/10 ML VIAL IVP SCH ×2 (08:36→20:26)
[2021-07-22] MEDS: LOSARTAN 50 MG TAB PO SCH (08:36)
[2021-07-22] MEDS: LOSARTAN-HCTZ 50-12.5 MG 1 EACH TAB PO SCH (08:36)
[2021-07-22] MEDS ORDERED: NON FORMULARY DRUG (Vitamin B Complex [Vitamin B Complex] 1 EACH Capsule) PO SCH (09:00)
--- NOTE | 2021-07-22 11:18 | P.CRDCN ---
History of Present Illness History of present illness: HISTORY OF PRESENTING ILLNESS This is a pleasant 85-year-old female past medical history significant for coronary artery disease status post PCI to the RCA 2017, hypertension, perip heral vascular disease status post carotid endarterectomy 2007, former nicotine dependence, factor V Leiden with a history of DVT/PE in the past, asthma and dyslipidemia. She follows in the office with Dr. Sheehan. We have been asked to see in consultation for elevated troponin. She presents to the emergency department with complaints of generalized weakness, fatigue and some mild shortness of breath, but her shortness of breath is not new or worsening then her baseline. Patient states that for the past couple days been having worsening generalized fatigue, generalized weakness. She was found to have a hemoglobin of 8.2, previously 12.4 in May 2021. She also endorses some dark stools over the weekend. She denies any chest pain, lightheadedness, dizziness, palpitations. She denies any orthopnea or PND. DIAGNOSTICS: EKG sinus rhythm, heart rate 64, T wave inversion in lead III and aVF, Prior EKG with similar findings, no evidence of acute ischemia noted. Labs troponin 0.79, 0.52, WBC 9.6, hemoglobin 8.2, platelets 368, sodium 136, potassium 3.8, BUN 23, serum creatinine 1.2, TSH low 0.14, free T4 2.2 INR 1.5 02/19/21 Echocardiogram obtained revealed preserved LV systolic function with ejection fraction 55-60%, mild MR and mild TR noted. 02/19/21 Left and right cardiac catheterization- revealed chronic total occlusion of the RCA which fills by collaterals from left, intermediate disease involving the left coronary system medially by the left main and bifurcation to the circ and LAD. Disease unchanged from prior Current daily cardiac medications include warfarin 2.5 mg nightly, hydralazine 25 mg twice a day, rosuvastatin 20 mg every other day, Toprol 25 mg daily, [place]/hydrochlorothiazide 100/12.5 mg daily REVIEW OF SYSTEMS At the time of my exam: CONSTITUTIONAL: Denies fever or chills. CARDIOVASCULAR: Denies chest pain, shortness of breath, Denies orthopnea, PND or palpitations. RESPIRATORY: Denies cough. GASTROINTESTINAL: Denies abdominal pain, diarrhea, constipation, nausea or vomiting. MUSCULOSKELETAL: Denies myalgias. NEUROLOGIC: Denies numbness, tingling, headache or weakness. ENDOCRINE: Denies fatigue, weight change, polydipsia or polyurina. GENITOURINARY: Denies burning, hematuria or urgency with micturation. HEMATOLOGIC: Reports dark stools. +anemia PHYSICAL EXAMINATION Vitals reviewed CONSTITUTIONAL: No apparent distress. HEENT: Head is normocephalic. Pupils are equal, round. Sclerae anicteric. Mucous membranes of the mouth are moist. No JVD. No carotid bruit. CHEST EXAMINATION: Lungs are diminished bilaterally to auscultation. No chest wall tenderness is noted on palpation or with deep breathing. HEART EXAMINATION: Regular rate and rhythm. S1, S2 heard. No murmurs, gallops or rub. ABDOMEN: Soft, nontender. EXTREMITIES: 2+ peripheral pulses, no lower extremity edema and no calf tenderness. NEUROLOGIC EXAMINATION: Patient is awake, alert and oriented x3. 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 Elevated troponin, not indicative of acute coronary syndrome, likely due to anemia. Patient with no symptoms of chest pain. No evidence of ischemia on EKG. Patient does not appear to be in acute congestive heart failure on exam. Hold warfarin, if warfarin is still indicated, recommend discontinuing aspirin. We will follow the patient as needed. Please reconsult if needed. Follow up outpatient with Dr. Sheehan. Nurse Practitioner note has been reviewed, I agree with a documented findings and plan of care. Patient was seen and examined. 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, vascular dementia, hypothyroid, benign colon polyps History of Any Multi-Drug Resistant Organisms: None Reported Past Surgical History: Heart Catheterization With Stent, Hysterectomy Additional Past Surgical History / Comment(s): carotidectomy in 2007, EGD colonoscopy Past Anesthesia/Blood Transfusion Reactions: No Reported Reaction Date of Last Stent Placement:: 02/22/2018 Past Psychological History: No Psychological Hx Reported Smoking Status: Former smoker Past Alcohol Use History: None Reported Past Drug Use History: None Reported - Past Family History Father Additional Family Medical History / Comment(s): Father at age 84 from coronary artery disease. Mother Additional Family Medical History / Comment(s): Mother at age 90 from a bowel obstruction. Brother(s) Additional Family Medical History / Comment(s): Patient has 1 brother that is alive with no major medical problems. Sister(s) Additional Family Medical History / Comment(s): Patient has a total of 3 sisters. One has passed with complications after surgical procedure the cause of fistula. 2 other sisters are alive without major medical problems. Daughter(s) Additional Family Medical History / Comment(s): Patient has 2 daughters and one has history of kidney transplant, diabetes, stroke, coronary artery disease. One daughter has history of osteoarthritis and hip replacement. Son(s) Additional Family Medical History / Comment(s): Patient has 2 sons with no major medical problems. Medications and Allergies Home Medications Medication Instructions Recorded Confirmed Type Aspirin [Children's Aspirin] 81 mg PO HS 02/07/17 07/21/21 History Fluticasone/Salmeterol [Advair 1 puff INHALATION RT-BID 02/07/17 07/21/21 History 250-50 Diskus] Rosuvastatin [Crestor] 20 mg PO MOWEFR@2100 02/07/17 07/21/21 History Warfarin [Coumadin] 2.5 mg PO HS@2100 02/07/17 07/21/21 History Omeprazole 40 mg PO DAILY 04/30/19 07/21/21 History Levothyroxine Sodium [Synthroid] 100 mcg PO HS 03/20/20 07/21/21 History Metoprolol Succinate (ER) [Toprol 25 mg PO HS 09/10/20 07/21/21 History XL] Donepezil [Aricept] 10 mg PO HS 12/15/20 07/21/21 History Multivitamins, Thera [Multivitamin 1 tab PO DAILY 02/19/21 07/21/21 History (formulary)] Vitamin B Complex 1 cap PO DAILY 02/19/21 07/21/21 History hydrALAZINE HCL [Apresoline] 25 mg PO BID-W/MEALS 02/19/21 07/21/21 History Acetaminophen [Tylenol Arthritis] 650 mg PO Q8H PRN 06/03/21 07/21/21 History Cholecalciferol [Vitamin D3 (125 125 mcg PO DAILY 06/03/21 07/21/21 History Mcg = 5000 Iu)] Losartan/Hydrochlorothiazide 1 tab PO DAILY 06/03/21 07/21/21 History [Losartan-Hctz 100-12.5 mg Tab] Nitroglycerin Sl Tabs [Nitrostat] 0.4 mg SUBLINGUAL Q5M PRN 06/03/21 07/21/21 History Ipratropium-Albuterol Nebulize 3 ml INHALATION RT-QID #120 dose 06/08/21 07/21/21 Rx [Duoneb 0.5 mg-3 mg/3 ml Soln] Allergies Allergy/AdvReac Type Severity Reaction Status Date / Time dacron AdvReac Unknown INCISION Uncoded 07/21/21 14:46 WOULD NOT HEAL Physical Exam Vitals: Vital Signs Temp Pulse Pulse Resp BP BP Pulse Ox 07/22/21 08:29 80 07/22/21 08:18 86 89 L 07/22/21 07:03 98.2 F 60 17 96/58 91 L 07/22/21 02:00 98.4 F 64 17 119/64 93 L 07/21/21 22:00 98.2 F 60 18 118/68 95 07/21/21 19:45 98 F 93 18 144/65 93 L 07/21/21 19:07 77 07/21/21 18:57 76 07/21/21 18:08 97.8 F 61 20 120/63 97 07/21/21 16:07 97.9 F 61 20 95/39 99 07/21/21 14:00 69 20 124/60 93 L 07/21/21 12:01 97.2 F L 73 22 99/43 96 Intake and Output 07/21/21 07/22/21 07/22/21 22:59 06:59 14:59 Other: Voiding Method Toilet # Voids 2 Weight 69.853 kg Results 07/21/21 21:25 07/21/21 13:56 Cardiac Enzymes 07/21/21 07/21/21 07/21/21 Range/Units 13:56 13:56 23:45 AST 53 H (14-36) U/L Troponin I 0.797 H* 0.520 H* (0.000-0.034) ng/mL Coagulation 07/21/21 Range/Units 13:56 PT 15.6 H (9.0-12.0) sec APTT 28.8 (22.0-30.0) sec CBC 07/21/21 07/21/21 Range/Units 13:56 21:25 WBC 11.8 H 9.6 (3.8-10.6) k/uL RBC 3.03 L 2.93 L (3.80-5.40) m/uL Hgb 8.4 L D 8.2 L (11.4-16.0) gm/dL Hct 27.4 L 26.8 L (34.0-46.0) % Plt Count 417 368 (150-450) k/uL Comprehensive Metabolic Panel 07/21/21 Range/Units 13:56 Sodium 136 L (137-145) mmol/L Potassium 3.8 (3.5-5.1) mmol/L Chloride 102 (98-107) mmol/L Carbon Dioxide 27 (22-30) mmol/L BUN 23 H (7-17) mg/dL Creatinine 1.29 H (0.52-1.04) mg/dL Glucose 99 (74-99) mg/dL Calcium 9.5 (8.4-10.2) mg/dL AST 53 H (14-36) U/L ALT 45 H (4-34) U/L Alkaline Phosphatase 115 (38-126) U/L Total Protein 6.1 L (6.3-8.2) g/dL Albumin 3.3 L (3.5-5.0) g/dL Current Medications Generic Name Dose Route Start Last Admin Trade Name Freq PRN Reason Stop Dose Admin Acetaminophen 650 mg 07/21/21 18:11 Acetaminophen Tab 325 Mg Tab PO Q8H PRN Mild Pain Albuterol/Ipratropium 3 ml 07/21/21 20:00 07/22/21 08:17 Ipratropium-Albuterol 3 Ml Neb INHALATION 3 ml RT-QID SOPHIE Administration Atorvastatin Calcium 40 mg 07/22/21 21:00 Atorvastatin 40 Mg Tab PO MOWEFR@2100 [facility] Budesonide/Formoterol Fumarate 2 puff 03/01/22 20:00 07/22/21 08:17 Symbicort 160-4.5 Mcg Inhaler INHALATION 2 puff RT-BID SOPHIE Administration Cholecalciferol 125 mcg 07/22/21 09:00 07/22/21 08:32 Cholecalciferol 125 Mcg (5000 Iu) Tablet PO Not Given DAILY SOPHIE Donepezil HCl 10 mg 07/21/21 21:00 07/21/21 19:59 Donepezil 10 Mg Tab PO 10 mg HS SOPHIE Administration HCTZ/Losartan Potassium 1 each 07/22/21 09:00 07/22/21 08:36 Losartan-Hctz 50-12.5 Mg 1 Each Tab PO 1 each DAILY SOPHIE Administration Levothyroxine Sodium 100 mcg 07/21/21 21:00 07/21/21 19:59 Levothyroxine 100 Mcg Tab PO 100 mcg HS SOPHIE Administration Losartan Potassium 50 mg 07/22/21 09:00 07/22/21 08:36 Losartan 50 Mg Tab PO 50 mg DAILY SOPHIE Administration Metoprolol Succinate 25 mg 07/21/21 21:00 07/21/21 19:59 Metoprolol Succinate (Er) 25 Mg Tab.Er.24h PO 25 mg HS SOPHIE Administration Multivitamins 1 each 07/22/21 09:00 07/22/21 08:32 Multivitamins, Thera 1 Each Tab PO Not Given DAILY SOPHIE Nitroglycerin 0.4 mg 07/21/21 18:11 Nitroglycerin Sl Tabs 0.4 Mg Tab SUBLINGUAL Q5M PRN Chest Pain Pantoprazole Sodium 40 mg 07/21/21 21:00 07/22/21 08:36 Pantoprazole 40 Mg/10 Ml Vial IVP 40 mg BID SOPHIE Administration Polyethylene Glycol/Electrolytes 4,000 ml 07/22/21 15:00 Peg 3350-Na Sulf,Bicarb,Cl/Kcl 4,000 Ml Bottle PO 07/22/21 15:01 ONCE ONE Intake and Output 07/21/21 07/22/21 07/22/21 22:59 06:59 14:59 Other: Voiding Method Toilet # Voids 2 Weight 69.853 kg 07/21/21 21:25 07/21/21 13:56
[2021-07-22 11:46] LABS: African American GFR (CKD) 57.5 (60.0-200.0); Albumin/Globulin Ratio 1.35 (1.60-3.17); Anion Gap 14.4 mmol/L (10.00-18.00); BUN/Creat Ratio 17.88 Ratio (12.00-20.00); Blood Urea Nitrogen 18.6 mg/dL (9.0-27.0); Calcium 9.1 mg/dL (8.7-10.3); Carbon Dioxide 18.9 mmol/L (20.0-27.5); Globulin 2.2 g/dL (1.6-3.3); Non-African American GFR(CKD) 49.7 (60.0-200.0); Potassium 3.8 mmol/L (3.5-5.5); Total Bilirubin 0.4 mg/dL (0.30-1.20); Total Protein 5.2 g/dL (6.2-8.2)
--- NOTE | 2021-07-22 14:17 | P.CONS ---
History of Present Illness - Reason for Consult Consult date: 07/22/21 Anemia Requesting physician: [facility] [place] - Chief Complaint Weakness - History of Present Illness This is [id number] white female who presented to the emergency department complaints of weakness. Started 1-2 days ago and has continued. Patient is on Coumadin for history of factor V Leiden and denies any nausea or vomiting denies any abdominal pain. States that she's been noticing some black stool 80 over the last 1-2 weeks duration. She's not taking any iron supplements. She did have elevated troponins for which cardiology has seen and cleared her. she st ates she's had a colonoscopy however she is unsure how long ago it was. She did undergo EGD by Dr. anderson in August 2020 with findings of gastritis. She denies any previous blood transfusion. Today's labs WBC 9.6 hemoglobin 8.2 hematocrit 26.8 platelet count 368,000. INR was 1.5 total bilirubin 0.4 AST 29 ALT 30 alk phos 100 Review of Systems REVIEW OF SYSTEMS: CARDIOPULMONARY: No chest pain or chronic shortness of breath. Gastrointestinal: No abdominal pain No nausea or vomiting. No hematemesis, coffee-ground emesis. Black stool x 1-2 weeks. GENITOURINARY: No dysuria or hematuria. MUSCULOSKELETAL: Reports normal range of motion., Joint pain. SKIN: No rashes. No jaundice. ENDOCRINE: No chills, fevers. No excessive weight gain or loss. No polydipsia or polyuria. PSYCHIATRIC: Unremarkable. NEUROLOGY: No change in mental status. Denies dizziness, headache. ENT: Vision unremarkable. CONSTITUTIONAL: No recent weight loss. No fever, chills, night sweats. Weakness. 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, vascular dementia, hypothyroid, benign colon polyps History of Any Multi-Drug Resistant Organisms: None Reported Past Surgical History: Heart Catheterization With Stent, Hysterectomy Additional Past Surgical History / Comment(s): carotidectomy in 2007, EGD colonoscopy Past Anesthesia/Blood Transfusion Reactions: No Reported Reaction Date of Last Stent Placement:: 02/22/2018 Past Psychological History: No Psychological Hx Reported Smoking Status: Former smoker Past Alcohol Use History: None Reported Past Drug Use History: None Reported - Past Family History Father Additional Family Medical History / Comment(s): Father at age 84 from co ronary artery disease. Mother Additional Family Medical History / Comment(s): Mother at age 90 from a bowel obstruction. Brother(s) Additional Family Medical History / Comment(s): Patient has 1 brother that is alive with no major medical problems. Sister(s) Additional Family Medical History / Comment(s): Patient has a total of 3 sisters. One has passed with complications after surgical procedure the cause of fistula. 2 other sisters are alive without major medical problems. Daughter(s) Additional Family Medical History / Comment(s): Patient has 2 daughters and one has history of kidney transplant, diabetes, stroke, coronary artery disease. One daughter has history of osteoarthritis and hip replacement. Son(s) Additional Family Medical History / Comment(s): Patient has 2 sons with no major medical problems. Medications and Allergies Home Medications Medication Instructions Recorded Confirmed Type Aspirin [Children's Aspirin] 81 mg PO HS 02/07/17 07/21/21 History Fluticasone/Salmeterol [Advair 1 puff INHALATION RT-BID 02/07/17 07/21/21 History 250-50 Diskus] Rosuvastatin [Crestor] 20 mg PO MOWEFR@2100 02/07/17 07/21/21 History Warfarin [Coumadin] 2.5 mg PO HS@2100 02/07/17 07/21/21 History Omeprazole 40 mg PO DAILY 04/30/19 07/21/21 History Levothyroxine Sodium [Synthroid] 100 mcg PO HS 03/20/20 07/21/21 History Metoprolol Succinate (ER) [Toprol 25 mg PO HS 09/10/20 07/21/21 History XL] Donepezil [Aricept] 10 mg PO HS 12/15/20 07/21/21 History Multivitamins, Thera [Multivitamin 1 tab PO DAILY 02/19/21 07/21/21 History (formulary)] Vitamin B Complex 1 cap PO DAILY 02/19/21 07/21/21 History hydrALAZINE HCL [Apresoline] 25 mg PO BID-W/MEALS 02/19/21 07/21/21 History Acetaminophen [Tylenol Arthritis] 650 mg PO Q8H PRN 06/03/21 07/21/21 History Cholecalciferol [Vitamin D3 (125 125 mcg PO DAILY 06/03/21 07/21/21 History Mcg = 5000 Iu)] Losartan/Hydrochlorothiazide 1 tab PO DAILY 06/03/21 07/21/21 History [Losartan-Hctz 100-12.5 mg Tab] Nitroglycerin Sl Tabs [Nitrostat] 0.4 mg SUBLINGUAL Q5M PRN 06/03/21 07/21/21 History Ipratropium-Albuterol Nebulize 3 ml INHALATION RT-QID #120 dose 06/08/21 07/21/21 Rx [Duoneb 0.5 mg-3 mg/3 ml Soln] Allergies Allergy/AdvReac Type Severity Reaction Status Date / Time dacron AdvReac Unknown INCISION Uncoded 07/21/21 14:46 WOULD NOT HEAL Physical Exam Vitals: Vital Signs Temp Pulse Pulse Resp BP BP Pulse Ox 07/22/21 07:03 98.2 F 60 17 96/58 91 L 07/22/21 02:00 98.4 F 64 17 119/64 93 L 07/21/21 22:00 98.2 F 60 18 118/68 95 07/21/21 19:45 98 F 93 18 144/65 93 L 07/21/21 19:07 77 07/21/21 18:57 76 07/21/21 18:08 97.8 F 61 20 120/63 97 07/21/21 16:07 97.9 F 61 20 95/39 99 07/21/21 14:00 69 20 124/60 93 L 07/21/21 12:01 97.2 F L 73 22 99/43 96 Intake and Output 07/21/21 07/22/21 07/22/21 22:59 06:59 14:59 Other: Voiding Method Toilet # Voids 2 Weight 69.853 kg General appearance: The patient is alert, oriented, appears in no acute distress. HET: Head is normocephalic and atraumatic. Conjunctiva pink. Sclera anicteric. Neck: Supple without lymphadenopathy. Trachea midline. Heart: S1 S2. Regular rate and rhythm. Lungs: Clear to auscultation. Abdomen: Soft, nontender, nondistended with bowel sounds. No guarding or rigidity. Skin: No rashes. No jaundice. Extremities: Normal skin color and turgor. No pedal edema. Neurological: No focal deficits. Alert and oriented x3. Results CBC & Chem 7: 07/21/21 21:25 07/22/21 04:46 Labs: Abnormal Lab Results - Last 24 Hours (Table) 07/21/21 07/21/21 07/21/21 Range/Units 13:56 13:56 13:56 WBC 11.8 H (3.8-10.6) k/uL RBC 3.03 L (3.80-5.40) m/uL Hgb 8.4 L D (11.4-16.0) gm/dL Hct 27.4 L (34.0-46.0) % MCHC 30.8 L (31.0-37.0) g/dL RDW 15.6 H (11.5-15.5) % Neutrophils # (Manual) 8.80 H (1.3-7.7) k/uL Nucleated RBCs 1 H (0-0) /100 WBC PT 15.6 H (9.0-12.0) sec INR 1.5 H (<1.2) Sodium 136 L (137-145) mmol/L BUN 23 H (7-17) mg/dL Creatinine 1.29 H (0.52-1.04) mg/dL AST 53 H (14-36) U/L ALT 45 H (4-34) U/L Troponin I (0.000-0.034) ng/mL Total Protein 6.1 L (6.3-8.2) g/dL Albumin 3.3 L (3.5-5.0) g/dL TSH 0.141 L (0.465-4.680) mIU/L Free T4 2.22 H (0.78-2.19) ng/dL Urine Protein (Negative) Ur Leukocyte Esterase (Negative) Urine WBC (0-5) /hpf Urine Bacteria (None) /hpf Urine Mucus (None) /hpf 07/21/21 07/21/21 07/21/21 Range/Units 13:56 21:25 21:45 WBC (3.8-10.6) k/uL RBC 2.93 L (3.80-5.40) m/uL Hgb 8.2 L (11.4-16.0) gm/dL Hct 26.8 L (34.0-46.0) % MCHC 30.5 L (31.0-37.0) g/dL RDW (11.5-15.5) % Neutrophils # (Manual) (1.3-7.7) k/uL Nucleated RBCs (0-0) /100 WBC PT (9.0-12.0) sec INR (<1.2) Sodium (137-145) mmol/L BUN (7-17) mg/dL Creatinine (0.52-1.04) mg/dL AST (14-36) U/L ALT (4-34) U/L Troponin I 0.797 H* (0.000-0.034) ng/mL Total Protein (6.3-8.2) g/dL Albumin (3.5-5.0) g/dL TSH (0.465-4.680) mIU/L Free T4 (0.78-2.19) ng/dL Urine Protein Trace H (Negative) Ur Leukocyte Esterase Moderate H (Negative) Urine WBC 12 H (0-5) /hpf Urine Bacteria Rare H (None) /hpf Urine Mucus Rare H (None) /hpf 07/21/21 Range/Units 23:45 WBC (3.8-10.6) k/uL RBC (3.80-5.40) m/uL Hgb (11.4-16.0) gm/dL Hct (34.0-46.0) % MCHC (31.0-37.0) g/dL RDW (11.5-15.5) % Neutrophils # (Manual) (1.3-7.7) k/uL Nucleated RBCs (0-0) /100 WBC PT (9.0-12.0) sec INR (<1.2) Sodium (137-145) mmol/L BUN (7-17) mg/dL Creatinine (0.52-1.04) mg/dL AST (14-36) U/L ALT (4-34) U/L Troponin I 0.520 H* (0.000-0.034) ng/mL Total Protein (6.3-8.2) g/dL Albumin (3.5-5.0) g/dL TSH (0.465-4.680) mIU/L Free T4 (0.78-2.19) ng/dL Urine Protein (Negative) Ur Leukocyte Esterase (Negative) Urine WBC (0-5) /hpf Urine Bacteria (None) /hpf Urine Mucus (None) /hpf Microbiology - Last 24 Hours (Table) 07/21/21 21:45 Urine Culture - Preliminary Urine,Voided Assessment and Plan (1) Anemia Narrative/Plan: 85-year-old who presented to the emergency department with complaints of weakness was noted to be anemic. Hemoglobin was 8.4which was a significant drop from May of this year where she was at 12.4. Patient denies any abdominal pain, nausea or vomiting. She is on Coumadin for factor V Leiden. She does state that she has had some notable darker/black stool or last 1-2 weeks duration. She has had a previous EGD with Dr. anderson in August 2020 that showed gastritis. INR was 1.5 on admission.unknown etiology, possibilities include AVM, gastritis, esophagitis, peptic ulcer disease or other possible etiologies. We'll proceed with anemia workup as well as EGD colonoscopy tomorrow. Current Visit: Yes Status: Acute Code(s): D64.9 - ANEMIA, UNSPECIFIED SNOMED Code(s): 101421457 (2) Melena Current Visit: Yes Status: Acute Code(s): K92.1 - MELENA SNOMED Code(s): 9207703 (3) Elevated troponin Narrative/Plan: cardiology following patient, try not indicative of acute coronary syndrome according to cardiology Current Visit: Yes Status: Acute Code(s): R77.8 - OTHER SPECIFIED ABNORMALITIES OF PLASMA PROTEINS SNOMED Code(s): 991125209 (4) Factor V Leiden Current Visit: Yes Status: Acute Code(s): D68.51 - ACTIVATED PROTEIN C RESISTANCE SNOMED Code(s): 685439995 Plan: 1. Continue symptomatic and supportive care 2. Clear liquid diet, nothing by mouth after midnight 3. Bowel prep this afternoon 4. Daily CBC, transfuse per protocol 5. Anemia panel ordered 6. Will proceed with EGD and colonoscopy tomorrow. Procedure discussed with patient including risks and benefits. Patient willing to proceed. Thank you for this consultation, we will continue to follow. Dr. Jennifer Ruano I agree with the dictator's note, documented as a scribe by Anabell Lopez.
[2021-07-22] MEDS ORDERED: PEG 3350-NA SULF,BICARB,CL/KCL 4,000 ML BOTTLE PO ONE (15:00)
[2021-07-22 15:55] LABS: Ferritin 37.3 ng/mL (10.0-291.0)
[2021-07-22 15:56] LABS: % Iron Saturation 2.52 (12.00-45.00)
[2021-07-22] MEDS: LEVOTHYROXINE 100 MCG TAB PO SCH (20:26)
[2021-07-22] MEDS: DONEPEZIL 10 MG TAB PO SCH (20:26)
[2021-07-22] MEDS: ATORVASTATIN 40 MG TAB PO SCH (20:26)
[2021-07-22] MEDS: METOPROLOL SUCCINATE (ER) 25 MG TAB.ER.24H PO SCH (20:26)
[2021-07-23] MEDS: CHOLECALCIFEROL 125 MCG (5000 IU) TABLET PO SCH (07:43)
[2021-07-23] MEDS: MULTIVITAMINS, THERA 1 EACH TAB PO SCH (07:43)
[2021-07-23] MEDS: PANTOPRAZOLE 40 MG/10 ML VIAL IVP SCH ×2 (07:48→21:57)
[2021-07-23] MEDS: LOSARTAN 50 MG TAB PO SCH (07:48)
[2021-07-23] MEDS: LOSARTAN-HCTZ 50-12.5 MG 1 EACH TAB PO SCH (07:48)
[2021-07-23] MEDS: IPRATROPIUM-ALBUTEROL 3 ML NEB INHALATION SCH ×4 (08:29→20:28)
[2021-07-23] MEDS: SYMBICORT 160-4.5 MCG INHALER INHALATION SCH ×2 (08:29→20:28)
[2021-07-23 09:30] LABS: African American GFR (CKD) 68.5 (60.0-200.0); Albumin/Globulin Ratio 1.43 (1.60-3.17); Anion Gap 9.8 mmol/L (10.00-18.00); Blood Urea Nitrogen 13.5 mg/dL (9.0-27.0); Calcium 8.7 mg/dL (8.7-10.3); Carbon Dioxide 22.2 mmol/L (20.0-27.5); Globulin 2.1 g/dL (1.6-3.3); Non-African American GFR(CKD) 59.1 (60.0-200.0); Potassium 3.6 mmol/L (3.5-5.5); Total Bilirubin 0.3 mg/dL (0.30-1.20); Total Protein 5.1 g/dL (6.2-8.2)
[2021-07-23 12:00] LABS: HCT 24.3 % (37.2-46.3); MCH 25.8 pg (27.0-32.0); MCHC 28.8 g/dL (32.0-37.0); MCV 89.7 fL (80.0-97.0); Mean Platelet Volume 10.8 fL (9.5-12.2); NRBC Per 100 WBC 0.7 /100 WBCS (0.0-0.0); Platelet Count 343 X 10*3/uL (140-440); RBC 2.71 X 10*6/uL (4.10-5.20); RDW 16.4 % (11.5-14.5); WBC 8.89 X 10*3/uL (4.50-10.00)
[2021-07-23] MEDS ORDERED: IV FLUID CONTINUATION 1,000 ML IV ONE (12:48)
[2021-07-23] MEDS ORDERED: SODIUM CHLORIDE 0.9% 500 ML 500 ML IV ONE (13:12)
--- NOTE | 2021-07-23 13:23 | P.PCN ---
Date of Procedure: 07/23/21 Procedure(s) Performed: Brief history: Patient is a pleasant 85-year-old white female scheduled for an upper endoscopy as well as colonoscopy as a part of evaluation of severe symptomatic anemia and hemoglobin of 6.5 g/dL requiring be transferred has history of A. fib and is on Coumadin which currently on hold. She denies any active bleeding. Procedure performed: Esophagogastroduodenoscopy with argon plasma coagulation Colonoscopy Preoperative diagnosis: Severe symptomatic anemia Anesthesia: MAC Procedure: After informed consent was obtained from the patient was brought into the endoscopy unit and IV sedation was administered by anesthesia under continuous monitoring. Initially upper endoscopy was done. The Olympus GF 160 video endoscope was inserted inserted into the mouth and esophagus intubated without any difficulty and was gradually advanced into the stomach and duodenum and carefully examined. The bulb and second part of the duodenum appeared normal. The scope was then withdrawn into the stomach adequately insufflated with air and upon careful examination the antrum appeared normal. The body the stomach there were 5-6 small nonbleeding arteriovenous malformations which were Coagulated using argon plasma. The rest of the body, cardia and fundus appeared normal. The scope was then withdrawn into the esophagus. The GE junction was located at 40 cm to the incisors. It appeared regular with no erythema erosions or ulcerations. Rest of the esophagus appeared normal. Patient tolerated the procedure well. At this time the patient continued to remain sedation. Initial digital rectal examination was normal. Olympus CF 160 video colonoscope was then inserted into the rectum and gradually advanced to the cecum without any difficulty. Careful examination was performed as the scope was gradually being withdrawn. The prep was excellent. The cecum, ascending colon, transverse colon, descending colon, sigmoid colon and rectum appeared normal. Sigmoid diverticulosis seen. Retroflexion was performed in the rectum and no lesions were noted. Patient tolerated the procedure well. Impression: 1. 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 Colonoscopy revealed scattered sigmoid diverticulosis but no evidence of angiectasia, colitis or colorectal neoplasia Recommendations: Findings of this examination were discussed with the patient as well as her family. . Will be advanced as tolerated. Anticoagulation patient can be resumed tomorrow.
[2021-07-23] MEDS: LEVOTHYROXINE 100 MCG TAB PO SCH (21:18)
[2021-07-23] MEDS: DONEPEZIL 10 MG TAB PO SCH (21:18)
[2021-07-23] MEDS: METOPROLOL SUCCINATE (ER) 25 MG TAB.ER.24H PO SCH (21:18)
[2021-07-23] MEDS: ATORVASTATIN 40 MG TAB PO SCH (21:18)
[2021-07-24] MEDS ORDERED: LACTATED RINGERS 1,000 ML IV SCH (06:49)
[2021-07-24] MEDS ORDERED: LIDOCAINE 1% (10MG/ML) FOR IV START INTRADERMA PRN (06:49)
[2021-07-24] MEDS: PANTOPRAZOLE 40 MG/10 ML VIAL IVP SCH (07:54)
[2021-07-24] MEDS: MULTIVITAMINS, THERA 1 EACH TAB PO SCH (08:31)
[2021-07-24] MEDS: CHOLECALCIFEROL 125 MCG (5000 IU) TABLET PO SCH (08:31)
[2021-07-24] MEDS: LOSARTAN 50 MG TAB PO SCH (08:32)
[2021-07-24] MEDS: LOSARTAN-HCTZ 50-12.5 MG 1 EACH TAB PO SCH (08:32)
[2021-07-24] MEDS: IPRATROPIUM-ALBUTEROL 3 ML NEB INHALATION SCH ×4 (08:47→19:46)
[2021-07-24] MEDS: SYMBICORT 160-4.5 MCG INHALER INHALATION SCH ×2 (08:47→19:46)
[2021-07-24 09:02] LABS: HGB 8.1 gm/dL (11.4-16.0); Hypochromasia Marked; MCH 27.3 pg (25.0-35.0); MCHC 30.1 g/dL (31.0-37.0); MCV 90.6 fL (80.0-100.0); Mean Platelet Volume 8.9; Platelet Count 306 k/uL (150-450); Poikilocytosis Moderate; RBC 2.98 m/uL (3.80-5.40); RDW 15.9 % (11.5-15.5); WBC 11.2 k/uL (3.8-10.6)
[2021-07-24 09:17] LABS: ALT 29 U/L (4-34); African American GFR (CKD) 56 (>60 ml/min/1.73 sqM); Albumin 2.7 g/dL (3.5-5.0); Anion Gap 3 mmol/L; Blood Urea Nitrogen 13 mg/dL (7-17); Calcium 8.8 mg/dL (8.4-10.2); Carbon Dioxide 20 mmol/L (22-30); Chloride 114 mmol/L (98-107); Globulin 2.8 g/dL; Glucose 106 mg/dL (74-99); Non-African American GFR(CKD) 48 (>60 ml/min/1.73 sqM); Sodium 137 mmol/L (137-145); Total Bilirubin 0.9 mg/dL (0.2-1.3); Total Protein 5.5 g/dL (6.3-8.2)
[2021-07-24 09:29] LABS: AST 44 U/L (14-36); Alkaline Phosphatase 101 U/L (38-126); Potassium 3.8 mmol/L (3.5-5.1)
[2021-07-24 10:25] LABS: Band Neutrophils % 1 %; Eosinophils # (M) 0.22 k/uL (0-0.7); Lymphocytes # (M) 1.68 k/uL (1.0-4.8); Neutrophils % (M) 74 %; Nucleated Red Blood Cells 0 /100 WBC (0-0); Total Cells Counted 100
--- NOTE | 2021-07-24 12:00 | P.PN ---
Subjective Progress Note Date: 07/24/21 Principal diagnosis: Anemia, GI bleed 85-year-old female who has a history of atrial fibrillation on Coumadin presented for severe symptomatic anemia with a hemoglobin of 6.5. She required blood transfusion and Coumadin was on hold. She underwent EGD and colonoscopy yesterday as part of evaluation for anemia and possible GI bleed. EGD revealed nonbleeding arteriovenous malformation in the gastric body that were coagulated using argon plasma with good hemostasis, colonoscopy revealed scattered sigmoid diverticulosis but no evidence of angiectasia colitis or colorectal neoplasia. Today she seen and examined and states she's not had any further bowel movements. She denies any abdominal pain, nausea or vomiting. She is tolerating her diet. Hemoglobin improved to 8.1. Objective - Vital Signs Vital signs: Vital Signs Temp 98.1 F 07/24/21 08:00 Pulse 88 07/24/21 08:57 Resp 16 07/24/21 08:00 BP 137/54 07/24/21 08:00 Pulse Ox 91 L 07/24/21 08:00 Intake & Output 07/23/21 07/24/21 07/24/21 18:59 06:59 18:59 Intake Total 100 Balance 100 Intake: IV 100 Other: # Voids 1 # Bowel Movements 0 - Exam General appearance: The patient is alert, oriented, appears in no acute distress. HET: Head is normocephalic and atraumatic. Conjunctiva pink. Sclera anicteric. Neck: Supple without lymphadenopathy. Abdomen: Soft, nontender, nondistended with bowel sounds. No guarding or rigidity. Extremities: Normal skin color and turgor. No pedal edema Skin: No rashes, no jaundice Neurological: No focal deficits. Alert and oriented X 3. - Labs CBC & Chem 7: 07/24/21 07:49 07/24/21 07:49 Labs: Abnormal Lab Results - Last 24 Hours (Table) 07/23/21 07/23/21 Range/Units 04:42 04:42 RBC 2.71 L (4.10-5.20) X 10*6/uL Hgb 7.0 L (12.0-15.0) g/dL Hct 24.3 L (37.2-46.3) % MCH 25.8 L (27.0-32.0) pg MCHC 28.8 L (32.0-37.0) g/dL RDW 16.4 H (11.5-14.5) % Absolute Nucleated RBC 0.06 H (0.00-0.00) X 10*3/uL NRBC/100 WBC Diff 0.7 H (0.0-0.0) /100 WBCS Chloride 110 H (96-109) mmol/L Anion Gap 9.80 L (10.00-18.00) mmol/L Est GFR (CKD-EPI)NonAf 59.1 L (60.0-200.0) Total Protein 5.1 L (6.2-8.2) g/dL Albumin 3.0 L (3.8-4.9) g/dL Albumin/Globulin Ratio 1.43 L (1.60-3.17) g/dL Microbiology - Last 24 Hours (Table) 07/21/21 21:45 Urine Culture - Final Urine,Voided Assessment and Plan (1) Anemia Narrative/Plan: 85-year-old who presented to the emergency department with complaints of weakness was noted to be anemic. Hemoglobin was 8.4which was a significant drop from May of this year where she was at 12.4. Patient denies any abdominal pain, nausea or vomiting. She is on Coumadin for factor V Leiden. She does state that she has had some notable darker/black stool or last 1-2 weeks duration. She has had a previous EGD with Dr. anderson in August 2020 that showed gastritis. INR was 1.5 on admission.unknown etiology, possibilities include AVM, gastritis, esophagitis, peptic ulcer disease or other possible etiologies. She underwent EGD and colonoscopy. Upper endoscopy found nonbleeding arteriovenous malformation in the gastric body status post argon plasma coagulation and colonoscopy found sigmoid diverticulosis. Current Visit: Yes Status: Acute Code(s): D64.9 - ANEMIA, UNSPECIFIED SNOMED Code(s): 908895344 (2) Melena Current Visit: Yes Status: Acute Code(s): K92.1 - MELENA SNOMED Code(s): 6227466 (3) Elevated troponin Narrative/Plan: cardiology following patient, try not indicative of acute coronary syndrome according to cardiology Current Visit: Yes Status: Acute Code(s): R77.8 - OTHER SPECIFIED ABNORMALITIES OF PLASMA PROTEINS SNOMED Code(s): 609129928 (4) Factor V Leiden Current Visit: Yes Status: Acute Code(s): D68.51 - ACTIVATED PROTEIN C RESISTANCE SNOMED Code(s): 138651855 Plan: 1. Continue symptomatic and supportive care 2. Continue regular diet 3. May resume Coumadin 4. Daily CBC, transfuse per protocol 5. Patient is cleared for discharge from gastroenterology was otherwise m edically stable. Thank you for allowing us to participate in the care of the patient, the GI service will sign off, gastroenterology will not be available at the hospital this weekend and through next week. If further evaluation by gastroenterology is required the patient will need transfer as per the primary team's discretion. Dr. Jennifer Ruano I agree with the dictator's note, documented as a scribe by Anabell Lopez.
[2021-07-24] MEDS ORDERED: SODIUM FERRIC GLUCONAT-SUCROSE 125 MG in SODIUM CHLORIDE 0.9% 100 ML IVPB ONE (15:09)
[2021-07-24] MEDS: hydrALAZINE HCL 25 MG TAB PO SCH (17:25)
[2021-07-24 18:18] LABS: INR 1.2 (<1.2); Prothrombin Time 12.8 sec (9.0-12.0)
[2021-07-24] MEDS: LEVOTHYROXINE 100 MCG TAB PO SCH (20:16)
[2021-07-24] MEDS: DONEPEZIL 10 MG TAB PO SCH (20:16)
[2021-07-24] MEDS: METOPROLOL SUCCINATE (ER) 25 MG TAB.ER.24H PO SCH (20:16)
[2021-07-24] MEDS: ATORVASTATIN 40 MG TAB PO SCH (20:17)
[2021-07-24] MEDS ORDERED: WARFARIN 2.5 MG TAB PO SCH (21:00)
[2021-07-25] MEDS: LOSARTAN 50 MG TAB PO SCH (08:16)
[2021-07-25] MEDS: LOSARTAN-HCTZ 50-12.5 MG 1 EACH TAB PO SCH (08:16)
[2021-07-25] MEDS: hydrALAZINE HCL 25 MG TAB PO SCH (08:16)
[2021-07-25] MEDS: PANTOPRAZOLE 40 MG TABLET PO SCH (08:18)
[2021-07-25] MEDS: CHOLECALCIFEROL 125 MCG (5000 IU) TABLET PO SCH (08:18)
[2021-07-25] MEDS: MULTIVITAMINS, THERA 1 EACH TAB PO SCH (08:18)
[2021-07-25 08:39] LABS: Basophils # (A) 0.05 X 10*3/uL (0.00-0.10); Basophils % (A) 0.3 %; Eosinophils # (A) 0 X 10*3/uL (0.04-0.35); Eosinophils % (A) 0 %; HCT 25.6 % (37.2-46.3); HGB 7.5 g/dL (12.0-15.0); Immature Grans, Automated 0.7 %; Lymphocytes # (A) 3.82 X 10*3/uL (0.90-5.00); Lymphocytes % (A) 25.6 %; MCH 25.7 pg (27.0-32.0); MCHC 29.3 g/dL (32.0-37.0); MCV 87.7 fL (80.0-97.0); Mean Platelet Volume 10.6 fL (9.5-12.2); Monocytes # (A) 0.84 X 10*3/uL (0.20-1.00); Monocytes % (A) 5.6 %; NRBC Per 100 WBC 1.4 /100 WBCS (0.0-0.0); Neutrophils # (A) 10.09 X 10*3/uL (1.80-7.70); Neutrophils % (A) 67.8 %; Platelet Count 257 X 10*3/uL (140-440); RBC 2.92 X 10*6/uL (4.10-5.20); RDW 16.9 % (11.5-14.5)
[2021-07-25] MEDS: IPRATROPIUM-ALBUTEROL 3 ML NEB INHALATION SCH ×4 (08:51→19:26)
[2021-07-25] MEDS: SYMBICORT 160-4.5 MCG INHALER INHALATION SCH ×2 (08:51→19:26)
[2021-07-25] MEDS ORDERED: SODIUM CHLORIDE 0.9% 1,000 ML IV ONE ×3 (09:26→19:10)
[2021-07-25 09:34] LABS: INR 1.23 (0.90-1.11); Prothrombin Time 13.8 sec (9.9-11.9)
[2021-07-25 09:39] LABS: African American GFR (CKD) 29.6 (60.0-200.0); Albumin/Globulin Ratio 1.36 (1.60-3.17); BUN/Creat Ratio 7.56 Ratio (12.00-20.00); Blood Urea Nitrogen 13.6 mg/dL (9.0-27.0); Globulin 2.2 g/dL (1.6-3.3); Non-African American GFR(CKD) 25.6 (60.0-200.0); Potassium 3.8 mmol/L (3.5-5.5); Total Bilirubin 0.7 mg/dL (0.30-1.20); Total Protein 5.2 g/dL (6.2-8.2)
--- NOTE | 2021-07-25 09:40 | XR ---
EXAMINATION TYPE: XR chest 1V portable DATE OF EXAM: 07/25/2021 HISTORY: Shortness of breath. COMPARISON: 07/21/2021 TECHNIQUE: Single view of the chest is submitted. FINDINGS: Demonstrated are scattered senescent parenchymal change. Small left pleural effusion with pulmonary venous congestion mild cardiomegaly. Hilar and mediastinal structures are within normal limits. Degenerative changes are seen of the dorsal spine. IMPRESSION: 1. Small left pleural effusion with pulmonary venous congestion mild cardiomegaly.
--- NOTE | 2021-07-25 09:47 | P.HPIM ---
History of Present Illness H&P Date: 07/21/21 Chief Complaint: GI bleed HISTORY OF PRESENT ILLNESS This is an 84-year-old female patient of Dr. Bertrand and Dr. 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, remote history of tobacco use and dependence, patient was seen in my office as her day with generalized weakness and increased dizziness and hypotension with not able to do anything, associated with increased shortness breath, she was requiring about 3-4 L cannula usually she is on 2 L nasal cannula, patient stated that she has been having some dark stool for the last 48 hours, and her appetite was down, patient was sent to the emergency department for evaluation her initial hemoglobin was lower than normal she did drop about 3 g for the prior hemoglobin, and the patient was admitted to the hospital for possible upper GI bleed, patient type and cross and place and hold 2 units of packed red blood cells, she was taken off aspirin and Coumadin she was started on Protonix 40 mg IV push every 12 hours, GI consultation was obtained, patient surprisingly had a troponin that was positive at cardiology consultation was obtained for further evaluation and recommendation. REVIEW OF SYSTEMS Constitutional: No fever, no chills, no night sweats. No weight change. Reports weakness, Reports fatigue or lethargy. No daytime sleepiness. HEENT: No headache. No blurred vision or double vision, no loss of vision. hard of Hearing, no ringing in the ears, no dizziness. No nasal drainage or congestion. No epistaxis. No sore throat. Lungs: No shortness of breath, cough, no sputum production. No wheezing. Cardiovascular: No chest pain, no lower extremity edema. No palpitations. No paroxysmal nocturnal dyspnea. No orthopnea. No lightheadedness or dizziness. No syncopal episodes. Abdominal: No abdominal pain. No nausea, vomiting. No diarrhea. No constipation, positive for black tarry stool, positive for poor appetite. Genitourinary: No dysuria, increased frequency, urgency. No urinary retention. Musculoskeletal: No myalgias. Reports muscle weakness, Reports gait dysfunction, no frequent falls. No back pain. No neck pain. Integumentary: No wounds, no lesions. No rash or pruritus. No unusual bruising. No change in hair or nails. Neurologic: No aphasia. No facial droop. No change in mentation. No head injury. No headache. No paralysis. No paresthesia. Psychiatric: No depression. No anxiety. No mood swings. Endocrine: No abnormal blood sugars. 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 No alcohol, marijuana or illicit drug use. FAMILY HISTORY Father at age 84 from coronary artery disease. Mother at age 90 from a bowel obstruction. Patient has 1 brother that is alive with no major medical problems. Patient has a total of 3 sisters. One has passed with complications after surgical procedure the cause of fistula. 2 other sisters are alive without major medical problems. Patient has 2 daughters and one has history of kidney transplant, diabetes, stroke, coronary artery disease. One daughter has history of osteoarthritis and hip replacement. Patient has 2 sons with no major medical problems. PHYSICAL EXAMINATION Gen: This is an 85-year-old female who is laying down in bed appears to be generally weak. HEENT: Head is atraumatic, normocephalic. Pupils equal, round, conjunctivae were pale, mucus brain and muscle somewhat dry, sclera nonicteric, extraocular muscle motor intact. NECK: Supple. No JVD. No lymphadenopathy. No thyromegaly. LUNGS: decrease breath sound at bases, few rhonchi, no expiratory wheezes, no chest wall tenderness, no intercostal retractions. HEART : First heart sound is depressed, second heart sound is normal, there is 2/6 systolic ejection murmur at the left sternal border. No S3, no S4. ABDOMEN: Soft, nontender, nondistended, positive bowel sounds, no hepatomegaly, no rebound or guarding. EXTREMITIES: No pedal edema. No calf tenderness. Dorsalis pedis +2 bilaterally. NEUROLOGICAL: Patient is awake, alert and oriented x3. Cranial nerves 2 through 12 are grossly intact, muscle power 5 out of 5 in upper and lower extremities bilaterally ASSESSMENT AND PLAN 1. Upper GI bleed likely , keep the patient on clear liquid diet, start the patient on Protonix 40 mg IV push every 12 hours, GI consultation, for EGD and colonoscopy, type and cross and transfuse blood for hemoglobin less than 7 we will continue with serial hemoglobin and hematocrit every 6 hours for the next 24 hours. 2. Elevated troponin likely related to significant anemia rule out non-ST e levation CT. Patient will be off aspirin for now continue patient on metoprolol, continue patient on statin, cardiology consultation is in order. 3. acute on chronic hypoxemic respiratory failure due to underlying COPD with significant anemia. Continue patient on Symbicort, continue patient on oxygen, keep her saturation greater than 93%,continue patient on DuoNeb, monitor the patient very closely. 4. Acute blood loss anemia due to upper GI bleed. Type and cross and transfuse 2 units of packed red blood cells for hemoglobin less than 7. 5. History of coronary artery disease with previous PCI to the RCA 2017. Patient has been off aspirin, continue with metoprolol ER 25 mg of the time, continue losartan 50 mg orally once every day, discontinue hydralazine for now. 6. Hypertension and hypertensive cardiovascular disease. Continue patient on Toprol-XL 25 mg orally once every day, continue losartan 50 mg once every day discontinue hydralazine. 7. Hyperlipidemia. Continue patient on atorvastatin 40 mg once every day. 8. Hypothyroidism. Continue levothyroxine 100 g daily. 9. 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 Hold off coumadin due to GI bleed 10. Vascular dementia. Continue Aricept 10 mg daily. 11. History of CVA.we will continue patient on atorvastatin 40 mg once every day, currently off aspirin and Coumadin due to GI bleed. 12. Carotid artery disease status post endarterectomy. 13. Gastroesophageal reflux disease. Continue Protonix 40 mg IVP every 12 hours. 14. DVT prophylaxis. Patient is currently off anticoagulation completely due to GI bleed. 15. COVID-19 testing negative. Patient has been hospitalized during a pandemic. Patient will be admitted to the hospital for a minimum of 2 night stay. 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, vascular dementia, hypothyroid, benign colon polyps History of Any Multi-Drug Resistant Organisms: None Reported Past Surgical History: Heart Catheterization With Stent, Hysterectomy Additional Past Surgical History / Comment(s): carotidectomy in 2007, EGD colonoscopy Past Anesthesia/Blood Transfusion Reactions: No Reported Reaction Date of Last Stent Placement:: 02/22/2018 Past Psychological History: No Psychological Hx Reported Smoking Status: Former smoker Past Alcohol Use History: None Reported Past Drug Use History: None Reported - Past Family History Father Additional Family Medical History / Comment(s): Father at age 84 from coronary artery disease. Mother Additional Family Medical History / Comment(s): Mother at age 90 from a gaetano wel obstruction. Brother(s) Additional Family Medical History / Comment(s): Patient has 1 brother that is alive with no major medical problems. Sister(s) Additional Family Medical History / Comment(s): Patient has a total of 3 sisters. One has passed with complications after surgical procedure the cause of fistula. 2 other sisters are alive without major medical problems. Daughter(s) Additional Family Medical History / Comment(s): Patient has 2 daughters and one has history of kidney transplant, diabetes, stroke, coronary artery disease. One daughter has history of osteoarthritis and hip replacement. Son(s) Additional Family Medical History / Comment(s): Patient has 2 sons with no major medical problems. Medications and Allergies Home Medications Medication Instructions Recorded Confirmed Type Aspirin [Children's Aspirin] 81 mg PO HS 02/07/17 07/21/21 History Fluticasone/Salmeterol [Advair 1 puff INHALATION RT-BID 02/07/17 07/21/21 History 250-50 Diskus] Rosuvastatin [Crestor] 20 mg PO MOWEFR@2100 02/07/17 07/21/21 History Warfarin [Coumadin] 2.5 mg PO HS@209902/07/17 07/21/21 History Omeprazole 40 mg PO DAILY 04/30/19 07/21/21 History Levothyroxine Sodium [Synthroid] 100 mcg PO HS 03/20/20 07/21/21 History Metoprolol Succinate (ER) [Toprol 25 mg PO HS 09/10/20 07/21/21 History XL] Donepezil [Aricept] 10 mg PO HS 12/15/20 07/21/21 History Multivitamins, Thera [Multivitamin 1 tab PO DAILY 02/19/21 07/21/21 History (formulary)] Vitamin B Complex 1 cap PO DAILY 02/19/21 07/21/21 History hydrALAZINE HCL [Apresoline] 25 mg PO BID-W/MEALS 02/19/21 07/21/21 History Acetaminophen [Tylenol Arthritis] 650 mg PO Q8H PRN 06/03/21 07/21/21 History Cholecalciferol [Vitamin D3 (125 125 mcg PO DAILY 06/03/21 07/21/21 History Mcg = 5000 Iu)] Losartan/Hydrochlorothiazide 1 tab PO DAILY 06/03/21 07/21/21 History [Losartan-Hctz 100-12.5 mg Tab] Nitroglycerin Sl Tabs [Nitrostat] 0.4 mg SUBLINGUAL Q5M PRN 06/03/21 07/21/21 History Ipratropium-Albuterol Nebulize 3 ml INHALATION RT-QID #120 dose 06/08/21 07/21/21 Rx [Duoneb 0.5 mg-3 mg/3 ml Soln] Allergies Allergy/AdvReac Type Severity Reaction Status Date / Time dacron AdvReac Unknown INCISION Uncoded 07/21/21 14:46 WOULD NOT HEAL Physical Exam Vitals: Vital Signs Temp Pulse Resp BP Pulse Ox 07/21/21 18:08 97.8 F 61 20 120/63 97 07/21/21 16:07 97.9 F 61 20 95/39 99 07/21/21 14:00 69 20 124/60 93 L 07/21/21 12:01 97.2 F L 73 22 99/43 96 Intake and Output 07/21/21 07/21/21 07/21/21 06:59 14:59 22:59 Other: Weight 69.853 kg Results CBC & Chem 7: 07/25/21 05:46 07/24/21 07:49 Labs: Abnormal Lab Results - Last 24 Hours (Table) 07/21/21 07/21/21 07/21/21 Range/Units 13:56 13:56 13:56 WBC 11.8 H (3.8-10.6) k/uL RBC 3.03 L (3.80-5.40) m/uL Hgb 8.4 L D (11.4-16.0) gm/dL Hct 27.4 L (34.0-46.0) % MCHC 30.8 L (31.0-37.0) g/dL RDW 15.6 H (11.5-15.5) % Neutrophils # (Manual) 8.80 H (1.3-7.7) k/uL Nucleated RBCs 1 H (0-0) /100 WBC PT 15.6 H (9.0-12.0) sec INR 1.5 H (<1.2) Sodium 136 L (137-145) mmol/L BUN 23 H (7-17) mg/dL Creatinine 1.29 H (0.52-1.04) mg/dL AST 53 H (14-36) U/L ALT 45 H (4-34) U/L Troponin I (0.000-0.034) ng/mL Total Protein 6.1 L (6.3-8.2) g/dL Albumin 3.3 L (3.5-5.0) g/dL TSH 0.141 L (0.465-4.680) mIU/L Free T4 2.22 H (0.78-2.19) ng/dL 07/21/21 Range/Units 13:56 WBC (3.8-10.6) k/uL RBC (3.80-5.40) m/uL Hgb (11.4-16.0) gm/dL Hct (34.0-46.0) % MCHC (31.0-37.0) g/dL RDW (11.5-15.5) % Neutrophils # (Manual) (1.3-7.7) k/uL Nucleated RBCs (0-0) /100 WBC PT (9.0-12.0) sec INR (<1.2) Sodium (137-145) mmol/L BUN (7-17) mg/dL Creatinine (0.52-1.04) mg/dL AST (14-36) U/L ALT (4-34) U/L Troponin I 0.797 H* (0.000-0.034) ng/mL Total Protein (6.3-8.2) g/dL Albumin (3.5-5.0) g/dL TSH (0.465-4.680) mIU/L Free T4 (0.78-2.19) ng/dL
--- NOTE | 2021-07-25 09:54 | P.PN ---
Subjective Progress Note Date: 07/24/21 HISTORY OF PRESENT ILLNESS This is an 84-year-old female patient of Dr. Bertrand and Dr. 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, remote history of tobacco use and dependence, patient was seen in my office as her day with generalized weakness and increased dizziness and hypotension with not able to do anything, associated with increased shortness breath, she was requiring about 3-4 L cannula usually she is on 2 L nasal cannula, patient stated that she has been having some dark stool for the last 48 hours, and her appetite was down, patient was sent to the emergency department for evaluation her initial hemoglobin was lower than normal she did drop about 3 g for the prior hemoglobin, and the patient was admitted to the hospital for possible upper GI bleed, patient type and cross and place and hold 2 units of packed red blood cells, she was taken off aspirin and Coumadin she was started on Protonix 40 mg IV push every 12 hours, GI consultation was obtained, patient surprisingly had a troponin that was positive at cardiology consultation was obtained for further evaluation and recommendation. 3/2: Patient denies having any nausea or vomiting. No chest pain. She has not had a bowel movement since she arrived. She has been seen by GI with plan for EGD and colonoscopy for tomorrow. Troponins are elevated at 0.797 and 0.5-0, cardiology consult added. Iron studies have been ordered by GI and patient is continued on protonic 40 mg IV twice daily. Patient has been afebrile, heart rate 80 to 80s, blood pressure 96/58, pulse ox 91% on 2 L. Repeat hemoglobin last night was 8.2. Repeat blood work ordered for tomorrow. 3/3: Patient denies having any abdominal pain, no epigastric tenderness. She denies having any chest pain. EGD and colonoscopy is scheduled for this morning. She underwent prep last night and did have some blood and output is now cleared. Patient continued on Protonix 40 mg IV push twice daily. She was seen yesterday by cardiology with recommendations for no further workup and acute coronary syndrome was ruled out. Patient in follow-up Dr. Sheehan as an outpatient. Laboratory studies from today are pending. 4: Patient feels very weak today she can he is to be very pale, it was recommended by GI service to restart Coumadin as the patient EGD did show arteriovenous confirmation that was treated with argon, colonoscopy did show sigmoid diverticulosis without evidence of any neoplasia, hemoglobin was stable at 8.5 today, I will start the patient on 2.5 mg tonight and repeat INR tomorrow morning, monitor the patient's CBC every 24 hours, physical therapy evaluation, patient will likely need to go for subacute rehabilitation. REVIEW OF SYSTEMS Constitutional: No fever, no chills, no night sweats. No weight change. Reports weakness, Reports fatigue or lethargy. No daytime sleepiness. HEENT: No headache. No blurred vision or double vision, no loss of vision. hard of Hearing, no ringing in the ears, no dizziness. No nasal drainage or congestion. No epistaxis. No sore throat. Lungs: No shortness of breath, cough, no sputum production. No wheezing. Cardiovascular: No chest pain, no lower extremity edema. No palpitations. No paroxysmal nocturnal dyspnea. No orthopnea. No lightheadedness or dizziness. No syncopal episodes. Abdominal: No abdominal pain. No nausea, vomiting. No diarrhea. No constipation, positive for black tarry stool, positive for poor appetite. Genitourinary: No dysuria, increased frequency, urgency. No urinary retention. Musculoskeletal: No myalgias. Reports muscle weakness, Reports gait dysfunction, no frequent falls. No back pain. No neck pain. Integumentary: No wounds, no lesions. No rash or pruritus. No unusual bruising. No change in hair or nails. Neurologic: No aphasia. No facial droop. No change in mentation. No head injury. No headache. No paralysis. No paresthesia. Psychiatric: No depression. No anxiety. No mood swings. Endocrine: No abnormal blood sugars. PHYSICAL EXAMINATION Gen: This is an 85-year-old female who is laying down in bed appears to be generally weak. HEENT: Head is atraumatic, normocephalic. Pupils equal, round, conjunctivae were pale, mucus brain and muscle somewhat dry, sclera nonicteric, extraocular muscle motor intact. NECK: Supple. No JVD. No lymphadenopathy. No thyromegaly. LUNGS: decrease breath sound at bases, few rhonchi, no expiratory wheezes, no chest wall tenderness, no intercostal retractions. HEART : First heart sound is depressed, second heart sound is normal, there is 2/6 systolic ejection murmur at the left sternal border. No S3, no S4. ABDOMEN: Soft, nontender, nondistended, positive bowel sounds, no hepatomegaly, no rebound or guarding. EXTREMITIES: No pedal edema. No calf tenderness. Dorsalis pedis +2 bilater ally. NEUROLOGICAL: Patient is awake, alert and oriented x3. Cranial nerves 2 through 12 are grossly intact, muscle power 5 out of 5 in upper and lower extremities bilaterally ASSESSMENT AND PLAN 1. Upper GI bleed status post EGD and colonoscopy. EGD showed arteriovenous confirmation the body of the stomach that they're not bleeding at the time of evaluation, underwent argon treatment, colonoscopy did show evidence of sigmoid diverticula since without evidence of any colorectal neoplasia, continue to monitor the patient's CBC, try to restart Coumadin tonight at 2.5 mg repeat INR tomorrow morning. 2. Elevated troponin likely related to significant anemia rule out non-ST elevation NH. Patient will be off aspirin for now continue patient on metoprolol, continue patient on statin, cardiology consultation is in the chart. 3. acute on chronic hypoxemic respiratory failure due to underlying COPD with significant anemia. Continue patient on Symbicort, continue patient on oxygen, keep her saturation greater than 93%,continue patient on DuoNeb, monitor the patient very closely. 4. Acute blood loss anemia due to upper GI bleed. transfuse for HGB less than 7 5. History of coronary artery disease with previous PCI to the RCA 2017. Patient has been off aspirin, continue with metoprolol ER 25 mg of the time, continue losartan 50 mg orally once every day, discontinue hydralazine for now. 6. Hypertension and hypertensive cardiovascular disease. Continue patient on Toprol-XL 25 mg orally once every day, continue losartan 50 mg once every day discontinue hydralazine. 7. Hyperlipidemia. Continue patient on atorvastatin 40 mg once every day. 8. Hypothyroidism. Continue levothyroxine 100 g daily. 9. Factor V Leyden deficiency with history of DVT try to restart Coumadin tonight. . 10. Vascular dementia. Continue Aricept 10 mg daily. 11. History of CVA.we will continue patient on atorvastatin 40 mg once every day, currently off aspirin we will restart Coumadin tonight 12. Carotid artery disease status post endarterectomy. 13. Gastroesophageal reflux disease. Continue Protonix 40 mg orally once every day. 14. DVT prophylaxis. We will try to restart Coumadin tonight. 15. COVID-19 testing negative. Patient has been hospitalized during a pandemic. Patient will be admitted to the hospital for a minimum of 2 night stay. Objective - Vital Signs Vital signs: Vital Signs Temp 98.9 F 07/24/21 03:03 Pulse 76 07/24/21 03:03 Resp 16 07/24/21 03:03 BP 144/84 07/24/21 03:03 Pulse Ox 90 L 07/24/21 04:14 Intake & Output 07/23/21 07/24/21 07/24/21 18:59 06:59 18:59 Intake Total 100 Balance 100 Intake: IV 100 Other: # Voids 1 # Bowel Movements 0 - Labs CBC & Chem 7: 07/25/21 05:46 07/25/21 05:46 Labs: Abnormal Lab Results - Last 24 Hours (Table) 07/23/21 07/23/21 Range/Units 04:42 04:42 RBC 2.71 L (4.10-5.20) X 10*6/uL Hgb 7.0 L (12.0-15.0) g/dL Hct 24.3 L (37.2-46.3) % MCH 25.8 L (27.0-32.0) pg MCHC 28.8 L (32.0-37.0) g/dL RDW 16.4 H (11.5-14.5) % Absolute Nucleated RBC 0.06 H (0.00-0.00) X 10*3/uL NRBC/100 WBC Diff 0.7 H (0.0-0.0) /100 WBCS Chloride 110 H (96-109) mmol/L Anion Gap 9.80 L (10.00-18.00) mmol/L Est GFR (CKD-EPI)NonAf 59.1 L (60.0-200.0) Total Protein 5.1 L (6.2-8.2) g/dL Albumin 3.0 L (3.8-4.9) g/dL Albumin/Globulin Ratio 1.43 L (1.60-3.17) g/dL Microbiology - Last 24 Hours (Table) 07/21/21 21:45 Urine Culture - Final Urine,Voided
--- NOTE | 2021-07-25 10:14 | P.PN ---
Subjective Progress Note Date: 07/25/21 HISTORY OF PRESENT ILLNESS This is an 84-year-old female patient of Dr. Bertrand and Dr. 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, remote history of tobacco use and dependence, patient was seen in my office as her day with generalized weakness and increased dizziness and hypotension with not able to do anything, associated with increased shortness breath, she was requiring about 3-4 L cannula usually she is on 2 L nasal cannula, patient stated that she has been having some dark stool for the last 48 hours, and her appetite was down, patient was sent to the emergency department for evaluation her initial hemoglobin was lower than normal she did drop about 3 g for the prior hemoglobin, and the patient was admitted to the hospital for possible upper GI bleed, patient type and cross and place and hold 2 units of packed red blood cells, she was taken off aspirin and Coumadin she was started on Protonix 40 mg IV push every 12 hours, GI consultation was obtained, patient surprisingly had a troponin that was positive at cardiology consultation was obtained for further evaluation and recommendation. 3/2: Patient denies having any nausea or vomiting. No chest pain. She has not had a bowel movement since she arrived. She has been seen by GI with plan for EGD and colonoscopy for tomorrow. Troponins are elevated at 0.797 and 0.5-0, cardiology consult added. Iron studies have been ordered by GI and patient is continued on protonic 40 mg IV twice daily. Patient has been afebrile, heart rate 80 to 80s, blood pressure 96/58, pulse ox 91% on 2 L. Repeat hemoglobin last night was 8.2. Repeat blood work ordered for tomorrow. 3/3: Patient denies having any abdominal pain, no epigastric tenderness. She denies having any chest pain. EGD and colonoscopy is scheduled for this morning. She underwent prep last night and did have some blood and output is now cleared. Patient continued on Protonix 40 mg IV push twice daily. She was seen yesterday by cardiology with recommendations for no further workup and acute coronary syndrome was ruled out. Patient in follow-up Dr. Sheehan as an outpatient. Laboratory studies from today are pending. 07/24: Patient feels very weak today she can he is to be very pale, it was recommended by GI service to restart Coumadin as the patient EGD did show arteriovenous confirmation that was treated with argon, colonoscopy did show sigmoid diverticulosis without evidence of any neoplasia, hemoglobin was stable at 8.5 today, I will start the patient on 2.5 mg tonight and repeat INR tomorrow morning, monitor the patient's CBC every 24 hours, physical therapy evaluation, patient will likely need to go for subacute rehabilitation. 07/25: Patient is sitting up in bed extremely pale she appears pasty, significant weakness, she denies any chest pain she does complain of irritative cough, I have ordered a stat chest x-ray on her that showed COPD with left-sided pleural effusion, a stat 12-lead EKG that didn't show evidence of sinus rhythm with what appears to be an ST elevation in the inferior leads especially in lead 3 and aVF with reciprocal changes suggestive of ME, cardiology reconsult, consult pulmonary and critical care for transferred to the intensive care unit as the patient is full code and she is hypotensive and she appears to be bleeding again as her hemoglobin did drop from 8.5-7.5 discontinue Coumadin again and transfer the patient to the ICU, start the patient on IV fluid she will be given normal saline 500 mL bolus IV 1 she'll be given 1 unit of packed red blood cells I've contacted the research technologist and beef contacted cardiology as well. REVIEW OF SYSTEMS Constitutional: No fever, no chills, no night sweats. No weight change. Reports weakness, Reports fatigue or lethargy. No daytime sleepiness. HEENT: No headache. No blurred vision or double vision, no loss of vision. hard of Hearing, no ringing in the ears, no dizziness. No nasal drainage or congestion. No epistaxis. No sore throat. Lungs: No shortness of breath, cough, no sputum production. No wheezing. Cardiovascular: No chest pain, no lower extremity edema. No palpitations. No paroxysmal nocturnal dyspnea. No orthopnea. No lightheadedness or dizziness. No syncopal episodes. Abdominal: No abdominal pain. No nausea, vomiting. No diarrhea. No constipation, positive for black tarry stool, positive for poor appetite. Genitourinary: No dysuria, increased frequency, urgency. No urinary retention. Musculoskeletal: No myalgias. Reports muscle weakness, Reports gait dysfunction, no frequent falls. No back pain. No neck pain. Integumentary: No wounds, no lesions. No rash or pruritus. No unusual bruising. No change in hair or nails. Neurologic: No aphasia. No facial droop. No change in mentation. No head injury. No headache. No paralysis. No paresthesia. Psychiatric: No depression. No anxiety. No mood swings. Endocrine: No abnormal blood sugars. PHYSICAL EXAMINATION Gen: This is an 85-year-old female who is laying down in bed appears to be generally weak. HEENT: Head is atraumatic, normocephalic. Pupils equal, round, conjunctivae were pale, mucus brain and muscle somewhat dry, sclera nonicteric, extraocular muscle motor intact. NECK: Supple. No JVD. No lymphadenopathy. No thyromegaly. LUNGS: decrease breath sound at bases, few rhonchi, no expiratory wheezes, no chest wall tenderness, no intercostal retractions. HEART : First heart sound is depressed, second heart sound is normal, there is 2/6 systolic ejection murmur at the left sternal border. No S3, no S4. ABDOMEN: Soft, nontender, nondistended, positive bowel sounds, no hepatomegaly, no rebound or guarding. EXTREMITIES: No pedal edema. No calf tenderness. Dorsalis pedis +2 bilaterally. NEUROLOGICAL: Patient is awake, alert and oriented x3. Cranial nerves 2 through 12 are grossly intact, muscle power 5 out of 5 in upper and lower extremities b ilaterally ASSESSMENT AND PLAN 1. Upper GI bleed status post EGD and colonoscopy. EGD showed arteriovenous confirmation the body of the stomach that they're not bleeding at the time of evaluation, underwent argon treatment, colonoscopy did show evidence of sigmoid diverticula with what appears to be an ongoing bleeding since her hemoglobin dropped to 7.5. Discontinue Coumadin again. 2. Acute inferior wall injury pattern with reciprocal changes suggestive of ME. Reconsult cardiology, patient is chest pain-free right now, transfuse 1 unit of packed red blood cells, given a bolus of fluid normal saline 500 mL over half an hour. Transfer the patient to the ICU. 3. acute on chronic hypoxemic respiratory failure due to underlying COPD with significant anemia. Continue patient on Symbicort, continue patient on oxygen, keep her saturation greater than 93%,continue patient on DuoNeb, monitor the patient very closely. chest x-ray showed COPD with left-sided pleural effusion. 4. Acute blood loss anemia due to upper GI bleed. type and cross and transfu se 1 unit of packed red blood cells. 5. History of coronary artery disease with previous PCI to the RCA 2017. Patient has been off aspirin, continue with metoprolol ER 25 mg of the time, continue losartan 50 mg orally once every day, discontinue hydralazine for now. 6. Hypertension and hypertensive cardiovascular disease. Continue patient on Toprol-XL 25 mg orally once every day, continue losartan 50 mg once every day discontinue hydralazine. 7. Hyperlipidemia. Continue patient on atorvastatin 40 mg once every day. 8. Hypothyroidism. Continue levothyroxine 100 g daily. 9. Factor V Leyden deficiency with history of DVT try to restart Coumadin tonight. . 10. Vascular dementia. Continue Aricept 10 mg daily. 11. History of CVA.we will continue patient on atorvastatin 40 mg once every day, currently off aspirin we will restart Coumadin tonight 12. Carotid artery disease status post endarterectomy. 13. Gastroesophageal reflux disease. Continue Protonix 40 mg orally once every day. 14. DVT prophylaxis. We will try to restart Coumadin tonight. 15. COVID-19 testing negative. Patient has been hospitalized during a pandemic. 16. Patient is full code. 17. Transfer to the ICU. Objective - Vital Signs Vital signs: Vital Signs Temp 97.8 F 07/25/21 08:16 Pulse 70 07/25/21 09:04 Resp 18 07/25/21 08:16 BP 86/46 07/25/21 08:16 Pulse Ox 92 L 07/25/21 08:52 Intake & Output 07/24/21 07/25/21 07/25/21 18:59 06:59 18:59 Other: Voiding Method Toilet Bedpan # Voids 3 2 - Labs CBC & Chem 7: 07/25/21 05:46 07/25/21 05:46 Labs: Abnormal Lab Results - Last 24 Hours (Table) 07/24/21 07/24/21 07/25/21 Range/Units 07:49 17:22 05:46 WBC 14.90 H (4.50-10.00) X 10*3/uL RBC 2.92 L (4.10-5.20) X 10*6/uL Hgb 7.5 L (12.0-15.0) g/dL Hct 25.6 L (37.2-46.3) % MCH 25.7 L (27.0-32.0) pg MCHC 29.3 L (32.0-37.0) g/dL RDW 16.9 H (11.5-14.5) % Absolute Nucleated RBC 0.21 H (0.00-0.00) X 10*3/uL Immature Gran # 0.10 H (0.00-0.04) X 10*3/uL Neutrophils # 10.09 H (1.80-7.70) X 10*3/uL Neutrophils # (Manual) 8.40 H (1.3-7.7) k/uL Eosinophils # 0 L (0.04-0.35) X 10*3/uL NRBC/100 WBC Diff 1.4 H (0.0-0.0) /100 WBCS PT 12.8 H (9.0-12.0) sec INR 1.2 H (<1.2) Creatinine (0.6-1.5) mg/dL Est GFR (CKD-EPI)AfAm (60.0-200.0) Est GFR (CKD-EPI)NonAf (60.0-200.0) BUN/Creatinine Ratio (12.00-20.00) Ratio Glucose (70-110) mg/dL AST (13-35) U/L ALT (8-44) U/L Total Protein (6.2-8.2) g/dL Albumin (3.8-4.9) g/dL Albumin/Globulin Ratio (1.60-3.17) g/dL 07/25/21 07/25/21 Range/Units 05:46 05:46 WBC (4.50-10.00) X 10*3/uL RBC (4.10-5.20) X 10*6/uL Hgb (12.0-15.0) g/dL Hct (37.2-46.3) % MCH (27.0-32.0) pg MCHC (32.0-37.0) g/dL RDW (11.5-14.5) % Absolute Nucleated RBC (0.00-0.00) X 10*3/uL Immature Gran # (0.00-0.04) X 10*3/uL Neutrophils # (1.80-7.70) X 10*3/uL Neutrophils # (Manual) (1.3-7.7) k/uL Eosinophils # (0.04-0.35) X 10*3/uL NRBC/100 WBC Diff (0.0-0.0) /100 WBCS PT 13.8 H (9.0-12.0) sec INR 1.23 H (<1.2) Creatinine 1.8 H (0.6-1.5) mg/dL Est GFR (CKD-EPI)AfAm 29.6 L (60.0-200.0) Est GFR (CKD-EPI)NonAf 25.6 L (60.0-200.0) BUN/Creatinine Ratio 7.56 L (12.00-20.00) Ratio Glucose 122 H (70-110) mg/dL AST 282 H (13-35) U/L ALT 158 H (8-44) U/L Total Protein 5.2 L (6.2-8.2) g/dL Albumin 3.0 L (3.8-4.9) g/dL Albumin/Globulin Ratio 1.36 L (1.60-3.17) g/dL
[2021-07-25 11:04] LABS: Creatine Kinase MB 2.1 ng/mL (0.0-2.4)
[2021-07-25 11:07] LABS: Troponin I 1.03 ng/mL (0.000-0.034)
[2021-07-25 13:19] LABS: Glucose,Whole Blood 110 mg/dL (75-99)
--- NOTE | 2021-07-25 14:40 | P.CNPUL ---
History of Present Illness Consult date: 07/25/21 Chief complaint: Generalized weakness, possible GI bleed, questionable non-STEMI History of present illness: I was asked to evaluate this patient was having some difficulties with hypotension, acute kidney injury and lethargy this morning. 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 She is also known to have COPD, previous history of CVA without any residual deficits, hypertension, hypothyroidism, hyperlipidemia and chronic hypoxic respiratory failure maternal oxygen at 2 L per minute nasal cannula. She was admitted to the hospital because of increased weakness and dizziness and hypotension and she was unable to do much. She was also complaining of worsening shortness of breath. Chest x-ray at time of admission showed a small left sided pleural effusion. Clinically, the patient did not have any signs of pneumonia. The patient underwent a colonoscopy and EGD due to anemia and concern of GI bleed. Based on the findings, the patient was found to have sigmoid diverticulosis without evidence of any acute bleeding. 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 The patient this morning was found to have hypotension. She was fired feeling lethargic. Hemoglobin dropped from 8.5 down to 7.5 in the units of packed RBC was ordered by the primary care physician. A bolus of fluid was also given. The patient had an EKG that showed questionable ST segment changes involving the inferior leads. A pulmonary consultation was requested in addition to a cardiac consultation. The patient denies having any chest pain. Note that her white cell count of 14.9. Hemoglobin was at 7.5. No rmal coagulation profile. Troponin was at 1.03 from a baseline of 0.5 which is slightly higher. Noted the patient had troponin leaks or lung during her earlier and current hospitalization. The rest of the electrolytes are all showing abnormal findings which included a serum bicarb of 20, anion gap of 12, creatinine of 1.8, LFTs are also abnormal as the patient was found to have a AST of 282, ALT of 158, bilirubin was 0.7 and alkaline phosphatase was 118. Review of Systems Constitutional: Reports fatigue, Reports weakness Eyes: denies as per HPI, denies blurred vision, denies bulging eye, denies de creased vision, denies diplopia, denies discharge, denies dry eye, denies irritation, denies itching, denies pain, denies photophobia, denies loss of peripheral vision, denies loss of vision, denies tunnel vision/blind spots Ears: deny: decreased hearing, ear discharge, earache, tinnitus Ears, nose, mouth and throat: Reports as per HPI Breasts: absent: as per HPI, change in shape, gynecomastia, masses, nipple discharge, pain, skin changes, swelling Cardiovascular: Reports decreased exercise tolerance, Reports dyspnea on exertion Respiratory: Reports congestion, Reports dyspnea Gastrointestinal: Reports as per HPI Genitourinary: Reports as per HPI Menstruation: Reports as per HPI Musculoskeletal: Reports as per HPI Musculoskeletal: absent: ankle pain, ankle stiffness, ankle swelling, as per HPI, elbow pain, elbow stiffness, elbow swelling, foot pain, foot stiffness, foot swelling, hand pain, hand stiffness, hand swelling, hip pain, hip s tiffness, hip swelling, knee pain, knee stiffness, knee swelling, shoulder pain, shoulder stiffness, shoulder swelling, wrist pain, wrist stiffness, wrist swelling Integumentary: Reports as per HPI Neurological: Reports as per HPI Psychiatric: Reports as per HPI Endocrine: Reports as per HPI, Reports fatigue Hematologic/Lymphatic: Reports as per HPI 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, vascular dementia, hypothyroid, benign colon polyps History of Any Multi-Drug Resistant Organisms: None Reported Past Surgical History: Heart Catheterization With Stent, Hysterectomy Additional Past Surgical History / Comment(s): carotidectomy in 2007, EGD colonoscopy Past Anesthesia/Blood Transfusion Reactions: No Reported Reaction Date of Last Stent Placement:: 02/22/2018 Past Psychological History: No Psychological Hx Reported Smoking Status: Former smoker Past Alcohol Use History: None Reported Past Drug Use History: None Reported - Past Family History Father Additional Family Medical History / Comment(s): Father at age 84 from coronary artery disease. Mother Additional Family Medical History / Comment(s): Mother at age 90 from a bowel obstruction. Brother(s) Additional Family Medical History / Comment(s): Patient has 1 brother that is alive with no major medical problems. Sister(s) Additional Family Medical History / Comment(s): Patient has a total of 3 sisters. One has passed with complications after surgical procedure the cause of fistula. 2 other sisters are alive without major medical problems. Daughter(s) Additional Family Medical History / Comment(s): Patient has 2 daughters and one has history of kidney transplant, diabetes, stroke, coronary artery disease. One daughter has history of osteoarthritis and hip replacement. Son(s) Additional Family Medical History / Comment(s): Patient has 2 sons with no major medical problems. Medications and Allergies Home Medications Medication Instructions Recorded Confirmed Type Aspirin [Children's Aspirin] 81 mg PO HS 02/07/17 07/21/21 History Fluticasone/Salmeterol [Advair 1 puff INHALATION RT-BID 02/07/17 07/21/21 History 250-50 Diskus] Rosuvastatin [Crestor] 20 mg PO MOWEFR@2100 02/07/17 07/21/21 History Warfarin [Coumadin] 2.5 mg PO HS@2100 02/07/17 07/21/21 History Omeprazole 40 mg PO DAILY 04/30/19 07/21/21 History Levothyroxine Sodium [Synthroid] 100 mcg PO HS 03/20/20 07/21/21 History Metoprolol Succinate (ER) [Toprol 25 mg PO HS 09/10/20 07/21/21 History XL] Donepezil [Aricept] 10 mg PO HS 12/15/20 07/21/21 History Multivitamins, Thera [Multivitamin 1 tab PO DAILY 02/19/21 07/21/21 History (formulary)] Vitamin B Complex 1 cap PO DAILY 02/19/21 07/21/21 History hydrALAZINE HCL [Apresoline] 25 mg PO BID-W/MEALS 02/19/21 07/21/21 History Acetaminophen [Tylenol Arthritis] 650 mg PO Q8H PRN 06/03/21 07/21/21 History Cholecalciferol [Vitamin D3 (125 125 mcg PO DAILY 06/03/21 07/21/21 History Mcg = 5000 Iu)] Losartan/Hydrochlorothiazide 1 tab PO DAILY 06/03/21 07/21/21 History [Losartan-Hctz 100-12.5 mg Tab] Nitroglycerin Sl Tabs [Nitrostat] 0.4 mg SUBLINGUAL Q5M PRN 06/03/21 07/21/21 History Ipratropium-Albuterol Nebulize 3 ml INHALATION RT-QID #120 dose 06/08/21 07/21/21 Rx [Duoneb 0.5 mg-3 mg/3 ml Soln] Allergies Allergy/AdvReac Type Severity Reaction Status Date / Time dacron AdvReac Unknown INCISION Uncoded 07/21/21 14:46 WOULD NOT HEAL Physical Exam Vitals: Vital Signs Temp Pulse Pulse Resp BP BP Pulse Ox 07/25/21 14:20 97.7 F 53 L 23 97/48 90 L 07/25/21 14:00 53 L 21 85/47 92 L 07/25/21 13:50 97.8 F 53 L 20 100/85 91 L 07/25/21 13:40 97.7 F 51 L 18 92/45 92 L 07/25/21 13:30 56 L 11 L 90/44 90 L 07/25/21 13:20 97.7 F 55 L 53 L 20 87/43 90 L 07/25/21 12:17 59 L 16 84/52 92 L 07/25/21 12:06 70 07/25/21 11:56 70 07/25/21 09:04 70 07/25/21 08:52 70 92 L 07/25/21 08:16 97.8 F 52 L 18 86/46 92 L 07/25/21 02:00 97.9 F 61 18 90/50 92 L 07/24/21 20:18 99.0 F 66 103/57 87 L 07/24/21 19:58 62 07/24/21 19:46 59 L 07/24/21 15:57 78 07/24/21 15:46 72 Intake and Output 07/24/21 07/25/21 07/25/21 22:59 06:59 14:59 Intake Total 1000 Output Total 225 Balance 775 Intake: Intake, IV Titration 1000 Amount Sodium Chloride 0.9% 1, 1000 000 ml @ 999 mls/hr IV . Q1H1M ONE Rx#:[id number] Blood Product 0 Rc Pheresis 2 As3 Unit 0 [id number] Output: Urine 225 Other: Voiding Method Toilet Indwelling Catheter Bedpan # Voids 2 1 Gen. appearance the patient is calm comfortable likely distress. She is currently on 4 L by nasal cannula. Breathing is nonlabored. The patient is pale. Following commands and answering questions. She is profoundly weak in all 4 extremity is bilaterally. There is global generalized weakness. Head exam was generally normal. There was no scleral icterus or corneal arcus. Mucous membranes were moist. Neck was supple and without jugular venous distension, thyromegaly, or carotid bruits. Carotids were easily palpable bilaterally. There was no adenopathy. Lungs sounds are diminished bilaterally especially in the lung bases along with some few bibasilar crackles. Cardiac exam revealed the PMI to be normally situated and sized. The rhythm was regular and no extrasystoles were noted during several minutes of auscultation. The first and second heart sounds were normal and physiologic splitting of the second heart sound was noted. There were no murmurs, rubs, clicks, or gallops. Abdominal exam revealed normal bowel sounds. The abdomen was soft, non-tender, and without masses, organomegaly, or appreciable enlargement of the abdominal aorta. Examination of the extremities revealed easily palpable radial, femoral and pedal pulses. There was no cyanosis, clubbing or edema. Examination of the skin revealed no evidence of significant rashes, suspicious appearing nevi or other concerning lesions. Neurologically, the patient is awake and alert and the patient does not have any focal neurological deficit. Cranial nerves are essentially intact. Results - Laboratory Findings CBC and BMP: 07/25/21 05:46 07/25/21 05:46 PT/INR, D-dimer PT 13.8 sec (9.9-11.9) H 07/25/21 05:46 INR 1.23 (0.90-1.11) H 07/25/21 05:46 Abnormal lab findings: Abnormal Labs 07/21/21 07/21/21 07/21/21 13:56 13:56 13:56 WBC 11.8 H RBC 3.03 L Hgb 8.4 L D Hct 27.4 L MCH MCHC 30.8 L RDW 15.6 H Absolute Nucleated RBC Immature Gran # Neutrophils # Neutrophils # (Manual) 8.80 H Eosinophils # Nucleated RBCs 1 H NRBC/100 WBC Diff PT 15.6 H INR 1.5 H Sodium 136 L Chloride Carbon Dioxide Anion Gap BUN 23 H Creatinine 1.29 H Est GFR (CKD-EPI)AfAm Est GFR (CKD-EPI)NonAf BUN/Creatinine Ratio Glucose POC Glucose (mg/dL) Iron % Saturation AST 53 H ALT 45 H Troponin I Total Protein 6.1 L Albumin 3.3 L Albumin/Globulin Ratio TSH 0.141 L Free T4 2.22 H Urine Protein Ur Leukocyte Esterase Urine WBC Urine Bacteria Urine Mucus Crossmatch 07/21/21 07/21/21 07/21/21 13:56 21:25 21:45 WBC RBC 2.93 L Hgb 8.2 L Hct 26.8 L MCH MCHC 30.5 L RDW Absolute Nucleated RBC Immature Gran # Neutrophils # Neutrophils # (Manual) Eosinophils # Nucleated RBCs NRBC/100 WBC Diff PT INR Sodium Chloride Carbon Dioxide Anion Gap BUN Creatinine Est GFR (CKD-EPI)AfAm Est GFR (CKD-EPI)NonAf BUN/Creatinine Ratio Glucose POC Glucose (mg/dL) Iron % Saturation AST ALT Troponin I 0.797 H* Total Protein Albumin Albumin/Globulin Ratio TSH Free T4 Urine Protein Trace H Ur Leukocyte Esterase Moderate H Urine WBC 12 H Urine Bacteria Rare H Urine Mucus Rare H Crossmatch 07/21/21 07/22/21 07/22/21 23:45 04:46 04:46 WBC RBC Hgb Hct MCH MCHC RDW Absolute Nucleated RBC Immature Gran # Neutrophils # Neutrophils # (Manual) Eosinophils # Nucleated RBCs NRBC/100 WBC Diff PT INR Sodium Chloride Carbon Dioxide 18.9 L Anion Gap BUN Creatinine Est GFR (CKD-EPI)AfAm 57.5 L Est GFR (CKD-EPI)NonAf 49.7 L BUN/Creatinine Ratio Glucose POC Glucose (mg/dL) Iron 9 L % Saturation 2.52 L AST ALT Troponin I 0.520 H* Total Protein 5.2 L Albumin 3.0 L Albumin/Globulin Ratio 1.35 L TSH Free T4 Urine Protein Ur Leukocyte Esterase Urine WBC Urine Bacteria Urine Mucus Crossmatch 07/23/21 07/23/21 07/24/21 04:42 04:42 07:49 WBC 11.2 H RBC 2.71 L 2.98 L Hgb 7.0 L 8.1 L Hct 24.3 L 27.0 L MCH 25.8 L MCHC 28.8 L 30.1 L RDW 16.4 H 15.9 H Absolute Nucleated RBC 0.06 H Immature Gran # Neutrophils # Neutrophils # (Manual) 8.40 H Eosinophils # Nucleated RBCs NRBC/100 WBC Diff 0.7 H PT INR Sodium Chloride 110 H Carbon Dioxide Anion Gap 9.80 L BUN Creatinine Est GFR (CKD-EPI)AfAm Est GFR (CKD-EPI)NonAf 59.1 L BUN/Creatinine Ratio Glucose POC Glucose (mg/dL) Iron % Saturation AST ALT Troponin I Total Protein 5.1 L Albumin 3.0 L Albumin/Globulin Ratio 1.43 L TSH Free T4 Urine Protein Ur Leukocyte Esterase Urine WBC Urine Bacteria Urine Mucus Crossmatch 07/24/21 07/24/21 07/25/21 07:49 17:22 05:46 WBC 14.90 H RBC 2.92 L Hgb 7.5 L Hct 25.6 L MCH 25.7 L MCHC 29.3 L RDW 16.9 H Absolute Nucleated RBC 0.21 H Immature Gran # 0.10 H Neutrophils # 10.09 H Neutrophils # (Manual) Eosinophils # 0 L Nucleated RBCs NRBC/100 WBC Diff 1.4 H PT 12.8 H INR 1.2 H Sodium Chloride 114 H Carbon Dioxide 20 L Anion Gap BUN Creatinine 1.07 H Est GFR (CKD-EPI)AfAm Est GFR (CKD-EPI)NonAf BUN/Creatinine Ratio Glucose 106 H POC Glucose (mg/dL) Iron % Saturation AST 44 H ALT Troponin I Total Protein 5.5 L Albumin 2.7 L Albumin/Globulin Ratio TSH Free T4 Urine Protein Ur Leukocyte Esterase Urine WBC Urine Bacteria Urine Mucus Crossmatch 07/25/21 07/25/21 07/25/21 05:46 05:46 10:08 WBC RBC Hgb Hct MCH MCHC RDW Absolute Nucleated RBC Immature Gran # Neutrophils # Neutrophils # (Manual) Eosinophils # Nucleated RBCs NRBC/100 WBC Diff PT 13.8 H INR 1.23 H Sodium Chloride Carbon Dioxide Anion Gap BUN Creatinine 1.8 H Est GFR (CKD-EPI)AfAm 29.6 L Est GFR (CKD-EPI)NonAf 25.6 L BUN/Creatinine Ratio 7.56 L Glucose 122 H POC Glucose (mg/dL) Iron % Saturation AST 282 H ALT 158 H Troponin I Total Protein 5.2 L Albumin 3.0 L Albumin/Globulin Ratio 1.36 L TSH Free T4 Urine Protein Ur Leukocyte Esterase Urine WBC Urine Bacteria Urine Mucus Crossmatch See Detail 07/25/21 07/25/21 10:11 13:17 WBC RBC Hgb Hct MCH MCHC RDW Absolute Nucleated RBC Immature Gran # Neutrophils # Neutrophils # (Manual) Eosinophils # Nucleated RBCs NRBC/100 WBC Diff PT INR Sodium Chloride Carbon Dioxide Anion Gap BUN Creatinine Est GFR (CKD-EPI)AfAm Est GFR (CKD-EPI)NonAf BUN/Creatinine Ratio Glucose POC Glucose (mg/dL) 110 H Iron % Saturation AST ALT Troponin I 1.030 H* Total Protein Albumin Albumin/Globulin Ratio TSH Free T4 Urine Protein Ur Leukocyte Esterase Urine WBC Urine Bacteria Urine Mucus Crossmatch - Diagnostic Findings Chest x-ray: image reviewed Assessment and Plan Plan: 1 hypotension currently under investigation. Consider drug effect versus hypovolemic hypotension as the patient may have an underlying GI bleed along with drop in hemoglobin. The patient will be given IV fluids and packed RBC and hemoglobin monitored very closely. A cardiac component contributing to hypotension cannot be ruled out. 2 acute kidney injury 3 chronic hypoxic respiratory failure maintained on O2 at 2 L per minute nasal cannula currently on 4 4 COPD with chronic small left-sided pleural effusion 5 CAD-Please refer to the most recent cardiac catheterization done on this patient back in 2020. It was recommended to continue medical treatment. EKG is currently showing an old septal infarct. No acute ischemic changes. Troponins are minimally elevated 6 history of factor V Leyden maintained on long-term articulation with warfarin with a therapeutic PT/INR 7 hypertension 8 hypothyroidism 9 hyperlipidemia 10 previous history of smoking 11 previous history of CVA, without any residual deficits 12 acute on chronic anemia with a hemoglobin of 7.5. 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, nonbleeding and argon plasma treatment was applied 13 generalized debility and weakness 14 abnormal LFTs Plan Agree on IV fluids and a total of 1 L will be given in addition to packed RBCs, we'll monitor the hemoglobin and will monitor the blood pressure I will suggest repeating the blood work at 1600 today including hemoglobin and creatinine Cardiology consultation Brester status essentially stable for now No anticoagulants for now Hold back to antihypertensive medications We'll chest with dry see if there is any further decompensation the status Performance and functional status is poor prognosis poor based above-mentioned comorbidities
--- NOTE | 2021-07-25 15:55 | P.PN ---
Subjective Progress Note Date: 07/25/21 This is Harsh Loo NP, I'm dictating on behalf of Dr. He's H&P and A&P The patient was interviewed and examined. HPI: Patient is a pleasant 85-year-old female who initially presented to the emergency department with weakness. She was initially found to have a GI bleed, and went through an ablation of nonbleeding arteriovenous malformations in the stomach. Initially the patient's hemoglobin began to rebound, however today it was noted patient's hemoglobin had decreased again. An EKG was repeated per standard protocol, and was found to be different from the patient's initial EKG. The EKG demonstrated some ST elevation. A troponin was completed which was found to be positive at 1.030. Cardiology was subsequently consulted for evaluation and management. Patient has a past medical history includes COPD, CAD, [place], PE, factor V Leiden deficiency, TIA, hypertension, hyperlipidemia, HAYDEN D, hypothyroid, hypoxic respiratory failure, vascular dementia. The patient reports today that she does not feel good. She does deny chest pain and shortness of breath at this time. ROS: [No fever, chills, or rigors] [no cough, phlegm, or expectoration] [no nausea, vomiting, or diarrhea] [no hematuria, dysuria] [no musculoskelatal complaints] [no strokes or seizures] [no skin lesions] EXAMINATION: GENERAL: Pale in appearance, in no acute distress. NECK: Supple without JVD or thyromegaly. LUNGS: Breath sounds clear to auscultation bilaterally. Respiration equal and unlabored. No wheezes, rales or rhonchi. HEART: Regular rate and rhythm without murmurs, rubs or gallops. S1 and S2 heard. EXTREMITIES: Normal range of motion, no edema. No clubbing or cyanosis. Peripheral pulses intact and strong. REVIEW OF LABS, ECG & MEDICAL DATA: LABS: White count 14.9, hemoglobin 7.5, platelets 257, sodium 137, potassium 3.8, B1 13.6, creatinine 1.8, troponin 1.030 EKG: Compared to initial in the ER, shows inferiolateral ischemia with mild ST elevation IMAGING: Chest x-ray dated 07/25/2021 shows small left pleural effusion with pulmonary venous congestion and mild cardiomegaly VITALS: Temp 97.5, pulse 61, respirations 18, blood pressure 9455, O2 saturation 91% IMPRESSION/PLAN: 1. Inferiolateral ischemia with mild ST elevation-patient cannot be anticoagulated due to acute anemia. This will also severely complicate any potential intervention. Blood pressure is currently hypotensive, vasodilators are contraindicated. Agree with internal medicine's recommendation to transfer the patient to the ICU. 2. Acute anemia-patient would benefit from continued blood transfusions. Objective - Vital Signs Vital signs: Vital Signs Temp 97.5 F L 07/25/21 15:22 Pulse 61 07/25/21 15:23 Resp 18 07/25/21 15:22 BP 94/55 07/25/21 15:22 Pulse Ox 91 L 07/25/21 15:22 Intake & Output 07/24/21 07/25/21 07/25/21 18:59 06:59 18:59 Intake Total 1279 Output Total 255 Balance 1024 Intake: Intake, IV Titration 1000 Amount Sodium Chloride 0.9% 1, 1000 000 ml @ 999 mls/hr IV . Q1H1M ONE Rx#:[id number] Blood Product 279 Rc Pheresis 2 As3 Unit 279 [id number] Output: Urine 255 Other: Voiding Method Toilet Indwelling Catheter Bedpan # Voids 3 2 1 - Labs CBC & Chem 7: 07/25/21 05:46 07/25/21 05:46 Labs: Abnormal Lab Results - Last 24 Hours (Table) 07/24/21 07/25/21 07/25/21 Range/Units 17:22 05:46 05:46 WBC 14.90 H (4.50-10.00) X 10*3/uL RBC 2.92 L (4.10-5.20) X 10*6/uL Hgb 7.5 L (12.0-15.0) g/dL Hct 25.6 L (37.2-46.3) % MCH 25.7 L (27.0-32.0) pg MCHC 29.3 L (32.0-37.0) g/dL RDW 16.9 H (11.5-14.5) % Absolute Nucleated RBC 0.21 H (0.00-0.00) X 10*3/uL Immature Gran # 0.10 H (0.00-0.04) X 10*3/uL Neutrophils # 10.09 H (1.80-7.70) X 10*3/uL Eosinophils # 0 L (0.04-0.35) X 10*3/uL NRBC/100 WBC Diff 1.4 H (0.0-0.0) /100 WBCS PT 12.8 H (9.0-12.0) sec INR 1.2 H (<1.2) Creatinine 1.8 H (0.6-1.5) mg/dL Est GFR (CKD-EPI)AfAm 29.6 L (60.0-200.0) Est GFR (CKD-EPI)NonAf 25.6 L (60.0-200.0) BUN/Creatinine Ratio 7.56 L (12.00-20.00) Ratio Glucose 122 H (70-110) mg/dL POC Glucose (mg/dL) (75-99) mg/dL AST 282 H (13-35) U/L ALT 158 H (8-44) U/L Troponin I (0.000-0.034) ng/mL Total Protein 5.2 L (6.2-8.2) g/dL Albumin 3.0 L (3.8-4.9) g/dL Albumin/Globulin Ratio 1.36 L (1.60-3.17) g/dL Crossmatch 07/25/21 07/25/21 07/25/21 Range/Units 05:46 10:08 10:11 WBC (4.50-10.00) X 10*3/uL RBC (4.10-5.20) X 10*6/uL Hgb (12.0-15.0) g/dL Hct (37.2-46.3) % MCH (27.0-32.0) pg MCHC (32.0-37.0) g/dL RDW (11.5-14.5) % Absolute Nucleated RBC (0.00-0.00) X 10*3/uL Immature Gran # (0.00-0.04) X 10*3/uL Neutrophils # (1.80-7.70) X 10*3/uL Eosinophils # (0.04-0.35) X 10*3/uL NRBC/100 WBC Diff (0.0-0.0) /100 WBCS PT 13.8 H (9.0-12.0) sec INR 1.23 H (<1.2) Creatinine (0.6-1.5) mg/dL Est GFR (CKD-EPI)AfAm (60.0-200.0) Est GFR (CKD-EPI)NonAf (60.0-200.0) BUN/Creatinine Ratio (12.00-20.00) Ratio Glucose (70-110) mg/dL POC Glucose (mg/dL) (75-99) mg/dL AST (13-35) U/L ALT (8-44) U/L Troponin I 1.030 H* (0.000-0.034) ng/mL Total Protein (6.2-8.2) g/dL Albumin (3.8-4.9) g/dL Albumin/Globulin Ratio (1.60-3.17) g/dL Crossmatch See Detail 07/25/21 Range/Units 13:17 WBC (4.50-10.00) X 10*3/uL RBC (4.10-5.20) X 10*6/uL Hgb (12.0-15.0) g/dL Hct (37.2-46.3) % MCH (27.0-32.0) pg MCHC (32.0-37.0) g/dL RDW (11.5-14.5) % Absolute Nucleated RBC (0.00-0.00) X 10*3/uL Immature Gran # (0.00-0.04) X 10*3/uL Neutrophils # (1.80-7.70) X 10*3/uL Eosinophils # (0.04-0.35) X 10*3/uL NRBC/100 WBC Diff (0.0-0.0) /100 WBCS PT (9.0-12.0) sec INR (<1.2) Creatinine (0.6-1.5) mg/dL Est GFR (CKD-EPI)AfAm (60.0-200.0) Est GFR (CKD-EPI)NonAf (60.0-200.0) BUN/Creatinine Ratio (12.00-20.00) Ratio Glucose (70-110) mg/dL POC Glucose (mg/dL) 110 H (75-99) mg/dL AST (13-35) U/L ALT (8-44) U/L Troponin I (0.000-0.034) ng/mL Total Protein (6.2-8.2) g/dL Albumin (3.8-4.9) g/dL Albumin/Globulin Ratio (1.60-3.17) g/dL Crossmatch
[2021-07-25 16:54] LABS: HCT 26.2 % (34.0-46.0); HGB 8.4 gm/dL (11.4-16.0); Hypochromasia Marked; MCH 28.1 pg (25.0-35.0); MCV 87.9 fL (80.0-100.0); Mean Platelet Volume 10.3; Platelet Count 210 k/uL (150-450); Poikilocytosis Marked; RBC 2.98 m/uL (3.80-5.40); RDW 15.9 % (11.5-15.5); WBC 14.8 k/uL (3.8-10.6)
[2021-07-25 17:01] LABS: Calcium 8.3 mg/dL (8.4-10.2)
[2021-07-25 17:02] LABS: Potassium 4.8 mmol/L (3.5-5.1)
[2021-07-25] MEDS ORDERED: WARFARIN 0.5 MG TAB PO ONE (18:00)
[2021-07-25] MEDS: ATORVASTATIN 40 MG TAB PO SCH (20:54)
[2021-07-25] MEDS: LEVOTHYROXINE 100 MCG TAB PO SCH (20:54)
[2021-07-25] MEDS: METOPROLOL SUCCINATE (ER) 25 MG TAB.ER.24H PO SCH (20:54)
[2021-07-25] MEDS: DONEPEZIL 10 MG TAB PO SCH (21:09)
--- NOTE | 2021-07-26 07:34 | XR ---
EXAMINATION TYPE: XR chest 1V portable DATE OF EXAM: 07/26/2021 HISTORY: Shortness of breath. COMPARISON: 07/25/2021 TECHNIQUE: Single view of the chest is submitted. FINDINGS: Demonstrated are scattered senescent parenchymal change. Persistent small aerated left lower lobe atelectasis, infiltrate and/or effusion. The heart is stable. Hilar and mediastinal structures are within normal limits. Degenerative changes are seen of the dorsal spine. IMPRESSION: 1. Persistent small aerated left lower lobe atelectasis, infiltrate and/or effusion.
[2021-07-26] MEDS: SYMBICORT 160-4.5 MCG INHALER INHALATION SCH ×2 (07:47→19:36)
[2021-07-26] MEDS: IPRATROPIUM-ALBUTEROL 3 ML NEB INHALATION SCH ×4 (07:47→19:36)
[2021-07-26 07:56] LABS: HCT 30.1 % (34.0-46.0); HGB 9.1 gm/dL (11.4-16.0); Hypochromasia Marked; MCHC 30.2 g/dL (31.0-37.0); MCV 92.6 fL (80.0-100.0); Platelet Count 234 k/uL (150-450); Poikilocytosis Moderate; RBC 3.24 m/uL (3.80-5.40); RDW 15.8 % (11.5-15.5); WBC 16.4 k/uL (3.8-10.6)
[2021-07-26 08:06] LABS: INR 1.4 (<1.2); Prothrombin Time 14.8 sec (9.0-12.0)
[2021-07-26 08:17] LABS: Calcium 8.2 mg/dL (8.4-10.2)
[2021-07-26] MEDS ORDERED: FUROSEMIDE 10 MG/ML 4 ML VIAL IV STA (09:38)
--- NOTE | 2021-07-26 09:41 | P.PN ---
Subjective Progress Note Date: 07/26/21 HISTORY OF PRESENT ILLNESS This is an 84-year-old female patient of Dr. Bertrand and Dr. 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, remote history of tobacco use and dependence, patient was seen in my office as her day with generalized weakness and increased dizziness and hypotension with not able to do anything, associated with increased shortness breath, she was requiring about 3-4 L cannula usually she is on 2 L nasal cannula, patient stated that she has been having some dark stool for the last 48 hours, and her appetite was down, patient was sent to the emergency department for evaluation her initial hemoglobin was lower than normal she did drop about 3 g for the prior hemoglobin, and the patient was admitted to the hospital for possible upper GI bleed, patient type and cross and place and hold 2 units of packed red blood cells, she was taken off aspirin and Coumadin she was started on Protonix 40 mg IV push every 12 hours, GI consultation was obtained, patient surprisingly had a troponin that was positive at cardiology consultation was obtained for further evaluation and recommendation. 3/2: Patient denies having any nausea or vomiting. No chest pain. She has not had a bowel movement since she arrived. She has been seen by GI with plan for EGD and colonoscopy for tomorrow. Troponins are elevated at 0.797 and 0.5-0, cardiology consult added. Iron studies have been ordered by GI and patient is continued on protonic 40 mg IV twice daily. Patient has been afebrile, heart rate 80 to 80s, blood pressure 96/58, pulse ox 91% on 2 L. Repeat hemoglobin last night was 8.2. Repeat blood work ordered for tomorrow. 3/3: Patient denies having any abdominal pain, no epigastric tenderness. She denies having any chest pain. EGD and colonoscopy is scheduled for this morning. She underwent prep last night and did have some blood and output is now cleared. Patient continued on Protonix 40 mg IV push twice daily. She was seen yesterday by cardiology with recommendations for no further workup and acute coronary syndrome was ruled out. Patient in follow-up Dr. Sheehan as an outpatient. Laboratory studies from today are pending. 07/24: Patient feels very weak today she can he is to be very pale, it was recommended by GI service to restart Coumadin as the patient EGD did show arteriovenous confirmation that was treated with argon, colonoscopy did show sigmoid diverticulosis without evidence of any neoplasia, hemoglobin was stable at 8.5 today, I will start the patient on 2.5 mg tonight and repeat INR tomorrow morning, monitor the patient's CBC every 24 hours, physical therapy evaluation, patient will likely need to go for subacute rehabilitation. 07/25: Patient is sitting up in bed extremely pale she appears pasty, significant weakness, she denies any chest pain she does complain of irritative cough, I have ordered a stat chest x-ray on her that showed COPD with left-sided pleural effusion, a stat 12-lead EKG that didn't show evidence of sinus rhythm with what appears to be an ST elevation in the inferior leads especially in lead 3 and aVF with reciprocal changes suggestive of KS, cardiology reconsult, consult pulmonary and critical care for transferred to the intensive care unit as the patient is full code and she is hypotensive and she appears to be bleeding again as her hemoglobin did drop from 8.5-7.5 discontinue Coumadin again and transfer the patient to the ICU, start the patient on IV fluid she will be given normal saline 500 mL bolus IV 1 she'll be given 1 unit of packed red blood cells I've contacted the chemistry account manager and beef contacted cardiology as well. 07/26: Patient was moved to the intensive care unit yesterday because of significant hypotension and minimal ST elevation in the inferior lead with lat eral ischemia as well, patient is actively bleeding at this time, and anticoagulation as Indicated, patient was seen in consultation by cardiology we'll continue to monitor the patient very closely she did receive fluid and packed blood cells, keep her hemoglobin greater than 8 at all the time, follow- up with the patient very closely, prognosis continues to be very guarded. REVIEW OF SYSTEMS Constitutional: No fever, no chills, no night sweats. No weight change. Reports weakness, Reports fatigue or lethargy. No daytime sleepiness. HEENT: No headache. No blurred vision or double vision, no loss of vision. hard of Hearing, no ringing in the ears, no dizziness. No nasal drainage or congestion. No epistaxis. No sore throat. Lungs: No shortness of breath, cough, no sputum production. No wheezing. Cardiovascular: No chest pain, no lower extremity edema. No palpitations. No paroxysmal nocturnal dyspnea. No orthopnea. No lightheadedness or dizziness. No syncopal episodes. Abdominal: No abdominal pain. No nausea, vomiting. No diarrhea. No constipati on, positive for black tarry stool, positive for poor appetite. Genitourinary: No dysuria, increased frequency, urgency. No urinary retention. Musculoskeletal: No myalgias. Reports muscle weakness, Reports gait dysfunction, no frequent falls. No back pain. No neck pain. Integumentary: No wounds, no lesions. No rash or pruritus. No unusual bruising. No change in hair or nails. Neurologic: No aphasia. No facial droop. No change in mentation. No head injury. No headache. No paralysis. No paresthesia. Psychiatric: No depression. No anxiety. No mood swings. Endocrine: No abnormal blood sugars. PHYSICAL EXAMINATION Gen: This is an 85-year-old female who is laying down in bed appears to be generally weak. HEENT: Head is atraumatic, normocephalic. Pupils equal, round, conjunctivae were pale, mucus brain and muscle somewhat dry, sclera nonicteric, extraocular muscle motor intact. NECK: Supple. No JVD. No lymphadenopathy. No thyromegaly. LUNGS: decrease breath sound at bases, few rhonchi, no expiratory wheezes, no chest wall tenderness, no intercostal retractions. HEART : First heart sound is depressed, second heart sound is normal, there is 2/6 systolic ejection murmur at the left sternal border. No S3, no S4. ABDOMEN: Soft, nontender, nondistended, positive bowel sounds, no hepatomegaly, no rebound or guarding. EXTREMITIES: No pedal edema. No calf tenderness. Dorsalis pedis +2 bilaterally. NEUROLOGICAL: Patient is awake, alert and oriented x3. Cranial nerves 2 through 12 are grossly intact, muscle power 5 out of 5 in upper and lower extremities bilaterally ASSESSMENT AND PLAN 1. Upper GI bleed status post EGD and colonoscopy. EGD showed arteriovenous confirmation the body of the stomach that they're not bleeding at the time of evaluation, underwent argon treatment, colonoscopy did show evidence of sigmoid diverticula with what appears to be an ongoing bleeding since her hemoglobin dropped , continue to monitor the patient hemoglobin very closely, and keep her hemoglobin greater than 8 at all the time. 2. Acute inferior wall injury pattern with reciprocal changes suggestive of KS. Attack ventilation as Indicated at this time, continue with atorvastatin 40 mg once every day, keep the patient off antiplatelet therapy for now. 3. acute on chronic hypoxemic respiratory failure due to underlying COPD with significant anemia. Continue patient on Symbicort, continue patient on oxygen, keep her saturation greater than 93%,continue patient on DuoNeb, monitor the patient very closely. chest x-ray showed COPD with left-sided pleural effusion. 4. Acute blood loss anemia due to upper GI bleed. status post blood transfusion. Hemoglobin greater than 8. 5. History of coronary artery disease with previous PCI to the RCA 2017. Patient has been off aspirin, try to continue with metoprolol if the blood pressure allows, patient was taken off all vasodilators including hydralazine 6. Hypertension and hypertensive cardiovascular disease. continue patient on metoprolol ER 25 mg every day, hold losartan. 7. Acute kidney injury secondary to hypotension and acute tubular necrosis due to GI bleed. Continue IV fluid, monitor the patient CMP in the next 24 hours, discontinue losartan 8 Hyperlipidemia. Continue patient on atorvastatin 40 mg once every day. 9. Hypothyroidism. Continue levothyroxine 100 g daily. 10. 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 Patient is off anticoagulation due to GI bleed. 11. Vascular dementia. Continue Aricept 10 mg daily. 13. History of CVA.we will continue patient on atorvastatin 40 mg once every d ay, off aspirin and Coumadin due to GI bleed. 14. Carotid artery disease status post endarterectomy. 15. Gastroesophageal reflux disease. Continue Protonix 40 mg orally once every day. 16. DVT prophylaxis. We will try to restart Coumadin tonight. 17. COVID-19 testing negative. Patient has been hospitalized during a pandemic. 18. Guarded prognosis. Objective - Vital Signs Vital signs: Vital Signs Temp 98.4 F 07/26/21 08:00 Pulse 74 03/06/22 08:30 Resp 15 07/26/21 08:30 BP 117/67 07/26/21 08:30 Pulse Ox 91 L 07/26/21 08:30 Intake & Output 07/25/21 07/26/21 07/26/21 18:59 06:59 18:59 Intake Total 2558 435 20 Output Total 315 185 20 Balance 2243 250 0 Weight 89.5 kg Intake: IV 375 20 .9 @ 75 mL/hr 375 20 Intake, IV Titration 2000 Amount Sodium Chloride 0.9% 1, 1000 000 ml @ 999 mls/hr IV . Q1H1M ONE Rx#:[id number] Sodium Chloride 0.9% 1, 1000 000 ml @ 999 mls/hr IV . Q1H1M ONE Rx#:[id number] Oral 60 Blood Product 558 Rc Pheresis 2 As3 Unit 279 [id number] Output: Urine 315 185 20 Other: Voiding Method Indwelling Catheter Indwelling Catheter # Voids 1 - Labs CBC & Chem 7: 07/26/21 07:30 07/26/21 07:30 Labs: Abnormal Lab Results - Last 24 Hours (Table) 07/25/21 07/25/21 07/25/21 Range/Units 05:46 05:46 05:46 WBC 14.90 H (4.50-10.00) X 10*3/uL RBC 2.92 L (4.10-5.20) X 10*6/uL Hgb 7.5 L (12.0-15.0) g/dL Hct 25.6 L (37.2-46.3) % MCH 25.7 L (27.0-32.0) pg MCHC 29.3 L (32.0-37.0) g/dL RDW 16.9 H (11.5-14.5) % Absolute Nucleated RBC 0.21 H (0.00-0.00) X 10*3/uL Immature Gran # 0.10 H (0.00-0.04) X 10*3/uL Neutrophils # 10.09 H (1.80-7.70) X 10*3/uL Eosinophils # 0 L (0.04-0.35) X 10*3/uL NRBC/100 WBC Diff 1.4 H (0.0-0.0) /100 WBCS PT 13.8 H (9.9-11.9) sec INR 1.23 H (0.90-1.11) Sodium (137-145) mmol/L Chloride (98-107) mmol/L Carbon Dioxide (22-30) mmol/L BUN (7-17) mg/dL Creatinine 1.8 H (0.6-1.5) mg/dL Est GFR (CKD-EPI)AfAm 29.6 L (60.0-200.0) Est GFR (CKD-EPI)NonAf 25.6 L (60.0-200.0) BUN/Creatinine Ratio 7.56 L (12.00-20.00) Ratio Glucose 122 H (70-110) mg/dL POC Glucose (mg/dL) (75-99) mg/dL Calcium (8.4-10.2) mg/dL AST 282 H (13-35) U/L ALT 158 H (8-44) U/L Troponin I (0.000-0.034) ng/mL Total Protein 5.2 L (6.2-8.2) g/dL Albumin 3.0 L (3.8-4.9) g/dL Albumin/Globulin Ratio 1.36 L (1.60-3.17) g/dL Crossmatch 07/25/21 07/25/21 07/25/21 Range/Units 10:08 10:11 13:17 WBC (4.50-10.00) X 10*3/uL RBC (4.10-5.20) X 10*6/uL Hgb (12.0-15.0) g/dL Hct (37.2-46.3) % MCH (27.0-32.0) pg MCHC (32.0-37.0) g/dL RDW (11.5-14.5) % Absolute Nucleated RBC (0.00-0.00) X 10*3/uL Immature Gran # (0.00-0.04) X 10*3/uL Neutrophils # (1.80-7.70) X 10*3/uL Eosinophils # (0.04-0.35) X 10*3/uL NRBC/100 WBC Diff (0.0-0.0) /100 WBCS PT (9.9-11.9) sec INR (0.90-1.11) Sodium (137-145) mmol/L Chloride (98-107) mmol/L Carbon Dioxide (22-30) mmol/L BUN (7-17) mg/dL Creatinine (0.6-1.5) mg/dL Est GFR (CKD-EPI)AfAm (60.0-200.0) Est GFR (CKD-EPI)NonAf (60.0-200.0) BUN/Creatinine Ratio (12.00-20.00) Ratio Glucose (70-110) mg/dL POC Glucose (mg/dL) 110 H (75-99) mg/dL Calcium (8.4-10.2) mg/dL AST (13-35) U/L ALT (8-44) U/L Troponin I 1.030 H* (0.000-0.034) ng/mL Total Protein (6.2-8.2) g/dL Albumin (3.8-4.9) g/dL Albumin/Globulin Ratio (1.60-3.17) g/dL Crossmatch See Detail 07/25/21 07/25/21 07/26/21 Range/Units 16:35 16:35 07:30 WBC 14.8 H (4.50-10.00) X 10*3/uL RBC 2.98 L (4.10-5.20) X 10*6/uL Hgb 8.4 L (12.0-15.0) g/dL Hct 26.2 L (37.2-46.3) % MCH (27.0-32.0) pg MCHC (32.0-37.0) g/dL RDW 15.9 H (11.5-14.5) % Absolute Nucleated RBC (0.00-0.00) X 10*3/uL Immature Gran # (0.00-0.04) X 10*3/uL Neutrophils # (1.80-7.70) X 10*3/uL Eosinophils # (0.04-0.35) X 10*3/uL NRBC/100 WBC Diff (0.0-0.0) /100 WBCS PT 14.8 H (9.9-11.9) sec INR 1.4 H (0.90-1.11) Sodium 135 L (137-145) mmol/L Chloride 112 H (98-107) mmol/L Carbon Dioxide 17 L (22-30) mmol/L BUN 20 H (7-17) mg/dL Creatinine 2.24 H (0.6-1.5) mg/dL Est GFR (CKD-EPI)AfAm (60.0-200.0) Est GFR (CKD-EPI)NonAf (60.0-200.0) BUN/Creatinine Ratio (12.00-20.00) Ratio Glucose 102 H (70-110) mg/dL POC Glucose (mg/dL) (75-99) mg/dL Calcium 8.3 L (8.4-10.2) mg/dL AST (13-35) U/L ALT (8-44) U/L Troponin I (0.000-0.034) ng/mL Total Protein (6.2-8.2) g/dL Albumin (3.8-4.9) g/dL Albumin/Globulin Ratio (1.60-3.17) g/dL Crossmatch 07/26/21 07/26/21 Range/Units 07:30 07:30 WBC 16.4 H (4.50-10.00) X 10*3/uL RBC 3.24 L (4.10-5.20) X 10*6/uL Hgb 9.1 L (12.0-15.0) g/dL Hct 30.1 L (37.2-46.3) % MCH (27.0-32.0) pg MCHC 30.2 L (32.0-37.0) g/dL RDW 15.8 H (11.5-14.5) % Absolute Nucleated RBC (0.00-0.00) X 10*3/uL Immature Gran # (0.00-0.04) X 10*3/uL Neutrophils # (1.80-7.70) X 10*3/uL Eosinophils # (0.04-0.35) X 10*3/uL NRBC/100 WBC Diff (0.0-0.0) /100 WBCS PT (9.9-11.9) sec INR (0.90-1.11) Sodium 135 L (137-145) mmol/L Chloride 112 H (98-107) mmol/L Carbon Dioxide 18 L (22-30) mmol/L BUN 23 H (7-17) mg/dL Creatinine 1.89 H (0.6-1.5) mg/dL Est GFR (CKD-EPI)AfAm (60.0-200.0) Est GFR (CKD-EPI)NonAf (60.0-200.0) BUN/Creatinine Ratio (12.00-20.00) Ratio Glucose (70-110) mg/dL POC Glucose (mg/dL) (75-99) mg/dL Calcium 8.2 L (8.4-10.2) mg/dL AST (13-35) U/L ALT (8-44) U/L Troponin I (0.000-0.034) ng/mL Total Protein (6.2-8.2) g/dL Albumin (3.8-4.9) g/dL Albumin/Globulin Ratio (1.60-3.17) g/dL Crossmatch
[2021-07-26] MEDS: PANTOPRAZOLE 40 MG TABLET PO SCH (09:46)
[2021-07-26] MEDS: MULTIVITAMINS, THERA 1 EACH TAB PO SCH (09:47)
[2021-07-26] MEDS: CHOLECALCIFEROL 125 MCG (5000 IU) TABLET PO SCH (09:47)
--- NOTE | 2021-07-26 12:08 | P.PN ---
Subjective Progress Note Date: 07/26/21 I was asked to evaluate this patient was having some difficulties with hypotension, acute kidney injury and lethargy this morning. 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 She is also known to have COPD, previous history of CVA without any residual deficits, hypertension, hypothyroidism, hyperlipidemia and chronic hypoxic respiratory failure maternal oxygen at 2 L per minute nasal cannula. She was admitted to the hospital because of increased weakness and dizziness and hypotension and she was unable to do much. She was also complaining of worsening shortness of breath. Chest x-ray at time of admission showed a small left sided pleural effusion. Clinically, the patient did not have any signs of pneumonia. The patient underwent a colonoscopy and EGD due to anemia and concern of GI bleed. Based on the findings, the patient was found to have sigmoid diverticulosis without evidence of any acute bleeding. 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 The patient this morning was found to have hypotension. She was fired feeling lethargic. Hemoglobin dropped from 8.5 down to 7.5 in the units of packed RBC was ordered by the primary care physician. A bolus of fluid was also given. The patient had an EKG that showed questionable ST segme nt changes involving the inferior leads. A pulmonary consultation was requested in addition to a cardiac consultation. The patient denies having any chest pain. Note that her white cell count of 14.9. Hemoglobin was at 7.5. Normal coagulation profile. Troponin was at 1.03 from a baseline of 0.5 which is slightly higher. Noted the patient had troponin leaks or lung during her earlier and current hospitalization. The rest of the electrolytes are all showing abnormal findings which included a serum bicarb of 20, anion gap of 12, creatinine of 1.8, LFTs are also abnormal as the patient was found to have a AST of 282, ALT of 158, bilirubin was 0.7 and alkaline phosphatase was 118. 07/26/2021, the patient is much more awake and alert compared to yesterday. Her lethargy and generalized fatigue and tiredness improved. I'm seeing her today in follow-up. Note that she was hypotensive and she was having issues with low urine outputs. Overall, the patient was given a total of 3 L of normal saline patient was given a unit of packed RBC. Current blood pressure is much more solid and the patient's hemoglobin stable at 9.1. She is free of any chest pain. Her creatinine peaked at 2.24 and currently is down to 1.89. Serum bicarbonate 18 with an anion gap of 5. INR is at 1.4. The patient has no specific complaints. Antipronation has not restarted due to concerns of upper GI bleed. Meanwhile, the patient has not shown any ongoing episodes of GI bleeding for now. She was taking warfarin on outpatient basis. Repeat chest x- ray from today shows a left-sided pleural effusion. The patient had some increased oxygen requirements and she is currently up to 12 L of oxygen by nasal cannula. She'll be given gentle diuresis. Objective - Vital Signs Vital signs: Vital Signs Temp 98.4 F 07/26/21 08:00 Pulse 75 07/26/21 11:00 Resp 16 07/26/21 11:00 BP 122/68 07/26/21 11:00 Pulse Ox 91 L 07/26/21 11:00 Intake & Output 07/25/21 07/26/21 07/26/21 18:59 06:59 18:59 Intake Total 2558 435 0 Output Total 315 185 550 Balance 2243 250 -550 Weight 89.5 kg Intake: IV 375 0 .9 @ 75 mL/hr 375 0 Intake, IV Titration 2000 Amount Sodium Chloride 0.9% 1, 1000 000 ml @ 999 mls/hr IV . Q1H1M ONE Rx#:[id number] Sodium Chloride 0.9% 1, 1000 000 ml @ 999 mls/hr IV . Q1H1M ONE Rx#:[id number] Oral 60 Blood Product 558 Rc Pheresis 2 As3 Unit 279 [id number] Output: Urine 315 185 550 Other: Voiding Method Indwelling Catheter Indwelling Catheter Indwelling Catheter # Voids 1 - Exam Gen. appearance the patient is calm comfortable likely distress. She is currently on 12 L by nasal cannula. Breathing is nonlabored. The patient is pale. Following commands and answering questions. She is profoundly weak in all 4 extremity is bilaterally. There is global generalized weakness. Head exam was generally normal. There was no scleral icterus or corneal arcus. Mucous membranes were moist. Neck was supple and without jugular venous distension, thyromegaly, or carotid bruits. Carotids were easily palpable bilaterally. There was no adenopathy. Lungs sounds are diminished bilaterally especially in the lung bases along with some few bibasilar crackles. Cardiac exam revealed the PMI to be normally situated and sized. The rhythm was regular and no extrasystoles were noted during several minutes of auscultation. The first and second heart sounds were normal and physiologic splitting of the second heart sound was noted. There were no murmurs, rubs, clicks, or gallops. Abdominal exam revealed normal bowel sounds. The abdomen was soft, non-tender, and without masses, organomegaly, or appreciable enlargement of the abdominal aorta. Examination of the extremities revealed easily palpable radial, femoral and pe markus pulses. There was no cyanosis, clubbing or edema. Examination of the skin revealed no evidence of significant rashes, suspicious appearing nevi or other concerning lesions. Neurologically, the patient is awake and alert and the patient does not have any focal neurological deficit. Cranial nerves are essentially intact. - Labs CBC & Chem 7: 07/26/21 07:30 07/26/21 07:30 Labs: Abnormal Lab Results - Last 24 Hours (Table) 07/25/21 07/25/21 07/25/21 Range/Units 10:08 13:17 16:35 WBC 14.8 H (3.8-10.6) k/uL RBC 2.98 L (3.80-5.40) m/uL Hgb 8.4 L (11.4-16.0) gm/dL Hct 26.2 L (34.0-46.0) % MCHC (31.0-37.0) g/dL RDW 15.9 H (11.5-15.5) % PT (9.0-12.0) sec INR (<1.2) Sodium (137-145) mmol/L Chloride (98-107) mmol/L Carbon Dioxide (22-30) mmol/L BUN (7-17) mg/dL Creatinine (0.52-1.04) mg/dL Glucose (74-99) mg/dL POC Glucose (mg/dL) 110 H (75-99) mg/dL Calcium (8.4-10.2) mg/dL Crossmatch See Detail 07/25/21 07/26/21 07/26/21 Range/Units 16:35 07:30 07:30 WBC 16.4 H (3.8-10.6) k/uL RBC 3.24 L (3.80-5.40) m/uL Hgb 9.1 L (11.4-16.0) gm/dL Hct 30.1 L (34.0-46.0) % MCHC 30.2 L (31.0-37.0) g/dL RDW 15.8 H (11.5-15.5) % PT 14.8 H (9.0-12.0) sec INR 1.4 H (<1.2) Sodium 135 L (137-145) mmol/L Chloride 112 H (98-107) mmol/L Carbon Dioxide 17 L (22-30) mmol/L BUN 20 H (7-17) mg/dL Creatinine 2.24 H (0.52-1.04) mg/dL Glucose 102 H (74-99) mg/dL POC Glucose (mg/dL) (75-99) mg/dL Calcium 8.3 L (8.4-10.2) mg/dL Crossmatch 07/26/21 Range/Units 07:30 WBC (3.8-10.6) k/uL RBC (3.80-5.40) m/uL Hgb (11.4-16.0) gm/dL Hct (34.0-46.0) % MCHC (31.0-37.0) g/dL RDW (11.5-15.5) % PT (9.0-12.0) sec INR (<1.2) Sodium 135 L (137-145) mmol/L Chloride 112 H (98-107) mmol/L Carbon Dioxide 18 L (22-30) mmol/L BUN 23 H (7-17) mg/dL Creatinine 1.89 H (0.52-1.04) mg/dL Glucose (74-99) mg/dL POC Glucose (mg/dL) (75-99) mg/dL Calcium 8.2 L (8.4-10.2) mg/dL Crossmatch Assessment and Plan Plan: 1 hypotension currently under investigation. Consider drug effect versus hypovolemic hypotension as the patient may have an underlying GI bleed along with drop in hemoglobin. The patient will be given IV fluids and packed RBC and hemoglobin monitored very closely. A cardiac component contributing to hypotension cannot be ruled out. The patient's blood pressure is much improved after being given a total of 3 L of IV fluids in the form of normal saline bolus and the patient was also given a unit of packed RBC. Blood pressure is much more solid this point in time. 2 acute kidney injury, creatinine peaked at 2.24 and currently down to 1.89 3 chronic hypoxic respiratory failure maintained on O2 at 2 L per minute nasal cannula currently on 4, and there is been interval worsening and oxygenation and the patient is currently on 12 L, probably related to IV fluids. Chest x-ray is showing a stable left-sided pleural effusion. 4 COPD with chronic small left-sided pleural effusion 5 CAD-Please refer to the most recent cardiac catheterization done on this patient back in 2020. It was recommended to continue medical treatment. EKG is currently showing an old septal infarct. No acute ischemic changes. Troponins are minimally elevated, troponin peaked at 1.03 6 history of factor V Leyden maintained on long-term articulation with warfarin with a therapeutic PT/INR 7 hypertension 8 hypothyroidism 9 hyperlipidemia 10 previous history of smoking 11 previous history of CVA, without any residual deficits 12 acute on chronic anemia with a hemoglobin of 7.5. 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, nonbleeding and argon plasma treatment was applied 13 generalized debility and weakness 14 abnormal LFTs Plan Given a dose of Lasix 40 mg IV push Monitor oxygenation and gradually wean down the FiO2 to maintain a saturation above 90% Cardiology consultation is appreciated and there is no need for intervention No anticoagulants for now for another 24 hours to make sure that the patient is not having any GI bleeds Hold back to antihypertensive medications We'll chest with dry see if there is any further decompensation the status Performance and functional status is poor prognosis poor based above-mentioned comorbidities Will monitor this patient ICU for another 24 hours
--- NOTE | 2021-07-26 12:41 | P.PN ---
Subjective Progress Note Date: 07/26/21 This is Harsh villagomez NP, I'm dictating on behalf of Dr. He's H&P and A&P. Patient was interviewed and examined. Patient is a pleasant 85-year-old female who initially presented to the hospital with anemia and GI bleed. Patient appears to be more alert today. She is denying chest pain and shortness of breath at this time. Her hemoglobin has increased. GENERAL: Well-appearing, well-nourished and in no acute distress. NECK: Supple without JVD or thyromegaly. LUNGS: Breath sounds clear to auscultation bilaterally. Respiration equal and unlabored. No wheezes, rales or rhonchi. HEART: Regular rate and rhythm without murmurs, rubs or gallops. S1 and S2 heard. EXTREMITIES: Normal range of motion, no edema. No clubbing or cyanosis. Peripheral pulses intact and strong. VITALS: Temp 98.3, pulse 79, respirations 23, blood pressure 120/50, O2 saturation 92% on high flow nasal cannula TELEMETRY: Normal sinus rhythm LABS: White count 16.4, hemoglobin 9.1, platelets 234, sodium 135, potassium 4.0, B1 23, creatinine 1.89 IMPRESSION/PLAN: 1. Inferiolateral ischemia with mild ST elevation-continue current treatment as prescribed. Anticoagulation continues to be contraindicated. 2. Acute anemia-continue to follow recommendations from internal medicine and specialists. Objective - Vital Signs Vital signs: Vital Signs Temp 98.4 F 07/26/21 08:00 Pulse 75 07/26/21 11:00 Resp 16 07/26/21 11:00 BP 122/68 07/26/21 11:00 Pulse Ox 91 L 07/26/21 11:00 Intake & Output 07/25/21 07/26/21 07/26/21 18:59 06:59 18:59 Intake Total 2558 435 0 Output Total 315 185 550 Balance 2243 250 -550 Weight 89.5 kg Intake: IV 375 0 .9 @ 75 mL/hr 375 0 Intake, IV Titration 2000 Amount Sodium Chloride 0.9% 1, 1000 000 ml @ 999 mls/hr IV . Q1H1M ONE Rx#:[id number] Sodium Chloride 0.9% 1, 1000 000 ml @ 999 mls/hr IV . Q1H1M ONE Rx#:[id number] Oral 60 Blood Product 558 Rc Pheresis 2 As3 Unit 279 [id number] Output: Urine 315 185 550 Other: Voiding Method Indwelling Catheter Indwelling Catheter Indwelling Catheter # Voids 1 - Labs CBC & Chem 7: 07/26/21 07:30 07/26/21 07:30 Labs: Abnormal Lab Results - Last 24 Hours (Table) 07/25/21 07/25/21 07/25/21 Range/Units 10:08 13:17 16:35 WBC 14.8 H (3.8-10.6) k/uL RBC 2.98 L (3.80-5.40) m/uL Hgb 8.4 L (11.4-16.0) gm/dL Hct 26.2 L (34.0-46.0) % MCHC (31.0-37.0) g/dL RDW 15.9 H (11.5-15.5) % PT (9.0-12.0) sec INR (<1.2) Sodium (137-145) mmol/L Chloride (98-107) mmol/L Carbon Dioxide (22-30) mmol/L BUN (7-17) mg/dL Creatinine (0.52-1.04) mg/dL Glucose (74-99) mg/dL POC Glucose (mg/dL) 110 H (75-99) mg/dL Calcium (8.4-10.2) mg/dL Crossmatch See Detail 07/25/21 07/26/21 07/26/21 Range/Units 16:35 07:30 07:30 WBC 16.4 H (3.8-10.6) k/uL RBC 3.24 L (3.80-5.40) m/uL Hgb 9.1 L (11.4-16.0) gm/dL Hct 30.1 L (34.0-46.0) % MCHC 30.2 L (31.0-37.0) g/dL RDW 15.8 H (11.5-15.5) % PT 14.8 H (9.0-12.0) sec INR 1.4 H (<1.2) Sodium 135 L (137-145) mmol/L Chloride 112 H (98-107) mmol/L Carbon Dioxide 17 L (22-30) mmol/L BUN 20 H (7-17) mg/dL Creatinine 2.24 H (0.52-1.04) mg/dL Glucose 102 H (74-99) mg/dL POC Glucose (mg/dL) (75-99) mg/dL Calcium 8.3 L (8.4-10.2) mg/dL Crossmatch 07/26/21 Range/Units 07:30 WBC (3.8-10.6) k/uL RBC (3.80-5.40) m/uL Hgb (11.4-16.0) gm/dL Hct (34.0-46.0) % MCHC (31.0-37.0) g/dL RDW (11.5-15.5) % PT (9.0-12.0) sec INR (<1.2) Sodium 135 L (137-145) mmol/L Chloride 112 H (98-107) mmol/L Carbon Dioxide 18 L (22-30) mmol/L BUN 23 H (7-17) mg/dL Creatinine 1.89 H (0.52-1.04) mg/dL Glucose (74-99) mg/dL POC Glucose (mg/dL) (75-99) mg/dL Calcium 8.2 L (8.4-10.2) mg/dL Crossmatch
[2021-07-26] MEDS: METOPROLOL SUCCINATE (ER) 25 MG TAB.ER.24H PO SCH (19:42)
[2021-07-26] MEDS: LEVOTHYROXINE 100 MCG TAB PO SCH (19:42)
[2021-07-26] MEDS: DONEPEZIL 10 MG TAB PO SCH (20:13)
[2021-07-26 21:29] LABS: Magnesium 1.9 mg/dL (1.6-2.3); Potassium 3.5 mmol/L (3.5-5.1)
[2021-07-26] MEDS ORDERED: Potassium Replacement Protocol 1 EACH MISC MISCELLANE PRN (21:38)
[2021-07-26] MEDS: POTASSIUM CHLORIDE ER 20 MEQ TAB.ER PO SCH ×2 (22:56→22:57)
[2021-07-27] MEDS ORDERED: METOPROLOL TARTRATE 25 MG TAB PO SCH
[2021-07-27 06:56] LABS: Anisocytosis Slight; HGB 9.5 gm/dL (11.4-16.0); Hypochromasia Marked; MCHC 30.7 g/dL (31.0-37.0); MCV 91.1 fL (80.0-100.0); Mean Platelet Volume 9.2; Platelet Count 248 k/uL (150-450); Poikilocytosis Marked; RBC 3.41 m/uL (3.80-5.40); RDW 16.3 % (11.5-15.5); WBC 14.1 k/uL (3.8-10.6)
[2021-07-27 07:01] LABS: INR 1.7 (<1.2)
[2021-07-27 07:36] LABS: Calcium 8.7 mg/dL (8.4-10.2); Potassium 4.5 mmol/L (3.5-5.1)
[2021-07-27] MEDS: SYMBICORT 160-4.5 MCG INHALER INHALATION SCH ×2 (08:13→20:31)
[2021-07-27] MEDS: IPRATROPIUM-ALBUTEROL 3 ML NEB INHALATION SCH ×4 (08:13→20:31)
[2021-07-27] MEDS ORDERED: FUROSEMIDE 10 MG/ML 4 ML VIAL IV STA (09:05)
--- NOTE | 2021-07-27 10:17 | PN ---
PROGRESS NOTE FOLLOW-UP NOTE: Susan is an 85-year-old lady who was admitted to hospital with anemia and GI bleed. Cardiology is involved in the care of this patient because of prior cardiac history, including known coronary artery disease, status post prior angioplasty, and ischemic ST- T wave changes. This morning at the time of my evaluation patient is in ICU, comfortable at rest, and is free of symptoms. On exam, comfortable at rest. Vital signs are stable. Chest exam reveals good air entry bilaterally. Heart exam reveals first and second heart sounds, ejection systolic murmur in the aortic area. Abdomen is soft. Examination of extremities did not reveal any edema. Peripheral pulses are felt. Patient is currently on Lipitor 40, Lopressor 25 b.i.d. and sublingual nitroglycerine on a p.r.n. basis. Labs show that the hemoglobin is 9.5, platelet count is 248. INR is 1.7. ASSESSMENT: 1. Coronary artery disease, status post angioplasty. 2. History of gastrointestinal bleed. 3. History of renal failure. 4. Respiratory failure. 5. History of factor V Leiden deficiency, on long-term anticoagulation. PLAN: I will continue current medications. MMODL / IJN: [id number] /
--- NOTE | 2021-07-27 10:49 | P.PN ---
Subjective Progress Note Date: 07/27/21 HISTORY OF PRESENT ILLNESS This is an 84-year-old female patient of Dr. Bertrand and Dr. 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, remote history of tobacco use and dependence, patient was seen in my office as her day with generalized weakness and increased dizziness and hypotension with not able to do anything, associated with increased shortness breath, she was requiring about 3-4 L cannula usually she is on 2 L nasal cannula, patient stated that she has been having some dark stool for the last 48 hours, and her appetite was down, patient was sent to the emergency department for evaluation her initial hemoglobin was lower than normal she did drop about 3 g for the prior hemoglobin, and the patient was admitted to the hospital for possible upper GI bleed, patient type and cross and place and hold 2 units of packed red blood cells, she was taken off aspirin and Coumadin she was started on Protonix 40 mg IV push every 12 hours, GI consultation was obtained, patient surprisingly had a troponin that was positive at cardiology consultation was obtained for further evaluation and recommendation. 3/2: Patient denies having any nausea or vomiting. No chest pain. She has not had a bowel movement since she arrived. She has been seen by GI with plan for EGD and colonoscopy for tomorrow. Troponins are elevated at 0.797 and 0.5-0, cardiology consult added. Iron studies have been ordered by GI and patient is continued on protonic 40 mg IV twice daily. Patient has been afebrile, heart rate 80 to 80s, blood pressure 96/58, pulse ox 91% on 2 L. Repeat hemoglobin last night was 8.2. Repeat blood work ordered for tomorrow. 3/3: Patient denies having any abdominal pain, no epigastric tenderness. She denies having any chest pain. EGD and colonoscopy is scheduled for this morning. She underwent prep last night and did have some blood and output is now cleared. Patient continued on Protonix 40 mg IV push twice daily. She was seen yesterday by cardiology with recommendations for no further workup and acute coronary syndrome was ruled out. Patient in follow-up Dr. Sheehan as an outpatient. Laboratory studies from today are pending. 07/24: Patient feels very weak today she can he is to be very pale, it was recommended by GI service to restart Coumadin as the patient EGD did show arteriovenous confirmation that was treated with argon, colonoscopy did show sigmoid diverticulosis without evidence of any neoplasia, hemoglobin was stable at 8.5 today, I will start the patient on 2.5 mg tonight and repeat INR tomorrow morning, monitor the patient's CBC every 24 hours, physical therapy evaluation, patient will likely need to go for subacute rehabilitation. 07/25: Patient is sitting up in bed extremely pale she appears pasty, significant weakness, she denies any chest pain she does complain of irritative cough, I have ordered a stat chest x-ray on her that showed COPD with left-sided pleural effusion, a stat 12-lead EKG that didn't show evidence of sinus rhythm with what appears to be an ST elevation in the inferior leads especially in lead 3 and aVF with reciprocal changes suggestive of AL, cardiology reconsult, consult pulmonary and critical care for transferred to the intensive care unit as the patient is full code and she is hypotensive and she appears to be bleeding again as her hemoglobin did drop from 8.5-7.5 discontinue Coumadin again and transfer the patient to the ICU, start the patient on IV fluid she will be given normal saline 500 mL bolus IV 1 she'll be given 1 unit of packed red blood cells I've contacted the library monitor and beef contacted cardiology as well. 07/26: Patient was moved to the intensive care unit yesterday because of significant hypotension and minimal ST elevation in the inferior lead with lat eral ischemia as well, patient is actively bleeding at this time, and anticoagulation as Indicated, patient was seen in consultation by cardiology we'll continue to monitor the patient very closely she did receive fluid and packed blood cells, keep her hemoglobin greater than 8 at all the time, follow- up with the patient very closely, prognosis continues to be very guarded. 07/27: Patient is laying down in bed she appears to be generally weak today, she continues to have some shortness breath, she is currently on high flow oxygen level liters nasal cannula, she continues to be in intensive care unit, she has been seen by library monitor as well as cardiology, patient does not appear to have any unstable angina or congestive heart failure her urine output has picked up after the Lasix, her creatinine is 1.7, INR is 1.7, no active GI bleed at this point in time, keep the patient as she for another 24 hours REVIEW OF SYSTEMS Constitutional: No fever, no chills, no night sweats. No weight change. Reports weakness, Reports fatigue or lethargy. No daytime sleepiness. HEENT: No headache. No blurred vision or double vision, no loss of vision. hard of Hearing, no ringing in the ears, no dizziness. No nasal drainage or congestion. No epistaxis. No sore throat. Lungs: No shortness of breath, cough, no sputum production. No wheezing. Cardiovascular: No chest pain, no lower extremity edema. No palpitations. No paroxysmal nocturnal dyspnea. No orthopnea. No lightheadedness or dizziness. No syncopal episodes. Abdominal: No abdominal pain. No nausea, vomiting. No diarrhea. No constipation, positive for black tarry stool, positive for poor appetite. Genitourinary: No dysuria, increased frequency, urgency. No urinary retention. Musculoskeletal: No myalgias. Reports muscle weakness, Reports gait dysfunction, no frequent falls. No back pain. No neck pain. Integumentary: No wounds, no lesions. No rash or pruritus. No unusual bruising. No change in hair or nails. Neurologic: No aphasia. No facial droop. No change in mentation. No head injury. No headache. No paralysis. No paresthesia. Psychiatric: No depression. No anxiety. No mood swings. Endocrine: No abnormal blood sugars. PHYSICAL EXAMINATION Gen: This is an 85-year-old female who is laying down in bed appears to be generally weak. HEENT: Head is atraumatic, normocephalic. Pupils equal, round, conjunctivae were pale, mucus brain and muscle somewhat dry, sclera nonicteric, extraocular muscle motor intact. NECK: Supple. No JVD. No lymphadenopathy. No thyromegaly. LUNGS: decrease breath sound at bases, few rhonchi, no expiratory wheezes, no chest wall tenderness, no intercostal retractions. HEART : First heart sound is depressed, second heart sound is normal, there is 2/6 systolic ejection murmur at the left sternal border. No S3, no S4. ABDOMEN: Soft, nontender, nondistended, positive bowel sounds, no hepatomegaly, no rebound or guarding. EXTREMITIES: No pedal edema. No calf tenderness. Dorsalis pedis +2 bilatera lly. NEUROLOGICAL: Patient is awake, alert and oriented x3. Cranial nerves 2 through 12 are grossly intact, muscle power 5 out of 5 in upper and lower extremities bilaterally ASSESSMENT AND PLAN 1. Upper GI bleed status post EGD and colonoscopy. EGD showed arteriovenous confirmation the body of the stomach that they're not bleeding at the time of evaluation, underwent argon treatment, colonoscopy did show evidence of sigmoid diverticulosis. No more obvious GI bleed at this point in time, we'll continue to monitor the patient very closely hopefully we'll start her Coumadin in the next 24 hours. 2. Acute inferior wall injury pattern with reciprocal changes suggestive of AL. Continue patient on atorvastatin 40 mg orally once every day, continue Toprol- XL 25 minute gram orally once every day, continue the patient off aspirin. Cardiology is following. 3. acute on chronic hypoxemic respiratory failure due to underlying COPD with significant anemia. Continue patient on Symbicort, continue patient on oxygen, keep her saturation greater than 93%,continue patient on DuoNeb, monitor the patient very closely. chest x-ray showed COPD with left-sided pleural effusion. 4. Acute blood loss anemia due to upper GI bleed. status post blood transfusion. Hemoglobin greater than 8. 5. History of coronary artery disease with previous PCI to the RCA 2017. Maintain the patient on metoprolol ER 25 mg at bedtime, keep her off aspirin, continue atorvastatin 40 mg once every day. 6. Hypertension and hypertensive cardiovascular disease. continue patient on metoprolol ER 25 mg every day. 7. Acute kidney injury secondary to hypotension and acute tubular necrosis due to GI bleed. Continue IV fluid, monitor the patient CMP in the next 24 hours, discontinue losartan 8 Hyperlipidemia. Continue patient on atorvastatin 40 mg once every day. 9. Hypothyroidism. Continue levothyroxine 100 g daily. 10. 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 Try to resume Coumadin in the next 24 hours. 11. Vascular dementia. Continue Aricept 10 mg daily. 13. History of CVA.we will continue patient on atorvastatin 40 mg once every day, off aspirin and Coumadin due to GI bleed. 14. Carotid artery disease status post endarterectomy. 15. Gastroesophageal reflux disease. Continue Protonix 40 mg orally once every day. 16. DVT prophylaxis. We will try to restart Coumadin tonight. 17. COVID-19 testing negative. Patient has been hospitalized during a pandemic. 18. Guarded prognosis. 19. Physical therapy evaluation social services assistant consultation for subacute rehabilitation. Objective - Vital Signs Vital signs: Vital Signs Temp 98.4 F 07/27/21 04:00 Pulse 56 L 07/27/21 08:21 Resp 26 H 07/27/21 06:00 BP 107/56 07/27/21 06:00 Pulse Ox 92 L 07/27/21 06:00 Intake & Output 07/26/21 07/27/21 07/27/21 18:59 06:59 18:59 Intake Total 300 600 Output Total 1675 520 Balance -1375 80 Weight 88 kg Intake: IV 0 .9 @ 75 mL/hr 0 Oral 300 600 Output: Urine 1675 520 Other: Voiding Method Indwelling Catheter Indwelling Catheter # Bowel Movements 1 - Labs CBC & Chem 7: 07/27/21 05:44 07/27/21 05:44 Labs: Abnormal Lab Results - Last 24 Hours (Table) 07/27/21 07/27/21 07/27/21 Range/Units 05:44 05:44 05:44 WBC 14.1 H (3.8-10.6) k/uL RBC 3.41 L (3.80-5.40) m/uL Hgb 9.5 L (11.4-16.0) gm/dL Hct 31.0 L (34.0-46.0) % MCHC 30.7 L (31.0-37.0) g/dL RDW 16.3 H (11.5-15.5) % PT 17.0 H (9.0-12.0) sec INR 1.7 H (<1.2) Sodium 134 L (137-145) mmol/L Chloride 110 H (98-107) mmol/L Carbon Dioxide 17 L (22-30) mmol/L BUN 24 H (7-17) mg/dL Creatinine 1.73 H (0.52-1.04) mg/dL Glucose 125 H (74-99) mg/dL
--- NOTE | 2021-07-27 11:07 | P.PN ---
Subjective Progress Note Date: 07/27/21 Principal diagnosis: Shortness of breath, hypoxia I was asked to evaluate this patient was having some difficulties with hypotension, acute kidney injury and lethargy this morning. 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 She is also known to have COPD, previous history of CVA without any residual deficits, hypertension, hypot hyroidism, hyperlipidemia and chronic hypoxic respiratory failure maternal oxygen at 2 L per minute nasal cannula. She was admitted to the hospital because of increased weakness and dizziness and hypotension and she was unable to do much. She was also complaining of worsening shortness of breath. Chest x-ray at time of admission showed a small left sided pleural effusion. Clinically, the patient did not have any signs of pneumonia. The patient underwent a colonoscopy and EGD due to anemia and concern of GI bleed. Based on the findings, the patient was found to have sigmoid diverticulosis without evidence of any acute bleeding. 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 The patient this morning was found to have hypotension. She was fired feeling lethargic. Hemoglobin dropped from 8.5 down to 7.5 in the units of packed RBC was ordered by the primary care physician. A bolus of fluid was also given. The patient had an EKG that showed questionable ST segment changes involving the inferior leads. A pulmonary consultation was requested in addition to a cardiac consultation. The patient denies having any chest pain. Note that her white cell count of 14.9. Hemoglobin was at 7.5. Normal coagulation profile. Troponin was at 1.03 from a baseline of 0.5 which is slightly higher. Noted the patient had troponin leaks or lung during her earlier and current hospitalization. The rest of the electrolytes are all showing abnormal findings which included a serum bicarb of 20, anion gap of 12, creatinine of 1.8, LFTs are also abnormal as the patient was found to have a AST of 282, ALT of 158, bilirubin was 0.7 and alkaline phosphatase was 118. 07/26/2021, the patient is much more awake and alert compared to yesterday. Her lethargy and generalized fatigue and tiredness improved. I'm seeing her today in follow-up. Note that she was hypotensive and she was having issues with low urine outputs. Overall, the patient was given a total of 3 L of normal saline patient was given a unit of packed RBC. Current blood pressure is much more solid and the patient's hemoglobin stable at 9.1. She is free of any chest pain. Her creatinine peaked at 2.24 and currently is down to 1.89. Serum bicarbonate 18 with an anion gap of 5. INR is at 1.4. The patient has no specific complaints. Antipronation has not restarted due to concerns of upper GI bleed. Meanwhile, the patient has not shown any ongoing episodes of GI bleeding for now. She was taking warfarin on outpatient basis. Repeat chest x- ray from today shows a left-sided pleural effusion. The patient had some increased oxygen requirements and she is currently up to 12 L of oxygen by nasal cannula. She'll be given gentle diuresis. On 07/27/2021 patient seen in follow-up in intensive care unit, she is resting comfortably in bed, appears to be in no acute distress, she is currently on 10 L of oxygen her pulse ox is 91-92%, she is awake and alert, she is answering questions appropriately, she is hemodynamically stable, she is not on any maintenance IV fluids. Last chest x-ray from yesterday showing persistent small left lower lobe atelectasis and/or effusion. Patient was given a dose of Lasix yesterday 40 mg 1, exhalation is in 1.2 L negative net fluid balance over the last 24 hours. No reported bleeding overnight, hemodynamically she is stable. No abdominal pain. Patient had a EGD and colonoscopy on 07/23/2021 for acute anemia. 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 Today's labs have been reviewed, white blood cell count is 14.1, hemoglobin is 9.5, platelet count is 248, INR is 1.7, sodium is 134, potassium is 4.5, chloride is 110, CO2 17 BUN is 24 creatinine is 1.73. Coumadin remains on hold. Patient is tolerating regular diet. Objective - Vital Signs Vital signs: Vital Signs Temp 98.4 F 07/27/21 04:00 Pulse 56 L 07/27/21 08:21 Resp 26 H 07/27/21 06:00 BP 107/56 07/27/21 06:00 Pulse Ox 92 L 07/27/21 06:00 Intake & Output 07/26/21 07/27/21 07/27/21 18:59 06:59 18:59 Intake Total 300 600 Output Total 1675 520 Balance -1375 80 Weight 88 kg Intake: IV 0 .9 @ 75 mL/hr 0 Oral 300 600 Output: Urine 1675 520 Other: Voiding Method Indwelling Catheter Indwelling Catheter # Bowel Movements 1 - Exam GENERAL EXAM: Alert, very pleasant, 85-year-old female on 2 L oxygen with pulse ox 92% comfortable in no apparent distress. HEAD: Normocephalic/atraumatic. EYES: Normal reaction of pupils, equal size. Conjunctiva pink, sclera white. NOSE: Clear with pink turbinates. THROAT: No erythema or exudates. NECK: No masses, no JVD, no thyroid enlargement, no adenopathy. CHEST: No chest wall deformity. Symmetrical expansion. LUNGS: Equal air entry with no crackles, wheeze, rhonchi or dullness. CVS: Regular rate and rhythm, normal S1 and S2, no gallops, no murmurs, no rubs ABDOMEN: Soft, nontender. No hepatosplenomegaly, normal bowel sounds, no guarding or rigidity. EXTREMITIES: No clubbing, no edema, no cyanosis, 2+ pulses and upper and lower extremities. MUSCULOSKELETAL: Muscle strength and tone normal. SPINE: No scoliosis or deformity SKIN: No rashes CENTRAL NERVOUS SYSTEM: Alert and oriented -3. No focal deficits, tone is normal in all 4 extremities. PSYCHIATRIC: Alert and oriented -3. Appropriate affect. Intact judgment and insight. - Labs CBC & Chem 7: 07/27/21 05:44 07/27/21 05:44 Labs: Abnormal Lab Results - Last 24 Hours (Table) 07/27/21 07/27/21 07/27/21 Range/Units 05:44 05:44 05:44 WBC 14.1 H (3.8-10.6) k/uL RBC 3.41 L (3.80-5.40) m/uL Hgb 9.5 L (11.4-16.0) gm/dL Hct 31.0 L (34.0-46.0) % MCHC 30.7 L (31.0-37.0) g/dL RDW 16.3 H (11.5-15.5) % PT 17.0 H (9.0-12.0) sec INR 1.7 H (<1.2) Sodium 134 L (137-145) mmol/L Chloride 110 H (98-107) mmol/L Carbon Dioxide 17 L (22-30) mmol/L BUN 24 H (7-17) mg/dL Creatinine 1.73 H (0.52-1.04) mg/dL Glucose 125 H (74-99) mg/dL Assessment and Plan Plan: Assessment: #1. Hypotension, related to acute GI bleeding with a drop in hemoglobin, and patient was given IV fluids and a 1 unit of packed red blood cells on admission. Currently blood pressure is improved. Patient is not requiring any pressors #2. Acute kidney injury related to the above, improving #3. Chronic hypoxic respiratory failure usually wears 2 L of oxygen on a regular basis, and there is been interval worsening in her oxygenation and patient is currently on 10 L, chest x-ray showing left lower lobe atelectasis with possibility of small effusion #4. COPD with chronic small left-sided pleural effusion #5. Coronary artery disease, been treated medically. Current EKG from this admission showing an old septal infarct, no acute ischemic changes. 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 Hypertension #8. Hypothyroidism #9. Hyperlipidemia #10. Previous history of smoking #11. Previous history of CVA without any residual deficits #12. 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 Generalized debility with his #14. Abnormal LFTs Plan: Continue current medical treatment We'll give another dose of IV Lasix 40 mg 1 Wean FiO2 Provide incentive spirometer and encouraged patient to use it Follow-up chest x-ray tomorrow No acute bleeding overnight, Coumadin remains on hold GI service recommendations Increase activity as tolerated Up in the chair today Stable for transfer out of intensive care unit to [facility] care We'll continue to follow I have personally seen and examined the patient, performed the documentation and the assessment and plan as written. Number of minutes spent on the visit: 10 Time with Patient: Less than 30
[2021-07-27] MEDS: MULTIVITAMINS, THERA 1 EACH TAB PO SCH (11:11)
[2021-07-27] MEDS: METOPROLOL TARTRATE 25 MG TAB PO SCH ×2 (11:11→21:13)
[2021-07-27] MEDS: PANTOPRAZOLE 40 MG TABLET PO SCH (11:11)
[2021-07-27] MEDS: CHOLECALCIFEROL 125 MCG (5000 IU) TABLET PO SCH (11:11)
[2021-07-27] MEDS: LEVOTHYROXINE 100 MCG TAB PO SCH (20:32)
[2021-07-27] MEDS: ATORVASTATIN 40 MG TAB PO SCH (20:32)
[2021-07-27] MEDS: DONEPEZIL 10 MG TAB PO SCH (20:59)
[2021-07-28 07:43] LABS: INR 1.6 (<1.2); Prothrombin Time 16.5 sec (9.0-12.0)
[2021-07-28 07:52] LABS: Anisocytosis Slight; HCT 27.6 % (34.0-46.0); HGB 8.4 gm/dL (11.4-16.0); Hypochromasia Marked; MCH 27.6 pg (25.0-35.0); MCHC 30.5 g/dL (31.0-37.0); MCV 90.4 fL (80.0-100.0); Mean Platelet Volume 9.3; Platelet Count 212 k/uL (150-450); Poikilocytosis Moderate; RBC 3.06 m/uL (3.80-5.40); RDW 16.6 % (11.5-15.5)
[2021-07-28 07:54] LABS: Albumin 2.3 g/dL (3.5-5.0); Calcium 8.3 mg/dL (8.4-10.2); Total Bilirubin 0.9 mg/dL (0.2-1.3)
[2021-07-28] MEDS: SYMBICORT 160-4.5 MCG INHALER INHALATION SCH ×2 (07:57→20:09)
[2021-07-28] MEDS: IPRATROPIUM-ALBUTEROL 3 ML NEB INHALATION SCH ×4 (07:57→20:09)
--- NOTE | 2021-07-28 07:58 | XR ---
EXAMINATION TYPE: XR chest 1V portable DATE OF EXAM: 07/28/2021 COMPARISON: X-ray dated 07/26/2021 HISTORY: Dyspnea TECHNIQUE: Single frontal view of the chest is obtained. FINDINGS: Bilateral basal small pulmonary atelectasis with suspected small left pleural effusion. Prominent int erstitial markings with slightly congested pulmonary vasculature, underlying mild pulmonary edema can not be excluded. Unchanged cardiomediastinal silhouette, aortic atherosclerotic calcifications and [place] thoracic cage. IMPRESSION: Scattered basal pulmonary atelectasis and left pleural effusion.
[2021-07-28] MEDS: MULTIVITAMINS, THERA 1 EACH TAB PO SCH (09:06)
[2021-07-28] MEDS: CHOLECALCIFEROL 125 MCG (5000 IU) TABLET PO SCH (09:06)
[2021-07-28] MEDS: METOPROLOL TARTRATE 25 MG TAB PO SCH ×3 (09:06→19:55)
[2021-07-28] MEDS: PANTOPRAZOLE 40 MG TABLET PO SCH (09:06)
--- NOTE | 2021-07-28 09:59 | P.PN ---
Subjective Progress Note Date: 07/28/21 Principal diagnosis: Shortness of breath, hypoxia I was asked to evaluate this patient was having some difficulties with hypotension, acute kidney injury and lethargy this morning. 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 She is also known to have COPD, previous history of CVA without any residual deficits, hypertension, hypot hyroidism, hyperlipidemia and chronic hypoxic respiratory failure maternal oxygen at 2 L per minute nasal cannula. She was admitted to the hospital because of increased weakness and dizziness and hypotension and she was unable to do much. She was also complaining of worsening shortness of breath. Chest x-ray at time of admission showed a small left sided pleural effusion. Clinically, the patient did not have any signs of pneumonia. The patient underwent a colonoscopy and EGD due to anemia and concern of GI bleed. Based on the findings, the patient was found to have sigmoid diverticulosis without evidence of any acute bleeding. 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 The patient this morning was found to have hypotension. She was fired feeling lethargic. Hemoglobin dropped from 8.5 down to 7.5 in the units of packed RBC was ordered by the primary care physician. A bolus of fluid was also given. The patient had an EKG that showed questionable ST segment changes involving the inferior leads. A pulmonary consultation was requested in addition to a cardiac consultation. The patient denies having any chest pain. Note that her white cell count of 14.9. Hemoglobin was at 7.5. Normal coagulation profile. Troponin was at 1.03 from a baseline of 0.5 which is slightly higher. Noted the patient had troponin leaks or lung during her earlier and current hospitalization. The rest of the electrolytes are all showing abnormal findings which included a serum bicarb of 20, anion gap of 12, creatinine of 1.8, LFTs are also abnormal as the patient was found to have a AST of 282, ALT of 158, bilirubin was 0.7 and alkaline phosphatase was 118. 07/26/2021, the patient is much more awake and alert compared to yesterday. Her lethargy and generalized fatigue and tiredness improved. I'm seeing her today in follow-up. Note that she was hypotensive and she was having issues with low urine outputs. Overall, the patient was given a total of 3 L of normal saline patient was given a unit of packed RBC. Current blood pressure is much more solid and the patient's hemoglobin stable at 9.1. She is free of any chest pain. Her creatinine peaked at 2.24 and currently is down to 1.89. Serum bicarbonate 18 with an anion gap of 5. INR is at 1.4. The patient has no specific complaints. Antipronation has not restarted due to concerns of upper GI bleed. Meanwhile, the patient has not shown any ongoing episodes of GI bleeding for now. She was taking warfarin on outpatient basis. Repeat chest x- ray from today shows a left-sided pleural effusion. The patient had some increased oxygen requirements and she is currently up to 12 L of oxygen by nasal cannula. She'll be given gentle diuresis. On 07/27/2021 patient seen in follow-up in intensive care unit, she is resting comfortably in bed, appears to be in no acute distress, she is currently on 10 L of oxygen her pulse ox is 91-92%, she is awake and alert, she is answering questions appropriately, she is hemodynamically stable, she is not on any maintenance IV fluids. Last chest x-ray from yesterday showing persistent small left lower lobe atelectasis and/or effusion. Patient was given a dose of Lasix yesterday 40 mg 1, exhalation is in 1.2 L negative net fluid balance over the last 24 hours. No reported bleeding overnight, hemodynamically she is stable. No abdominal pain. Patient had a EGD and colonoscopy on 07/23/2021 for acute anemia. 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 Today's labs have been reviewed, white blood cell count is 14.1, hemoglobin is 9.5, platelet count is 248, INR is 1.7, sodium is 134, potassium is 4.5, chloride is 110, CO2 17 BUN is 24 creatinine is 1.73. Coumadin remains on hold. Patient is tolerating regular diet. On the 07/28/2021 patient seen in follow-up in intensive care unit, she is resting in bed, in no acute distress, currently on 9 L of oxygen pulse ox is 93%, denies any worsening dyspnea, yesterday we gave the patient a dose of IV Lasix, she is in -1.29 L over the last 24 hours, chest x-ray shows scattered basal pulmonary atelectasis and left pleural effusion. Patient is in atrial fibrillation, and a tachycardic, with a rate of 105-129 BPM. Hemodynamically she is stable, not requiring any vasopressor support, she is currently on metoprolol 25 mg daily, her anticoagulation remains on hold for acute GI bleed. However he there has been no active bleeding overnight, hemoglobin today is 8.4, INR today is 1.6, Coumadin remains on hold. No abdominal pain, patient is at tolerating oral feedings. She is working on his sinus primary, achieving 1.5 L on the today. Objective - Vital Signs Vital signs: Vital Signs Temp 98.0 F 07/28/21 08:00 Pulse 72 07/28/21 08:09 Resp 14 07/28/21 08:00 BP 102/48 07/28/21 08:00 Pulse Ox 93 L 07/28/21 08:00 Intake & Output 07/27/21 07/28/21 07/28/21 18:59 06:59 18:59 Intake Total 250 350 Output Total 198 Balance 52 350 Weight 88 kg Intake: Oral 250 350 Output: Urine 198 Other: Voiding Method Indwelling Catheter Indwelling Catheter Bedpan # Voids 1 1 # Bowel Movements 1 - Exam GENERAL EXAM: Alert, very pleasant, 85-year-old female on 9 L oxygen with pulse ox 92% comfortable in no apparent distress. HEAD: Normocephalic/atraumatic. EYES: Normal reaction of pupils, equal size. Conjunctiva pink, sclera white. NOSE: Clear with pink turbinates. THROAT: No erythema or exudates. NECK: No masses, no JVD, no thyroid enlargement, no adenopathy. CHEST: No chest wall deformity. Symmetrical expansion. LUNGS: Equal air entry with no crackles, wheeze, rhonchi or dullness. CVS: Regular rate and rhythm, normal S1 and S2, no gallops, no murmurs, no rubs ABDOMEN: Soft, nontender. No hepatosplenomegaly, normal bowel sounds, no guarding or rigidity. EXTREMITIES: No clubbing, no edema, no cyanosis, 2+ pulses and upper and lower extremities. MUSCULOSKELETAL: Muscle strength and tone normal. SPINE: No scoliosis or deformity SKIN: No rashes CENTRAL NERVOUS SYSTEM: Alert and oriented -3. No focal deficits, tone is normal in all 4 extremities. PSYCHIATRIC: Alert and oriented -3. Appropriate affect. Intact judgment and insight. - Labs CBC & Chem 7: 07/28/21 07:17 07/28/21 07:17 Labs: Abnormal Lab Results - Last 24 Hours (Table) 07/28/21 07/28/21 07/28/21 Range/Units 07:17 07:17 07:17 WBC 12.7 H (3.8-10.6) k/uL RBC 3.06 L (3.80-5.40) m/uL Hgb 8.4 L (11.4-16.0) gm/dL Hct 27.6 L (34.0-46.0) % MCHC 30.5 L (31.0-37.0) g/dL RDW 16.6 H (11.5-15.5) % PT 16.5 H (9.0-12.0) sec INR 1.6 H (<1.2) Sodium 133 L (137-145) mmol/L Chloride 109 H (98-107) mmol/L Carbon Dioxide 20 L (22-30) mmol/L BUN 33 H (7-17) mg/dL Creatinine 2.06 H (0.52-1.04) mg/dL Calcium 8.3 L (8.4-10.2) mg/dL AST 297 H (14-36) U/L ALT 400 H (4-34) U/L Total Protein 5.0 L (6.3-8.2) g/dL Albumin 2.3 L (3.5-5.0) g/dL Assessment and Plan Plan: Assessment: #1. Hypotension, related to acute GI bleeding with a drop in hemoglobin, and patient was given IV fluids and a 1 unit of packed red blood cells on admission. Currently blood pressure is improved. Patient is not requiring any pressors #2. Acute kidney injury related to the above, improving #3. Chronic hypoxic respiratory failure usually wears 2 L of oxygen on a regular basis, and there is been interval worsening in her oxygenation and patient is currently on 10 L, chest x-ray showing left lower lobe atelectasis with possibility of small effusion #4. COPD with chronic small left-sided pleural effusion #5. Coronary artery disease, been treated medically. Current EKG from this admission showing an old septal infarct, no acute ischemic changes. 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 Hypertension #8. Hypothyroidism #9. Hyperlipidemia #10. Previous history of smoking #11. Previous history of CVA without any residual deficits #12. 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 Generalized debility with his #14. Abnormal LFTs Plan: Wean FiO2 Provide incentive spirometer and encouraged patient to use it Today's chest x-ray has been reviewed showing scattered basal pulmonary atelectasis and left pleural effusion Patient remains in a negative fluid balance We will hold Lasix today Up in the chair today No active bleeding Today's labs have been noted, hemoglobin and INR noted Tolerating oral intake Stable for transfer out of intensive care unit to [facility] I have personally seen and examined the patient, performed the documentation and the assessment and plan as written. Number of minutes spent on the visit: 10 Time with Patient: Less than 30
[2021-07-28] MEDS: BENZONATATE 100 MG CAP PO PRN (12:13)
--- NOTE | 2021-07-28 12:13 | P.PN ---
Subjective Patient complains of shortness of breath. She is not in respiratory distress. She is in atrial fibrillation with somewhat of a poorly controlled ventricular rate. She is not a candidate for anticoagulation because of recent GI bleed. On exam she is comfortable at rest heart rate is elevated blood pressures normal there is a jugular venous distention chest exam reveals good air entry bilaterally I do not hear any crackles or rhonchi heart exam reveals first and second heart sounds regular rhythm and an ejection systolic murmur in the aortic area abdomen is soft examination extremities did not reveal any edema per for pulses are felt Assessment and plan: Persistent atrial fibrillation with poorly controlled ventricular rate I will increase the dose of metoprolol Objective - Vital Signs Vital signs: Vital Signs Temp 98.0 F 07/28/21 08:00 Pulse 112 H 07/28/21 11:38 Resp 14 07/28/21 08:00 BP 102/48 07/28/21 08:00 Pulse Ox 93 L 07/28/21 08:00 Intake & Output 07/27/21 07/28/21 07/28/21 18:59 06:59 18:59 Intake Total 250 350 Output Total 198 Balance 52 350 Weight 88 kg Intake: Oral 250 350 Output: Urine 198 Other: Voiding Method Indwelling Catheter Indwelling Catheter Bedpan # Voids 1 1 # Bowel Movements 1 - Labs CBC & Chem 7: 07/28/21 07:17 07/28/21 07:17 Labs: Abnormal Lab Results - Last 24 Hours (Table) 07/28/21 07/28/21 07/28/21 Range/Units 07:17 07:17 07:17 WBC 12.7 H (3.8-10.6) k/uL RBC 3.06 L (3.80-5.40) m/uL Hgb 8.4 L (11.4-16.0) gm/dL Hct 27.6 L (34.0-46.0) % MCHC 30.5 L (31.0-37.0) g/dL RDW 16.6 H (11.5-15.5) % PT 16.5 H (9.0-12.0) sec INR 1.6 H (<1.2) Sodium 133 L (137-145) mmol/L Chloride 109 H (98-107) mmol/L Carbon Dioxide 20 L (22-30) mmol/L BUN 33 H (7-17) mg/dL Creatinine 2.06 H (0.52-1.04) mg/dL Calcium 8.3 L (8.4-10.2) mg/dL AST 297 H (14-36) U/L ALT 400 H (4-34) U/L Total Protein 5.0 L (6.3-8.2) g/dL Albumin 2.3 L (3.5-5.0) g/dL
[2021-07-28 12:19] LABS: Band Neutrophils % 1 %; Neutrophils % (M) 71 %; Nucleated Red Blood Cells 4 /100 WBC (0-0); Total Cells Counted 200
[2021-07-28 12:20] LABS: Eosinophils # (M) 0.24 k/uL (0-0.7); Lymphocytes # (M) 2.44 k/uL (1.0-4.8); Monocytes # (M) 0.85 k/uL (0-1.0); Polychromasia Present; WBC 12.2 k/uL (3.8-10.6)
[2021-07-28 14:04] VITALS: BMI 35.4
--- NOTE | 2021-07-28 18:30 | P.PN ---
Subjective Progress Note Date: 07/28/21 HISTORY OF PRESENT ILLNESS This is an 84-year-old female patient of Dr. Bertrand and Dr. 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, remote history of tobacco use and dependence, patient was seen in my office as her day with generalized weakness and increased dizziness and hypotension with not able to do anything, associated with increased shortness breath, she was requiring about 3-4 L cannula usually she is on 2 L nasal cannula, patient stated that she has been having some dark stool for the last 48 hours, and her appetite was down, patient was sent to the emergency department for evaluation her initial hemoglobin was lower than normal she did drop about 3 g for the prior hemoglobin, and the patient was admitted to the hospital for possible upper GI bleed, patient type and cross and place and hold 2 units of packed red blood cells, she was taken off aspirin and Coumadin she was started on Protonix 40 mg IV push every 12 hours, GI consultation was obtained, patient surprisingly had a troponin that was positive at cardiology consultation was obtained for further evaluation and recommendation. 3/2: Patient denies having any nausea or vomiting. No chest pain. She has not had a bowel movement since she arrived. She has been seen by GI with plan for EGD and colonoscopy for tomorrow. Troponins are elevated at 0.797 and 0.5-0, cardiology consult added. Iron studies have been ordered by GI and patient is continued on protonic 40 mg IV twice daily. Patient has been afebrile, heart rate 80 to 80s, blood pressure 96/58, pulse ox 91% on 2 L. Repeat hemoglobin last night was 8.2. Repeat blood work ordered for tomorrow. 3/3: Patient denies having any abdominal pain, no epigastric tenderness. She denies having any chest pain. EGD and colonoscopy is scheduled for this morning. She underwent prep last night and did have some blood and output is now cleared. Patient continued on Protonix 40 mg IV push twice daily. She was seen yesterday by cardiology with recommendations for no further workup and acute coronary syndrome was ruled out. Patient in follow-up Dr. Sheehan as an outpatient. Laboratory studies from today are pending. 07/24: Patient feels very weak today she can he is to be very pale, it was recommended by GI service to restart Coumadin as the patient EGD did show arteriovenous confirmation that was treated with argon, colonoscopy did show sigmoid diverticulosis without evidence of any neoplasia, hemoglobin was stable at 8.5 today, I will start the patient on 2.5 mg tonight and repeat INR tomorrow morning, monitor the patient's CBC every 24 hours, physical therapy evaluation, patient will likely need to go for subacute rehabilitation. 07/25: Patient is sitting up in bed extremely pale she appears pasty, significant weakness, she denies any chest pain she does complain of irritative cough, I have ordered a stat chest x-ray on her that showed COPD with left-sided pleural effusion, a stat 12-lead EKG that didn't show evidence of sinus rhythm with what appears to be an ST elevation in the inferior leads especially in lead 3 and aVF with reciprocal changes suggestive of NJ, cardiology reconsult, consult pulmonary and critical care for transferred to the intensive care unit as the patient is full code and she is hypotensive and she appears to be bleeding again as her hemoglobin did drop from 8.5-7.5 discontinue Coumadin again and transfer the patient to the ICU, start the patient on IV fluid she will be given normal saline 500 mL bolus IV 1 she'll be given 1 unit of packed red blood cells I've contacted the opticianry teacher and beef contacted cardiology as well. 07/26: Patient was moved to the intensive care unit yesterday because of significant hypotension and minimal ST elevation in the inferior lead with lat eral ischemia as well, patient is actively bleeding at this time, and anticoagulation as Indicated, patient was seen in consultation by cardiology we'll continue to monitor the patient very closely she did receive fluid and packed blood cells, keep her hemoglobin greater than 8 at all the time, follow- up with the patient very closely, prognosis continues to be very guarded. 07/27: Patient is laying down in bed she appears to be generally weak today, she continues to have some shortness breath, she is currently on high flow oxygen level liters nasal cannula, she continues to be in intensive care unit, she has been seen by opticianry teacher as well as cardiology, patient does not appear to have any unstable angina or congestive heart failure her urine output has picked up after the Lasix, her creatinine is 1.7, INR is 1.7, no active GI bleed at this point in time, keep the patient as she for another 24 hours. 07/28: Patient is laying down in bed she continues to be in the ICU she is extremely weak, she is in atrial fibrillation with a heart rate of 120, she is requiring 6 L nasal cannula, oxygenation around 91%, she has a very poor appetite, she continues to have a Christianson catheter in place, creatinine continue to be above baseline, physical therapy will see the patient. REVIEW OF SYSTEMS Constitutional: No fever, no chills, no night sweats. No weight change. Reports weakness, Reports fatigue or lethargy. No daytime sleepiness. HEENT: No headache. No blurred vision or double vision, no loss of vision. hard of Hearing, no ringing in the ears, no dizziness. No nasal drainage or congestion. No epistaxis. No sore throat. Lungs: No shortness of breath, cough, no sputum production. No wheezing. Cardiovascular: No chest pain, no lower extremity edema. No palpitations. No paroxysmal nocturnal dyspnea. No orthopnea. No lightheadedness or dizziness. No syncopal episodes. Abdominal: No abdominal pain. No nausea, vomiting. No diarrhea. No constip ation, positive for black tarry stool, positive for poor appetite. Genitourinary: No dysuria, increased frequency, urgency. No urinary retention. Musculoskeletal: No myalgias. Reports muscle weakness, Reports gait dysfunction, no frequent falls. No back pain. No neck pain. Integumentary: No wounds, no lesions. No rash or pruritus. No unusual bruising. No change in hair or nails. Neurologic: No aphasia. No facial droop. No change in mentation. No head injury. No headache. No paralysis. No paresthesia. Psychiatric: No depression. No anxiety. No mood swings. Endocrine: No abnormal blood sugars. PHYSICAL EXAMINATION Gen: This is an 85-year-old female who is laying down in bed appears to be generally weak. HEENT: Head is atraumatic, normocephalic. Pupils equal, round, conjunctivae were pale, mucus brain and muscle somewhat dry, sclera nonicteric, extraocular muscle motor intact. NECK: Supple. No JVD. No lymphadenopathy. No thyromegaly. LUNGS: decrease breath sound at bases, few rhonchi, no expiratory wheezes, no chest wall tenderness, no intercostal retractions. HEART : First heart sound is depressed, second heart sound is normal, there is 2/6 systolic ejection murmur at the left sternal border. No S3, no S4. ABDOMEN: Soft, nontender, nondistended, positive bowel sounds, no hepatomegaly, no rebound or guarding. EXTREMITIES: No pedal edema. No calf tenderness. Dorsalis pedis +2 bilaterally. NEUROLOGICAL: Patient is awake, alert and oriented x3. Cranial nerves 2 through 12 are grossly intact, muscle power 5 out of 5 in upper and lower extremities bilaterally ASSESSMENT AND PLAN 1. Upper GI bleed status post EGD and colonoscopy. EGD showed arteriovenous confirmation the body of the stomach that they're not bleeding at the time of evaluation, underwent argon treatment, colonoscopy did show evidence of sigmoid diverticulosis. No more obvious GI bleed at this point in time, we'll continue to monitor the patient very closely. 2. Acute inferior wall injury pattern with reciprocal changes suggestive of NJ. Continue patient on atorvastatin 40 mg orally once every day, continue Toprol- XL 25 minute gram orally once every day, continue the patient off aspirin. Cardiology is following. 3. acute on chronic hypoxemic respiratory failure due to underlying COPD with significant anemia. Continue patient on Symbicort, continue patient on oxygen, keep her saturation greater than 93%,continue patient on DuoNeb, monitor the patient very closely. chest x-ray showed COPD with left-sided pleural effusion. 4. Acute blood loss anemia due to upper GI bleed. status post blood tra nsfusion. Hemoglobin greater than 8. 5. History of coronary artery disease with previous PCI to the RCA 2017. Maintain the patient on metoprolol 25 mg orally 3 times every day, keep her off aspirin, continue atorvastatin 40 mg once every day. 6. Hypertension and hypertensive cardiovascular disease. continue patient on metoprolol 25 mg orally 3 times every day 7. Acute kidney injury secondary to hypotension and acute tubular necrosis due to GI bleed. 8 Hyperlipidemia. Continue patient on atorvastatin 40 mg once every day. 9. Hypothyroidism. Continue levothyroxine 100 g daily. 10. 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 off coumadin 11. Vascular dementia. Continue Aricept 10 mg daily. 13. History of CVA.we will continue patient on atorvastatin 40 mg once every day, off aspirin and Coumadin due to GI bleed. 14. Carotid artery disease status post endarterectomy. 15. Gastroesophageal reflux disease. Continue Protonix 40 mg orally once every day. 16. DVT prophylaxis. We will try to restart Coumadin tonight. 17. COVID-19 testing negative. Patient has been hospitalized during a pandemic. 18. Guarded prognosis. 19. Physical therapy evaluation social scientist consultation for subacute rehabilitation. Objective - Vital Signs Vital signs: Vital Signs Temp 97.8 F 07/28/21 12:00 Pulse 122 H 07/28/21 12:00 Resp 12 07/28/21 12:00 BP 100/57 07/28/21 12:00 Pulse Ox 95 07/28/21 12:00 Intake & Output 07/27/21 07/28/21 07/28/21 18:59 06:59 18:59 Intake Total 250 350 Output Total 198 Balance 52 350 Weight 88 kg Intake: Oral 250 350 Output: Urine 198 Other: Voiding Method Indwelling Catheter Indwelling Catheter Bedpan # Voids 1 1 # Bowel Movements 1 - Labs CBC & Chem 7: 07/28/21 07:17 07/28/21 07:17 Labs: Abnormal Lab Results - Last 24 Hours (Table) 07/28/21 07/28/21 07/28/21 Range/Units 07:17 07:17 07:17 WBC 12.2 H (3.8-10.6) k/uL RBC 3.06 L (3.80-5.40) m/uL Hgb 8.4 L (11.4-16.0) gm/dL Hct 27.6 L (34.0-46.0) % MCHC 30.5 L (31.0-37.0) g/dL RDW 16.6 H (11.5-15.5) % Neutrophils # (Manual) 8.70 H (1.3-7.7) k/uL Nucleated RBCs 4 H (0-0) /100 WBC PT 16.5 H (9.0-12.0) sec INR 1.6 H (<1.2) Sodium 133 L (137-145) mmol/L Chloride 109 H (98-107) mmol/L Carbon Dioxide 20 L (22-30) mmol/L BUN 33 H (7-17) mg/dL Creatinine 2.06 H (0.52-1.04) mg/dL Calcium 8.3 L (8.4-10.2) mg/dL AST 297 H (14-36) U/L ALT 400 H (4-34) U/L Total Protein 5.0 L (6.3-8.2) g/dL Albumin 2.3 L (3.5-5.0) g/dL
[2021-07-28] MEDS: LEVOTHYROXINE 100 MCG TAB PO SCH (19:55)
[2021-07-28] MEDS: DONEPEZIL 10 MG TAB PO SCH (19:55)
[2021-07-29] MEDS: BENZONATATE 100 MG CAP PO PRN (01:48)
[2021-07-29 07:01] LABS: INR 1.6 (<1.2); Prothrombin Time 16.3 sec (9.0-12.0)
[2021-07-29] MEDS: IPRATROPIUM-ALBUTEROL 3 ML NEB INHALATION SCH ×4 (08:26→20:11)
[2021-07-29] MEDS: SYMBICORT 160-4.5 MCG INHALER INHALATION SCH ×2 (08:26→20:11)
[2021-07-29] MEDS: PANTOPRAZOLE 40 MG TABLET PO SCH (09:01)
[2021-07-29] MEDS: CHOLECALCIFEROL 125 MCG (5000 IU) TABLET PO SCH (09:01)
[2021-07-29] MEDS: MULTIVITAMINS, THERA 1 EACH TAB PO SCH (09:01)
[2021-07-29] MEDS: METOPROLOL TARTRATE 25 MG TAB PO SCH ×3 (09:01→20:17)
--- NOTE | 2021-07-29 12:16 | P.PN ---
Subjective Progress Note Date: 07/29/21 Principal diagnosis: Shortness of breath, hypoxia I was asked to evaluate this patient was having some difficulties with hypotension, acute kidney injury and lethargy this morning. 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 She is also known to have COPD, previous history of CVA without any residual deficits, hypertension, hypot hyroidism, hyperlipidemia and chronic hypoxic respiratory failure maternal oxygen at 2 L per minute nasal cannula. She was admitted to the hospital because of increased weakness and dizziness and hypotension and she was unable to do much. She was also complaining of worsening shortness of breath. Chest x-ray at time of admission showed a small left sided pleural effusion. Clinically, the patient did not have any signs of pneumonia. The patient underwent a colonoscopy and EGD due to anemia and concern of GI bleed. Based on the findings, the patient was found to have sigmoid diverticulosis without evidence of any acute bleeding. 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 The patient this morning was found to have hypotension. She was fired feeling lethargic. Hemoglobin dropped from 8.5 down to 7.5 in the units of packed RBC was ordered by the primary care physician. A bolus of fluid was also given. The patient had an EKG that showed questionable ST segment changes involving the inferior leads. A pulmonary consultation was requested in addition to a cardiac consultation. The patient denies having any chest pain. Note that her white cell count of 14.9. Hemoglobin was at 7.5. Normal coagulation profile. Troponin was at 1.03 from a baseline of 0.5 which is slightly higher. Noted the patient had troponin leaks or lung during her earlier and current hospitalization. The rest of the electrolytes are all showing abnormal findings which included a serum bicarb of 20, anion gap of 12, creatinine of 1.8, LFTs are also abnormal as the patient was found to have a AST of 282, ALT of 158, bilirubin was 0.7 and alkaline phosphatase was 118. 07/26/2021, the patient is much more awake and alert compared to yesterday. Her lethargy and generalized fatigue and tiredness improved. I'm seeing her today in follow-up. Note that she was hypotensive and she was having issues with low urine outputs. Overall, the patient was given a total of 3 L of normal saline patient was given a unit of packed RBC. Current blood pressure is much more solid and the patient's hemoglobin stable at 9.1. She is free of any chest pain. Her creatinine peaked at 2.24 and currently is down to 1.89. Serum bicarbonate 18 with an anion gap of 5. INR is at 1.4. The patient has no specific complaints. Antipronation has not restarted due to concerns of upper GI bleed. Meanwhile, the patient has not shown any ongoing episodes of GI bleeding for now. She was taking warfarin on outpatient basis. Repeat chest x- ray from today shows a left-sided pleural effusion. The patient had some increased oxygen requirements and she is currently up to 12 L of oxygen by nasal cannula. She'll be given gentle diuresis. On 07/27/2021 patient seen in follow-up in intensive care unit, she is resting comfortably in bed, appears to be in no acute distress, she is currently on 10 L of oxygen her pulse ox is 91-92%, she is awake and alert, she is answering questions appropriately, she is hemodynamically stable, she is not on any maintenance IV fluids. Last chest x-ray from yesterday showing persistent small left lower lobe atelectasis and/or effusion. Patient was given a dose of Lasix yesterday 40 mg 1, exhalation is in 1.2 L negative net fluid balance over the last 24 hours. No reported bleeding overnight, hemodynamically she is stable. No abdominal pain. Patient had a EGD and colonoscopy on 07/23/2021 for acute anemia. 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 Today's labs have been reviewed, white blood cell count is 14.1, hemoglobin is 9.5, platelet count is 248, INR is 1.7, sodium is 134, potassium is 4.5, chloride is 110, CO2 17 BUN is 24 creatinine is 1.73. Coumadin remains on hold. Patient is tolerating regular diet. On the 07/28/2021 patient seen in follow-up in intensive care unit, she is resting in bed, in no acute distress, currently on 9 L of oxygen pulse ox is 93%, denies any worsening dyspnea, yesterday we gave the patient a dose of IV Lasix, she is in -1.29 L over the last 24 hours, chest x-ray shows scattered basal pulmonary atelectasis and left pleural effusion. Patient is in atrial fibrillation, and a tachycardic, with a rate of 105-129 BPM. Hemodynamically she is stable, not requiring any vasopressor support, she is currently on metoprolol 25 mg daily, her anticoagulation remains on hold for acute GI bleed. However he there has been no active bleeding overnight, hemoglobin today is 8.4, INR today is 1.6, Coumadin remains on hold. No abdominal pain, patient is at tolerating oral feedings. She is working on his sinus primary, achieving 1.5 L on the today. On 07/29/2021 patient seen in follow-up on selective care unit, she is breathing comfortable, she is currently on 9 L of oxygen pulse ox is 95%, has occasional mild congestive cough, but no acute distress, subsequently FiO2 has been dropped down to 7 L. Lung sounds are positive for a few scattered wheezes. Yesterday's chest x-ray shows scattered basilar pulmonary atelectasis and left pleural effusion. No reported bleeding overnight, today's INR is 1.6, codeine remains on hold. No abdominal pain, no hematemesis no reported black stools. Still have some mild lower extremity edema. She has been using the incentive spirometer, she is able to achieve 1.5 m on it Objective - Vital Signs Vital signs: Vital Signs Temp 98.1 F 07/29/21 11:43 Pulse 76 07/29/21 11:43 Resp 18 07/29/21 11:43 BP 159/69 07/29/21 11:43 Pulse Ox 95 07/29/21 11:43 Intake & Output 07/28/21 07/29/21 07/29/21 18:59 06:59 18:59 Intake Total 240 Balance 240 Weight 88 kg Intake: Oral 240 Other: Voiding Method Bedpan Bedpan Bedpan # Voids 1 1 # Bowel Movements 1 1 1 - Exam GENERAL EXAM: Alert, very pleasant, 85-year-old female on 9 L oxygen with pulse ox 95% comfortable in no apparent distress. HEAD: Normocephalic/atraumatic. EYES: Normal reaction of pupils, equal size. Conjunctiva pink, sclera white. NOSE: Clear with pink turbinates. THROAT: No erythema or exudates. NECK: No masses, no JVD, no thyroid enlargement, no adenopathy. CHEST: No chest wall deformity. Symmetrical expansion. LUNGS: Equal air entry with no crackles, wheeze, rhonchi or dullness. CVS: Regular rate and rhythm, normal S1 and S2, no gallops, no murmurs, no rubs ABDOMEN: Soft, nontender. No hepatosplenomegaly, normal bowel sounds, no guarding or rigidity. EXTREMITIES: No clubbing, no edema, no cyanosis, 2+ pulses and upper and lower extremities. MUSCULOSKELETAL: Muscle strength and tone normal. SPINE: No scoliosis or deformity SKIN: No rashes CENTRAL NERVOUS SYSTEM: Alert and oriented -3. No focal deficits, tone is normal in all 4 extremities. PSYCHIATRIC: Alert and oriented -3. Appropriate affect. Intact judgment and insight. - Labs CBC & Chem 7: 07/28/21 07:17 07/28/21 07:17 Labs: Abnormal Lab Results - Last 24 Hours (Table) 07/28/21 07/29/21 Range/Units 07:17 06:39 WBC 12.2 H (3.8-10.6) k/uL Neutrophils # (Manual) 8.70 H (1.3-7.7) k/uL Nucleated RBCs 4 H (0-0) /100 WBC PT 16.3 H (9.0-12.0) sec INR 1.6 H (<1.2) Assessment and Plan Plan: Assessment: #1. Hypotension, related to acute GI bleeding with a drop in hemoglobin, and patient was given IV fluids and a 1 unit of packed red blood cells on admission. Currently blood pressure is improved. Patient is not requiring any pressors #2. Acute kidney injury related to the above, especially improved and now has worsened again #3. Chronic hypoxic respiratory failure usually wears 2 L of oxygen on a regular basis, and there is been interval worsening in her oxygenation and patient is currently on 10 L, chest x-ray showing left lower lobe atelectasis with possibility of small effusion #4. COPD with chronic small left-sided pleural effusion #5. Coronary artery disease, been treated medically. Current EKG from this admission showing an old septal infarct, no acute ischemic changes. 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 Hypertension #8. Hypothyroidism #9. Hyperlipidemia #10. Previous history of smoking #11. Previous history of CVA without any residual deficits #12. 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 Generalized debility with his #14. Abnormal LFTs Plan: Wean FiO2, currently on 7 l/min Continue encouraging patient to use incentive spirometer Awaiting labs from today Increase activity as tolerated No active bleeding Tolerating oral intake I have personally seen and examined the patient, performed the documentation and the assessment and plan as written. Number of minutes spent on the visit: 10 Time with Patient: Less than 30
[2021-07-29 12:28] LABS: Calcium 9.6 mg/dL (8.4-10.2); Potassium 4.1 mmol/L (3.5-5.1)
--- NOTE | 2021-07-29 13:59 | P.PN ---
Subjective HISTORY OF PRESENTING ILLNESS This is a pleasant 85-year-old female past medical history significant for coronary artery disease status post PCI to the RCA 2017, hypertension, peripheral vascular disease status post carotid endarterectomy 2007, former nicotine dependence, factor V Leiden with a history of DVT/PE in the past, asthma and dyslipidemia. She follows in the office with Dr. Sheehan. We have been asked to see in consultation for elevated troponin initially, which was thought to be due to patient's acute anemia secondary to GI bleed. She presented to the emergency department on 07/21/2021 with complaints of generalized weakness, fatigue and some mild shortness of breath, but her shortness of breath is not new or worsening then her baseline. Patient states that for the past couple days been having worsening generalized fatigue, generalized weakness. She was found to have a hemoglobin of 8.2, previously 12.4 in May 2021. She also endorses some dark stools over the weekend. 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 On 07/25/21, EKG was performed with new ST changes with troponin of 1.030. She was transferred to ICU. Patient without any symptoms of chest pain or shortness of breath and was medically managed. Hospital course complicated by MATEUSZ and her losartan has been held. She also was found to be in atrial fibrillation with RVR. 07/29/2021 Patient seen and examined at bedside, she is in sinus mechanism HR 60s-70s. She has no symptoms of shortness of breath, palpitations, chest pain. She is hemodynamically stable. No complaints. Vital signs stable. She is on a statin, and metoprolol tartrate 25mg BID. Kidney function is improving, Hgb yesterday 8.4. Scr 1.49, BUN 30. PHYSICAL EXAMINATION Vitals reviewed CONSTITUTIONAL: No apparent distress. HEENT:Neck Supple. No JVD. No carotid bruit. CHEST EXAMINATION: Lungs are diminished bilaterally to auscultation. No chest wall tenderness is noted on palpation or with deep breathing. HEART EXAMINATION: Regular rate and rhythm. S1, S2 heard. No murmurs, gallops or rub. ABDOMEN: Soft, nontender. EXTREMITIES: 2+ peripheral pulses, no lower extremity edema and no calf tenderness. NEUROLOGIC EXAMINATION: Patient is awake, alert and oriented x3. ASSESSMENT Paroxysmal atrial fibrillation, no anticoagulation due to GI bleed, currently in sinus mechanism Inferiolateral ischemia with mild ST elevation from EKG on 07/25/2021-continue current treatment as prescribed. Anticoagulation continues to be contraindicated. EGD showed arteriovenous confirmation the body of the stomach that they're not bleeding at the time of evaluation, underwent argon treatment, colonoscopy did show evidence of sigmoid diverticulosis. 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 Patient was seen and examined. Objective - Vital Signs Vital signs: Vital Signs Temp 98.1 F 07/29/21 11:43 Pulse 76 07/29/21 11:43 Resp 18 07/29/21 11:43 BP 159/69 07/29/21 11:43 Pulse Ox 95 07/29/21 11:43 Intake & Output 07/28/21 07/29/21 07/29/21 18:59 06:59 18:59 Intake Total 240 Balance 240 Weight 88 kg Intake: Oral 240 Other: Voiding Method Bedpan Bedpan Bedpan # Voids 1 1 3 # Bowel Movements 1 1 1 - Labs CBC & Chem 7: 07/28/21 07:17 07/29/21 06:39 Labs: Abnormal Lab Results - Last 24 Hours (Table) 07/29/21 07/29/21 Range/Units 06:39 06:39 PT 16.3 H (9.0-12.0) sec INR 1.6 H (<1.2) Sodium 135 L (137-145) mmol/L Chloride 109 H (98-107) mmol/L Carbon Dioxide 19 L (22-30) mmol/L BUN 30 H (7-17) mg/dL Creatinine 1.49 H (0.52-1.04) mg/dL Glucose 105 H (74-99) mg/dL
--- NOTE | 2021-07-29 14:34 | P.PN ---
Subjective Progress Note Date: 07/29/21 HISTORY OF PRESENT ILLNESS This is an 84-year-old female patient of Dr. Bertrand and Dr. 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, remote history of tobacco use and dependence, patient was seen in my office as her day with generalized weakness and increased dizziness and hypotension with not able to do anything, associated with increased shortness breath, she was requiring about 3-4 L cannula usually she is on 2 L nasal cannula, patient stated that she has been having some dark stool for the last 48 hours, and her appetite was down, patient was sent to the emergency department for evaluation her initial hemoglobin was lower than normal she did drop about 3 g for the prior hemoglobin, and the patient was admitted to the hospital for possible upper GI bleed, patient type and cross and place and hold 2 units of packed red blood cells, she was taken off aspirin and Coumadin she was started on Protonix 40 mg IV push every 12 hours, GI consultation was obtained, patient surprisingly had a troponin that was positive at cardiology consultation was obtained for further evaluation and recommendation. 3/2: Patient denies having any nausea or vomiting. No chest pain. She has not had a bowel movement since she arrived. She has been seen by GI with plan for EGD and colonoscopy for tomorrow. Troponins are elevated at 0.797 and 0.5-0, cardiology consult added. Iron studies have been ordered by GI and patient is continued on protonic 40 mg IV twice daily. Patient has been afebrile, heart rate 80 to 80s, blood pressure 96/58, pulse ox 91% on 2 L. Repeat hemoglobin last night was 8.2. Repeat blood work ordered for tomorrow. 3/3: Patient denies having any abdominal pain, no epigastric tenderness. She denies having any chest pain. EGD and colonoscopy is scheduled for this morning. She underwent prep last night and did have some blood and output is now cleared. Patient continued on Protonix 40 mg IV push twice daily. She was seen yesterday by cardiology with recommendations for no further workup and acute coronary syndrome was ruled out. Patient in follow-up Dr. Sheehan as an outpatient. Laboratory studies from today are pending. 07/24: Patient feels very weak today she can he is to be very pale, it was recommended by GI service to restart Coumadin as the patient EGD did show arteriovenous confirmation that was treated with argon, colonoscopy did show sigmoid diverticulosis without evidence of any neoplasia, hemoglobin was stable at 8.5 today, I will start the patient on 2.5 mg tonight and repeat INR tomorrow morning, monitor the patient's CBC every 24 hours, physical therapy evaluation, patient will likely need to go for subacute rehabilitation. 07/25: Patient is sitting up in bed extremely pale she appears pasty, significant weakness, she denies any chest pain she does complain of irritative cough, I have ordered a stat chest x-ray on her that showed COPD with left-sided pleural effusion, a stat 12-lead EKG that didn't show evidence of sinus rhythm with what appears to be an ST elevation in the inferior leads especially in lead 3 and aVF with reciprocal changes suggestive of TX, cardiology reconsult, consult pulmonary and critical care for transferred to the intensive care unit as the patient is full code and she is hypotensive and she appears to be bleeding again as her hemoglobin did drop from 8.5-7.5 discontinue Coumadin again and transfer the patient to the ICU, start the patient on IV fluid she will be given normal saline 500 mL bolus IV 1 she'll be given 1 unit of packed red blood cells I've contacted the liquid chlorine operator and beef contacted cardiology as well. 07/26: Patient was moved to the intensive care unit yesterday because of significant hypotension and minimal ST elevation in the inferior lead with lat eral ischemia as well, patient is actively bleeding at this time, and anticoagulation as Indicated, patient was seen in consultation by cardiology we'll continue to monitor the patient very closely she did receive fluid and packed blood cells, keep her hemoglobin greater than 8 at all the time, follow- up with the patient very closely, prognosis continues to be very guarded. 07/27: Patient is laying down in bed she appears to be generally weak today, she continues to have some shortness breath, she is currently on high flow oxygen level liters nasal cannula, she continues to be in intensive care unit, she has been seen by liquid chlorine operator as well as cardiology, patient does not appear to have any unstable angina or congestive heart failure her urine output has picked up after the Lasix, her creatinine is 1.7, INR is 1.7, no active GI bleed at this point in time, keep the patient as she for another 24 hours. 07/28: Patient is laying down in bed she continues to be in the ICU she is extremely weak, she is in atrial fibrillation with a heart rate of 120, she is requiring 6 L nasal cannula, oxygenation around 91%, she has a very poor appetite, she continues to have a Christianson catheter in place, creatinine continue to be above baseline, physical therapy will see the patient. 07/29: Patient was moved out of the ICU she is currently on telemetry unit, she is feeling a bit better, she continues to be on current treatment plan, physical therapy to evaluate the patient today, reevaluate the patient the next 24 hours, try to cut down on oxygen, follow-up with the patient very closely. REVIEW OF SYSTEMS Constitutional: No fever, no chills, no night sweats. No weight change. Reports weakness, Reports fatigue or lethargy. No daytime sleepiness. HEENT: No headache. No blurred vision or double vision, no loss of vision. hard of Hearing, no ringing in the ears, no dizziness. No nasal drainage or congestion. No epistaxis. No sore throat. Lungs: No shortness of breath, cough, no sputum production. No wheezing. Cardiovascular: No chest pain, no lower extremity edema. No palpitations. No paroxysmal nocturnal dyspnea. No orthopnea. No lightheadedness or dizziness. No syncopal episodes. Abdominal: No abdominal pain. No nausea, vomiting. No diarrhea. No constipation, positive for black tarry stool, positive for poor appetite. Genitourinary: No dysuria, increased frequency, urgency. No urinary retention. Musculoskeletal: No myalgias. Reports muscle weakness, Reports gait dysfunction, no frequent falls. No back pain. No neck pain. Integumentary: No wounds, no lesions. No rash or pruritus. No unusual bruising. No change in hair or nails. Neurologic: No aphasia. No facial droop. No change in mentation. No head injury. No headache. No paralysis. No paresthesia. Psychiatric: No depression. No anxiety. No mood swings. Endocrine: No abnormal blood sugars. PHYSICAL EXAMINATION Gen: This is an 85-year-old female who is laying down in bed appears to be generally weak. HEENT: Head is atraumatic, normocephalic. Pupils equal, round, conjunctivae were pale, mucus brain and muscle somewhat dry, sclera nonicteric, extraocular muscle motor intact. NECK: Supple. No JVD. No lymphadenopathy. No thyromegaly. LUNGS: decrease breath sound at bases, few rhonchi, no expiratory wheezes, no chest wall tenderness, no intercostal retractions. HEART : First heart sound is depressed, second heart sound is normal, there is 2/6 systolic ejection murmur at the left sternal border. No S3, no S4. ABDOMEN: Soft, nontender, nondistended, positive bowel sounds, no hepatomegaly, no rebound or guarding. EXTREMITIES: No pedal edema. No calf tenderness. Dorsalis pedis +2 bilaterally. NEUROLOGICAL: Patient is awake, alert and oriented x3. Cranial nerves 2 through 12 are grossly intact, muscle power 5 out of 5 in upper and lower extremities bilaterally ASSESSMENT AND PLAN 1. Upper GI bleed status post EGD and colonoscopy. EGD showed arteriovenous confirmation the body of the stomach that they're not bleeding at the time of evaluation, underwent argon treatment, colonoscopy did show evidence of sigmoid diverticulosis. No more obvious GI bleed at this point in time, we'll continue to monitor the patient very closely. 2. Acute inferior wall injury pattern with reciprocal changes suggestive of TX. Continue patient on atorvastatin 40 mg orally once every day, continue Toprol- XL 25 minute gram orally once every day, continue the patient off aspirin. Cardiology is following. 3. acute on chronic hypoxemic respiratory failure due to underlying COPD with significant anemia. Continue patient on Symbicort, continue patient on oxygen, keep her saturation greater than 93%,continue patient on DuoNeb, monitor the patient very closely. chest x-ray showed COPD with left-sided pleural effusion. 4. Acute blood loss anemia due to upper GI bleed. status post blood transfusion. Hemoglobin greater than 8. 5. History of coronary artery disease with previous PCI to the RCA 2017. Maintain the patient on metoprolol 25 mg orally 3 times every day, keep her off aspirin, continue atorvastatin 40 mg once every day. 6. Hypertension and hypertensive cardiovascular disease. continue patient on metoprolol 25 mg orally 3 times every day 7. Acute kidney injury secondary to hypotension and acute tubular necrosis due to GI bleed. 8 Hyperlipidemia. Continue patient on atorvastatin 40 mg once every day. 9. Hypothyroidism. Continue levothyroxine 100 g daily. 10. 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 off coumadin 11. Vascular dementia. Continue Aricept 10 mg daily. 13. History of CVA.we will continue patient on atorvastatin 40 mg once every day, off aspirin and Coumadin due to GI bleed. 14. Carotid artery disease status post endarterectomy. 15. Gastroesophageal reflux disease. Continue Protonix 40 mg orally once every day. 16. DVT prophylaxis. We will try to restart Coumadin tonight. 17. COVID-19 testing negative. Patient has been hospitalized during a pandemic. 18. Guarded prognosis. 19. Physical therapy evaluation social and political studies professor consultation for subacute rehabilitation. Objective - Vital Signs Vital signs: Vital Signs Temp 97.9 F 07/29/21 02:00 Pulse 70 07/29/21 04:33 Resp 20 07/29/21 04:33 BP 120/73 07/29/21 04:33 Pulse Ox 94 L 07/29/21 04:33 Intake & Output 07/28/21 07/29/21 07/29/21 18:59 06:59 18:59 Weight 88 kg Other: Voiding Method Bedpan Bedpan # Voids 1 1 # Bowel Movements 1 1 - Labs CBC & Chem 7: 07/28/21 07:17 07/29/21 06:39 Labs: Abnormal Lab Results - Last 24 Hours (Table) 07/28/21 07/29/21 Range/Units 07:17 06:39 WBC 12.2 H (3.8-10.6) k/uL Neutrophils # (Manual) 8.70 H (1.3-7.7) k/uL Nucleated RBCs 4 H (0-0) /100 WBC PT 16.3 H (9.0-12.0) sec INR 1.6 H (<1.2)
[2021-07-29] MEDS: DONEPEZIL 10 MG TAB PO SCH (20:16)
[2021-07-29] MEDS: LEVOTHYROXINE 100 MCG TAB PO SCH (20:17)
[2021-07-29] MEDS: ATORVASTATIN 40 MG TAB PO SCH (20:17)
[2021-07-30] MEDS: PANTOPRAZOLE 40 MG TABLET PO SCH (08:24)
[2021-07-30] MEDS: MULTIVITAMINS, THERA 1 EACH TAB PO SCH (08:24)
[2021-07-30] MEDS: CHOLECALCIFEROL 125 MCG (5000 IU) TABLET PO SCH (08:24)
[2021-07-30] MEDS: METOPROLOL TARTRATE 25 MG TAB PO SCH (08:24)
[2021-07-30] MEDS: IPRATROPIUM-ALBUTEROL 3 ML NEB INHALATION SCH ×4 (08:49→20:07)
[2021-07-30] MEDS: SYMBICORT 160-4.5 MCG INHALER INHALATION SCH ×2 (08:49→20:07)
[2021-07-30 09:24] LABS: Calcium 9.9 mg/dL (8.4-10.2); Potassium 3.9 mmol/L (3.5-5.1)
--- NOTE | 2021-07-30 09:49 | CDI ---
Documentation Clarification Form Date: 07/29/2021 02:51:00 PM From: Katja Diego RN, CCDS Admit Date: 07/21/2021 02:56:00 PM Patient Name: Susan Ramos Visit Number: [id number] Discharge Date: ATTENTION: The Clinical Documentation Specialists (CDI) and [facility] Coding Staff appreciate your assistance in clarifying documentation. Please respond to the clarification below the line at the bottom and electronically sign. The CDI & [facility] Coding staff will review the response and follow-up if needed. Please note: Queries are made part of the Legal Health Record. If you have any questions, please contact the author of this message via ITS. Dr. Isra Ruano There is documentation of an ischemic ST -T wave change. Additional clarification is requested. History/Risk Factors: Asthma Coronary Artery Disease, Hypertension, Chronic hypoxic respiratory failure on home O2, factor V Leiden, Clinical Indicators: 85-year-old female present with weakness shortness of breath, low blood pressure. 07/21 HGB8.4, HCT 27.4 07/25 HGB 7.0 HCT 24.3 Repeat EKG on 07/[address] elevation. She denies chest pain and shortness of breath at this time. 07/22 Cardiology consult: Elevated troponin, trend not indicative of acute coronary syndrome, likely due to acute anemia. 07/21 Troponin 0.797, 0.520 07/25 Troponin 1,030 07/21 EKG: Sinus rhythm at [address] segment elevation or depression 07/25 EKG: Sinus mechanism [address] elevation consider inferior injury or acute infarct Treatment: ICU/Telemetry Monitoring Monitor O2 Sat's (Titrate) Metoprolol tartrate 25 MG PO TID CBC, Renal function and electrolytes, Daily Transfuse 1 Unit PRBC 07/25 Can you please further clarify the significance of inferiolateral ischemia with mild ST elevation on EKG on 07/25/21? [ ] ST- Elevation AL (evolved) [ x] Type II AL secondary to anemia [ ] Other, please specify [ ] Unable to determine (Template Last Revised: July 2020) MTDD
--- NOTE | 2021-07-30 10:05 | P.PN ---
Subjective Progress Note Date: 07/30/21 Principal diagnosis: Shortness of breath, hypoxia I was asked to evaluate this patient was having some difficulties with hypotension, acute kidney injury and lethargy this morning. 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 She is also known to have COPD, previous history of CVA without any residual deficits, hypertension, hypot hyroidism, hyperlipidemia and chronic hypoxic respiratory failure maternal oxygen at 2 L per minute nasal cannula. She was admitted to the hospital because of increased weakness and dizziness and hypotension and she was unable to do much. She was also complaining of worsening shortness of breath. Chest x-ray at time of admission showed a small left sided pleural effusion. Clinically, the patient did not have any signs of pneumonia. The patient underwent a colonoscopy and EGD due to anemia and concern of GI bleed. Based on the findings, the patient was found to have sigmoid diverticulosis without evidence of any acute bleeding. 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 The patient this morning was found to have hypotension. She was fired feeling lethargic. Hemoglobin dropped from 8.5 down to 7.5 in the units of packed RBC was ordered by the primary care physician. A bolus of fluid was also given. The patient had an EKG that showed questionable ST segment changes involving the inferior leads. A pulmonary consultation was requested in addition to a cardiac consultation. The patient denies having any chest pain. Note that her white cell count of 14.9. Hemoglobin was at 7.5. Normal coagulation profile. Troponin was at 1.03 from a baseline of 0.5 which is slightly higher. Noted the patient had troponin leaks or lung during her earlier and current hospitalization. The rest of the electrolytes are all showing abnormal findings which included a serum bicarb of 20, anion gap of 12, creatinine of 1.8, LFTs are also abnormal as the patient was found to have a AST of 282, ALT of 158, bilirubin was 0.7 and alkaline phosphatase was 118. 07/26/2021, the patient is much more awake and alert compared to yesterday. Her lethargy and generalized fatigue and tiredness improved. I'm seeing her today in follow-up. Note that she was hypotensive and she was having issues with low urine outputs. Overall, the patient was given a total of 3 L of normal saline patient was given a unit of packed RBC. Current blood pressure is much more solid and the patient's hemoglobin stable at 9.1. She is free of any chest pain. Her creatinine peaked at 2.24 and currently is down to 1.89. Serum bicarbonate 18 with an anion gap of 5. INR is at 1.4. The patient has no specific complaints. Antipronation has not restarted due to concerns of upper GI bleed. Meanwhile, the patient has not shown any ongoing episodes of GI bleeding for now. She was taking warfarin on outpatient basis. Repeat chest x- ray from today shows a left-sided pleural effusion. The patient had some increased oxygen requirements and she is currently up to 12 L of oxygen by nasal cannula. She'll be given gentle diuresis. On 07/27/2021 patient seen in follow-up in intensive care unit, she is resting comfortably in bed, appears to be in no acute distress, she is currently on 10 L of oxygen her pulse ox is 91-92%, she is awake and alert, she is answering questions appropriately, she is hemodynamically stable, she is not on any maintenance IV fluids. Last chest x-ray from yesterday showing persistent small left lower lobe atelectasis and/or effusion. Patient was given a dose of Lasix yesterday 40 mg 1, exhalation is in 1.2 L negative net fluid balance over the last 24 hours. No reported bleeding overnight, hemodynamically she is stable. No abdominal pain. Patient had a EGD and colonoscopy on 07/23/2021 for acute anemia. 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 Today's labs have been reviewed, white blood cell count is 14.1, hemoglobin is 9.5, platelet count is 248, INR is 1.7, sodium is 134, potassium is 4.5, chloride is 110, CO2 17 BUN is 24 creatinine is 1.73. Coumadin remains on hold. Patient is tolerating regular diet. On the 07/28/2021 patient seen in follow-up in intensive care unit, she is resting in bed, in no acute distress, currently on 9 L of oxygen pulse ox is 93%, denies any worsening dyspnea, yesterday we gave the patient a dose of IV Lasix, she is in -1.29 L over the last 24 hours, chest x-ray shows scattered basal pulmonary atelectasis and left pleural effusion. Patient is in atrial fibrillation, and a tachycardic, with a rate of 105-129 BPM. Hemodynamically she is stable, not requiring any vasopressor support, she is currently on metoprolol 25 mg daily, her anticoagulation remains on hold for acute GI bleed. However he there has been no active bleeding overnight, hemoglobin today is 8.4, INR today is 1.6, Coumadin remains on hold. No abdominal pain, patient is at tolerating oral feedings. She is working on his sinus primary, achieving 1.5 L on the today. On 07/29/2021 patient seen in follow-up on selective care unit, she is breathing comfortable, she is currently on 9 L of oxygen pulse ox is 95%, has occasional mild congestive cough, but no acute distress, subsequently FiO2 has been dropped down to 7 L. Lung sounds are positive for a few scattered wheezes. Yesterday's chest x-ray shows scattered basilar pulmonary atelectasis and left pleural effusion. No reported bleeding overnight, today's INR is 1.6, codeine remains on hold. No abdominal pain, no hematemesis no reported black stools. Still have some mild lower extremity edema. She has been using the incentive spirometer, she is able to achieve 1.5 m on it On 07/30/2021 patient is seen in follow-up selective care unit. Today she seen sitting up in the recliner, breathing comfortably, minimal end expiratory wheezing noted on today's exam, patient has been working on incentive spirometer she is able to achieve 1.5 m on it today, at times she is able to bring up small amount of tannish phlegm. No complaints of chest discomfort, vital signs have been stable overnight. Remains in A. fib, rate is controlled. Coumadin remains on hold, today's INR is 1.6. Patient has had no active bleeding in the last 24 hours, abdomen is soft, patient is tolerating oral intake, today's labs have been reviewed CBC still pending, renal profile is improving, B1 is 25 creatinine is down to 1.19. Patient has had no fever or chills, vital signs have been stable. FiO2 has been turned down to 6 L as the patient was satting 96% on 8 L, she normally wears 2 L of oxygen at home on a regular basis. Chest x-ray from 2 days ago showed scattered basal pulmonary atelectasis and left pleural effusion. Has had no worsening dyspnea or hypoxia. Objective - Vital Signs Vital signs: Vital Signs Temp 97.7 F 07/30/21 08:12 Pulse 80 07/30/21 09:01 Resp 20 07/30/21 08:12 BP 125/64 07/30/21 08:12 Pulse Ox 96 07/30/21 08:12 Intake & Output 07/29/21 07/30/21 07/30/21 18:59 06:59 18:59 Intake Total 478 240 240 Output Total 550 Balance 478 -310 240 Intake: Oral 478 240 240 Output: Urine 550 Other: Voiding Method Bedpan Diaper Incontinent # Voids 2 1 # Bowel Movements 2 1 1 - Exam GENERAL EXAM: Alert, very pleasant, 85-year-old female on 8 L oxygen with pulse ox 96% comfortable in no apparent distress. HEAD: Normocephalic/atraumatic. EYES: Normal reaction of pupils, equal size. Conjunctiva pink, sclera white. NOSE: Clear with pink turbinates. THROAT: No erythema or exudates. NECK: No masses, no JVD, no thyroid enlargement, no adenopathy. CHEST: No chest wall deformity. Symmetrical expansion. LUNGS: Equal air entry with no crackles, wheeze, rhonchi or dullness. CVS: Regular rate and rhythm, normal S1 and S2, no gallops, no murmurs, no rubs ABDOMEN: Soft, nontender. No hepatosplenomegaly, normal bowel sounds, no guarding or rigidity. EXTREMITIES: No clubbing, +1 lower extremity edema no cyanosis, 2+ pulses and upper and lower extremities. MUSCULOSKELETAL: Muscle strength and tone normal. SPINE: No scoliosis or deformity SKIN: No rashes CENTRAL NERVOUS SYSTEM: Alert and oriented -3. No focal deficits, tone is normal in all 4 extremities. PSYCHIATRIC: Alert and oriented -3. Appropriate affect. Intact judgment and insight. - Labs CBC & Chem 7: 07/28/21 07:17 07/30/21 08:08 Labs: Abnormal Lab Results - Last 24 Hours (Table) 07/29/21 07/30/21 Range/Units 06:39 08:08 Sodium 135 L 135 L (137-145) mmol/L Chloride 109 H 108 H (98-107) mmol/L Carbon Dioxide 19 L (22-30) mmol/L BUN 30 H 25 H (7-17) mg/dL Creatinine 1.49 H 1.19 H (0.52-1.04) mg/dL Glucose 105 H 105 H (74-99) mg/dL Assessment and Plan Plan: Assessment: #1. Hypotension, related to acute GI bleeding with a drop in hemoglobin, and patient was given IV fluids and a 1 unit of packed red blood cells on admission. Currently blood pressure is improved. Patient is not requiring any pressors #2. Acute kidney injury related to the above, improving #3. Chronic hypoxic respiratory failure usually wears 2 L of oxygen on a regular basis, and there is been interval worsening in her oxygenation and patient is currently on 10 L, chest x-ray showing left lower lobe atelectasis with possibility of small effusion #4. COPD with chronic small left-sided pleural effusion #5. Coronary artery disease, been treated medically. Current EKG from this admission showing an old septal infarct, no acute ischemic changes. 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 Hypertension #8. Hypothyroidism #9. Hyperlipidemia #10. Previous history of smoking #11. Previous history of CVA without any residual deficits #12. 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 Generalized debility with his #14. Abnormal LFTs Plan: Continue weaning FiO2 Currently down to 6 l/min Increase activity as tolerated, encourage incentive spirometry use Vital signs are stable, today's labs 7 noted No active bleeding in the last 24 hours Discharge planning is in progress for discharge to [facility] in the next 24 hours Stable for discharge to [facility] if cleared by other consultants on the case I have personally seen and examined the patient, performed the documentation and the assessment and plan as written. Number of minutes spent on the visit: 10 Time with Patient: Less than 30
[2021-07-30] MEDS ORDERED: METOPROLOL TARTRATE 25 MG TAB PO STA (11:28)
--- NOTE | 2021-07-30 12:56 | P.PN ---
Subjective Progress Note Date: 07/30/21 HISTORY OF PRESENT ILLNESS This is an 84-year-old female patient of Dr. Bertrand and Dr. 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, remote history of tobacco use and dependence, patient was seen in my office as her day with generalized weakness and increased dizziness and hypotension with not able to do anything, associated with increased shortness breath, she was requiring about 3-4 L cannula usually she is on 2 L nasal cannula, patient stated that she has been having some dark stool for the last 48 hours, and her appetite was down, patient was sent to the emergency department for evaluation her initial hemoglobin was lower than normal she did drop about 3 g for the prior hemoglobin, and the patient was admitted to the hospital for possible upper GI bleed, patient type and cross and place and hold 2 units of packed red blood cells, she was taken off aspirin and Coumadin she was started on Protonix 40 mg IV push every 12 hours, GI consultation was obtained, patient surprisingly had a troponin that was positive at cardiology consultation was obtained for further evaluation and recommendation. 3/2: Patient denies having any nausea or vomiting. No chest pain. She has not had a bowel movement since she arrived. She has been seen by GI with plan for EGD and colonoscopy for tomorrow. Troponins are elevated at 0.797 and 0.5-0, cardiology consult added. Iron studies have been ordered by GI and patient is continued on protonic 40 mg IV twice daily. Patient has been afebrile, heart rate 80 to 80s, blood pressure 96/58, pulse ox 91% on 2 L. Repeat hemoglobin last night was 8.2. Repeat blood work ordered for tomorrow. 3/3: Patient denies having any abdominal pain, no epigastric tenderness. She denies having any chest pain. EGD and colonoscopy is scheduled for this morning. She underwent prep last night and did have some blood and output is now cleared. Patient continued on Protonix 40 mg IV push twice daily. She was seen yesterday by cardiology with recommendations for no further workup and acute coronary syndrome was ruled out. Patient in follow-up Dr. Sheehan as an outpatient. Laboratory studies from today are pending. 07/24: Patient feels very weak today she can he is to be very pale, it was recommended by GI service to restart Coumadin as the patient EGD did show arteriovenous confirmation that was treated with argon, colonoscopy did show sigmoid diverticulosis without evidence of any neoplasia, hemoglobin was stable at 8.5 today, I will start the patient on 2.5 mg tonight and repeat INR tomorrow morning, monitor the patient's CBC every 24 hours, physical therapy evaluation, patient will likely need to go for subacute rehabilitation. 07/25: Patient is sitting up in bed extremely pale she appears pasty, significant weakness, she denies any chest pain she does complain of irritative cough, I have ordered a stat chest x-ray on her that showed COPD with left-sided pleural effusion, a stat 12-lead EKG that didn't show evidence of sinus rhythm with what appears to be an ST elevation in the inferior leads especially in lead 3 and aVF with reciprocal changes suggestive of ME, cardiology reconsult, consult pulmonary and critical care for transferred to the intensive care unit as the patient is full code and she is hypotensive and she appears to be bleeding again as her hemoglobin did drop from 8.5-7.5 discontinue Coumadin again and transfer the patient to the ICU, start the patient on IV fluid she will be given normal saline 500 mL bolus IV 1 she'll be given 1 unit of packed red blood cells I've contacted the hospitality manager and beef contacted cardiology as well. 07/26: Patient was moved to the intensive care unit yesterday because of significant hypotension and minimal ST elevation in the inferior lead with lat eral ischemia as well, patient is actively bleeding at this time, and anticoagulation as Indicated, patient was seen in consultation by cardiology we'll continue to monitor the patient very closely she did receive fluid and packed blood cells, keep her hemoglobin greater than 8 at all the time, follow- up with the patient very closely, prognosis continues to be very guarded. 07/27: Patient is laying down in bed she appears to be generally weak today, she continues to have some shortness breath, she is currently on high flow oxygen level liters nasal cannula, she continues to be in intensive care unit, she has been seen by hospitality manager as well as cardiology, patient does not appear to have any unstable angina or congestive heart failure her urine output has picked up after the Lasix, her creatinine is 1.7, INR is 1.7, no active GI bleed at this point in time, keep the patient as she for another 24 hours. 07/28: Patient is laying down in bed she continues to be in the ICU she is extremely weak, she is in atrial fibrillation with a heart rate of 120, she is requiring 6 L nasal cannula, oxygenation around 91%, she has a very poor appetite, she continues to have a Christianson catheter in place, creatinine continue to be above baseline, physical therapy will see the patient. 07/29: Patient was moved out of the ICU she is currently on telemetry unit, she is feeling a bit better, she continues to be on current treatment plan, physical therapy to evaluate the patient today, reevaluate the patient the next 24 hours, try to cut down on oxygen, follow-up with the patient very closely. 07/30: Patient is doing a bit better today her oxygen level is down to 8 L Nasal cannula, she continues to be somewhat short of breath, she is extremely weak she is currently being seen by physical therapy, and the plan to try to move the patient to subacute rehab rotation in the next 1 or 2 days. REVIEW OF SYSTEMS Constitutional: No fever, no chills, no night sweats. No weight change. Reports weakness, Reports fatigue or lethargy. No daytime sleepiness. HEENT: No headache. No blurred vision or double vision, no loss of vision. hard of Hearing, no ringing in the ears, no dizziness. No nasal drainage or congestion. No epistaxis. No sore throat. Lungs: No shortness of breath, cough, no sputum production. No wheezing. Cardiovascular: No chest pain, no lower extremity edema. No palpitations. No paroxysmal nocturnal dyspnea. No orthopnea. No lightheadedness or dizziness. No syncopal episodes. Abdominal: No abdominal pain. No nausea, vomiting. No diarrhea. No constipation, positive for black tarry stool, positive for poor appetite. Genitourinary: No dysuria, increased frequency, urgency. No urinary retention. Musculoskeletal: No myalgias. Reports muscle weakness, Reports gait dysfunction, no frequent falls. No back pain. No neck pain. Integumentary: No wounds, no lesions. No rash or pruritus. No unusual bruising. No change in hair or nails. Neurologic: No aphasia. No facial droop. No change in mentation. No head injury. No headache. No paralysis. No paresthesia. Psychiatric: No depression. No anxiety. No mood swings. Endocrine: No abnormal blood sugars. PHYSICAL EXAMINATION Gen: This is an 85-year-old female who is laying down in bed appears to be generally weak. HEENT: Head is atraumatic, normocephalic. Pupils equal, round, conjunctivae were pale, mucus brain and muscle somewhat dry, sclera nonicteric, extraocular muscle motor intact. NECK: Supple. No JVD. No lymphadenopathy. No thyromegaly. LUNGS: decrease breath sound at bases, few rhonchi, no expiratory wheezes, no chest wall tenderness, no intercostal retractions. HEART : First heart sound is depressed, second heart sound is normal, there is 2/6 systolic ejection murmur at the left sternal border. No S3, no S4. ABDOMEN: Soft, nontender, nondistended, positive bowel sounds, no hepatomegaly, no rebound or guarding. EXTREMITIES: No pedal edema. No calf tenderness. Dorsalis pedis +2 bilaterally. NEUROLOGICAL: Patient is awake, alert and oriented x3. Cranial nerves 2 through 12 are grossly intact, muscle power 5 out of 5 in upper and lower extremities bilaterally ASSESSMENT AND PLAN 1. Upper GI bleed status post EGD and colonoscopy. EGD showed arteriovenous confirmation the body of the stomach that they're not bleeding at the time of evaluation, underwent argon treatment, colonoscopy did show evidence of sigmoid diverticulosis. No more obvious GI bleed at this point in time, we'll continue to monitor the patient very closely. 2. Acute inferior wall injury pattern with reciprocal changes suggestive of ME. Continue patient on atorvastatin 40 mg orally once every day, continue Toprol- XL 25 minute gram orally once every day, continue the patient off aspirin. Cardiology is following. 3. acute on chronic hypoxemic respiratory failure due to underlying COPD with significant anemia. Continue patient on Symbicort, continue patient on oxygen, keep her saturation greater than 93%,continue patient on DuoNeb, monitor the patient very closely. chest x-ray showed COPD with left-sided pleural effusion. 4. Acute blood loss anemia due to upper GI bleed. status post blood transfusion. Hemoglobin greater than 8. 5. History of coronary artery disease with previous PCI to the RCA 2018. Maintain the patient on metoprolol 25 mg orally 3 times every day, keep her off aspirin, continue atorvastatin 40 mg once every day. 6. Hypertension and hypertensive cardiovascular disease. continue patient on metoprolol 25 mg orally 3 times every day 7. Acute kidney injury secondary to hypotension and acute tubular necrosis due to GI bleed. 8 Hyperlipidemia. Continue patient on atorvastatin 40 mg once every day. 9. Hypothyroidism. Continue levothyroxine 100 g daily. 10. 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 off coumadin 11. Vascular dementia. Continue Aricept 10 mg daily. 13. History of CVA.we will continue patient on atorvastatin 40 mg once every day, off aspirin and Coumadin due to GI bleed. 14. Carotid artery disease status post endarterectomy. 15. Gastroesophageal reflux disease. Continue Protonix 40 mg orally once every day. 16. DVT prophylaxis. We will try to restart Coumadin tonight. 17. COVID-19 testing negative. Patient has been hospitalized during a pandemic. 18. Guarded prognosis. 19. Physical therapy evaluation foster care social worker consultation for subacute rehabilitation. Objective - Vital Signs Vital signs: Vital Signs Temp 97.7 F 07/30/21 08:12 Pulse 80 07/30/21 09:01 Resp 20 07/30/21 08:12 BP 125/64 07/30/21 08:12 Pulse Ox 96 07/30/21 08:12 Intake & Output 07/29/21 07/30/21 07/30/21 18:59 06:59 18:59 Intake Total 478 240 240 Output Total 550 Balance 478 -310 240 Intake: Oral 478 240 240 Output: Urine 550 Other: Voiding Method Bedpan Diaper Incontinent # Voids 2 1 # Bowel Movements 2 1 1 - Labs CBC & Chem 7: 07/28/21 07:17 07/30/21 08:08 Labs: Abnormal Lab Results - Last 24 Hours (Table) 07/29/21 07/30/21 Range/Units 06:39 08:08 Sodium 135 L 135 L (137-145) mmol/L Chloride 109 H 108 H (98-107) mmol/L Carbon Dioxide 19 L (22-30) mmol/L BUN 30 H 25 H (7-17) mg/dL Creatinine 1.49 H 1.19 H (0.52-1.04) mg/dL Glucose 105 H 105 H (74-99) mg/dL
--- NOTE | 2021-07-30 13:03 | P.PN ---
Subjective HISTORY OF PRESENTING ILLNESS This is a pleasant 85-year-old female past medical history significant for coronary artery disease status post PCI to the RCA 2017, hypertension, peripheral vascular disease status post carotid endarterectomy 2007, former nicotine dependence, factor V Leiden with a history of DVT/PE in the past, asthma and dyslipidemia. She follows in the office with Dr. Sheehan. We have been asked to see in consultation for elevated troponin initially, which was thought to be due to patient's acute anemia secondary to GI bleed. She presented to the emergency department on 07/21/2021 with complaints of generalized weakness, fatigue and some mild shortness of breath, but her shortness of breath is not new or worsening then her baseline. Patient states that for the past couple days been having worsening generalized fatigue, generalized weakness. She was found to have a hemoglobin of 8.2, previously 12.4 in May 2021. She also endorses some dark stools over the weekend. 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 On 07/25/21, EKG was performed with new ST changes with troponin of 1.030. She was transferred to ICU. Patient without any symptoms of chest pain or shortness of breath and was medically managed. Hospital course complicated by MATEUSZ and her losartan has been held. She also was found to be in atrial fibrillation with RVR. 07/30/2021 Patient seen and examined at bedside, she was maintaining sinus mechanism, however, now this morning she is back in atrial fibrillation HR 100-120. She has no symptoms of shortness of breath, palpitations, chest pain. She is hemodynamically stable. No complaints. Vital signs stable. She is on a statin, and metoprolol tartrate 25mg BID. Kidney function is improving, Scr 1.19, BUN 30. PHYSICAL EXAMINATION Vitals reviewed CONSTITUTIONAL: No apparent distress. HEENT:Neck Supple. No JVD. No carotid bruit. CHEST EXAMINATION: Lungs are diminished bilaterally to auscultation. No chest wall tenderness is noted on palpation or with deep breathing. HEART EXAMINATION: Regular rate and rhythm. S1, S2 heard. No murmurs, gallops or rub. ABDOMEN: Soft, nontender. EXTREMITIES: 2+ peripheral pulses, no lower extremity edema and no calf ten derness. NEUROLOGIC EXAMINATION: Patient is awake, alert and oriented x3. ASSESSMENT Paroxysmal atrial fibrillation, no anticoagulation due to GI bleed, currently in sinus mechanism Inferiolateral ischemia with mild ST elevation from EKG on 07/25/2021-continue current treatment as prescribed. Anticoagulation continues to be contraindicated. EGD showed arteriovenous confirmation the body of the stomach that they're not bleeding at the time of evaluation, underwent argon treatment, colonoscopy did show evidence of sigmoid diverticulosis. 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 This can be evaluated in the office with Dr. Sheehan. Monitor on cardiac telemetry Losartan is on hold due to acute kidney injury, monitor patient's renal function and electrolytes Plan is for patient to be discharged to rehab in 24-48 hours Further recommendations based on clinical course Nurse Practitioner note has been reviewed, I agree with a documented findings and plan of care. Patient was seen and examined. Objective - Vital Signs Vital signs: Vital Signs Temp 97.9 F 07/30/21 12:00 Pulse 78 07/30/21 12:17 Resp 16 07/30/21 12:00 BP 109/59 07/30/21 12:00 Pulse Ox 96 07/30/21 08:12 Intake & Output 07/29/21 07/30/21 07/30/21 18:59 06:59 18:59 Intake Total 478 240 240 Output Total 550 Balance 478 -310 240 Intake: Oral 478 240 240 Output: Urine 550 Other: Voiding Method Bedpan Diaper Diaper Incontinent Incontinent # Voids 2 1 # Bowel Movements 2 1 1 - Labs CBC & Chem 7: 07/28/21 07:17 07/30/21 08:08 Labs: Abnormal Lab Results - Last 24 Hours (Table) 07/30/21 Range/Units 08:08 Sodium 135 L (137-145) mmol/L Chloride 108 H (98-107) mmol/L BUN 25 H (7-17) mg/dL Creatinine 1.19 H (0.52-1.04) mg/dL Glucose 105 H (74-99) mg/dL
[2021-07-30] MEDS ORDERED: Potassium Replacement Protocol 1 EACH MISC MISCELLANE PRN (16:13)
[2021-07-30] MEDS ORDERED: POTASSIUM CHLORIDE ER 20 MEQ TAB.ER PO SCH (17:00)
[2021-07-30] MEDS: ATORVASTATIN 40 MG TAB PO SCH (20:55)
[2021-07-30] MEDS: DONEPEZIL 10 MG TAB PO SCH (20:55)
[2021-07-30] MEDS: METOPROLOL TARTRATE 50 MG TAB PO SCH (20:55)
[2021-07-30] MEDS: LEVOTHYROXINE 100 MCG TAB PO SCH (20:55)
[2021-07-31 07:15] LABS: Anisocytosis Slight; Basophils # (A) 0.1 k/uL (0-0.2); Basophils % (A) 0 %; Eosinophils # (A) 0.1 k/uL (0-0.7); Eosinophils % (A) 1 %; HCT 30.5 % (34.0-46.0); HGB 9.2 gm/dL (11.4-16.0); Hypochromasia Marked; Lymphocytes # (A) 2.3 k/uL (1.0-4.8); Lymphocytes % (A) 17 %; MCH 27.2 pg (25.0-35.0); MCHC 30.2 g/dL (31.0-37.0); Mean Platelet Volume 9.7; Monocytes # (A) 0.7 k/uL (0-1.0); Monocytes % (A) 5 %; Neutrophils # (A) 10.7 k/uL (1.3-7.7); Neutrophils % (A) 75 %; Platelet Count 254 k/uL (150-450); Poikilocytosis Marked; RBC 3.39 m/uL (3.80-5.40); RDW 16.7 % (11.5-15.5); WBC 14.1 k/uL (3.8-10.6)
[2021-07-31 07:30] LABS: Albumin 2.6 g/dL (3.5-5.0); Potassium 4.7 mmol/L (3.5-5.1); Total Bilirubin 0.9 mg/dL (0.2-1.3); Total Protein 5.6 g/dL (6.3-8.2)
[2021-07-31 07:33] LABS: INR 1.4 (<1.2); Prothrombin Time 14.7 sec (9.0-12.0)
[2021-07-31] MEDS: BENZONATATE 100 MG CAP PO PRN (08:36)
[2021-07-31] MEDS: CHOLECALCIFEROL 125 MCG (5000 IU) TABLET PO SCH (08:36)
[2021-07-31] MEDS: PANTOPRAZOLE 40 MG TABLET PO SCH (08:36)
[2021-07-31] MEDS: MULTIVITAMINS, THERA 1 EACH TAB PO SCH (08:36)
[2021-07-31] MEDS: METOPROLOL TARTRATE 50 MG TAB PO SCH ×2 (08:36→20:02)
[2021-07-31] MEDS ORDERED: FUROSEMIDE 10 MG/ML 2 ML VIAL IV ONE (08:42)
[2021-07-31] MEDS: SYMBICORT 160-4.5 MCG INHALER INHALATION SCH ×2 (09:23→21:25)
[2021-07-31] MEDS: IPRATROPIUM-ALBUTEROL 3 ML NEB INHALATION SCH ×4 (09:23→21:25)
--- NOTE | 2021-07-31 10:46 | P.PN ---
Subjective Progress Note Date: 07/31/21 Principal diagnosis: GI bleed. On the 07/28/2021 patient seen in follow-up in intensive care unit, she is resting in bed, in no acute distress, currently on 9 L of oxygen pulse ox is 93%, denies any worsening dyspnea, yesterday we gave the patient a dose of IV Lasix, she is in -1.29 L over the last 24 hours, chest x-ray shows scattered basal pulmonary atelectasis and left pleural effusion. Patient is in atrial fibrillation, and a tachycardic, with a rate of 105-129 BPM. Hemodynamically she is stable, not requiring any vasopressor support, she is currently on metoprolol 25 mg daily, her anticoagulation remains on hold for acute GI bleed. However he there has been no active bleeding overnight, hemoglobin today is 8.4, INR today is 1.6, Coumadin remains on hold. No abdominal pain, patient is at tolerating oral feedings. She is working on his sinus primary, achieving 1.5 L on the today. On 07/29/2021 patient seen in follow-up on selective care unit, she is breathing comfortable, she is currently on 9 L of oxygen pulse ox is 95%, has occasional mild congestive cough, but no acute distress, subsequently FiO2 has been dropped down to 7 L. Lung sounds are positive for a few scattered wheezes. Yesterday's chest x-ray shows scattered basilar pulmonary atelectasis and left pleural effusion. No reported bleeding overnight, today's INR is 1.6, codeine remains on hold. No abdominal pain, no hematemesis no reported black stools. Still have some mild lower extremity edema. She has been using the incentive spirometer, she is able to achieve 1.5 m on it On 07/30/2021 patient is seen in follow-up selective care unit. Today she seen sitting up in the recliner, breathing comfortably, minimal end expiratory wheezing noted on today's exam, patient has been working on incentive spirometer she is able to achieve 1.5 m on it today, at times she is able to bring up small amount of tannish phlegm. No complaints of chest discomfort, vital signs have been stable overnight. Remains in A. fib, rate is controlled. Coumadin remains on hold, today's INR is 1.6. Patient has had no active bleeding in the last 24 hours, abdomen is soft, patient is tolerating oral intake, today's labs have been reviewed CBC still pending, renal profile is improving, B1 is 25 creatinine is down to 1.19. Patient has had no fever or chills, vital signs have been stable. FiO2 has been turned down to 6 L as the patient was satting 96% on 8 L, she normally wears 2 L of oxygen at home on a regular basis. Chest x-ray from 2 days ago showed scattered basal pulmonary atelectasis and left pleural effusion. Has had no worsening dyspnea or hypoxia. Progress note dated 07/31/2021. The patient is seen in room 375. Currently, she's not receiving any IV fluids. Her oxygen has been weaned down to 5-6 L. He looks relatively comfortable. She denies any shortness of breath. She also denies any additional GI bleeding. White count 14.1, hemoglobin 9.2, hematocrit 30.5, and platelet count 2 54,000. PT 14.7 with INR 1.4. Sodium 134, potassium 4.7, chloride 108, CO2 21, anion gap 5, BUN 27, and creatinine 1.26. AST is 170 ALT is 2:15. Albumin is 2.6. Objective - Vital Signs Vital signs: Vital Signs Temp 97.7 F 07/31/21 08:00 Pulse 70 07/31/21 09:35 Resp 18 07/31/21 08:00 BP 129/60 07/31/21 08:00 Pulse Ox 93 L 07/31/21 08:00 Intake & Output 07/30/21 07/31/21 07/31/21 18:59 06:59 18:59 Intake Total 1217 240 240 Output Total 200 300 Balance 1017 -60 240 Intake: Oral 1217 240 240 Output: Urine 200 300 Other: Voiding Method Diaper Diaper Incontinent Incontinent # Voids 1 # Bowel Movements 1 1 - Exam No acute distress, oriented 3. No acute distress. Currently on 5 L nasal cannula. No conversational dyspnea or use of accessory muscles. Saturations are 93%. HEENT examination is grossly unremarkable. Neck supple. Full range of motion. No adenopathy thyromegaly or neck vein distention. Cardiovascular examination reveals regular rhythm rate. S1-S2 normal. No S3 or S4. No discernible murmur noted. Heart sounds distant. Heart rate 70 bpm. Lungs reveal mild scattered rhonchi. No wheezes or crackles. Breath sounds equal bilaterally. Her breathing is not labored. Abdomen soft bowel sounds are heard. No masses or tenderness. Extremities are intact. Trace edema. No cyanosis or clubbing. Skin is without rash or lesion. Neurologic examination is brief but nonfocal. - Labs CBC & Chem 7: 07/31/21 06:43 07/31/21 06:43 Labs: Abnormal Lab Results - Last 24 Hours (Table) 07/31/21 07/31/21 07/31/21 Range/Units 06:43 06:43 06:43 WBC 14.1 H (3.8-10.6) k/uL RBC 3.39 L (3.80-5.40) m/uL Hgb 9.2 L (11.4-16.0) gm/dL Hct 30.5 L (34.0-46.0) % MCHC 30.2 L (31.0-37.0) g/dL RDW 16.7 H (11.5-15.5) % Neutrophils # 10.7 H (1.3-7.7) k/uL PT 14.7 H (9.0-12.0) sec INR 1.4 H (<1.2) Sodium 134 L (137-145) mmol/L Chloride 108 H (98-107) mmol/L Carbon Dioxide 21 L (22-30) mmol/L BUN 27 H (7-17) mg/dL Creatinine 1.26 H (0.52-1.04) mg/dL Glucose 142 H (74-99) mg/dL AST 170 H (14-36) U/L ALT 215 H (4-34) U/L Alkaline Phosphatase 161 H (38-126) U/L Total Protein 5.6 L (6.3-8.2) g/dL Albumin 2.6 L (3.5-5.0) g/dL Assessment and Plan Assessment: #1. Hypotension, related to acute GI bleeding with a drop in hemoglobin, and patient was given IV fluids and a 1 unit of packed red blood cells on admission. Currently blood pressure is improved. Patient is not requiring any pressors. #2. Acute kidney injury related to the above, improving. #3. Chronic hypoxic respiratory failure usually wears 2 L of oxygen on a regular basis, and there is been interval worsening in her oxygenation and patient is currently on 6 L, chest x-ray showing left lower lobe atelectasis with possibility of small effusion. #4. COPD with chronic small left-sided pleural effusion. #5. Coronary artery disease, been treated medically. Current EKG from this admission showing an old septal infarct, no acute ischemic changes. This troponin elevation, and troponin peaked at 1.03. #6. History of factor V Leiden maintained on Coumadin. #7. Hypertension. #8. Hypothyroidism. #9. Hyperlipidemia. #10. Previous history of smoking. #11. Previous history of CVA without any residual deficits. #12. 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 #13. Generalized debility. #14. Abnormal LFTs. Plan: Plan dated 07/31/2021. The patient appears to be relatively stable. The patient remains on 6 L. That should be weaned. Vital signs are stable. No active bleeding. The patient is to be evaluated for possible discharge to one of the local nursing homes. From our perspective, the patient is stable. Moving forward, we will see this patient only as needed. Please feel free to call us back should he she developed a new lung issue. Prognosis is guarded. Labs, x-rays, and medications are all reviewed. Time with Patient: Less than 30
--- NOTE | 2021-07-31 11:22 | P.PN ---
Subjective Progress Note Date: 07/31/21 HISTORY OF PRESENT ILLNESS This is an 84-year-old female patient of Dr. Bertrand and Dr. 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, remote history of tobacco use and dependence, patient was seen in my office as her day with generalized weakness and increased dizziness and hypotension with not able to do anything, associated with increased shortness breath, she was requiring about 3-4 L cannula usually she is on 2 L nasal cannula, patient stated that she has been having some dark stool for the last 48 hours, and her appetite was down, patient was sent to the emergency department for evaluation her initial hemoglobin was lower than normal she did drop about 3 g for the prior hemoglobin, and the patient was admitted to the hospital for possible upper GI bleed, patient type and cross and place and hold 2 units of packed red blood cells, she was taken off aspirin and Coumadin she was started on Protonix 40 mg IV push every 12 hours, GI consultation was obtained, patient surprisingly had a troponin that was positive at cardiology consultation was obtained for further evaluation and recommendation. 3/2: Patient denies having any nausea or vomiting. No chest pain. She has not had a bowel movement since she arrived. She has been seen by GI with plan for EGD and colonoscopy for tomorrow. Troponins are elevated at 0.797 and 0.5-0, cardiology consult added. Iron studies have been ordered by GI and patient is continued on protonic 40 mg IV twice daily. Patient has been afebrile, heart rate 80 to 80s, blood pressure 96/58, pulse ox 91% on 2 L. Repeat hemoglobin last night was 8.2. Repeat blood work ordered for tomorrow. 3/3: Patient denies having any abdominal pain, no epigastric tenderness. She denies having any chest pain. EGD and colonoscopy is scheduled for this morning. She underwent prep last night and did have some blood and output is now cleared. Patient continued on Protonix 40 mg IV push twice daily. She was seen yesterday by cardiology with recommendations for no further workup and acute coronary syndrome was ruled out. Patient in follow-up Dr. Sheehan as an outpatient. Laboratory studies from today are pending. 07/24: Patient feels very weak today she can he is to be very pale, it was recommended by GI service to restart Coumadin as the patient EGD did show arteriovenous confirmation that was treated with argon, colonoscopy did show sigmoid diverticulosis without evidence of any neoplasia, hemoglobin was stable at 8.5 today, I will start the patient on 2.5 mg tonight and repeat INR tomorrow morning, monitor the patient's CBC every 24 hours, physical therapy evaluation, patient will likely need to go for subacute rehabilitation. 07/25: Patient is sitting up in bed extremely pale she appears pasty, significant weakness, she denies any chest pain she does complain of irritative cough, I have ordered a stat chest x-ray on her that showed COPD with left-sided pleural effusion, a stat 12-lead EKG that didn't show evidence of sinus rhythm with what appears to be an ST elevation in the inferior leads especially in lead 3 and aVF with reciprocal changes suggestive of DC, cardiology reconsult, consult pulmonary and critical care for transferred to the intensive care unit as the patient is full code and she is hypotensive and she appears to be bleeding again as her hemoglobin did drop from 8.5-7.5 discontinue Coumadin again and transfer the patient to the ICU, start the patient on IV fluid she will be given normal saline 500 mL bolus IV 1 she'll be given 1 unit of packed red blood cells I've contacted the bladder trimmer and beef contacted cardiology as well. 07/26: Patient was moved to the intensive care unit yesterday because of significant hypotension and minimal ST elevation in the inferior lead with lat eral ischemia as well, patient is actively bleeding at this time, and anticoagulation as Indicated, patient was seen in consultation by cardiology we'll continue to monitor the patient very closely she did receive fluid and packed blood cells, keep her hemoglobin greater than 8 at all the time, follow- up with the patient very closely, prognosis continues to be very guarded. 07/27: Patient is laying down in bed she appears to be generally weak today, she continues to have some shortness breath, she is currently on high flow oxygen level liters nasal cannula, she continues to be in intensive care unit, she has been seen by bladder trimmer as well as cardiology, patient does not appear to have any unstable angina or congestive heart failure her urine output has picked up after the Lasix, her creatinine is 1.7, INR is 1.7, no active GI bleed at this point in time, keep the patient as she for another 24 hours. 07/28: Patient is laying down in bed she continues to be in the ICU she is extremely weak, she is in atrial fibrillation with a heart rate of 120, she is requiring 6 L nasal cannula, oxygenation around 91%, she has a very poor appetite, she continues to have a Christianson catheter in place, creatinine continue to be above baseline, physical therapy will see the patient. 07/29: Patient was moved out of the ICU she is currently on telemetry unit, she is feeling a bit better, she continues to be on current treatment plan, physical therapy to evaluate the patient today, reevaluate the patient the next 24 hours, try to cut down on oxygen, follow-up with the patient very closely. 07/30: Patient is doing a bit better today her oxygen level is down to 8 L Nasal cannula, she continues to be somewhat short of breath, she is extremely weak she is currently being seen by physical therapy, and the plan to try to move the patient to subacute rehab rotation in the next 1 or 2 days. 07/31: Patient is laying down in bed in no apparent distress, she is currently on 6 L nasal cannula, her oxygen saturation 93%, she was seen earlier by pulmonary medicine, they signed off on the case, and patient will likely need to be weaned down on her oxygen, eventually goes to subacute rehab additional for the next 24 hours, she usually wears 2 L at home and now she is at 6 L, we can continue the patient in the hospital for another 24 hours hopefully her oxygenation will be down to 3 or 4 L and then she can be transferred to [facility] on the [place]. REVIEW OF SYSTEMS Constitutional: No fever, no chills, no night sweats. No weight change. Reports weakness, Reports fatigue or lethargy. No daytime sleepiness. HEENT: No headache. No blurred vision or double vision, no loss of vision. hard of Hearing, no ringing in the ears, no dizziness. No nasal drainage or congestion. No epistaxis. No sore throat. Lungs: No shortness of breath, cough, no sputum production. No wheezing. Cardiovascular: No chest pain, no lower extremity edema. No palpitations. No paroxysmal nocturnal dyspnea. No orthopnea. No lightheadedness or dizziness. No syncopal episodes. Abdominal: No abdominal pain. No nausea, vomiting. No diarrhea. No constipation, positive for black tarry stool, positive for poor appetite. Genitourinary: No dysuria, increased frequency, urgency. No urinary retention. Musculoskeletal: No myalgias. Reports muscle weakness, Reports gait dysfunction, no frequent falls. No back pain. No neck pain. Integumentary: No wounds, no lesions. No rash or pruritus. No unusual bruising. No change in hair or nails. Neurologic: No aphasia. No facial droop. No change in mentation. No head injury. No headache. No paralysis. No paresthesia. Psychiatric: No depression. No anxiety. No mood swings. Endocrine: No abnormal blood sugars. PHYSICAL EXAMINATION Gen: This is an 85-year-old female who is laying down in bed appears to be generally weak. HEENT: Head is atraumatic, normocephalic. Pupils equal, round, conjunctivae were pale, mucus brain and muscle somewhat dry, sclera nonicteric, extraocular muscle motor intact. NECK: Supple. No JVD. No lymphadenopathy. No thyromegaly. LUNGS: decrease breath sound at bases, few rhonchi, no expiratory wheezes, no chest wall tenderness, no intercostal retractions. HEART : First heart sound is depressed, second heart sound is normal, there is 2/6 systolic ejection murmur at the left sternal border. No S3, no S4. ABDOMEN: Soft, nontender, nondistended, positive bowel sounds, no hepatomegaly, no rebound or guarding. EXTREMITIES: No pedal edema. No calf tenderness. Dorsalis pedis +2 bilaterally. NEUROLOGICAL: Patient is awake, alert and oriented x3. Cranial nerves 2 through 12 are grossly intact, muscle power 5 out of 5 in upper and lower extremities bilaterally ASSESSMENT AND PLAN 1. Upper GI bleed status post EGD and colonoscopy. EGD showed arteriovenous confirmation the body of the stomach that they're not bleeding at the time of evaluation, underwent argon treatment, colonoscopy did show evidence of sigmoid diverticulosis. No more obvious GI bleed at this point in time, we'll continue to monitor the patient very closely. 2. Acute inferior wall injury pattern with reciprocal changes suggestive of DC. Continue patient on atorvastatin 40 mg orally once every day, continue Toprol- XL 25 minute gram orally once every day, continue the patient off aspirin. Cardiology is following. 3. acute on chronic hypoxemic respiratory failure due to underlying COPD with significant anemia. Continue patient on Symbicort, continue patient on oxygen, keep her saturation greater than 93%,continue patient on DuoNeb, monitor the patient very closely. chest x-ray showed COPD with left-sided pleural effusion. 4. Acute blood loss anemia due to upper GI bleed. status post blood transfusion. Hemoglobin greater than 8. 5. History of coronary artery disease with previous PCI to the RCA 2017. Maintain the patient on metoprolol 25 mg orally 3 times every day, keep her off aspirin, continue atorvastatin 40 mg once every day. 6. Hypertension and hypertensive cardiovascular disease. continue patient on metoprolol 25 mg orally 3 times every day 7. Acute kidney injury secondary to hypotension and acute tubular necrosis due to GI bleed. 8 Hyperlipidemia. Continue patient on atorvastatin 40 mg once every day. 9. Hypothyroidism. Continue levothyroxine 100 g daily. 10. 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 off coumadin 11. Vascular dementia. Continue Aricept 10 mg daily. 13. History of CVA.we will continue patient on atorvastatin 40 mg once every day, off aspirin and Coumadin due to GI bleed. 14. Carotid artery disease status post endarterectomy. 15. Gastroesophageal reflux disease. Continue Protonix 40 mg orally once every day. 16. DVT prophylaxis. We will try to restart Coumadin tonight. 17. COVID-19 testing negative. Patient has been hospitalized during a pandemic. 18. Guarded prognosis. 19. Physical therapy evaluation social work lecturer consultation for subacute rehabilitation. 20. Likely [facility] on the [place] tomorrow morning. Objective - Vital Signs Vital signs: Vital Signs Temp 97.7 F 07/31/21 08:00 Pulse 70 07/31/21 09:35 Resp 18 07/31/21 08:00 BP 129/60 07/31/21 08:00 Pulse Ox 93 L 07/31/21 08:00 Intake & Output 07/30/21 07/31/21 07/31/21 18:59 06:59 18:59 Intake Total 1217 240 240 Output Total 200 300 Balance 1017 -60 240 Intake: Oral 1217 240 240 Output: Urine 200 300 Other: Voiding Method Diaper Diaper Incontinent Incontinent # Voids 1 # Bowel Movements 1 1 - Labs CBC & Chem 7: 07/31/21 06:43 07/31/21 06:43 Labs: Abnormal Lab Results - Last 24 Hours (Table) 07/31/21 07/31/21 07/31/21 Range/Units 06:43 06:43 06:43 WBC 14.1 H (3.8-10.6) k/uL RBC 3.39 L (3.80-5.40) m/uL Hgb 9.2 L (11.4-16.0) gm/dL Hct 30.5 L (34.0-46.0) % MCHC 30.2 L (31.0-37.0) g/dL RDW 16.7 H (11.5-15.5) % Neutrophils # 10.7 H (1.3-7.7) k/uL PT 14.7 H (9.0-12.0) sec INR 1.4 H (<1.2) Sodium 134 L (137-145) mmol/L Chloride 108 H (98-107) mmol/L Carbon Dioxide 21 L (22-30) mmol/L BUN 27 H (7-17) mg/dL Creatinine 1.26 H (0.52-1.04) mg/dL Glucose 142 H (74-99) mg/dL AST 170 H (14-36) U/L ALT 215 H (4-34) U/L Alkaline Phosphatase 161 H (38-126) U/L Total Protein 5.6 L (6.3-8.2) g/dL Albumin 2.6 L (3.5-5.0) g/dL
--- NOTE | 2021-07-31 13:14 | P.PN ---
Subjective HISTORY OF PRESENTING ILLNESS This is a pleasant 85-year-old female past medical history significant for coronary artery disease status post PCI to the RCA 2017, hypertension, peripheral vascular disease status post carotid endarterectomy 2007, former nicotine dependence, factor V Leiden with a history of DVT/PE in the past, asthma and dyslipidemia. She follows in the office with Dr. Sheehan. We have been asked to see in consultation for elevated troponin initially, which was thought to be due to patient's acute anemia secondary to GI bleed. She presented to the emergency department on 07/21/2021 with complaints of generalized weakness, fatigue and some mild shortness of breath, but her shortness of breath is not new or worsening then her baseline. Patient states that for the past couple days been having worsening generalized fatigue, generalized weakness. She was found to have a hemoglobin of 8.2, previously 12.4 in May 2021. She also endorses some dark stools over the weekend. 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 On 07/25/21, EKG was performed with new ST changes with troponin of 1.030. She was transferred to ICU. Patient without any symptoms of chest pain or shortness of breath and was medically managed. Hospital course complicated by MATEUSZ and her losartan has been held. She also was found to be in atrial fibrillation with RVR. 07/31/2021 Patient seen and examined at bedside. Yesterday she went back in atrial fibrillation HR 100-120. Metoprolol was increased to 50mg BID. She converted back to sinus mechanism currently in sinus mechanism HR 55-60s. She has no symptoms of shortness of breath, palpitations, chest pain. She is hemodynamically stable. No complaints. Vital signs stable. She is on a statin, and metoprolol tartrate 25mg BID. PHYSICAL EXAMINATION Vitals reviewed CONSTITUTIONAL: No apparent distress. HEENT:Neck Supple. No JVD. No carotid bruit. CHEST EXAMINATION: Lungs are diminished bilaterally to auscultation. No chest wall tenderness is noted on palpation or with deep breathing. HEART EXAMINATION: Regular rate and rhythm. S1, S2 heard. No murmurs, gallops or rub. ABDOMEN: Soft, nontender. EXTREMITIES: 2+ peripheral pulses, no lower extremity edema and no calf tenderness. NEUROLOGIC EXAMINATION: Patient is awake, alert and oriented x3. ASSESSMENT Paroxysmal atrial fibrillation, no anticoagulation due to GI bleed, currently in sinus mechanism Inferiolateral ischemia with mild ST elevation from EKG on 07/25/2021-continue current treatment as prescribed. Anticoagulation continues to be contraindicated. EGD showed arteriovenous confirmation the body of the stomach that they're not bleeding at the time of evaluation, underwent argon treatment, colonoscopy did show evidence of sigmoid diverticulosis. 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 This can be evaluated in the office with Dr. Sheehan. Losartan is on hold due to acute kidney injury, monitor patient's renal function and electrolytes. BP is stable. Plan is for patient to be discharged to rehab in 24 hours. Ok to discharge to rehab from a cardiology perspective Nurse Practitioner note has been reviewed, I agree with a documented findings and plan of care. Patient was seen and examined. Objective - Vital Signs Vital signs: Vital Signs Temp 98.1 F 07/31/21 12:00 Pulse 70 07/31/21 12:24 Resp 18 07/31/21 12:00 BP 135/60 07/31/21 12:00 Pulse Ox 92 L 07/31/21 12:00 Intake & Output 07/30/21 07/31/21 07/31/21 18:59 06:59 18:59 Intake Total 1217 240 240 Output Total 200 300 Balance 1017 -60 240 Intake: Oral 1217 240 240 Output: Urine 200 300 Other: Voiding Method Diaper Diaper Incontinent Incontinent # Voids 1 # Bowel Movements 1 1 - Labs CBC & Chem 7: 07/31/21 06:43 07/31/21 06:43 Labs: Abnormal Lab Results - Last 24 Hours (Table) 07/31/21 07/31/21 07/31/21 Range/Units 06:43 06:43 06:43 WBC 14.1 H (3.8-10.6) k/uL RBC 3.39 L (3.80-5.40) m/uL Hgb 9.2 L (11.4-16.0) gm/dL Hct 30.5 L (34.0-46.0) % MCHC 30.2 L (31.0-37.0) g/dL RDW 16.7 H (11.5-15.5) % Neutrophils # 10.7 H (1.3-7.7) k/uL PT 14.7 H (9.0-12.0) sec INR 1.4 H (<1.2) Sodium 134 L (137-145) mmol/L Chloride 108 H (98-107) mmol/L Carbon Dioxide 21 L (22-30) mmol/L BUN 27 H (7-17) mg/dL Creatinine 1.26 H (0.52-1.04) mg/dL Glucose 142 H (74-99) mg/dL AST 170 H (14-36) U/L ALT 215 H (4-34) U/L Alkaline Phosphatase 161 H (38-126) U/L Total Protein 5.6 L (6.3-8.2) g/dL Albumin 2.6 L (3.5-5.0) g/dL
[2021-07-31] MEDS: DONEPEZIL 10 MG TAB PO SCH (20:02)
[2021-07-31] MEDS: LEVOTHYROXINE 100 MCG TAB PO SCH (20:02)
[2021-08-01] MEDS: BENZONATATE 100 MG CAP PO PRN ×2 (03:12→12:41)
[2021-08-01] MEDS: IPRATROPIUM-ALBUTEROL 3 ML NEB INHALATION SCH ×2 (08:23→11:34)
[2021-08-01] MEDS: SYMBICORT 160-4.5 MCG INHALER INHALATION SCH (08:23)
[2021-08-01] MEDS: PANTOPRAZOLE 40 MG TABLET PO SCH (08:57)
[2021-08-01] MEDS: MULTIVITAMINS, THERA 1 EACH TAB PO SCH (08:57)
[2021-08-01] MEDS: METOPROLOL TARTRATE 50 MG TAB PO SCH (08:57)
[2021-08-01] MEDS: CHOLECALCIFEROL 125 MCG (5000 IU) TABLET PO SCH (08:57)
--- NOTE | 2021-08-01 09:08 | P.PN ---
Subjective Progress Note Date: 08/01/21 HISTORY OF PRESENT ILLNESS This is an 84-year-old female patient of Dr. Bertrand and Dr. 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, remote history of tobacco use and dependence, patient was seen in my office as her day with generalized weakness and increased dizziness and hypotension with not able to do anything, associated with increased shortness breath, she was requiring about 3-4 L cannula usually she is on 2 L nasal cannula, patient stated that she has been having some dark stool for the last 48 hours, and her appetite was down, patient was sent to the emergency department for evaluation her initial hemoglobin was lower than normal she did drop about 3 g for the prior hemoglobin, and the patient was admitted to the hospital for possible upper GI bleed, patient type and cross and place and hold 2 units of packed red blood cells, she was taken off aspirin and Coumadin she was started on Protonix 40 mg IV push every 12 hours, GI consultation was obtained, patient surprisingly had a troponin that was positive at cardiology consultation was obtained for further evaluation and recommendation. 3/2: Patient denies having any nausea or vomiting. No chest pain. She has not had a bowel movement since she arrived. She has been seen by GI with plan for EGD and colonoscopy for tomorrow. Troponins are elevated at 0.797 and 0.5-0, cardiology consult added. Iron studies have been ordered by GI and patient is continued on protonic 40 mg IV twice daily. Patient has been afebrile, heart rate 80 to 80s, blood pressure 96/58, pulse ox 91% on 2 L. Repeat hemoglobin last night was 8.2. Repeat blood work ordered for tomorrow. 3/3: Patient denies having any abdominal pain, no epigastric tenderness. She denies having any chest pain. EGD and colonoscopy is scheduled for this morning. She underwent prep last night and did have some blood and output is now cleared. Patient continued on Protonix 40 mg IV push twice daily. She was seen yesterday by cardiology with recommendations for no further workup and acute coronary syndrome was ruled out. Patient in follow-up Dr. Sheehan as an outpatient. Laboratory studies from today are pending. 07/24: Patient feels very weak today she can he is to be very pale, it was recommended by GI service to restart Coumadin as the patient EGD did show arteriovenous confirmation that was treated with argon, colonoscopy did show sigmoid diverticulosis without evidence of any neoplasia, hemoglobin was stable at 8.5 today, I will start the patient on 2.5 mg tonight and repeat INR tomorrow morning, monitor the patient's CBC every 24 hours, physical therapy evaluation, patient will likely need to go for subacute rehabilitation. 07/25: Patient is sitting up in bed extremely pale she appears pasty, significant weakness, she denies any chest pain she does complain of irritative cough, I have ordered a stat chest x-ray on her that showed COPD with left-sided pleural effusion, a stat 12-lead EKG that didn't show evidence of sinus rhythm with what appears to be an ST elevation in the inferior leads especially in lead 3 and aVF with reciprocal changes suggestive of AK, cardiology reconsult, consult pulmonary and critical care for transferred to the intensive care unit as the patient is full code and she is hypotensive and she appears to be bleeding again as her hemoglobin did drop from 8.5-7.5 discontinue Coumadin again and transfer the patient to the ICU, start the patient on IV fluid she will be given normal saline 500 mL bolus IV 1 she'll be given 1 unit of packed red blood cells I've contacted the casket inspector and beef contacted cardiology as well. 07/26: Patient was moved to the intensive care unit yesterday because of significant hypotension and minimal ST elevation in the inferior lead with lat eral ischemia as well, patient is actively bleeding at this time, and anticoagulation as Indicated, patient was seen in consultation by cardiology we'll continue to monitor the patient very closely she did receive fluid and packed blood cells, keep her hemoglobin greater than 8 at all the time, follow- up with the patient very closely, prognosis continues to be very guarded. 07/27: Patient is laying down in bed she appears to be generally weak today, she continues to have some shortness breath, she is currently on high flow oxygen level liters nasal cannula, she continues to be in intensive care unit, she has been seen by casket inspector as well as cardiology, patient does not appear to have any unstable angina or congestive heart failure her urine output has picked up after the Lasix, her creatinine is 1.7, INR is 1.7, no active GI bleed at this point in time, keep the patient as she for another 24 hours. 07/28: Patient is laying down in bed she continues to be in the ICU she is extremely weak, she is in atrial fibrillation with a heart rate of 120, she is requiring 6 L nasal cannula, oxygenation around 91%, she has a very poor appetite, she continues to have a Christianson catheter in place, creatinine continue to be above baseline, physical therapy will see the patient. 07/29: Patient was moved out of the ICU she is currently on telemetry unit, she is feeling a bit better, she continues to be on current treatment plan, physical therapy to evaluate the patient today, reevaluate the patient the next 24 hours, try to cut down on oxygen, follow-up with the patient very closely. 07/30: Patient is doing a bit better today her oxygen level is down to 8 L Nasal cannula, she continues to be somewhat short of breath, she is extremely weak she is currently being seen by physical therapy, and the plan to try to move the patient to subacute rehab rotation in the next 1 or 2 days. 07/31: Patient is laying down in bed in no apparent distress, she is currently on 6 L nasal cannula, her oxygen saturation 93%, she was seen earlier by pulmonary medicine, they signed off on the case, and patient will likely need to be weaned down on her oxygen, eventually goes to subacute rehab additional for the next 24 hours, she usually wears 2 L at home and now she is at 6 L, we can continue the patient in the hospital for another 24 hours hopefully her oxygenation will be down to 3 or 4 L and then she can be transferred to [facility]. 08/01: patient is siting up in bed , very weak with poor appetite not eating much, currently on 5 L NC O2 saturation at 92 % we will continue with encoura ging IS and continue with PT, the plan is to get her to [facility] hopefully soon if not today will be on Tuesday REVIEW OF SYSTEMS Constitutional: No fever, no chills, no night sweats. No weight change. Reports weakness, Reports fatigue or lethargy. No daytime sleepiness. HEENT: No headache. No blurred vision or double vision, no loss of vision. hard of Hearing, no ringing in the ears, no dizziness. No nasal drainage or congestion. No epistaxis. No sore throat. Lungs: No shortness of breath, cough, no sputum production. No wheezing. Cardiovascular: No chest pain, no lower extremity edema. No palpitations. No paroxysmal nocturnal dyspnea. No orthopnea. No lightheadedness or dizziness. No syncopal episodes. Abdominal: No abdominal pain. No nausea, vomiting. No diarrhea. No constipation, positive for black tarry stool, positive for poor appetite. Genitourinary: No dysuria, increased frequency, urgency. No urinary retention. Musculoskeletal: No myalgias. Reports muscle weakness, Reports gait dysfunction, no frequent falls. No back pain. No neck pain. Integumentary: No wounds, no lesions. No rash or pruritus. No unusual bruisin g. No change in hair or nails. Neurologic: No aphasia. No facial droop. No change in mentation. No head injury. No headache. No paralysis. No paresthesia. Psychiatric: No depression. No anxiety. No mood swings. Endocrine: No abnormal blood sugars. PHYSICAL EXAMINATION Gen: This is an 85-year-old female who is laying down in bed appears to be generally weak. HEENT: Head is atraumatic, normocephalic. Pupils equal, round, conjunctivae were pale, mucus brain and muscle somewhat dry, sclera nonicteric, extraocular muscle motor intact. NECK: Supple. No JVD. No lymphadenopathy. No thyromegaly. LUNGS: decrease breath sound at bases, few rhonchi, no expiratory wheezes, no chest wall tenderness, no intercostal retractions. HEART : First heart sound is depressed, second heart sound is normal, there is 2/6 systolic ejection murmur at the left sternal border. No S3, no S4. ABDOMEN: Soft, nontender, nondistended, positive bowel sounds, no hepatomegaly, no rebound or guarding. EXTREMITIES: No pedal edema. No calf tenderness. Dorsalis pedis +2 bilaterally. NEUROLOGICAL: Patient is awake, alert and oriented x3. Cranial nerves 2 through 12 are grossly intact, muscle power 5 out of 5 in upper and lower extremities bilaterally ASSESSMENT AND PLAN 1. Upper GI bleed status post EGD and colonoscopy. EGD showed arteriovenous confirmation the body of the stomach that they're not bleeding at the time of evaluation, underwent argon treatment, colonoscopy did show evidence of sigmoid diverticulosis. No more obvious GI bleed at this point in time, we'll continue to monitor the patient very closely. 2. Acute inferior wall injury pattern with reciprocal changes suggestive of AK. Continue patient on atorvastatin 40 mg orally once every day, continue Toprol- XL 25 minute gram orally once every day, continue the patient off aspirin. Cardiology is following. 3. acute on chronic hypoxemic respiratory failure due to underlying COPD with significant anemia. Continue patient on Symbicort, continue patient on oxygen, keep her saturation greater than 93%,continue patient on DuoNeb, monitor the patient very closely. chest x-ray showed COPD with left-sided pleural effusion. 4. Acute blood loss anemia due to upper GI bleed. status post blood transfusion. Hemoglobin greater than 8. 5. History of coronary artery disease with previous PCI to the RCA 2017. Maintain the patient on metoprolol 25 mg orally 3 times every day, keep her off aspirin, continue atorvastatin 40 mg once every day. 6. Hypertension and hypertensive cardiovascular disease. continue patient on metoprolol 25 mg orally 3 times every day 7. Acute kidney injury secondary to hypotension and acute tubular necrosis due to GI bleed. 8 Hyperlipidemia. Continue patient on atorvastatin 40 mg once every day. 9. Hypothyroidism. Continue levothyroxine 100 g daily. 10. 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 off coumadin 11. Vascular dementia. Continue Aricept 10 mg daily. 13. History of CVA.we will continue patient on atorvastatin 40 mg once every day, off aspirin and Coumadin due to GI bleed. 14. Carotid artery disease status post endarterectomy. 15. Gastroesophageal reflux disease. Continue Protonix 40 mg orally once every day. 16. DVT prophylaxis. We will try to restart Coumadin tonight. 17. COVID-19 testing negative. Patient has been hospitalized during a pandemic. 18. Guarded prognosis. 19. Physical therapy evaluation social services specialist consultation for subacute rehabilitation. 20. Likely [facility] on the [place] either today or Tuesday Objective - Vital Signs Vital signs: Vital Signs Temp 97.5 F L 08/01/21 03:46 Pulse 58 L 08/01/21 08:38 Resp 18 08/01/21 03:46 BP 126/70 08/01/21 03:46 Pulse Ox 90 L 08/01/21 08:24 Intake & Output 07/31/21 08/01/21 08/01/21 18:59 06:59 18:59 Intake Total 840 240 Balance 840 240 Weight 88 kg 87.5 kg Intake: Oral 840 240 Other: Voiding Method Diaper Diaper Incontinent Incontinent # Voids 2 3 # Bowel Movements 1 1 - Labs CBC & Chem 7: 07/31/21 06:43 07/31/21 06:43
[2021-08-01 10:40] VITALS: RESP 16; TEMP 97.6
--- NOTE | 2021-08-01 10:42 | P.DS ---
Providers Date of admission: 07/21/21 14:56 Expected date of discharge: 08/01/21 Attending physician: Melani Bertrand Consults: 07/21/21 14:54 Consult Physician Urgent Consulting Provider: Eliane Ruano Consult Reason/Comments: GI bleed Do you want consulting provider notified?: Yes 07/22/21 08:25 Consult Physician Routine Consulting Provider: Fritz He Consult Reason/Comments: elevated trops, no CP, SKaf pt Do you want consulting provider notified?: Yes 07/25/21 09:28 Consult Physician Stat Consulting Provider: Shirley Esteban Consult Reason/Comments: EKG changes/FL Do you want consulting provider notified?: Yes 07/25/21 09:54 Consult Physician Stat Consulting Provider: Sergio Ortiz Consult Reason/Comments: GI bleed/Hypotension/FL Do you want consulting provider notified?: Yes Primary care physician: Melani Bertrand Hospital Course: HISTORY OF PRESENT ILLNESS This is an 84-year-old female patient of Dr. Bertrand and Dr. 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, remote history of tobacco use and dependence, patient was seen in my office as her day with generalized weakness and increased dizziness and hypotension with not able to do anything, associated with increased shortness breath, she was requiring about 3-4 L cannula usually she is on 2 L nasal cannula, patient stated that she has been having some dark stool for the last 48 hours, and her appetite was down, patient was sent to the emergency department for evaluation her initial hemoglobin was lower than normal she did drop about 3 g for the prior hemoglobin, and the patient was admitted to the hospital for possible upper GI bleed, patient type and cross and place and hold 2 units of packed red blood cells, she was taken off aspirin and Coumadin she was started on Protonix 40 mg IV push every 12 hours, GI consultation was obtained, patient surprisingly had a troponin that was positive at cardiology consultation was obtained for further evaluation and recommendation. 3/2: Patient denies having any nausea or vomiting. No chest pain. She has not had a bowel movement since she arrived. She has been seen by GI with plan for EGD and colonoscopy for tomorrow. Troponins are elevated at 0.797 and 0.5-0, cardiology consult added. Iron studies have been ordered by GI and patient is continued on protonic 40 mg IV twice daily. Patient has been afebrile, heart rate 80 to 80s, blood pressure 96/58, pulse ox 91% on [address] hemoglobin [address] night was 8.2. Repeat blood work ordered for tomorrow. 33: Patient denies having any abdominal pain, no epigastric tenderness. She denies having any chest pain. EGD and colonoscopy is scheduled for this morning. She underwent prep last night and did have some blood and output is now cleared. Patient continued on Protonix 40 mg IV push twice daily. She was seen yesterday by cardiology with recommendations for no further workup and acute coronary syndrome was ruled out. Patient in follow-up Dr. Sheehan as an outpatient. Laboratory studies from today are pending. 3/4: Patient feels very weak today she can he is to be very pale, it was recommended by GI service to restart Coumadin as the patient EGD did show arteriovenous confirmation that was treated with argon, colonoscopy did show sigmoid diverticulosis without evidence of any neoplasia, hemoglobin was stable at 8.5 today, I will start the patient on 2.5 mg tonight and repeat INR tomorrow morning, monitor the patient's CBC every 24 hours, physical therapy evaluation, patient will likely need to go for subacute rehabilitation. 35: Patient is sitting up in bed extremely pale she appears pasty, significant weakness, she denies any chest pain she does complain of irritative cough, I have ordered a stat chest x-ray on her that showed COPD with left-sided pleural effusion, a stat 12-lead EKG that didn't show evidence of sinus rhythm with what appears to be an ST elevation in the inferior leads especially in lead 3 and aVF with reciprocal changes suggestive of [place], cardiology reconsult, consult pulmonary and critical care for transferred to the intensive care unit as the patient is full code and she is hypotensive and she appears to be bleeding again as her hemoglobin did drop from 8.5-7.5 discontinue Coumadin again and transfer the patient to the ICU, start the patient on IV fluid she will be given normal saline 500 mL bolus IV 1 she'll be given 1 unit of packed red blood cells I've contacted the trauma surgeon and beef contacted cardiology as well. 07/26: Patient was moved to the intensive care unit yesterday because of significant hypotension and minimal ST elevation in the inferior lead with lateral ischemia as well, patient is actively bleeding at this time, and anticoagulation as Indicated, patient was seen in consultation by cardiology we'll continue to monitor the patient very closely she did receive fluid and packed blood cells, keep her hemoglobin greater than 8 at all the time, follow- up with the patient very closely, prognosis continues to be very guarded. 07/27: Patient is laying down in bed she appears to be generally weak today, she continues to have some shortness breath, she is currently on high flow oxygen level liters nasal cannula, she continues to be in intensive care unit, she has been seen by trauma surgeon as well as cardiology, patient does not appear to have any unstable angina or congestive heart failure her urine output has picked up after the Lasix, her creatinine is 1.7, INR is 1.7, no active GI bleed at this point in time, keep the patient as she for another 24 hours. 07/28: Patient is laying down in bed she continues to be in the ICU she is extremely weak, she is in atrial fibrillation with a heart rate of 120, she is requiring 6 L nasal cannula, oxygenation around 91%, she has a very poor appetite, she continues to have a Christianson catheter in place, creatinine continue to be above baseline, physical therapy will see the patient. 07/29: Patient was moved out of the ICU she is currently on telemetry unit, she is feeling a bit better, she continues to be on current treatment plan, physical therapy to evaluate the patient today, reevaluate the patient the next 24 hours, try to cut down on oxygen, follow-up with the patient very closely. 07/30: Patient is doing a bit better today her oxygen level is down to 8 L Nasal cannula, she continues to be somewhat short of breath, she is extremely weak she is currently being seen by physical therapy, and the plan to try to move the patient to subacute rehab rotation in the next 1 or 2 days. 07/31: Patient is laying down in bed in no apparent distress, she is currently on 6 L nasal cannula, her oxygen saturation 93%, she was seen earlier by pulmonary medicine, they signed off on the case, and patient will likely need to be weaned down on her oxygen, eventually goes to subacute rehab additional for the next 24 hours, she usually wears 2 L at home and now she is at 6 L, we can continue the patient in the hospital for another 24 hours hopefully her oxygenation will be down to 3 or 4 L and then she can be transferred to [facility]. 08/01: patient is siting up in bed , very weak with poor appetite not eating much, currently on 5 L NC O2 saturation at 92 % we will continue with encouraging IS and continue with PT, the plan is to get her to [facility] hopefully soon if not today will be on Tuesday Discharge diagnoses: 1. Upper GI bleed status post EGD and colonoscopy. EGD showed arteriovenous confirmation the body of the stomach that they're not bleeding at the time of evaluation, underwent argon treatment, colonoscopy did show evidence of sigmoid diverticulosis. 2. Acute inferior wall injury pattern with reciprocal changes suggestive of [place]. 3. acute on chronic hypoxemic respiratory failure due to underlying COPD with significant anemia. 4. Acute blood loss anemia due to upper GI bleed. 5. History of coronary artery disease with previous PCI to the RCA 2017. 6. Hypertension and hypertensive cardiovascular disease. 7. Acute kidney injury secondary to hypotension and acute tubular necrosis due to GI bleed. 8 Hyperlipidemia. 9. Hypothyroidism. 10. 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 11. Vascular dementia. 13. History of CVA.we will continue patient on atorvastatin 40 mg once every day. 14. Carotid artery disease status post endarterectomy. 15. Gastroesophageal reflux disease. 16. Medical debility. Patient Condition at Discharge: Serious Plan - Discharge Summary New Discharge Prescriptions: No Action Warfarin [Coumadin] 2.5 mg PO HS@2100 Fluticasone/Salmeterol [Advair 250-50 Diskus] 1 puff INHALATION RT-BID Rosuvastatin [Crestor] 20 mg PO MOWEFR@2100 Aspirin [Children's Aspirin] 81 mg PO HS Omeprazole 40 mg PO DAILY Levothyroxine Sodium [Synthroid] 100 mcg PO HS Donepezil [Aricept] 10 mg PO HS Ipratropium-Albuterol Nebulize [Duoneb 0.5 mg-3 mg/3 ml Soln] 3 ml INHALATION RT-QID #120 dose Metoprolol Succinate (ER) [Toprol XL] 25 mg PO HS hydrALAZINE HCL [Apresoline] 25 mg PO BID-W/MEALS Vitamin B Complex 1 cap PO DAILY Multivitamins, Thera [Multivitamin (formulary)] 1 tab PO DAILY Cholecalciferol [Vitamin D3 (125 Mcg = 5000 Iu)] 125 mcg PO DAILY Acetaminophen [Tylenol Arthritis] 650 mg PO Q8H PRN PRN Reason: Pain Nitroglycerin Sl Tabs [Nitrostat] 0.4 mg SUBLINGUAL Q5M PRN PRN Reason: Chest Pain Losartan/Hydrochlorothiazide [Losartan-Hctz 100-12.5 mg Tab] 1 tab PO DAILY Discharge Medication List Aspirin [Children's Aspirin] 81 mg PO HS 02/07/17 [History] Fluticasone/Salmeterol [Advair 250-50 Diskus] 1 puff INHALATION RT-BID 02/07/17 [History] Rosuvastatin [Crestor] 20 mg PO MOWEFR@209902/07/17 [History] Warfarin [Coumadin] 2.5 mg PO HS@209902/07/17 [History] Omeprazole 40 mg PO DAILY 04/30/19 [History] Levothyroxine Sodium [Synthroid] 100 mcg PO HS 03/20/20 [History] Metoprolol Succinate (ER) [Toprol XL] 25 mg PO HS 09/10/20 [History] Donepezil [Aricept] 10 mg PO HS 12/15/20 [History] Multivitamins, Thera [Multivitamin (formulary)] 1 tab PO DAILY 02/19/21 [History] Vitamin B Complex 1 cap PO DAILY 02/19/21 [History] hydrALAZINE HCL [Apresoline] 25 mg PO BID-W/MEALS 02/19/21 [History] Acetaminophen [Tylenol Arthritis] 650 mg PO Q8H PRN 06/03/21 [History] Cholecalciferol [Vitamin D3 (125 Mcg = 5000 Iu)] 125 mcg PO DAILY 06/03/21 [History] Losartan/Hydrochlorothiazide [Losartan-Hctz 100-12.5 mg Tab] 1 tab PO DAILY 06/03/21 [History] Nitroglycerin Sl Tabs [Nitrostat] 0.4 mg SUBLINGUAL Q5M PRN 06/03/21 [History] Ipratropium-Albuterol Nebulize [Duoneb 0.5 mg-3 mg/3 ml Soln] 3 ml INHALATION RT-QID #120 dose 06/08/21 [Rx] Follow up Appointment(s)/Referral(s): Melani Bertrand MD [Primary Care Provider] - 07/31/21 10:30 am Estevan Sheehan MD [STAFF PHYSICIAN] - 2 Weeks (Office will call you with your appointment date and time.) Activity/Diet/Wound Care/Special Instructions: Patient agreeable to BECKA Orozco at d/c.
[2021-08-01 11:15] LABS: Albumin 2.8 g/dL (3.5-5.0); Calcium 10.8 mg/dL (8.4-10.2); Potassium 5.3 mmol/L (3.5-5.1); Total Protein 5.8 g/dL (6.3-8.2)
[2021-08-01 11:22] LABS: Anisocytosis Slight; HCT 32.8 % (34.0-46.0); HGB 9.4 gm/dL (11.4-16.0); Hypochromasia Marked; MCH 26.8 pg (25.0-35.0); MCHC 28.7 g/dL (31.0-37.0); MCV 93.4 fL (80.0-100.0); Mean Platelet Volume 9.7; Platelet Count 307 k/uL (150-450); Poikilocytosis Moderate; RBC 3.51 m/uL (3.80-5.40); RDW 16.9 % (11.5-15.5)
[2021-08-01 12:09] VITALS: BP 126/60; PULSE 60
[2021-08-01 12:50] LABS: Eosinophils # (M) 0.44 k/uL (0-0.7); Lymphocytes # (M) 1.32 k/uL (1.0-4.8); Monocytes # (M) 0.74 k/uL (0-1.0); Myelocytes # (M) 0.15 k/uL (0); Myelocytes % 1 %; Neutrophils # (M) 12.35 k/uL (1.3-7.7); Neutrophils % (M) 84 %; Nucleated Red Blood Cells 2 /100 WBC (0-0); Total Cells Counted 200; WBC 14.7 k/uL (3.8-10.6)
[2021-08-01 12:51] LABS: Crenated RBC Present; Polychromasia Present
--- NOTE | 2021-08-04 07:48 | P.PN ---
Subjective Progress Note Date: 07/22/21 HISTORY OF PRESENT ILLNESS This is an 84-year-old female patient of Dr. Bertrand and Dr. 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, remote history of tobacco use and dependence, patient was seen in my office as her day with generalized weakness and increased dizziness and hypotension with not able to do anything, associated with increased shortness breath, she was requiring about 3-4 L cannula usually she is on 2 L nasal cannula, patient stated that she has been having some dark stool for the last 48 hours, and her appetite was down, patient was sent to the emergency department for evaluation her initial hemoglobin was lower than normal she did drop about 3 g for the prior hemoglobin, and the patient was admitted to the hospital for possible upper GI bleed, patient type and cross and place and hold 2 units of packed red blood cells, she was taken off aspirin and Coumadin she was started on Protonix 40 mg IV push every 12 hours, GI consultation was obtained, patient surprisingly had a troponin that was positive at cardiology consultation was obtained for further evaluation and recommendation. 3/2: Patient denies having any nausea or vomiting. No chest pain. She has not had a bowel movement since she arrived. She has been seen by GI with plan for EGD and colonoscopy for tomorrow. Troponins are elevated at 0.797 and 0.5-0, cardiology consult added. Iron studies have been ordered by GI and patient is continued on protonic 40 mg IV twice daily. Patient has been afebrile, heart rate 80 to 80s, blood pressure 96/58, pulse ox 91% on 2 L. Repeat hemoglobin last night was 8.2. Repeat blood work ordered for tomorrow. Patient has been seen by cardiology for elevated faded troponins and acute coronary syndrome ruled out. Patient in follow up outpatient with Dr. Sheehan. REVIEW OF SYSTEMS Constitutional: No fever, no chills, no night sweats. No weight change. Reports weakness, Reports fatigue or lethargy. No daytime sleepiness. HEENT: No headache. No blurred vision or double vision, no loss of vision. hard of Hearing, no ringing in the ears, no dizziness. No nasal drainage or congestion. No epistaxis. No sore throat. Lungs: No shortness of breath, cough, no sputum production. No wheezing. Cardiovascular: No chest pain, no lower extremity edema. No palpitations. No paroxysmal nocturnal dyspnea. No orthopnea. No lightheadedness or dizziness. No syncopal episodes. Abdominal: No abdominal pain. No nausea, vomiting. No diarrhea. No constipation, positive for black tarry stool and no bowel movement since admission-, positive for poor appetite. Genitourinary: No dysuria, increased frequency, urgency. No urinary retention. Musculoskeletal: No myalgias. Reports muscle weakness, Reports gait dysfunction, no frequent falls. No back pain. No neck pain. Integumentary: No wounds, no lesions. No rash or pruritus. No unusual bruising. No change in hair or nails. Neurologic: No aphasia. No facial droop. No change in mentation. No head injury. No headache. No paralysis. No paresthesia. Psychiatric: No depression. No anxiety. No mood swings. Endocrine: No abnormal blood sugars. ASSESSMENT AND PLAN 1. Upper GI bleed likely , keep the patient on clear liquid diet, start the patient on Protonix 40 mg IV push every 12 hours, GI consultation for EGD and colonoscopy canceled for tomorrow, type and cross and transfuse blood for hem oglobin less than 7 we will continue with serial hemoglobin and hematocrit. 2. Elevated troponin likely related to significant anemia rule out non-ST elevation MO. Patient will be off aspirin for now continue patient on metoprolol, continue patient on statin, cardiology consultation is in order. 3. acute on chronic hypoxemic respiratory failure due to underlying COPD with significant anemia. Continue patient on Symbicort, continue patient on oxygen, keep her saturation greater than 93%,continue patient on DuoNeb, monitor the patient very closely. 4. Acute blood loss anemia due to upper GI bleed. Type and cross and transfuse 2 units of packed red blood cells for hemoglobin less than 7. 5. History of coronary artery disease with previous PCI to the RCA 2017. Patient has been off aspirin, continue with metoprolol ER 25 mg of the time, continue losartan 50 mg orally once every day, discontinue hydralazine for now. 6. Hypertension and hypertensive cardiovascular disease. Continue patient on Toprol-XL 25 mg orally once every day, continue losartan 50 mg once every day discontinue hydralazine. 7. Hyperlipidemia. Continue patient on atorvastatin 40 mg once every day. 8. Hypothyroidism. Continue levothyroxine 100 g daily. 9. 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 Hold off coumadin due to GI bleed 10. Vascular dementia. Continue Aricept 10 mg daily. 11. History of CVA.we will continue patient on atorvastatin 40 mg once every day, currently off aspirin and Coumadin due to GI bleed. 12. Carotid artery disease status post endarterectomy. 13. Gastroesophageal reflux disease. Continue Protonix 40 mg IVP every 12 hours. 14. DVT prophylaxis. Patient is currently off anticoagulation completely due to GI bleed. 15. COVID-19 testing negative. Patient has been hospitalized during a pandemic. Impression and plan of care have been directed as dictated by the signing physician. Shari Rodriguez nurse practitioner acting as scribe for signing physician. Objective - Vital Signs Vital signs: Vital Signs Temp 98.2 F 07/22/21 07:03 Pulse 60 07/22/21 07:03 Resp 17 07/22/21 07:03 BP 96/58 07/22/21 07:03 Pulse Ox 91 L 07/22/21 07:03 Intake & Output 07/21/21 07/22/21 07/22/21 18:59 06:59 18:59 Weight 69.853 kg Other: Voiding Method Toilet # Voids 2 - Labs CBC & Chem 7: 08/01/21 10:58 08/01/21 10:58 Labs: Abnormal Lab Results - Last 24 Hours (Table) 07/21/21 07/21/21 07/21/21 Range/Units 13:56 13:56 13:56 WBC 11.8 H (3.8-10.6) k/uL RBC 3.03 L (3.80-5.40) m/uL Hgb 8.4 L D (11.4-16.0) gm/dL Hct 27.4 L (34.0-46.0) % MCHC 30.8 L (31.0-37.0) g/dL RDW 15.6 H (11.5-15.5) % Neutrophils # (Manual) 8.80 H (1.3-7.7) k/uL Nucleated RBCs 1 H (0-0) /100 WBC PT 15.6 H (9.0-12.0) sec INR 1.5 H (<1.2) Sodium 136 L (137-145) mmol/L BUN 23 H (7-17) mg/dL Creatinine 1.29 H (0.52-1.04) mg/dL AST 53 H (14-36) U/L ALT 45 H (4-34) U/L Troponin I (0.000-0.034) ng/mL Total Protein 6.1 L (6.3-8.2) g/dL Albumin 3.3 L (3.5-5.0) g/dL TSH 0.141 L (0.465-4.680) mIU/L Free T4 2.22 H (0.78-2.19) ng/dL Urine Protein (Negative) Ur Leukocyte Esterase (Negative) Urine WBC (0-5) /hpf Urine Bacteria (None) /hpf Urine Mucus (None) /hpf 07/21/21 07/21/21 07/21/21 Range/Units 13:56 21:25 21:45 WBC (3.8-10.6) k/uL RBC 2.93 L (3.80-5.40) m/uL Hgb 8.2 L (11.4-16.0) gm/dL Hct 26.8 L (34.0-46.0) % MCHC 30.5 L (31.0-37.0) g/dL RDW (11.5-15.5) % Neutrophils # (Manual) (1.3-7.7) k/uL Nucleated RBCs (0-0) /100 WBC PT (9.0-12.0) sec INR (<1.2) Sodium (137-145) mmol/L BUN (7-17) mg/dL Creatinine (0.52-1.04) mg/dL AST (14-36) U/L ALT (4-34) U/L Troponin I 0.797 H* (0.000-0.034) ng/mL Total Protein (6.3-8.2) g/dL Albumin (3.5-5.0) g/dL TSH (0.465-4.680) mIU/L Free T4 (0.78-2.19) ng/dL Urine Protein Trace H (Negative) Ur Leukocyte Esterase Moderate H (Negative) Urine WBC 12 H (0-5) /hpf Urine Bacteria Rare H (None) /hpf Urine Mucus Rare H (None) /hpf 07/21/21 Range/Units 23:45 WBC (3.8-10.6) k/uL RBC (3.80-5.40) m/uL Hgb (11.4-16.0) gm/dL Hct (34.0-46.0) % MCHC (31.0-37.0) g/dL RDW (11.5-15.5) % Neutrophils # (Manual) (1.3-7.7) k/uL Nucleated RBCs (0-0) /100 WBC PT (9.0-12.0) sec INR (<1.2) Sodium (137-145) mmol/L BUN (7-17) mg/dL Creatinine (0.52-1.04) mg/dL AST (14-36) U/L ALT (4-34) U/L Troponin I 0.520 H* (0.000-0.034) ng/mL Total Protein (6.3-8.2) g/dL Albumin (3.5-5.0) g/dL TSH (0.465-4.680) mIU/L Free T4 (0.78-2.19) ng/dL Urine Protein (Negative) Ur Leukocyte Esterase (Negative) Urine WBC (0-5) /hpf Urine Bacteria (None) /hpf Urine Mucus (None) /hpf Microbiology - Last 24 Hours (Table) 07/21/21 21:45 Urine Culture - Preliminary Urine,Voided
--- NOTE | 2021-08-04 07:50 | P.PN ---
Subjective Progress Note Date: 07/23/21 HISTORY OF PRESENT ILLNESS This is an 84-year-old female patient of Dr. Bertrand and Dr. 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, remote history of tobacco use and dependence, patient was seen in my office as her day with generalized weakness and increased dizziness and hypotension with not able to do anything, associated with increased shortness breath, she was requiring about 3-4 L cannula usually she is on 2 L nasal cannula, patient stated that she has been having some dark stool for the last 48 hours, and her appetite was down, patient was sent to the emergency department for evaluation her initial hemoglobin was lower than normal she did drop about 3 g for the prior hemoglobin, and the patient was admitted to the hospital for possible upper GI bleed, patient type and cross and place and hold 2 units of packed red blood cells, she was taken off aspirin and Coumadin she was started on Protonix 40 mg IV push every 12 hours, GI consultation was obtained, patient surprisingly had a troponin that was positive at cardiology consultation was obtained for further evaluation and recommendation. 3/2: Patient denies having any nausea or vomiting. No chest pain. She has not had a bowel movement since she arrived. She has been seen by GI with plan for EGD and colonoscopy for tomorrow. Troponins are elevated at 0.797 and 0.5-0, cardiology consult added. Iron studies have been ordered by GI and patient is continued on protonic 40 mg IV twice daily. Patient has been afebrile, heart rate 80 to 80s, blood pressure 96/58, pulse ox 91% on 2 L. Repeat hemoglobin last night was 8.2. Repeat blood work ordered for tomorrow. Patient has been seen by cardiology for elevated faded troponins and acute coronary syndrome ruled out. Patient in follow up outpatient with Dr. Sheehan. 3/3: Patient denies having any abdominal pain, no epigastric tenderness. She denies having any chest pain. EGD and colonoscopy is scheduled for this morning. She underwent prep last night and did have some blood and output is now cleared. Patient continued on Protonix 40 mg IV push twice daily. She was seen yesterday by cardiology with recommendations for no further workup and acute coronary syndrome was ruled out. Patient in follow-up Dr. Sheehan as an outpatient. Laboratory studies from today are pending. REVIEW OF SYSTEMS Constitutional: No fever, no chills, no night sweats. No weight change. Reports weakness, Reports fatigue or lethargy. No daytime sleepiness. HEENT: No headache. No blurred vision or double vision, no loss of vision. hard of Hearing, no ringing in the ears, no dizziness. No nasal drainage or congestion. No epistaxis. No sore throat. Lungs: No shortness of breath, cough, no sputum production. No wheezing. Cardiovascular: No chest pain, no lower extremity edema. No palpitations. No paroxysmal nocturnal dyspnea. No orthopnea. No lightheadedness or dizziness. No syncopal episodes. Abdominal: No abdominal pain. No nausea, vomiting. No diarrhea. No constipation, positive for black tarry stool and no bowel movement since admission-, positive for poor appetite. Genitourinary: No dysuria, increased frequency, urgency. No urinary retention. Musculoskeletal: No myalgias. Reports muscle weakness, Reports gait dysfunction, no frequent falls. No back pain. No neck pain. Integumentary: No wounds, no lesions. No rash or pruritus. No unusual bruising. No change in hair or nails. Neurologic: No aphasia. No facial droop. No change in mentation. No head injury. No headache. No paralysis. No paresthesia. Psychiatric: No depression. No anxiety. No mood swings. Endocrine: No abnormal blood sugars. ASSESSMENT AND PLAN 1. Upper GI bleed likely , keep the patient on clear liquid diet, start the patient on Protonix 40 mg IV push every 12 hours, GI consultation for EGD and colonoscopy showed for today, type and cross and transfuse blood for hemoglobin less than 7 we will continue with serial hemoglobin and hematocrit. 2. Elevated troponin likely related to significant anemia ruleD out non-ST elevation VT. Patient will be off aspirin for now continue patient on metoprolol, continue patient on statin, cardiology consultation appreciated. 3. acute on chronic hypoxemic respiratory failure due to underlying COPD with significant anemia. Continue patient on Symbicort, continue patient on oxygen, keep her saturation greater than 93%,continue patient on DuoNeb, monitor the patient very closely. 4. Acute blood loss anemia due to upper GI bleed. Type and cross and transfuse 2 units of packed red blood cells for hemoglobin less than 7. 5. History of coronary artery disease with previous PCI to the RCA 2017. Jose Luis kelly has been off aspirin, continue with metoprolol ER 25 mg of the time, continue losartan 50 mg orally once every day, discontinue hydralazine for now. 6. Hypertension and hypertensive cardiovascular disease. Continue patient on Toprol-XL 25 mg orally once every day, continue losartan 50 mg once every day discontinue hydralazine. 7. Hyperlipidemia. Continue patient on atorvastatin 40 mg once every day. 8. Hypothyroidism. Continue levothyroxine 100 g daily. 9. 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 Hold off coumadin due to GI bleed 10. Vascular dementia. Continue Aricept 10 mg daily. 11. History of CVA.we will continue patient on atorvastatin 40 mg once every day, currently off aspirin and Coumadin due to GI bleed. 12. Carotid artery disease status post endarterectomy. 13. Gastroesophageal reflux disease. Continue Protonix 40 mg IVP every 12 hours. 14. DVT prophylaxis. Patient is currently off anticoagulation completely due to GI bleed. 15. COVID-19 testing negative. Patient has been hospitalized during a pandemic. Impression and plan of care have been directed as dictated by the signing physician. Shari Rodriguez nurse practitioner acting as scribe for signing physician. Objective - Vital Signs Vital signs: Vital Signs Temp 98.2 F 07/23/21 07:16 Pulse 74 07/23/21 07:16 Resp 18 07/23/21 07:16 BP 137/56 07/23/21 07:16 Pulse Ox 91 L 07/23/21 07:16 Intake & Output 07/22/21 07/23/21 07/23/21 18:59 06:59 18:59 Other: # Bowel Movements 5 - Labs CBC & Chem 7: 08/01/21 10:58 08/01/21 10:58 Labs: Abnormal Lab Results - Last 24 Hours (Table) 07/22/21 07/22/21 Range/Units 04:46 04:46 Carbon Dioxide 18.9 L (20.0-27.5) mmol/L Est GFR (CKD-EPI)AfAm 57.5 L (60.0-200.0) Est GFR (CKD-EPI)NonAf 49.7 L (60.0-200.0) Iron 9 L (50-170) ug/dL % Saturation 2.52 L (12.00-45.00) Total Protein 5.2 L (6.2-8.2) g/dL Albumin 3.0 L (3.8-4.9) g/dL Albumin/Globulin Ratio 1.35 L (1.60-3.17) g/dL
== END 2021-08-01 13:15 | DRG 377 ==
LOC: EC 11:57 → 4SSUR 14:56 → 2SICU 07-25 14:33 → 3SCARD 07-29 02:13
PROVIDERS: ADMIT Internal Medicine; ATTEND Internal Medicine
PROC: 30233N1 Transfusion of Nonautologous Red Blood Cells into Peripheral Vein, Percutaneous Approach (ICD-10-PCS; 2021-07-23)
PROC: 0W3P8ZZ Control Bleeding in Gastrointestinal Tract, Via Natural or Artificial Opening Endoscopic (ICD-10-PCS; principal; 2021-07-23 13:15)
PROC: 0DJD8ZZ Inspection of Lower Intestinal Tract, Via Natural or Artificial Opening Endoscopic (ICD-10-PCS; 2021-07-23 13:15)
DX: K31.811 Angiodysplasia of stomach and duodenum with bleeding (principal); I21.A1 Myocardial infarction type 2; J96.21 Acute and chronic respiratory failure with hypoxia; N17.0 Acute kidney failure with tubular necrosis; J96.11 Chronic respiratory failure with hypoxia; D68.51 Activated protein C resistance; D62 Acute posthemorrhagic anemia; I48.19 Other persistent atrial fibrillation; J98.11 Atelectasis; J90 Pleural effusion, not elsewhere classified; I10 Essential (primary) hypertension; I25.10 Atherosclerotic heart disease of native coronary artery without angina pectoris; Z79.890 Hormone replacement therapy; F01.50 Vascular dementia, unspecified severity, without behavioral disturbance, psychotic disturbance, mood disturbance, and anxiety; Z20.822 Contact with and (suspected) exposure to COVID-19; Z86.711 Personal history of pulmonary embolism; Z83.3 Family history of diabetes mellitus; K57.30 Diverticulosis of large intestine without perforation or abscess without bleeding; E03.9 Hypothyroidism, unspecified; E78.5 Hyperlipidemia, unspecified; I25.2 Old myocardial infarction; I73.9 Peripheral vascular disease, unspecified; J44.9 Chronic obstructive pulmonary disease, unspecified; K21.9 Gastro-esophageal reflux disease without esophagitis; K29.70 Gastritis, unspecified, without bleeding; Z79.01 Long term (current) use of anticoagulants; Z79.82 Long term (current) use of aspirin; Z79.899 Other long term (current) drug therapy; Z82.3 Family history of stroke; Z82.49 Family history of ischemic heart disease and other diseases of the circulatory system; Z86.718 Personal history of other venous thrombosis and embolism; Z86.73 Personal history of transient ischemic attack (TIA), and cerebral infarction without residual deficits; Z87.891 Personal history of nicotine dependence; Z90.710 Acquired absence of both cervix and uterus; Z95.5 Presence of coronary angioplasty implant and graft; I95.9 Hypotension, unspecified; Z86.79 Personal history of other diseases of the circulatory system
CPT/HCPCS: 36415; 43255; 45378; 71045; 71046; 80048; 80053; 81001; 82550; 82553; 82728; 83540; 83550; 83605; 83735; 84132; 84439; 84443; 84484; 85025; 85027; 85610; 85730; 86850; 86900; 86901; 86920; 87086; 93005; 94640; 94760; 96361; 96374; 99285